=== PATIENT | male | born 1940 | race Asian ===

== ENCOUNTER → 2018-04-12 12:48 | Outpatient (CLI) | payer MEDICARE, SELFPAY ==
--- NOTE | 2018-04-12 | DI.ECHO.S_ITS ---
[facility] +---------+ : : [address] : : : : [id number] : : : : Phone: [phone]+ Echocardiogram Report + + :Name: ASNTIAGO GAMEZ V Study Date: 04/12/2018 Height: 65 in : :[facility] Exam Location: IS Weight: 210 lb : : Gender: Male BSA: 2.0 m2 : :: 1940 Age: 77 yrs BP: 140/90 mmHg: :Reason For Study: Aortic, Ascending Aneurysm : :Ordering Physician: Jamin : :Zurdo Performed By: Amanda Page : + + Interpretation Summary The left ventricle is normal in size. The ejection fraction is estimated to be 60-65%. There has been no significant change in LV EF since the previous study. The right ventricle is grossly normal size. The right ventricular systolic function is normal. There is mild to moderate mitral regurgitation. Compared to the prior echo study, there has been no change in the severity of mitral regurgitation. There is a bioprosthetic aortic valve. The prosthetic aortic valve is well-seated. The peak aortic velocity is 2.34 m/sec. The aortic valve mean gradient is 11.4 mmHg. The peak aortic velocity on the previous exam was 2.68 m/sec. 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 In 04/07/2016 and 11/2014 it was 5.1 cm in diameter. In 05/2011 it was 4.9 cm in diameter). On CT scan maximum diameter was 5.0 cm done in 08/2013. . Procedure: A two-dimensional transthoracic echocardiogram with color flow and Doppler was performed. The study quality was technically adequate. Comparison is made with the echocardiogram of 04/07/2016. The patient was in sinus bradycardia with heart rates between 56-61 bpm during the exam. The patient had a bundle branch block rhythm during the exam. Left Ventricle: The left ventricle is normal in size. Proximal septal thickening is noted. There is no echo evidence for significant left ventricular outflow tract obstruction. There is no thrombus. The ejection fraction is estimated to be 60-65%. There has been no significant change since the previous study. There are no focal wall motion abnormalities. MV E/A: 0.96 Med Peak E' [place]: 3.6 cm/sec E/E' med: 23.0. Right Ventricle: The right ventricle is not well visualized. The right ventricle is grossly normal size. The right ventricular systolic function is normal. Atria: The left atrium is mildly dilated. The left atrium has mildly decreased in size since the prior echo exam. Right atrial size is normal. There is no Doppler evidence for an interatrial shunt. Mitral Valve: The mitral valve leaflets are mildly calcified. There is mild mitral annular calcification. There is mild to moderate mitral regurgitation. Compared to the prior echo study, there has been no change in the severity of mitral regurgitation. Aortic Valve: There is a bioprosthetic aortic valve. The prosthetic aortic valve is well-seated. The peak aortic velocity is 2.34 m/sec. The aortic valve mean gradient is 11.4 mmHg. The peak aortic velocity on the previous exam was 2.68 m/sec. No aortic regurgitation is present. Tricuspid Valve: The tricuspid valve is normal. There is mild tricuspid regurgitation. The right ventricular systolic pressure is estimated at 26 mmHg assuming a right atrial pressure of 3 mm Hg. Pulmonic Valve: The pulmonic valve is not well visualized. There is mild to moderate pulmonic regurgitation. Great Vessels: The aortic root is normal size. 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 The aortic arch could not be visualized. The pulmonary artery is not well visualized, but is probably normal size. The IVC is of normal diameter and collapses greater than 50% with a sniff. This suggests a low right atrial pressure of 3 mm Hg. Pericardium/ Pleura There is no pericardial effusion. There is no pleural effusion. MMode/2D Measurements & Calculations LVIDd: 4.7 cm LVOT diam: 1.9 cm LVIDs: 3.2 cm Ao root diam: 3.6 cm FS: 31.9 % asc Aorta Diam: 5.1 cm EPSS: 1.0 cm IVSd: 1.0 cm LVPWd: 0.94 cm LV santillan. diameter/BSA (cm/m^2): 2.3 LV sys. diameter/BSA (cm/m^2): 1.6 LA A2 area: 25.0 cm2 RA long axis: 4.7 cm LA A4 area: 25.2 cm2 RA area: 16.2 cm2 LA length (vol): 6.7 cm RA vol: 47.4 ml LA vol: 79.8 ml RA : 23.4 ml/m2 LA vol index: 39.5 ml/m2 IVC diam: 1.2 cm RVD1 (basal): 3.9 cm Doppler Measurements & Calculations Ao V2 max: 234.0 cm/sec LVOT Max [place]: 69.2 cm/sec Ao V2 mean: 154.9 cm/sec LV V1 max P.9 mmHg Ao max P.9 mmHg LV V1 VTI: 15.7 cm Ao mean P.4 mmHg MELANIE(I,D): 0.88 cm2 Ao V2 VTI: 48.1 cm MELANIE(V,D): 0.80 cm2 sev ratio: 0.33 MELANIE indexed to BSA (cm^2/m^2): 0.44 MV E max dakota: 83.1 cm/sec TR max dakota: 241.2 cm/sec MV A max dak[place]: 86.8 cm/sec TR max P.3 mmHg MV E/A: 0.96 PA V2 max: 74.2 cm/sec Med Peak E' [place]: 3.6 cm/sec PA V2 mean: 44.0 cm/sec E/E' med: 23.0 PA mean P.94 mmHg Lat Peak E' [place]: 7.9 cm/sec PA Accel Time: 0.12 sec E/E' lat: 10.5 E/e' average: 16.7 MV dec time: 0.18 sec MV P1/2t: 51.5 msec MV P1/2t max dakota: 84.2 cm/sec MVA(P1/2t): 4.3 cm2 Reading Physician:PM
== END ==
PROVIDERS: Family Provider Family Medicine; PCP Family Medicine; Visit Provider Internal Medicine Cardiovascular Disease
DX: I08.1 Rheumatic disorders of both mitral and tricuspid valves (principal); I71.2 Thoracic aortic aneurysm, without rupture; Z95.2 Presence of prosthetic heart valve
CPT/HCPCS: 93306

== ENCOUNTER → 2018-04-26 07:14 | Outpatient (CLI) | payer MEDICARE, SELFPAY ==
[2018-04-26 07:58] LABS: Hematocrit 45.2 % (41-53); Hemoglobin 15.4 g/dL (13.5-17.5); Mean Corpuscular HGB Conc 34.1 % (30-36); Mean Corpuscular Volume 93.8 fL (80-100); Platelet Count 188 X10^3/uL (150-400); Red Blood Cell Count 4.81 X10^6/uL (4.5-5.9); Red Cell Distribution Width 13.3 % (11.6-14.8); White Blood Cell Count 5.1 X10^3/uL (4.5-11.0)
[2018-04-26 08:20] LABS: BUN Creatinine Ratio 17.8 (6-22); Blood Urea Nitrogen 16 mg/dL (9-20); Calcium 9.1 mg/dL (8.4-10.2); Carbon Dioxide 34 mmol/L (22-32); Chloride 99 mmol/L (98-107); Cholesterol 97 mg/dL (140-199); Estimated Glomerular Filt Rate > 60.0 mL/min (>60); Glucose 125 mg/dL (80-110); HDL Cholesterol 45 mg/dL (40-60); HEMOLYSIS < 15 (0-50); LDL Cholesterol Calculated 36 mg/dL (<100); Potassium 4.5 mmol/L (3.4-5.1); Sodium 141 mmol/L (137-145); Triglycerides 82 mg/dL (35-150)
[2018-04-26 09:03] LABS: Hemoglobin A1C% w Est Avg Glu 6.9 % (4.0-6.0)
[2018-04-26 10:26] LABS: Vitamin D 25 Hydroxy (D3) 59.5 ng/mL (30.0-100.0)
== END ==
PROVIDERS: PCP Student in an Organized Health Care Education/Training Program; Visit Provider Student in an Organized Health Care Education/Training Program
DX: E78.00 Pure hypercholesterolemia, unspecified (principal); I10 Essential (primary) hypertension; E55.9 Vitamin D deficiency, unspecified; R35.0 Frequency of micturition; E66.9 Obesity, unspecified; Z95.2 Presence of prosthetic heart valve
CPT/HCPCS: 36415; 80048; 80061; 82306; 83036; 84153; 85027

== ENCOUNTER → 2018-10-11 11:11 | Outpatient (CLI) | payer MEDICARE, SELFPAY ==
[2018-10-11 12:27] LABS: Hemoglobin A1C% w Est Avg Glu 5.7 % (4.0-6.0)
[2018-10-11 13:10] LABS: BUN Creatinine Ratio 17.5 (6-22); Blood Urea Nitrogen 14 mg/dL (9-20); Calcium 9.5 mg/dL (8.4-10.2); Carbon Dioxide 31 mmol/L (22-32); Chloride 94 mmol/L (98-107); Estimated Glomerular Filt Rate > 60.0 mL/min (>60); Glucose 82 mg/dL (80-110); HEMOLYSIS < 15 (0-50); Potassium 4.6 mmol/L (3.4-5.1); Sodium 134 mmol/L (137-145)
== END ==
PROVIDERS: PCP Student in an Organized Health Care Education/Training Program; Visit Provider Student in an Organized Health Care Education/Training Program
DX: E11.9 Type 2 diabetes mellitus without complications (principal)
CPT/HCPCS: 36415; 80048; 83036

== ENCOUNTER → 2018-11-30 16:39 | Outpatient (CLI) | payer MEDICARE, SELFPAY ==
[2018-11-30 18:54] LABS: BUN Creatinine Ratio 22.5 (6-22); Blood Urea Nitrogen 18 mg/dL (9-20); Calcium 9.3 mg/dL (8.4-10.2); Carbon Dioxide 28 mmol/L (22-32); Chloride 101 mmol/L (98-107); Estimated Glomerular Filt Rate > 60.0 mL/min (>60); Glucose 88 mg/dL (80-110); HEMOLYSIS 20 (0-50); Potassium 4.3 mmol/L (3.4-5.1); Sodium 138 mmol/L (137-145)
[2018-11-30 19:25] LABS: Thyroid Stimulating Hormone 1.71 uIU/mL (0.47-4.68)
== END ==
PROVIDERS: PCP Student in an Organized Health Care Education/Training Program; Visit Provider Internal Medicine Cardiovascular Disease
DX: I49.1 Atrial premature depolarization (principal); I10 Essential (primary) hypertension
CPT/HCPCS: 36415; 80048; 83735; 84443

== ENCOUNTER → 2019-05-01 15:43 | Outpatient (CLI) | payer MEDICARE, SELFPAY ==
--- NOTE | 2019-05-01 15:45 | DI.US.S_ITS ---
PROCEDURE: US PERIPH VENOUS LOW EXTREM RT INDICATIONS: RIGHT CALF PAIN, RULE OUT DEEP VEIN THROMBOSIS TECHNIQUE: Real-time imaging, as well as color and pulse Doppler interrogation, were performed of the lower extremity deep veins from the inguinal ligament to the popliteal fossa. COMPARISON: None. FINDINGS: The common femoral, femoral and popliteal veins are normally compressible, and free of intraluminal thrombus. Color and pulse Doppler demonstrate normal phasic intraluminal flow. There is normal augmentation response to distal compression maneuver. IMPRESSION: No visualized deep venous thrombosis. Dictated by: Zoe Candelaria M.D. on 05/01/2019 at 16:40 Approved by: Zoe Candelaria M.D. on 05/01/2019 at 16:40
== END ==
PROVIDERS: PCP Student in an Organized Health Care Education/Training Program; Visit Provider Nurse Practitioner
DX: M79.661 Pain in right lower leg (principal)
CPT/HCPCS: 93971

== ENCOUNTER → 2019-12-15 15:44 | Outpatient (CLI) | payer MEDICARE, SELFPAY ==
[2019-12-15 16:21] LABS: Hemoglobin A1C% w Est Avg Glu 6.4 % (4.0-6.0)
[2019-12-15 16:25] LABS: BUN Creatinine Ratio 18.3 (6-22); Blood Urea Nitrogen 17 mg/dL (9-20); Calcium 9.5 mg/dL (8.4-10.2); Carbon Dioxide 31 mmol/L (22-32); Chloride 98 mmol/L (98-107); Estimated Glomerular Filt Rate > 60.0 mL/min (>60); Glucose 90 mg/dL (80-110); HEMOLYSIS < 15 (0-50); Potassium 5.1 mmol/L (3.4-5.1); Sodium 136 mmol/L (137-145)
[2019-12-15 17:00] LABS: Creatinine Urine Random 88.3 mg/dL
[2019-12-15 17:42] LABS: Microalbumi Creatinin Ratio Ur 6.7 ug/mg CR (<30); Microalbumin Urine Random < 0.6 mg/dL (0-1.6)
== END ==
PROVIDERS: PCP Student in an Organized Health Care Education/Training Program; Referring Provider Student in an Organized Health Care Education/Training Program; Visit Provider Student in an Organized Health Care Education/Training Program
DX: E11.9 Type 2 diabetes mellitus without complications (principal); I10 Essential (primary) hypertension
CPT/HCPCS: 36415; 80048; 82043; 82570; 83036

== ENCOUNTER → 2020-01-03 07:02 | Outpatient (CLI) | payer MEDICARE, SELFPAY ==
[2020-01-03 08:28] LABS: Cholesterol 91 mg/dL (140-199); HDL Cholesterol 51 mg/dL (40-60); LDL Cholesterol Calculated 24 mg/dL (<100); Magnesium 1.9 mg/dL (1.6-2.3); Triglycerides 78 mg/dL (35-150)
[2020-01-03 09:00] LABS: Thyroid Stimulating Hormone 0.924 uIU/mL (0.47-4.68)
== END ==
PROVIDERS: PCP Student in an Organized Health Care Education/Training Program; Referring Provider Internal Medicine Cardiovascular Disease; Visit Provider Internal Medicine Cardiovascular Disease
DX: I10 Essential (primary) hypertension (principal); I48.91 Unspecified atrial fibrillation
CPT/HCPCS: 36415; 80061; 83735; 84443

== ENCOUNTER → 2020-01-16 06:47 | Outpatient (CLI) | payer MEDICARE, SELFPAY ==
--- NOTE | 2020-01-16 07:11 | DI.ECHO.S_ITS ---
Echocardiogram Report + + :Name: SANTIAGO GAMEZ V Study Date: 01/16/2020 Height: 65 in : :[facility] Weight: 202 lb : : Gender: Male BSA: 2.0 m2 : :: 1940 Age: 79 yrs BP: 152/70 mmHg: :Reason For Study: Atrial Fibrillation : :Ordering Physician: LEXIE, : :AYO Performed By: Ayde Davila : :Referring: AYO OWEN : + + Interpretation Summary The patient was in atrial fibrillation with heart rates between 44-60 bpm during the exam (new finding). The left ventricle is normal in size. The ejection fraction is estimated to be 60-65%. The right ventricle is mildly dilated. The right ventricular systolic function is normal. There is moderate to severe mitral regurgitation. Compared to the prior echo study, there has been an increase in the severity of mitral regurgitation. There is a bioprosthetic aortic valve. The prosthetic aortic valve is well-seated. The peak aortic velocity is 2.39 m/sec. The aortic valve mean gradient is 12.5 mmHg. The peak aortic velocity on the previous exam was 2.7 m/sec. There is no hemodynamically significant valvular aortic stenosis. There is mild to moderate tricuspid regurgitation. Compared to the prior echo exam, there has been an increase in TR severity. The right ventricular systolic pressure is estimated to be at least 53 mmHg based on an estimated right atrial pressure of 8 mm Hg. Compared to the prior echo exam, there has been an increase in the severity of pulmonary hypertension. 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 5.1 cm in diameter. In November 2014, March 2016, April 2018 and November 2018, it was 5.1 cm as well. Procedure: A two-dimensional transthoracic echocardiogram with color flow and Doppler was performed. The study quality was technically adequate. Comparison is made with the echocardiogram of 12/01/2018. The patient was in atrial fibrillation with heart rates between 44-60 bpm during the exam. Left Ventricle: The left ventricle is normal in size. Proximal septal thickening is noted. There is no echo evidence for significant left ventricular outflow tract obstruction. There is no thrombus. The ejection fraction is estimated to be 60-65%. There are no focal wall motion abnormalities. Diastolic function could not be accurately assessed due to atrial fibrillation. Right Ventricle: The right ventricle is mildly dilated. The right ventricular systolic function is normal. Atria: The left atrium is severely dilated. The left atrium has significantly increased in size since the prior echo exam. The right atrium is mildly dilated. There is no Doppler evidence for an interatrial shunt. Mitral Valve: The mitral valve leaflets appear mildly thickened, but open well. There is mild to moderate mitral annular calcification. There is moderate to severe mitral regurgitation. Compared to the prior echo study, there has been an increase in the severity of mitral regurgitation. Aortic Valve: There is a bioprosthetic aortic valve. The prosthetic aortic valve is well-seated. The peak aortic velocity is 2.39 m/sec. The aortic valve mean gradient is 12.5 mmHg. The peak aortic velocity on the previous exam was 2.7 m/sec. There is no hemodynamically significant valvular aortic stenosis. There is no aortic regurgitation. Tricuspid Valve: The tricuspid valve is normal. The right ventricular systolic pressure is estimated to be at least 53 mmHg based on an estimated right atrial pressure of 8 mm Hg. There is mild to moderate tricuspid regurgitation. Compared to the prior echo exam, there has been an increase in TR severity. Compared to the prior echo exam, there has been an increase in the severity of pulmonary hypertension. Pulmonic Valve: The pulmonic valve is not well seen, but is grossly normal. There is mild to moderate pulmonic regurgitation. Great Vessels: The aortic root is not well visualized. 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 The IVC is dilated (diameter is greater than 2.1 cm) yet it collapses greater than 50% with a sniff. This suggests a right atrial pressure of 8 mm Hg. Pericardium/ Pleura There is no pericardial effusion. There is no pleural effusion. MMode/2D Measurements & Calculations LVIDd: 5.1 cm LVOT diam: 2.0 cm LVIDs: 3.2 cm asc Aorta Diam: 5.1 cm FS: 37.4 % EPSS: 0.96 cm IVSd: 1.1 cm LVPWd: 0.95 cm LV santillan. diameter/BSA (cm/m^2): 2.5 LV sys. diameter/BSA (cm/m^2): 1.6 LA A2 area: 33.0 cm2 RA long axis: 5.7 cm LA A4 area: 26.9 cm2 RA area: 21.1 cm2 LA length (vol): 6.3 cm RA vol: 66.8 ml LA vol: 120.5 ml RA : 33.6 ml/m2 LA vol index: 60.6 ml/m2 IVC diam: 2.4 cm RVD1 (basal): 4.3 cm TAPSE: 2.4 cm Doppler Measurements & Calculations Ao V2 max: 239.9 cm/sec LVOT Max [place]: 68.8 cm/sec Ao V2 mean: 164.5 cm/sec LV V1 max P.9 mmHg Ao max P.1 mmHg LV V1 VTI: 17.7 cm Ao mean P.5 mmHg MELANIE(I,D): 0.91 cm2 Ao V2 VTI: 59.8 cm MELANIE(V,D): 0.88 cm2 sev ratio: 0.30 MELANIE indexed to BSA (cm^2/m^2): 0.46 MV E max dak[place]: 136.6 cm/sec TR max dakota: 336.4 cm/sec Med Peak E' [place]: 5.4 cm/sec TR max P.3 mmHg E/E' med: 25.1 PA V2 max: 88.9 cm/sec Lat Peak E' [place]: 8.6 cm/sec PA V2 mean: 50.4 cm/sec E/E' lat: 16.0 PA mean P.3 mmHg E/e' average: 20.5 PA pr(Accel): 44.7 mmHg MV dec time: 0.20 sec MR ERO: 0.22 cm2 MR PISA: 3.1 cm2 SV(LVOT): 54.2 ml MR flow rate: 124.9 cm3/sec MR PISA radius: 0.71 cm Reading Physician:04:52 PM
== END ==
PROVIDERS: PCP Student in an Organized Health Care Education/Training Program; Referring Provider Internal Medicine Cardiovascular Disease; Visit Provider Internal Medicine Cardiovascular Disease
DX: I08.1 Rheumatic disorders of both mitral and tricuspid valves (principal); I77.89 Other specified disorders of arteries and arterioles; I48.91 Unspecified atrial fibrillation; Z95.2 Presence of prosthetic heart valve
CPT/HCPCS: 93306

== ENCOUNTER → 2020-01-23 09:53 | Outpatient (CLI) | payer MEDICARE, SELFPAY ==
--- NOTE | 2020-01-23 11:24 | DIET.PN ---
DIABETES Nutrition Initial Assessment:? ASSESS:?? Mr. Lainez is an 79 yom seen for type 2 diabetes. He reports he was diagnosed in 2018, but has maintained good control through diet, exercise, and low dose metformin. He is primarily concerned with his inability to lose weight. His joins him today to provide food history. They follow a primarily healthy diet, but it is high in carbohydrates. She reports frequent snacking and overeating at parties. They both admit to weight gain during the pandemic, but are now back to their previous exercise routine and are working to lose weight. ?He does not currently monitor his BG, but agrees to purchase a glucometer to check a few times a week. LABS: Per pt report:? A1c: 6.4 ? MEDS:?? metformin 500mg BID ? DIET: Per 24-hour recall:? B: steal cut oats (1/2 cup), almond milk, nuts, blueberries, whole banana; whole avocado L: vegetable soup w/ ground turkey (homemade mixed vegetable); sandwich on multigrain D: cereal Sn: yogurt ? Weight: 201# Height: 66? BMI: 32.5 ? Exercise:? Fitness center- 1 hr, 3x/wk NUTRITION DX 1. Altered Nutrition related labs related to impaired glucose metabolism, lack of previous exposure to accurate nutrition information as evidenced by pt report, dx of diabetes, previous diet high in refined carbohydrates.? INTERVENTION(s): 1. Discussed pathophysiology of diabetes. Reviewed A1c and its correlation to blood glucose numbers. Discussed recommended BG ranges. 2. Discussed importance of self-monitoring, how often, and when to check. Provided demonstration on use of glucometer. 3. Reviewed hyper/hypoglycemia and treatment. 4. Reviewed safe disposal of equipment (strip/lancets/insulin needles). 5. Discussed impact of nutrition/diet on blood sugar control.? Discussed fed versus non-fed state.?? 6. Discussed the effect of carbohydrates/protein/fat on blood sugar control.? Stressed importance of consistent carbohydrate intake at each meal and provided instructions for recommended servings/portions of carbohydrates/protein per meal. Provided pt with educational material. 7. Reviewed carbohydrate counting and measuring carbohydrate content via serving sizes and reading nutrition labels.? Provided handouts.?? 8. Discussed the difference between simple versus complex carbohydrates and the effect of fiber on blood sugar control.? Discussed various methods to increase fiber content in diet. 9. Stressed importance of meal timing and not going >4-5 hours between meals. Encouraged adding protein to each meal to support glucose control. Provided list of protein foods. Discussed best protein options for heart health and to alleviate hunger. Patient agreeable. 10. Discussed healthy weight loss through diet and exercise to increase lean muscle mass.? Pt agreeable to increase exercise to daily. MONITOR/EVALUATE: Anticipate good compliance.?Pt will call for nutrition follow up to review BG, weight, food record and discuss protein/fat.
== END ==
PROVIDERS: PCP Student in an Organized Health Care Education/Training Program; Referring Provider Student in an Organized Health Care Education/Training Program; Visit Provider Student in an Organized Health Care Education/Training Program
DX: E11.9 Type 2 diabetes mellitus without complications (principal); E66.9 Obesity, unspecified; Z68.32 Body mass index [BMI] 32.0-32.9, adult; Z79.84 Long term (current) use of oral hypoglycemic drugs; Z71.3 Dietary counseling and surveillance
CPT/HCPCS: 97802

== ENCOUNTER 2020-06-08 11:48 | Emergency (ER) | payer MEDICARE, SELFPAY ==
[2020-06-08 11:50] VITALS: BP 169/74; PULSE 73; RESP 22; TEMP 36.6; O2SAT 99; BMI 32.5
--- NOTE | 2020-06-08 12:57 | DI.US.S_ITS ---
PROCEDURE: US ARTERIAL DUPLEX LE RT INDICATIONS: r/o pseudo aneurysm after procedure TECHNIQUE: Color and pulse Doppler interrogation was performed of the right groin arterial system, with image documentation. COMPARISON: None. FINDINGS: No pseudoaneurysm or AV fistula identified. Common femoral and profunda and proximal SFA are patent. Mildly prominent right inguinal lymph node with fatty hilum. IMPRESSION: No evidence of complication related to recent endovascular procedure. Comment: Preliminary findings were reported by the gallery or museum curator to the referring provider at the time of study completion. Dictated by: Alberto Sequeira M.D. on 06/08/2020 at 15:45 Approved by: Alberto Sequeira M.D. on 06/08/2020 at 15:47
--- NOTE | 2020-06-08 13:11 | ED_ITS ---
HPI - Wound/Laceration General Chief Complaint: Wound/Laceration Stated Complaint: Bleeding From Pace Maker Procedure Time Seen by Provider: 06/08/20 12:25 Source: patient and family Mode of arrival: Ambulatory Limitations: no limitations History of Present Illness HPI narrative: Patient is a 79-year-old male who had a pacemaker placed 4 days ago through the right groin. He is on Eliquis. and he states that he continues to bleed and ooze they are changing the dressing every hour or 2 and have been for the last 4 days. It does not seem to be slowing. Onset (ago): day(s) Related Data Home Medications Medication Instructions Recorded Confirmed DIPHENHYDRAMINE CITRATE/IBUP 200 mg PO PRN #0 07/29/12 02/16/20 (ADVIL PM) [MULTIVITAMIN] PO QDAY #0 07/29/12 02/16/20 [VITAMIN D-3] 2,000 unit PO QDAY #0 07/29/12 02/16/20 [GLUCOSAMINE/MSM] 3,000 mg PO QDAY #0 04/22/17 02/16/20 [ginkgo biloba] 1 tab PO QDAY #0 08/04/17 02/16/20 aspirin 81 mg tablet,delayed 81 mg PO DAILY 02/11/19 02/16/20 release Previous Rx's Medication Instructions Recorded allopurinol 100 mg tablet 100 mg PO QDAY #90 tab 05/24/19 losartan 25 mg tablet 25 mg PO QDAY #90 tab 12/15/19 metoprolol succinate 50 mg 25 mg PO DAILY #45 tab 12/15/19 tablet,extended release 24 hr apixaban 5 mg tablet 5 mg PO BID #30 tab 01/02/20 atorvastatin 40 mg tablet 40 mg PO DAILY #90 tab 04/30/20 metformin 500 mg tablet 1,000 mg PO BID #360 tab 05/07/20 Allergies Allergy/AdvReac Type Severity Reaction Status Date / Time latex Allergy Mild SWOLLEN Verified 06/08/20 11:57 FINGERS Sulfa (Sulfonamide Allergy Mild SWOLLEN Verified 06/08/20 11:57 Antibiotics) FINGERS lisinopril AdvReac Intermediate SWELLING Verified 06/08/20 11:57 hydrochlorothiazide AdvReac Mild SWELLING Verified 06/08/20 11:57 Review of Systems Review of Systems Narrative: GENERAL: Denies chills,fever HEENT: Denies throat pain RESPIRATORY: Denies dyspnea, cough, wheezing CARDIOVASCULAR: Denies chest pain, palpitations GASTROINTESTINAL: Denies nausea, vomiting MUSCULOSKELETAL: Denies extremity pain, injury SKIN: See HPI NEUROLOGIC: Denies weakness, dizziness, headache, numbness 8 point review of systems is negative except for those stated above and HPI Patient History Medical History (Updated 06/08/20 @ 14:19 by Martha Daily DO) Aortic stenosis Ascending aortic aneurysm Cataracts, bilateral (~2015) Chickenpox Colon polyps (01/2004) Coronary artery disease Gout Hx of varicose veins Hyperlipidemia Hypertension Measles Mumps Onychomycosis Osteoarthritis Sleep apnea Upper GI bleed Surgical History Hx of aortic valve replacement (12/2009) Hx of cataract surgery (09/2015) Hx of colonoscopy with polypectomy (01/2004) Hx of coronary artery bypass graft Hx of knee surgery (2003) Hx of total knee arthroplasty (01/2013) Hx of varicose vein stripping (1974) Family History Brother No problems noted. Father Diabetes mellitus Heart disease Mother No problems noted. Social History Smoking Status: Never smoker alcohol intake: never substance use type: does not use Smoking Status: Never smoker Substance Use Type: does not use Exam Initial Vital Signs Initial Vital Signs: Vital Signs Temperature 97.8 F 06/08/20 11:50 Pulse Rate 73 06/08/20 11:50 Respiratory Rate 22 06/08/20 11:50 Blood Pressure 169/74 H 06/08/20 11:50 Pulse Oximetry 99 06/08/20 11:50 GENERAL: Alert pleasant elderly male and in no acute distress. HEENT: Head atraumatic,EOMI, pupils reactive, face symmetric, moist mucous membranes CARDIOVASCULAR: Peripheral pulses intact RESPIRATORY: Speaks in full sentences no respiratory distress ABDOMEN: Soft, nontender. Normoactive bowel sounds all 4 quadrants. No guarding or rebound. EXTREMITIES: Normal range of motion, no clubbing or edema. Neurovascularly intact NEUROLOGICAL: Alert and oriented x4.Normal gait and speech. SKIN: Right groin contusion small incision site wheezing not pulsating strong femoral pulse intact Course Orders Ordered: ED Orders 06/08/20 12:57 US arterial duplex LE RT Stat Vital Signs Vital signs: Vital Signs - 8 hr 06/08/20 11:50 06/08/20 14:03 06/08/20 14:30 Temperature 97.8 F Pulse Rate 73 68 61 Respiratory Rate 22 20 18 Blood Pressure 169/74 H 149/71 H 147/67 H Pulse Oximetry 99 100 100 MDM - Wound/Laceration Imaging Data US - DVT: Radiologist's Impression: IMPRESSION: No evidence of complication related to recent endovascular procedure. Comment: Preliminary findings were reported by the movement assembler to the referring provider at the time of study completion. Dictated by: Alberto Sequeira M.D. on 06/08/2020 at 15:45 Approved by: Alberto Sequeira M.D. on 06/08/2020 at 15:47 [facility] Narrative Medical decision making narrative: Steri-Strips is placed. An actually after holding pressure there is no further using while laying down. No evidence of pseudoaneurysm on ultrasound. Discharge Plan Departure Patient Disposition: Home Clinical Impression: Skin wound from surgical incision Instructions: DI for Puncture Wound Activity Restrictions/Additional Instructions: *You have been diagnosed with incisional wound from procedure *What to do: At this time keep Steri-Strips until it falls off. If it falls off today or tomorrow reapply. Apply pressure for 30-45 minute. *Continue to take medications as directed *Follow up with your primary care provider in 2-3 days *Return to ER if you should have persistent bleeding despite pressure or any new, worsening or concerning symptoms Prescriptions: No Action DIPHENHYDRAMINE CITRATE/IBUP (ADVIL PM) 200 mg PO PRN Qty: 0 RF: 0 [MULTIVITAMIN] PO QDAY Qty: 0 RF: 0 [VITAMIN D-3] 2,000 unit PO QDAY Qty: 0 RF: 0 [GLUCOSAMINE/MSM] 3,000 mg PO QDAY Qty: 0 RF: 0 [ginkgo biloba] 1 tab PO QDAY Qty: 0 RF: 0 allopurinol 100 mg tablet 100 mg PO QDAY Qty: 90 RF: 3 apixaban 5 mg tablet 5 mg PO BID Qty: 30 RF: 0 atorvastatin 40 mg tablet 40 mg PO DAILY Qty: 90 RF: 2 metformin 500 mg tablet 1,000 mg PO BID Qty: 360 RF: 0 aspirin 81 mg tablet,delayed release (DR/EC) 81 mg PO DAILY RF: 0 losartan 25 mg tablet 25 mg PO QDAY Qty: 90 RF: 3 metoprolol succinate 50 mg tablet extended release 24 hr 25 mg PO DAILY Qty: 45 RF: 3 Referrals: Butch Enriquez MD [Primary Care Provider] - Rah Enciso MD [Physician] -
[2020-06-08 14:03] VITALS: BP 149/71; PULSE 68; RESP 20; O2SAT 100
[2020-06-08 14:30] VITALS: BP 147/67; PULSE 61; RESP 18; O2SAT 100
== END 2020-06-08 14:33 | disposition home or self-care (01) ==
PROVIDERS: Emergency Provider Emergency Medicine; PCP Student in an Organized Health Care Education/Training Program
DX: T81.89XA Other complications of procedures, not elsewhere classified, initial encounter (principal); Z95.0 Presence of cardiac pacemaker
CPT/HCPCS: 93926; 99281; 99283

== ENCOUNTER → 2020-06-27 14:49 | Outpatient (CLI) | payer MEDICARE, SELFPAY ==
[2020-06-27 15:54] LABS: Hemoglobin A1C% w Est Avg Glu 6.3 % (4.0-6.0)
== END ==
PROVIDERS: PCP Student in an Organized Health Care Education/Training Program; Referring Provider Student in an Organized Health Care Education/Training Program; Visit Provider Student in an Organized Health Care Education/Training Program
DX: E11.9 Type 2 diabetes mellitus without complications (principal); E66.9 Obesity, unspecified
CPT/HCPCS: 36415; 83036

== ENCOUNTER 2020-12-05 11:15 | Outpatient (RCR) | payer MEDICARE, SELFPAY ==
--- NOTE | 2020-11-20 12:30 | PT.OIE ---
Current Diagnoses Iliotibial band syndrome, left leg (11/20/20) Past Medical History (Last Reviewed 08/15/20 @ 10:03 by Julien Ulloa MD) Aortic stenosis Ascending aortic aneurysm Cataracts, bilateral (~2015) Chickenpox Colon polyps (01/2004) Coronary artery disease Gout Hx of varicose veins Hyperlipidemia Hypertension Measles Mumps Onychomycosis Osteoarthritis Sleep apnea Upper GI bleed Past Surgical History (Last Reviewed 08/15/20 @ 10:03 by Julien Ulloa MD) Hx of aortic valve replacement (12/2009) Hx of cataract surgery (09/2015) Hx of colonoscopy with polypectomy (01/2004) Hx of coronary artery bypass graft Hx of knee surgery (2003) Hx of total knee arthroplasty (01/2013) Hx of varicose vein stripping (1974) Visit Care Team Role Provider Type Butch Enriquez MD Attending Provider Physician Primary Care Provider Referring Provider Specialty: Internal Medicine Address: [address] [place] [address], [address], [facility] Email: [email or web address] Physical Therapy Initial Evaluation PT-OP-A Visit Information Start: 11/20/20 08:08 Freq: Status: Active Protocol: Document 11/20/20 12:02 (Rec: 11/20/20 12:30 [email or web address]) Out-Patient Physical Therapy Visit Information Visit Information Visit Type Initial Evaluation Visit Start Time 11:15 Visit Stop Time 12:00 Total Visit Minutes 45 Visit Number 1/99 Number of PAINTING SUPERVISOR Visits 0 Evaluation Information Evaluation Date 11/20/20 Precautions Precautions DM2 pacemaker HTN PT-OP-B Current Condition Start: 11/20/20 08:08 Freq: Status: Active Protocol: Document 11/20/20 12:02 (Rec: 11/20/20 12:30 [email or web address]) Current Condition History of Current Condition Onset Date 2.5 months ago Current Complaints lateral thigh pain, pain during standing History of Current Condition Joelle Leigh) is a 79yo male here with his for new onset of bilateral thigh pain since 2.5 months ago. No known injury noted. He stated he started having trouble sleeping on his side due pain at lateral knee and lateral thigh. Symptoms tend to get worse with prolonged standing and walking, especially extending his hip fully. It also gets worse towards the end of the day and better in the morning. Pt normally goes to the gym 3 times /week to have a 1hr workout with biking and some upper body strengthening exercises. His stated pt does like to sit a lot at home. Prior Treatments and Tests pt had bilaterak TKA Treatment Goals Patient/Caregiver Goals 1. To reduce his lateral thigh pain Personal Factors Other Personal Factors That May Effect DMII Therapy/Recovery PT-OP-C Subjective Start: 11/20/20 08:08 Freq: Status: Active Protocol: Document 11/20/20 12:02 (Rec: 11/20/20 12:30 [email or web address]) Patient Questionnaires Lower Extremity Functional Scale LEFS Score 51 LEFS Impairment 20 to 39% Impaired (Score 48- 62) OP-PT Pain Assessment Location Bilateral thighs Pain Location Details lateral knee and lateral thighs Scale Used 3-7 Description Aching,Pressure,With Movement Frequency Frequent Pain Aggravating Factors Position,ADL's,Activity, Exercise,Standing Pain Alleviating Factors Inactivity,Lying Supine, Sitting PT-OP-D Balance Start: 11/20/20 08:08 Freq: Status: Active Protocol: Document 11/20/20 12:02 (Rec: 11/20/20 12:30 [email or web address]) Balance Tests Single Limb Standing Single Limb- Right 5 Single Limb- Left 5 PT-OP-F Manual Assessment Start: 11/20/20 08:08 Freq: Status: Active Protocol: Document 11/20/20 12:02 (Rec: 11/20/20 12:30 [email or web address]) Manual Assessments Soft Tissue Assessment Soft Tissue Mobility Assessment significant hypertonicity at distal lateral thigh and lateral knee bilaterally significant hypertonicity at gluteal muscle group PT-OP-G Mobility & Gait Start: 11/20/20 08:08 Freq: Status: Active Protocol: Document 11/20/20 12:02 (Rec: 11/20/20 12:30 [email or web address]) OP Gait Assessment Gait Deviations General Gait Pattern Decreased Stride Length, Decreased Feet Clearance, Lateral Trunk Lean Factors Limiting Gait Function Factors Limiting Gait Function Decreased Activity Tolerance, Limited Range of Motion,Pain, Poor Balance Comments Gait Comments pt amb with increase lateral trunk lean bilaterally with mild knee varus pattern. pt hip extension at preswing only reaches neutral position. PT-OP-J Posture/Palpation/Skin Start: 11/20/20 08:08 Freq: Status: Active Protocol: Document 11/20/20 12:02 (Rec: 11/20/20 12:30 [email or web address]) Posture Evaluation Position Standing Knee Posture (L) Genu Varus,(R) Genu Varus PT-OP-K Range of Motion Start: 11/20/20 08:08 Freq: Status: Active Protocol: Document 11/20/20 12:02 (Rec: 11/20/20 12:30 [email or web address]) Lumbar Spine Range of Motion Lumbar Spine Active Degrees Comments toe touch test= 13 inches from floor, normal spinal curve but limited hip flexion lateral flexion to R= 19 inches from floor lateral flexion to L= 19 inches from floor Hip Goniometric Range of Motion Hip Right Active Hip ROM WFL No Testing Position Supine Straight Leg Raise 40 Extension 0 Left Active Hip ROM WFL No Testing Position Supine Straight Leg Raise 45 Extension 0 PT-OP-L Special Tests Start: 11/20/20 08:08 Freq: Status: Active Protocol: Document 11/20/20 12:02 (Rec: 11/20/20 12:30 [email or web address]) Special Tests Hip Special Tests Jesús Test Results +ve B Comments limited hip flexor flexibility and quad flexibility angelic test Test Results +ve B Comments tight TFL and IT band indicated bilaterally knee flexion rested at 30 degrees FADDIR Test Results +VE B Comments bilateral lateral thigh pain noted. PT-OP-M Strength Start: 11/20/20 08:08 Freq: Status: Active Protocol: Document 11/20/20 12:02 (Rec: 11/20/20 12:30 [email or web address]) Hip Strength Hip Manual Muscle Testing Right Flexion (L2) 4- Good- Extension (S1) 4- Good- Abduction 4- Good- Adduction 4- Good- Left Flexion (L2) 4- Good- Extension (S1) 4- Good- Abduction 4- Good- Adduction 4- Good- Knee Strength Knee Manual Muscle Testing Left Flexion (S2) 5 Normal Extension (L3) 5 Normal Right Flexion (S2) 5 Normal Extension (L3) 5 Normal PT-OP-Q Treatments Start: 11/20/20 08:08 Freq: Status: Active Protocol: Document 11/20/20 12:02 (Rec: 11/20/20 12:30 [email or web address]) Therapeutic Exercises Supine Exercises piriformis stretch Side bilateral Reps/Minutes 15sec x 5reps Comments for hEP PT-OP-T Assessment and Plan Start: 11/20/20 08:08 Freq: Status: Active Protocol: Document 11/20/20 12:02 (Rec: 11/20/20 12:30 [email or web address]) Physical Therapy Assessment Rehab Potential Rehabilitation Potential Excellent Evaluation Complexity Number of Personal Factors/Comorbidities 1-2 Number of Body Systems Impaired 1-2 Clinical Presentation at Evaluation Stable Impairments Impairments Activity Tolerance,Balance, Functional Activities, Functional Mobility,Gait,Pain, Posture,ROM,Soft Tissue Mobility,Strength,Transfers Goals hip mobility Impairment pt shows very limited hip mobility Short Term Goal (STG) pt will show improved hip mobility by increasing ROM on SLR and angelic test by 10 degrees which allows him to bend over for yard work easily STG Duration 4 weeks Real Estate Account Executive Goal (LTG) pt will show improved hip mobility by increasing ROM on SLR and angelic test by 15 degrees which improves his overall gait mechanics with longer stride. LTG Duration 8 weeks pain Impairment pt has pain with prolonged standing and walking Short Term Goal (STG) pt will have pain no more than 2/10 with standing so he can participate his yardwork daily . 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 LTG Duration 8 weeks LEFS Impairment pt scores 51 on LEFS Short Term Goal (STG) pt will score >60 on LEFS to show improved quality of life STG Duration 4 weeks Real Estate Account Executive Goal (LTG) pt will score >65 on LEFS to show improved quality of life LTG Duration 8 weeks Assessment Summary Assessment Joelle Leigh) is a 79 yo male here for his bilateral thigh and knee pain started 2. 5 months ago. Upon assessment, pt presents IT band syndrome who has very limited hip mobility grossly and positive for both Jesús and Angelic test. There's no signs of hip OA but poor flexibility in general which limits his ability to bend over, cross his legs and gait mechanics ( moderate lateral weight shift) Pt will benefit from skilled therapy to emphasize on improving his hip mobility to reduce mechanical stress on his IT pain. Physical Therapy Plan Frequency and Duration Frequency of Treatment 2x/Week Therapeutic Interventions Therapeutic Interventions Balance Training,Gait Training ,Home Exercise Program,Joint Mobilizations,Manual Therapy, Neuromuscular Re-education, Patient/Caregiver Education, Self-Care/Home Management,Soft Tissue Mobilization,Taping, Therapeutic Activities, Therapeutic Exercises Modalities Biofeedback,Cold Pack/Ice Massage,Electric Stimulation, Hot Packs,Infrared Therapy, Iontophoresis,Paraffin Bath, Traction- Mechanical Next Visit Focus/Plan Next Note Type Treatment Note Next Visit Plan pirifromis stretch figure 4 hamstring IT band stretc
--- NOTE | 2020-11-20 12:30 | PT.OPPOC ---
Physical, Occupational & Speech Therapy At [facility] Current Diagnoses Iliotibial band syndrome, left leg (11/20/20) Visit Care Team Role Provider Type Butch Enriquez MD Attending Provider Physician Primary Care Provider Referring Provider Specialty: Internal Medicine Address: [address] [place] [address], [address], [address] Email: [email or web address] Plan Of Care PT-OP-T Assessment and Plan Start: 11/20/20 08:08 Freq: Status: Active Protocol: Document 11/20/20 12:02 (Rec: 11/20/20 12:30 [email or web address]) Physical Therapy Assessment Rehab Potential Rehabilitation Potential Excellent Evaluation Complexity Number of Personal Factors/Comorbidities 1-2 Number of Body Systems Impaired 1-2 Clinical Presentation at Evaluation Stable Impairments Impairments Activity Tolerance,Balance, Functional Activities, Functional Mobility,Gait,Pain, Posture,ROM,Soft Tissue Mobility,Strength,Transfers Goals hip mobility Impairment pt shows very limited hip mobility Short Term Goal (STG) pt will show improved hip mobility by increasing ROM on SLR and angelic test by 10 degrees which allows him to bend over for yard work easily STG Duration 4 weeks Fpc Goal (LTG) pt will show improved hip mobility by increasing ROM on SLR and angelic test by 15 degrees which improves his overall gait mechanics with longer stride. LTG Duration 8 weeks pain Impairment pt has pain with prolonged standing and walking Short Term Goal (STG) pt will have pain no more than 2/10 with standing so he can participate his yardwork daily . 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 LTG Duration 8 weeks LEFS Impairment pt scores 51 on LEFS Short Term Goal (STG) pt will score >60 on LEFS to show improved quality of life STG Duration 4 weeks Fpc Goal (LTG) pt will score >65 on LEFS to show improved quality of life LTG Duration 8 weeks Assessment Summary Assessment Joelle Leigh) is a 79 yo male here for his bilateral thigh and knee pain started 2. 5 months ago. Upon assessment, pt presents IT band syndrome who has very limited hip mobility grossly and positive for both Jesús and Angelic test. There's no signs of hip OA but poor flexibility in general which limits his ability to bend over, cross his legs and gait mechanics ( moderate lateral weight shift) Pt will benefit from skilled therapy to emphasize on improving his hip mobility to reduce mechanical stress on his IT pain. Physical Therapy Plan Frequency and Duration Frequency of Treatment 2x/Week Therapeutic Interventions Therapeutic Interventions Balance Training,Gait Training ,Home Exercise Program,Joint Mobilizations,Manual Therapy, Neuromuscular Re-education, Patient/Caregiver Education, Self-Care/Home Management,Soft Tissue Mobilization,Taping, Therapeutic Activities, Therapeutic Exercises Modalities Biofeedback,Cold Pack/Ice Massage,Electric Stimulation, Hot Packs,Infrared Therapy, Iontophoresis,Paraffin Bath, Traction- Mechanical Next Visit Focus/Plan Next Note Type Treatment Note Next Visit Plan pirifromis stretch figure 4 hamstring IT band stretc Electronically Signed by: Sarmad Rios, PT 11/20/20 [id number] Please Sign and Return: I have reviewed this Plan of Care and certify that the skilled therapy services above are required to meet the patient?s needs. Physician Signature Date Printed Name and Credentials Clinical Instructor Signature Printed Name and Credentials
--- NOTE | 2020-11-22 11:58 | PT.OTN ---
Current Diagnoses Iliotibial band syndrome, left leg (11/22/20) Physical Therapy Treatment Note PT-OP-A Visit Information Start: 11/20/20 08:08 Freq: Status: Active Protocol: Document 11/22/20 11:18 HH (Rec: 11/22/20 11:58 [id number]) Out-Patient Physical Therapy Visit Information Visit Information Visit Type Treatment Note Visit Start Time 11:18 Visit Stop Time 12:00 Total Visit Minutes 42 Visit Number 2/ Number of ECONOMIC DEVELOPER Visits 0 PT-OP-B Current Condition Start: 11/20/20 08:08 Freq: Status: Active Protocol: Document 11/20/20 12:02 HH (Rec: 11/20/20 12:30 [email or web address]) Current Condition History of Current Condition Onset Date 2.5 months ago Current Complaints lateral thigh pain, pain during standing History of Current Condition Joelle Leigh) is a 79yo male here with his for new onset of bilateral thigh pain since 2.5 months ago. No known injury noted. He stated he started having trouble sleeping on his side due pain at lateral knee and lateral thigh. Symptoms tend to get worse with prolonged standing and walking, especially extending his hip fully. It also gets worse towards the end of the day and better in the morning. Pt normally goes to the gym 3 times /week to have a 1hr workout with biking and some upper body strengthening exercises. His stated pt does like to sit a lot at home. Prior Treatments and Tests pt had bilaterak TKA Treatment Goals Patient/Caregiver Goals 1. To reduce his lateral thigh pain Personal Factors Other Personal Factors That May Effect DMII Therapy/Recovery PT-OP-C Subjective Start: 11/20/20 08:08 Freq: Status: Active Protocol: Document 11/22/20 11:18 HH (Rec: 11/22/20 11:58 [id number]) OP-PT Subjective Patient Comments Patient Comments Im feeling pretty good today. Holly been doing my stretches. Patient Reported Progress Improving PT-OP-D Balance Start: 11/20/20 08:08 Freq: Status: Active Protocol: Document 11/20/20 12:02 HH (Rec: 11/20/20 12:30 [email or web address]) Balance Tests Single Limb Standing Single Limb- Right 5 Single Limb- Left 5 PT-OP-F Manual Assessment Start: 11/20/20 08:08 Freq: Status: Active Protocol: Document 11/20/20 12:02 (Rec: 11/20/20 12:30 [email or web address]) Manual Assessments Soft Tissue Assessment Soft Tissue Mobility Assessment significant hypertonicity at distal lateral thigh and lateral knee bilaterally significant hypertonicity at gluteal muscle group PT-OP-G Mobility & Gait Start: 11/20/20 08:08 Freq: Status: Active Protocol: Document 11/20/20 12:02 (Rec: 11/20/20 12:30 [email or web address]) OP Gait Assessment Gait Deviations General Gait Pattern Decreased Stride Length, Decreased Feet Clearance, Lateral Trunk Lean Factors Limiting Gait Function Factors Limiting Gait Function Decreased Activity Tolerance, Limited Range of Motion,Pain, Poor Balance Comments Gait Comments pt amb with increase lateral trunk lean bilaterally with mild knee varus pattern. pt hip extension at preswing only reaches neutral position. PT-OP-J Posture/Palpation/Skin Start: 11/20/20 08:08 Freq: Status: Active Protocol: Document 11/20/20 12:02 (Rec: 11/20/20 12:30 [email or web address]) Posture Evaluation Position Standing Knee Posture (L) Genu Varus,(R) Genu Varus PT-OP-K Range of Motion Start: 11/20/20 08:08 Freq: Status: Active Protocol: Document 11/20/20 12:02 (Rec: 11/20/20 12:30 [email or web address]) Lumbar Spine Range of Motion Lumbar Spine Active Degrees Comments toe touch test= 13 inches from floor, normal spinal curve but limited hip flexion lateral flexion to R= 19 inches from floor lateral flexion to L= 19 inches from floor Hip Goniometric Range of Motion Hip Right Active Hip ROM WFL No Testing Position Supine Straight Leg Raise 40 Extension 0 Left Active Hip ROM WFL No Testing Position Supine Straight Leg Raise 45 Extension 0 PT-OP-L Special Tests Start: 11/20/20 08:08 Freq: Status: Active Protocol: Document 11/20/20 12:02 (Rec: 11/20/20 12:30 [email or web address]) Special Tests Hip Special Tests Jesús Test Results +ve B Comments limited hip flexor flexibility and quad flexibility angelic test Test Results +ve B Comments tight TFL and IT band indicated bilaterally knee flexion rested at 30 degrees FADDIR Test Results +VE B Comments bilateral lateral thigh pain noted. PT-OP-M Strength Start: 11/20/20 08:08 Freq: Status: Active Protocol: Document 11/20/20 12:02 (Rec: 11/20/20 12:30 [email or web address]) Hip Strength Hip Manual Muscle Testing Right Flexion (L2) 4- Good- Extension (S1) 4- Good- Abduction 4- Good- Adduction 4- Good- Left Flexion (L2) 4- Good- Extension (S1) 4- Good- Abduction 4- Good- Adduction 4- Good- Knee Strength Knee Manual Muscle Testing Left Flexion (S2) 5 Normal Extension (L3) 5 Normal Right Flexion (S2) 5 Normal Extension (L3) 5 Normal PT-OP-Q Treatments Start: 11/20/20 08:08 Freq: Status: Active Protocol: Document 11/22/20 11:18 (Rec: 11/22/20 11:58 [id number]) Therapeutic Exercises Supine Exercises hamstrings Side bilateral Reps/Minutes 15 secs x 5reps figure 4 Side bilateral Reps/Minutes 15 sec x 5reps piriformis stretch Side bilateral Reps/Minutes 15sec x 5reps Standing Exercises TFL stretch Standing Exercise Name with lateral trunk flexion Side bilateral Reps/Minutes 10 sec x 5 Manual Therapy Treatment Soft Tissue Mobilization TFL Mobilization Type Myofascial Release,Sustained Pressure,Trigger Point Release Intensity/Depth Moderate Body Position Sidelying hip flexors Mobilization Type Myofascial Release,Sustained Pressure,Trigger Point Release Intensity/Depth Moderate Body Position Supine paraspinals Mobilization Type Myofascial Release,Sustained Pressure,Trigger Point Release Intensity/Depth Moderate Body Position Prone PT-OP-T Assessment and Plan Start: 11/20/20 08:08 Freq: Status: Active Protocol: Document 11/22/20 11:18 (Rec: 11/22/20 11:58 [id number]) Physical Therapy Assessment Goals hip mobility Impairment pt shows very limited hip mobility Short Term Goal (STG) pt will show improved hip mobility by increasing ROM on SLR and angelic test by 10 degrees which allows him to bend over for yard work easily STG Duration 4 weeks Jail Goal (LTG) pt will show improved hip mobility by increasing ROM on SLR and angelic test by 15 degrees which improves his overall gait mechanics with longer stride. LTG Duration 8 weeks pain Impairment pt has pain with prolonged standing and walking Short Term Goal (STG) pt will have pain no more than 2/10 with standing so he can participate his yardwork daily . STG Duration 4weeks Jail Goal (LTG) pt will not have pain with standing so he can participate his yardwork daily and complete riding double. LTG Duration 8 weeks LEFS Impairment pt scores 51 on LEFS Short Term Goal (STG) pt will score >60 on LEFS to show improved quality of life STG Duration 4 weeks System Operation Superintendent Goal (LTG) pt will score >65 on LEFS to show improved quality of life LTG Duration 8 weeks Assessment Summary Assessment Introduced hip stretches to pt and he paula very well. Educated pt to stretch when it has lateral thigh pain. Will review his HEP next visit. Physical Therapy Plan Frequency and Duration Frequency of Treatment 2x/Week Duration of Treatment 8 weeks Plan of Care Start Date 11/20/20 Plan of Care End Date 01/21/21 Therapeutic Interventions Therapeutic Interventions Balance Training,Gait Training ,Home Exercise Program,Joint Mobilizations,Manual Therapy, Neuromuscular Re-education, Patient/Caregiver Education, Self-Care/Home Management,Soft Tissue Mobilization,Taping, Therapeutic Activities, Therapeutic Exercises Modalities Biofeedback,Cold Pack/Ice Massage,Electric Stimulation, Hot Packs,Infrared Therapy, Iontophoresis,Paraffin Bath, Traction- Mechanical Next Visit Focus/Plan Next Note Type Treatment Note Next Visit Plan pirifromis stretch figure 4 hamstring IT band stretc
--- NOTE | 2020-11-25 14:34 | PT.OTN ---
Current Diagnoses Iliotibial band syndrome, left leg (11/25/20) Physical Therapy Treatment Note PT-OP-A Visit Information Start: 11/20/20 08:08 Freq: Status: Active Protocol: Document 11/25/20 13:47 SP (Rec: 11/25/20 14:42 SP [id number]) Out-Patient Physical Therapy Visit Information Visit Information Visit Type Treatment Note Visit Start Time 13:47 Visit Stop Time 14:34 Total Visit Minutes 47 Visit Number 3/99 Number of SALES REPRESENTATIVE HEALTH INSURANCE Visits 1 Evaluation Information Evaluation Date 11/20/20 Precautions Precautions DM2 pacemaker HTN PT-OP-B Current Condition Start: 11/20/20 08:08 Freq: Status: Active Protocol: Document 11/20/20 12:02 HH (Rec: 11/20/20 12:30 HH [email or web address]) Current Condition History of Current Condition Onset Date 2.5 months ago Current Complaints lateral thigh pain, pain during standing History of Current Condition Joelle Leigh) is a 79yo male here with his for new onset of bilateral thigh pain since 2.5 months ago. No known injury noted. He stated he started having trouble sleeping on his side due pain at lateral knee and lateral thigh. Symptoms tend to get worse with prolonged standing and walking, especially extending his hip fully. It also gets worse towards the end of the day and better in the morning. Pt normally goes to the gym 3 times /week to have a 1hr workout with biking and some upper body strengthening exercises. His stated pt does like to sit a lot at home. Prior Treatments and Tests pt had bilaterak TKA Treatment Goals Patient/Caregiver Goals 1. To reduce his lateral thigh pain Personal Factors Other Personal Factors That May Effect DMII Therapy/Recovery PT-OP-C Subjective Start: 11/20/20 08:08 Freq: Status: Active Protocol: Document 11/25/20 13:47 SP (Rec: 11/25/20 14:42 SP [id number]) OP-PT Subjective Patient Comments Patient Comments My neck is hurting due to sitting at wedding and having to turn head to side to much and not good ROM. PT-OP-D Balance Start: 11/20/20 08:08 Freq: Status: Active Protocol: Document 11/20/20 12:02 HH (Rec: 11/20/20 12:30 HH [email or web address]) Balance Tests Single Limb Standing Single Limb- Right 5 Single Limb- Left 5 PT-OP-F Manual Assessment Start: 11/20/20 08:08 Freq: Status: Active Protocol: Document 11/20/20 12:02 (Rec: 11/20/20 12:30 [email or web address]) Manual Assessments Soft Tissue Assessment Soft Tissue Mobility Assessment significant hypertonicity at distal lateral thigh and lateral knee bilaterally significant hypertonicity at gluteal muscle group PT-OP-G Mobility & Gait Start: 11/20/20 08:08 Freq: Status: Active Protocol: Document 11/20/20 12:02 (Rec: 11/20/20 12:30 [email or web address]) OP Gait Assessment Gait Deviations General Gait Pattern Decreased Stride Length, Decreased Feet Clearance, Lateral Trunk Lean Factors Limiting Gait Function Factors Limiting Gait Function Decreased Activity Tolerance, Limited Range of Motion,Pain, Poor Balance Comments Gait Comments pt amb with increase lateral trunk lean bilaterally with mild knee varus pattern. pt hip extension at preswing only reaches neutral position. PT-OP-J Posture/Palpation/Skin Start: 11/20/20 08:08 Freq: Status: Active Protocol: Document 11/20/20 12:02 (Rec: 11/20/20 12:30 [email or web address]) Posture Evaluation Position Standing Knee Posture (L) Genu Varus,(R) Genu Varus PT-OP-K Range of Motion Start: 11/20/20 08:08 Freq: Status: Active Protocol: Document 11/20/20 12:02 (Rec: 11/20/20 12:30 [email or web address]) Lumbar Spine Range of Motion Lumbar Spine Active Degrees Comments toe touch test= 13 inches from floor, normal spinal curve but limited hip flexion lateral flexion to R= 19 inches from floor lateral flexion to L= 19 inches from floor Hip Goniometric Range of Motion Hip Right Active Hip ROM WFL No Testing Position Supine Straight Leg Raise 40 Extension 0 Left Active Hip ROM WFL No Testing Position Supine Straight Leg Raise 45 Extension 0 PT-OP-L Special Tests Start: 11/20/20 08:08 Freq: Status: Active Protocol: Document 11/20/20 12:02 (Rec: 11/20/20 12:30 [email or web address]) Special Tests Hip Special Tests Jesús Test Results +ve B Comments limited hip flexor flexibility and quad flexibility angelic test Test Results +ve B Comments tight TFL and IT band indicated bilaterally knee flexion rested at 30 degrees FADDIR Test Results +VE B Comments bilateral lateral thigh pain noted. PT-OP-M Strength Start: 11/20/20 08:08 Freq: Status: Active Protocol: Document 11/20/20 12:02 HH (Rec: 11/20/20 12:30 HH [email or web address]) Hip Strength Hip Manual Muscle Testing Right Flexion (L2) 4- Good- Extension (S1) 4- Good- Abduction 4- Good- Adduction 4- Good- Left Flexion (L2) 4- Good- Extension (S1) 4- Good- Abduction 4- Good- Adduction 4- Good- Knee Strength Knee Manual Muscle Testing Left Flexion (S2) 5 Normal Extension (L3) 5 Normal Right Flexion (S2) 5 Normal Extension (L3) 5 Normal PT-OP-Q Treatments Start: 11/20/20 08:08 Freq: Status: Active Protocol: Document 11/25/20 13:47 SP (Rec: 11/25/20 14:42 SP [id number]) Therapeutic Exercises Supine Exercises hamstrings Supine Exercise Name opposite knee bent Side bilateral Equipment Used strap support Reps/Minutes 30 x3 Comments cued allow knee extend, relaxed shld good awareness figure 4 Supine Exercise Name Hip ER Side bilateral Reps/Minutes 30 x3 piriformis stretch Supine Exercise Name hip IR Side bilateral Reps/Minutes 30 x3 Sitting Exercises self STMs rolling pin Sitting Exercise Name quad, ITB, HS Side bilateral Reps/Minutes 2 min total Comments good tolerance Standing Exercises Self STMs Standing Exercise Name tennis ball roll glut, paraspinals at wall Side bilateral Reps/Minutes 2 min total Comments good tolerance Manual Therapy Treatment Soft Tissue Mobilization ITB Body Location B Mobilization Type Instrument Assisted,Rolling Intensity/Depth Moderate Body Position Sidelying Comments manual stick rolling, instructed seated. TFL Mobilization Type Myofascial Release,Sustained Pressure,Trigger Point Release Intensity/Depth Moderate Body Position Sidelying hip flexors Mobilization Type Myofascial Release,Sustained Pressure,Trigger Point Release Intensity/Depth Moderate Body Position Supine paraspinals Mobilization Type Myofascial Release,Sustained Pressure,Trigger Point Release Intensity/Depth Moderate Body Position Sidelying PT-OP-T Assessment and Plan Start: 11/20/20 08:08 Freq: Status: Active Protocol: Document 11/25/20 13:47 SP (Rec: 11/25/20 14:42 SP [id number]) Physical Therapy Assessment Goals hip mobility Impairment pt shows very limited hip mobility Short Term Goal (STG) pt will show improved hip mobility by increasing ROM on SLR and angelic test by 10 degrees which allows him to bend over for yard work easily STG Duration 4 weeks Usp Goal (LTG) pt will show improved hip mobility by increasing ROM on SLR and angelic test by 15 degrees which improves his overall gait mechanics with longer stride. LTG Duration 8 weeks pain Impairment pt has pain with prolonged standing and walking Short Term Goal (STG) pt will have pain no more than 2/10 with standing so he can participate his yardwork daily . STG Duration 4weeks Cte Teacher Goal (LTG) pt will not have pain with standing so he can participate his yardwork daily and complete magnetic resonance imaging director. LTG Duration 8 weeks LEFS Impairment pt scores 51 on LEFS Short Term Goal (STG) pt will score >60 on LEFS to show improved quality of life STG Duration 4 weeks Cte Teacher Goal (LTG) pt will score >65 on LEFS to show improved quality of life LTG Duration 8 weeks Assessment Summary Assessment Pt tolerated manual tx and initiated self STMs using rolling pin to quad, ITB, HS and tennis ball back to wall over gluts, paraspinals with good feedback results. Pt required cuing for set up and provided strap for HS stretch with pt stating is much easier to perform than reaching behind thighs. Provided hand outs to recall and view for self carryover. asked how can massage her husbands neck , discussed having him lay down on bed with head at side and her seated in chair to give gentle massge to neck mucles with good understanding to help stiffness from over worked turning at a wedding on Sat. Pt stated his legs felt more loose before left, very helpful today. Physical Therapy Plan Frequency and Duration Frequency of Treatment 2x/Week Duration of Treatment 8 weeks Plan of Care Start Date 11/20/20 Plan of Care End Date 01/21/21 Therapeutic Interventions Therapeutic Interventions Balance Training,Gait Training ,Home Exercise Program,Joint Mobilizations,Manual Therapy, Neuromuscular Re-education, Patient/Caregiver Education, Self-Care/Home Management,Soft Tissue Mobilization,Taping, Therapeutic Activities, Therapeutic Exercises Modalities Biofeedback,Cold Pack/Ice Massage,Electric Stimulation, Hot Packs,Infrared Therapy, Iontophoresis,Paraffin Bath, Traction- Mechanical Next Visit Focus/Plan Next Note Type Treatment Note Next Visit Plan Assess response to manual and instructions self STMs, Stretching HEP last tx. Continue POC: pirifromis stretch figure 4 hamstring Next tx: add IT band stretch
--- NOTE | 2020-11-27 12:01 | PT.OTN ---
Current Diagnoses Iliotibial band syndrome, left leg (11/27/20) Physical Therapy Treatment Note PT-OP-A Visit Information Start: 11/20/20 08:08 Freq: Status: Active Protocol: Document 11/27/20 11:10 HH (Rec: 11/27/20 12:01 [id number]) Out-Patient Physical Therapy Visit Information Visit Information Visit Type Treatment Note Visit Start Time 11:15 Visit Stop Time 11:59 Total Visit Minutes 44 Visit Number 4/ Number of MOTORBOAT OPERATOR Visits 0 PT-OP-B Current Condition Start: 11/20/20 08:08 Freq: Status: Active Protocol: Document 11/20/20 12:02 HH (Rec: 11/20/20 12:30 [email or web address]) Current Condition History of Current Condition Onset Date 2.5 months ago Current Complaints lateral thigh pain, pain during standing History of Current Condition Joelle Leigh) is a 79yo male here with his for new onset of bilateral thigh pain since 2.5 months ago. No known injury noted. He stated he started having trouble sleeping on his side due pain at lateral knee and lateral thigh. Symptoms tend to get worse with prolonged standing and walking, especially extending his hip fully. It also gets worse towards the end of the day and better in the morning. Pt normally goes to the gym 3 times /week to have a 1hr workout with biking and some upper body strengthening exercises. His stated pt does like to sit a lot at home. Prior Treatments and Tests pt had bilaterak TKA Treatment Goals Patient/Caregiver Goals 1. To reduce his lateral thigh pain Personal Factors Other Personal Factors That May Effect DMII Therapy/Recovery PT-OP-C Subjective Start: 11/20/20 08:08 Freq: Status: Active Protocol: Document 11/27/20 11:10 HH (Rec: 11/27/20 12:01 [id number]) OP-PT Subjective Patient Comments Patient Comments Holly been doing my stretch and my hips havent been hurting Patient Reported Progress Improving PT-OP-D Balance Start: 11/20/20 08:08 Freq: Status: Active Protocol: Document 11/20/20 12:02 HH (Rec: 11/20/20 12:30 [email or web address]) Balance Tests Single Limb Standing Single Limb- Right 5 Single Limb- Left 5 PT-OP-F Manual Assessment Start: 11/20/20 08:08 Freq: Status: Active Protocol: Document 11/20/20 12:02 (Rec: 11/20/20 12:30 [email or web address]) Manual Assessments Soft Tissue Assessment Soft Tissue Mobility Assessment significant hypertonicity at distal lateral thigh and lateral knee bilaterally significant hypertonicity at gluteal muscle group PT-OP-G Mobility & Gait Start: 11/20/20 08:08 Freq: Status: Active Protocol: Document 11/20/20 12:02 (Rec: 11/20/20 12:30 [email or web address]) OP Gait Assessment Gait Deviations General Gait Pattern Decreased Stride Length, Decreased Feet Clearance, Lateral Trunk Lean Factors Limiting Gait Function Factors Limiting Gait Function Decreased Activity Tolerance, Limited Range of Motion,Pain, Poor Balance Comments Gait Comments pt amb with increase lateral trunk lean bilaterally with mild knee varus pattern. pt hip extension at preswing only reaches neutral position. PT-OP-J Posture/Palpation/Skin Start: 11/20/20 08:08 Freq: Status: Active Protocol: Document 11/20/20 12:02 (Rec: 11/20/20 12:30 [email or web address]) Posture Evaluation Position Standing Knee Posture (L) Genu Varus,(R) Genu Varus PT-OP-K Range of Motion Start: 11/20/20 08:08 Freq: Status: Active Protocol: Document 11/20/20 12:02 (Rec: 11/20/20 12:30 [email or web address]) Lumbar Spine Range of Motion Lumbar Spine Active Degrees Comments toe touch test= 13 inches from floor, normal spinal curve but limited hip flexion lateral flexion to R= 19 inches from floor lateral flexion to L= 19 inches from floor Hip Goniometric Range of Motion Hip Right Active Hip ROM WFL No Testing Position Supine Straight Leg Raise 40 Extension 0 Left Active Hip ROM WFL No Testing Position Supine Straight Leg Raise 45 Extension 0 PT-OP-L Special Tests Start: 11/20/20 08:08 Freq: Status: Active Protocol: Document 11/20/20 12:02 (Rec: 11/20/20 12:30 [email or web address]) Special Tests Hip Special Tests Jesús Test Results +ve B Comments limited hip flexor flexibility and quad flexibility angelic test Test Results +ve B Comments tight TFL and IT band indicated bilaterally knee flexion rested at 30 degrees FADDIR Test Results +VE B Comments bilateral lateral thigh pain noted. PT-OP-M Strength Start: 11/20/20 08:08 Freq: Status: Active Protocol: Document 11/20/20 12:02 (Rec: 11/20/20 12:30 [email or web address]) Hip Strength Hip Manual Muscle Testing Right Flexion (L2) 4- Good- Extension (S1) 4- Good- Abduction 4- Good- Adduction 4- Good- Left Flexion (L2) 4- Good- Extension (S1) 4- Good- Abduction 4- Good- Adduction 4- Good- Knee Strength Knee Manual Muscle Testing Left Flexion (S2) 5 Normal Extension (L3) 5 Normal Right Flexion (S2) 5 Normal Extension (L3) 5 Normal PT-OP-Q Treatments Start: 11/20/20 08:08 Freq: Status: Active Protocol: Document 11/27/20 11:10 HH (Rec: 11/27/20 12:01 [id number]) Gym Equipment Shuttle Recovery SL squat Resistance #50 Shuttle Recovery Platform Stable Reps/Time 12x 2 Therapeutic Exercises Supine Exercises hamstrings Supine Exercise Name opposite knee bent Side bilateral Equipment Used strap support Reps/Minutes 30 x3 Comments cued allow knee extend, relaxed shld good awareness figure 4 Supine Exercise Name Hip ER Side bilateral Reps/Minutes 30 x3 piriformis stretch Supine Exercise Name hip IR Side bilateral Reps/Minutes 30 x3 Sidelying Exercises clamshell Side bilateral Reps/Minutes 8 x2 Standing Exercises step up Side bilateral Reps/Minutes 10 x2 Manual Therapy Treatment Soft Tissue Mobilization ITB Body Location B Mobilization Type Instrument Assisted,Rolling Intensity/Depth Moderate Body Position Sidelying Comments manual stick rolling, instructed seated. TFL Mobilization Type Myofascial Release,Sustained Pressure,Trigger Point Release Intensity/Depth Moderate Body Position Sidelying PT-OP-T Assessment and Plan Start: 11/20/20 08:08 Freq: Status: Active Protocol: Document 11/27/20 11:10 (Rec: 11/27/20 12:01 [id number]) Physical Therapy Assessment Goals hip mobility Impairment pt shows very limited hip mobility Short Term Goal (STG) pt will show improved hip mobility by increasing ROM on SLR and angelic test by 10 degrees which allows him to bend over for yard work easily STG Duration 4 weeks Space Controller Goal (LTG) pt will show improved hip mobility by increasing ROM on SLR and angelic test by 15 degrees which improves his overall gait mechanics with longer stride. LTG Duration 8 weeks pain Impairment pt has pain with prolonged standing and walking Short Term Goal (STG) pt will have pain no more than 2/10 with standing so he can participate his yardwork daily . STG Duration 4weeks Space Controller Goal (LTG) pt will not have pain with standing so he can participate his yardwork daily and complete screen tender helper. LTG Duration 8 weeks LEFS Impairment pt scores 51 on LEFS Short Term Goal (STG) pt will score >60 on LEFS to show improved quality of life STG Duration 4 weeks Fdc Goal (LTG) pt will score >65 on LEFS to show improved quality of life LTG Duration 8 weeks Assessment Summary Assessment Pt rpeorts he hasnt had any lateral thigh pain anymore and has been practicing stretching. Introduced single leg stability and strengthening ex today and will provide HEP at his last session (expect pt to be DC next week) Physical Therapy Plan Frequency and Duration Frequency of Treatment 2x/Week Duration of Treatment 8 weeks Plan of Care Start Date 11/20/20 Plan of Care End Date 01/21/21 Therapeutic Interventions Therapeutic Interventions Balance Training,Gait Training ,Home Exercise Program,Joint Mobilizations,Manual Therapy, Neuromuscular Re-education, Patient/Caregiver Education, Self-Care/Home Management,Soft Tissue Mobilization,Taping, Therapeutic Activities, Therapeutic Exercises Modalities Biofeedback,Cold Pack/Ice Massage,Electric Stimulation, Hot Packs,Infrared Therapy, Iontophoresis,Paraffin Bath, Traction- Mechanical Next Visit Focus/Plan Next Note Type Treatment Note Next Visit Plan Assess response to manual and instructions self STMs, Stretching HEP last tx. Continue POC: pirifromis stretch figure 4 hamstring Next tx: add IT band stretch
--- NOTE | 2020-12-02 13:01 | PT.OTN ---
Current Diagnoses Iliotibial band syndrome, left leg (12/02/20) Physical Therapy Treatment Note PT-OP-A Visit Information Start: 11/20/20 08:08 Freq: Status: Active Protocol: Document 12/02/20 12:14 SP (Rec: 12/02/20 14:10 SP [id number]) Out-Patient Physical Therapy Visit Information Visit Information Visit Type Treatment Note Visit Start Time 12:15 Visit Stop Time 13:01 Total Visit Minutes 46 Visit Number 5/ Number of GENERAL FARM HAND Visits 1 Evaluation Information Evaluation Date 11/20/20 Precautions Precautions DM2 pacemaker HTN PT-OP-B Current Condition Start: 11/20/20 08:08 Freq: Status: Active Protocol: Document 11/20/20 12:02 HH (Rec: 11/20/20 12:30 HH [email or web address]) Current Condition History of Current Condition Onset Date 2.5 months ago Current Complaints lateral thigh pain, pain during standing History of Current Condition Joelle Leigh) is a 79yo male here with his for new onset of bilateral thigh pain since 2.5 months ago. No known injury noted. He stated he started having trouble sleeping on his side due pain at lateral knee and lateral thigh. Symptoms tend to get worse with prolonged standing and walking, especially extending his hip fully. It also gets worse towards the end of the day and better in the morning. Pt normally goes to the gym 3 times /week to have a 1hr workout with biking and some upper body strengthening exercises. His stated pt does like to sit a lot at home. Prior Treatments and Tests pt had bilaterak TKA Treatment Goals Patient/Caregiver Goals 1. To reduce his lateral thigh pain Personal Factors Other Personal Factors That May Effect DMII Therapy/Recovery PT-OP-C Subjective Start: 11/20/20 08:08 Freq: Status: Active Protocol: Document 12/02/20 12:14 SP (Rec: 12/02/20 14:10 SP [id number]) OP-PT Subjective Patient Comments Patient Comments I went to gym today and did TM, bike and some UE DBs. I am doing my stretching and is helping. I was able do some mowing over the weekend and didn't have any pain, just tired and hungry. :) Patient Reported Progress Improving PT-OP-D Balance Start: 11/20/20 08:08 Freq: Status: Active Protocol: Document 11/20/20 12:02 (Rec: 11/20/20 12:30 [email or web address]) Balance Tests Single Limb Standing Single Limb- Right 5 Single Limb- Left 5 PT-OP-F Manual Assessment Start: 11/20/20 08:08 Freq: Status: Active Protocol: Document 11/20/20 12:02 (Rec: 11/20/20 12:30 [email or web address]) Manual Assessments Soft Tissue Assessment Soft Tissue Mobility Assessment significant hypertonicity at distal lateral thigh and lateral knee bilaterally significant hypertonicity at gluteal muscle group PT-OP-G Mobility & Gait Start: 11/20/20 08:08 Freq: Status: Active Protocol: Document 11/20/20 12:02 (Rec: 11/20/20 12:30 [email or web address]) OP Gait Assessment Gait Deviations General Gait Pattern Decreased Stride Length, Decreased Feet Clearance, Lateral Trunk Lean Factors Limiting Gait Function Factors Limiting Gait Function Decreased Activity Tolerance, Limited Range of Motion,Pain, Poor Balance Comments Gait Comments pt amb with increase lateral trunk lean bilaterally with mild knee varus pattern. pt hip extension at preswing only reaches neutral position. PT-OP-J Posture/Palpation/Skin Start: 11/20/20 08:08 Freq: Status: Active Protocol: Document 11/20/20 12:02 (Rec: 11/20/20 12:30 [email or web address]) Posture Evaluation Position Standing Knee Posture (L) Genu Varus,(R) Genu Varus PT-OP-K Range of Motion Start: 11/20/20 08:08 Freq: Status: Active Protocol: Document 11/20/20 12:02 (Rec: 11/20/20 12:30 [email or web address]) Lumbar Spine Range of Motion Lumbar Spine Active Degrees Comments toe touch test= 13 inches from floor, normal spinal curve but limited hip flexion lateral flexion to R= 19 inches from floor lateral flexion to L= 19 inches from floor Hip Goniometric Range of Motion Hip Right Active Hip ROM WFL No Testing Position Supine Straight Leg Raise 40 Extension 0 Left Active Hip ROM WFL No Testing Position Supine Straight Leg Raise 45 Extension 0 PT-OP-L Special Tests Start: 11/20/20 08:08 Freq: Status: Active Protocol: Document 11/20/20 12:02 HH (Rec: 11/20/20 12:30 HH [email or web address]) Special Tests Hip Special Tests Jesús Test Results +ve B Comments limited hip flexor flexibility and quad flexibility angelic test Test Results +ve B Comments tight TFL and IT band indicated bilaterally knee flexion rested at 30 degrees FADDIR Test Results +VE B Comments bilateral lateral thigh pain noted. PT-OP-M Strength Start: 11/20/20 08:08 Freq: Status: Active Protocol: Document 11/20/20 12:02 HH (Rec: 11/20/20 12:30 HH [email or web address]) Hip Strength Hip Manual Muscle Testing Right Flexion (L2) 4- Good- Extension (S1) 4- Good- Abduction 4- Good- Adduction 4- Good- Left Flexion (L2) 4- Good- Extension (S1) 4- Good- Abduction 4- Good- Adduction 4- Good- Knee Strength Knee Manual Muscle Testing Left Flexion (S2) 5 Normal Extension (L3) 5 Normal Right Flexion (S2) 5 Normal Extension (L3) 5 Normal PT-OP-Q Treatments Start: 11/20/20 08:08 Freq: Status: Active Protocol: Document 12/02/20 12:14 SP (Rec: 12/02/20 14:10 SP [id number]) Gym Equipment Shuttle Recovery SL squat Details cued >90 deg (added to HEP) membership at [employer] wants to use leg press Resistance #50 Shuttle Recovery Platform Stable Reps/Time 15x 2 Therapeutic Exercises Supine Exercises ITB stretch Supine Exercise Name added to HEP Side left Equipment Used strap Reps/Minutes 3x 30 hold hamstrings Supine Exercise Name opposite knee bent Side bilateral Equipment Used strap support Reps/Minutes 30 x3 Comments cued allow knee extend, relaxed shld good awareness figure 4 Supine Exercise Name Hip ER Side bilateral Reps/Minutes 30 x3 piriformis stretch Supine Exercise Name hip IR Side bilateral Reps/Minutes 30 x3 Sidelying Exercises clamshell Sidelying Exercise Name added to HEP Side bilateral Reps/Minutes 8 x2 Standing Exercises step up Standing Exercise Name added to HEP Side bilateral Resistance AROM Equipment Used 1 HR as needed Reps/Minutes 10 x2 Comments cued sequencing lead each LE x10 reps, Manual Therapy Treatment Soft Tissue Mobilization ITB Body Location B Mobilization Type Instrument Assisted,Rolling Intensity/Depth Moderate Body Position Sidelying Comments manual TFL Mobilization Type Myofascial Release,Sustained Pressure,Trigger Point Release Intensity/Depth Moderate Body Position Sidelying hip flexors Body Location TFL, vastus lateralis Mobilization Type Myofascial Release,Sustained Pressure,Trigger Point Release Intensity/Depth Moderate Body Position Sidelying paraspinals Mobilization Type Myofascial Release,Sustained Pressure,Trigger Point Release Intensity/Depth Moderate Body Position Sidelying PT-OP-T Assessment and Plan Start: 11/20/20 08:08 Freq: Status: Active Protocol: Document 12/02/20 12:14 SP (Rec: 12/02/20 14:10 SP [id number]) Physical Therapy Assessment Goals hip mobility Impairment pt shows very limited hip mobility Short Term Goal (STG) pt will show improved hip mobility by increasing ROM on SLR and angelic test by 10 degrees which allows him to bend over for yard work easily STG Duration 4 weeks Water Control Supervisor Goal (LTG) pt will show improved hip mobility by increasing ROM on SLR and angelic test by 15 degrees which improves his overall gait mechanics with longer stride. LTG Duration 8 weeks pain Impairment pt has pain with prolonged standing and walking Short Term Goal (STG) pt will have pain no more than 2/10 with standing so he can participate his yardwork daily . 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 LTG Duration 8 weeks LEFS Impairment pt scores 51 on LEFS Short Term Goal (STG) pt will score >60 on LEFS to show improved quality of life STG Duration 4 weeks Senior Care Goal (LTG) pt will score >65 on LEFS to show improved quality of life LTG Duration 8 weeks Assessment Summary Assessment Pt responded well to stretching review, and review of clamshell, step up and SL shuttle recovery wanting to do at gym, these were added to PT tx last tx with good form occasaion cuing with attended and provided cuing for proper form post [employer]AL F[employer] HAND provided. Pt respondeding well to PT, is able to mow his lawn with no pain. Will continue to assess progress. Physical Therapy Plan Frequency and Duration Frequency of Treatment 2x/Week Duration of Treatment 8 weeks Plan of Care Start Date 11/20/20 Plan of Care End Date 01/21/21 Therapeutic Interventions Therapeutic Interventions Balance Training,Gait Training ,Home Exercise Program,Joint Mobilizations,Manual Therapy, Neuromuscular Re-education, Patient/Caregiver Education, Self-Care/Home Management,Soft Tissue Mobilization,Taping, Therapeutic Activities, Therapeutic Exercises Modalities Biofeedback,Cold Pack/Ice Massage,Electric Stimulation, Hot Packs,Infrared Therapy, Iontophoresis,Paraffin Bath, Traction- Mechanical Next Visit Focus/Plan Next Note Type Treatment Note Next Visit Plan Assess response to stretching, clam shell, step ups, manual to L hip musculature. Continue POC: pirifromis stretch figure 4 hamstring Initiated IT band stretch last tx.
--- NOTE | 2020-12-02 13:01 | PT.OTN ---
Current Diagnoses Iliotibial band syndrome, left leg (12/02/20) Physical Therapy Treatment Note PT-OP-A Visit Information Start: 11/20/20 08:08 Freq: Status: Active Protocol: Document 12/02/20 12:14 SP (Rec: 12/02/20 14:10 SP [id number]) Out-Patient Physical Therapy Visit Information Visit Information Visit Type Treatment Note Visit Start Time 12:15 Visit Stop Time 13:01 Total Visit Minutes 46 Visit Number 5/ Number of DEPARTMENT STORE MANAGER Visits 1 Evaluation Information Evaluation Date 11/20/20 Precautions Precautions DM2 pacemaker HTN PT-OP-B Current Condition Start: 11/20/20 08:08 Freq: Status: Active Protocol: Document 11/20/20 12:02 HH (Rec: 11/20/20 12:30 HH [email or web address]) Current Condition History of Current Condition Onset Date 2.5 months ago Current Complaints lateral thigh pain, pain during standing History of Current Condition Joelle Leigh) is a 79yo male here with his for new onset of bilateral thigh pain since 2.5 months ago. No known injury noted. He stated he started having trouble sleeping on his side due pain at lateral knee and lateral thigh. Symptoms tend to get worse with prolonged standing and walking, especially extending his hip fully. It also gets worse towards the end of the day and better in the morning. Pt normally goes to the gym 3 times /week to have a 1hr workout with biking and some upper body strengthening exercises. His stated pt does like to sit a lot at home. Prior Treatments and Tests pt had bilaterak TKA Treatment Goals Patient/Caregiver Goals 1. To reduce his lateral thigh pain Personal Factors Other Personal Factors That May Effect DMII Therapy/Recovery PT-OP-C Subjective Start: 11/20/20 08:08 Freq: Status: Active Protocol: Document 12/02/20 12:14 SP (Rec: 12/02/20 14:10 SP [id number]) OP-PT Subjective Patient Comments Patient Comments I went to gym today and did TM 30 min 2.5 mph 0% incline first time in a while, bike 30 min and some UE DBs work. I am doing my stretching and is helping. I was able do some mowing over the weekend and didn't have any pain, just tired and hungry. :) Patient Reported Progress Improving PT-OP-D Balance Start: 11/20/20 08:08 Freq: Status: Active Protocol: Document 11/20/20 12:02 (Rec: 11/20/20 12:30 [email or web address]) Balance Tests Single Limb Standing Single Limb- Right 5 Single Limb- Left 5 PT-OP-F Manual Assessment Start: 11/20/20 08:08 Freq: Status: Active Protocol: Document 11/20/20 12:02 (Rec: 11/20/20 12:30 [email or web address]) Manual Assessments Soft Tissue Assessment Soft Tissue Mobility Assessment significant hypertonicity at distal lateral thigh and lateral knee bilaterally significant hypertonicity at gluteal muscle group PT-OP-G Mobility & Gait Start: 11/20/20 08:08 Freq: Status: Active Protocol: Document 11/20/20 12:02 (Rec: 11/20/20 12:30 [email or web address]) OP Gait Assessment Gait Deviations General Gait Pattern Decreased Stride Length, Decreased Feet Clearance, Lateral Trunk Lean Factors Limiting Gait Function Factors Limiting Gait Function Decreased Activity Tolerance, Limited Range of Motion,Pain, Poor Balance Comments Gait Comments pt amb with increase lateral trunk lean bilaterally with mild knee varus pattern. pt hip extension at preswing only reaches neutral position. PT-OP-J Posture/Palpation/Skin Start: 11/20/20 08:08 Freq: Status: Active Protocol: Document 11/20/20 12:02 (Rec: 11/20/20 12:30 [email or web address]) Posture Evaluation Position Standing Knee Posture (L) Genu Varus,(R) Genu Varus PT-OP-K Range of Motion Start: 11/20/20 08:08 Freq: Status: Active Protocol: Document 11/20/20 12:02 (Rec: 11/20/20 12:30 [email or web address]) Lumbar Spine Range of Motion Lumbar Spine Active Degrees Comments toe touch test= 13 inches from floor, normal spinal curve but limited hip flexion lateral flexion to R= 19 inches from floor lateral flexion to L= 19 inches from floor Hip Goniometric Range of Motion Hip Right Active Hip ROM WFL No Testing Position Supine Straight Leg Raise 40 Extension 0 Left Active Hip ROM WFL No Testing Position Supine Straight Leg Raise 45 Extension 0 PT-OP-L Special Tests Start: 11/20/20 08:08 Freq: Status: Active Protocol: Document 11/20/20 12:02 HH (Rec: 11/20/20 12:30 HH [email or web address]) Special Tests Hip Special Tests Jesús Test Results +ve B Comments limited hip flexor flexibility and quad flexibility angelic test Test Results +ve B Comments tight TFL and IT band indicated bilaterally knee flexion rested at 30 degrees FADDIR Test Results +VE B Comments bilateral lateral thigh pain noted. PT-OP-M Strength Start: 11/20/20 08:08 Freq: Status: Active Protocol: Document 11/20/20 12:02 HH (Rec: 11/20/20 12:30 HH [email or web address]) Hip Strength Hip Manual Muscle Testing Right Flexion (L2) 4- Good- Extension (S1) 4- Good- Abduction 4- Good- Adduction 4- Good- Left Flexion (L2) 4- Good- Extension (S1) 4- Good- Abduction 4- Good- Adduction 4- Good- Knee Strength Knee Manual Muscle Testing Left Flexion (S2) 5 Normal Extension (L3) 5 Normal Right Flexion (S2) 5 Normal Extension (L3) 5 Normal PT-OP-Q Treatments Start: 11/20/20 08:08 Freq: Status: Active Protocol: Document 12/02/20 12:14 SP (Rec: 12/02/20 14:10 SP [id number]) Gym Equipment Shuttle Recovery SL squat Details cued >90 deg (added to HEP) membership at [employer] wants to use leg press Resistance #50 Shuttle Recovery Platform Stable Reps/Time 15x 2 Therapeutic Exercises Supine Exercises ITB stretch Supine Exercise Name added to HEP Side left Equipment Used strap Reps/Minutes 3x 30 hold hamstrings Supine Exercise Name opposite knee bent Side bilateral Equipment Used strap support Reps/Minutes 30 x3 Comments cued allow knee extend, relaxed shld good awareness figure 4 Supine Exercise Name Hip ER Side bilateral Reps/Minutes 30 x3 piriformis stretch Supine Exercise Name hip IR Side bilateral Reps/Minutes 30 x3 Sidelying Exercises clamshell Sidelying Exercise Name added to HEP Side bilateral Reps/Minutes 8 x2 Standing Exercises SLS Side bilateral Equipment Used near rail Comments RLE 6, 30 , LLE 19, 17 step up Standing Exercise Name added to HEP Side bilateral Resistance AROM Equipment Used 1 HR as needed Reps/Minutes 10 x2 Comments cued sequencing lead each LE x10 reps, Manual Therapy Treatment Soft Tissue Mobilization ITB Body Location B Mobilization Type Instrument Assisted,Rolling Intensity/Depth Moderate Body Position Sidelying Comments manual TFL Mobilization Type Myofascial Release,Sustained Pressure,Trigger Point Release Intensity/Depth Moderate Body Position Sidelying hip flexors Body Location TFL, vastus lateralis Mobilization Type Myofascial Release,Sustained Pressure,Trigger Point Release Intensity/Depth Moderate Body Position Sidelying paraspinals Mobilization Type Myofascial Release,Sustained Pressure,Trigger Point Release Intensity/Depth Moderate Body Position Sidelying PT-OP-T Assessment and Plan Start: 11/20/20 08:08 Freq: Status: Active Protocol: Document 12/02/20 12:14 SP (Rec: 12/02/20 14:10 SP [id number]) Physical Therapy Assessment Goals hip mobility Impairment pt shows very limited hip mobility Short Term Goal (STG) pt will show improved hip mobility by increasing ROM on SLR and angelic test by 10 degrees which allows him to bend over for yard work easily STG Duration 4 weeks Senior Care Goal (LTG) pt will show improved hip mobility by increasing ROM on SLR and angelic test by 15 degrees which improves his overall gait mechanics with longer stride. LTG Duration 8 weeks pain Impairment pt has pain with prolonged standing and walking Short Term Goal (STG) pt will have pain no more than 2/10 with standing so he can participate his yardwork daily . STG Duration 4weeks Cable Ferry Operator Goal (LTG) pt will not have pain with standing so he can participate his yardwork daily and complete thermal cutter hand. LTG Duration 8 weeks LEFS Impairment pt scores 51 on LEFS Short Term Goal (STG) pt will score >60 on LEFS to show improved quality of life STG Duration 4 weeks Senior Care Goal (LTG) pt will score >65 on LEFS to show improved quality of life LTG Duration 8 weeks Assessment Summary Assessment Pt responded well to stretching review, and review of clamshell, step up and SL shuttle recovery wanting to do at gym, these were added to PT tx last tx with good form occasaion cuing with attended and provided cuing for proper form post DEPARTMENT STORE MANAGER provided. Pt respondeding well to PT, is able to mow his lawn with no pain. Will continue to assess progress. Physical Therapy Plan Frequency and Duration Frequency of Treatment 2x/Week Duration of Treatment 8 weeks Plan of Care Start Date 11/20/20 Plan of Care End Date 01/21/21 Therapeutic Interventions Therapeutic Interventions Balance Training,Gait Training ,Home Exercise Program,Joint Mobilizations,Manual Therapy, Neuromuscular Re-education, Patient/Caregiver Education, Self-Care/Home Management,Soft Tissue Mobilization,Taping, Therapeutic Activities, Therapeutic Exercises Modalities Biofeedback,Cold Pack/Ice Massage,Electric Stimulation, Hot Packs,Infrared Therapy, Iontophoresis,Paraffin Bath, Traction- Mechanical Next Visit Focus/Plan Next Note Type Treatment Note Next Visit Plan Assess response to stretching, clam shell, step ups, manual to L hip musculature. Continue POC: pirifromis stretch figure 4 hamstring Initiated IT band stretch last tx.
--- NOTE | 2020-12-05 11:45 | PT.OTN ---
Current Diagnoses Iliotibial band syndrome, left leg (12/05/20) Physical Therapy Treatment Note PT-OP-A Visit Information Start: 11/20/20 08:08 Freq: Status: Active Protocol: Document 12/05/20 11:20 HH (Rec: 12/05/20 11:45 [id number]) Out-Patient Physical Therapy Visit Information Visit Information Visit Type Discharge Summary Visit Start Time 11:22 Visit Stop Time 12:00 Total Visit Minutes 38 Visit Number 6 Number of ERP ANALYST Visits 0 PT-OP-B Current Condition Start: 11/20/20 08:08 Freq: Status: Active Protocol: Document 11/20/20 12:02 HH (Rec: 11/20/20 12:30 HH [email or web address]) Current Condition History of Current Condition Onset Date 2.5 months ago Current Complaints lateral thigh pain, pain during standing History of Current Condition Joelle Leigh) is a 79yo male here with his for new onset of bilateral thigh pain since 2.5 months ago. No known injury noted. He stated he started having trouble sleeping on his side due pain at lateral knee and lateral thigh. Symptoms tend to get worse with prolonged standing and walking, especially extending his hip fully. It also gets worse towards the end of the day and better in the morning. Pt normally goes to the gym 3 times /week to have a 1hr workout with biking and some upper body strengthening exercises. His stated pt does like to sit a lot at home. Prior Treatments and Tests pt had bilaterak TKA Treatment Goals Patient/Caregiver Goals 1. To reduce his lateral thigh pain Personal Factors Other Personal Factors That May Effect DMII Therapy/Recovery PT-OP-C Subjective Start: 11/20/20 08:08 Freq: Status: Active Protocol: Document 12/05/20 11:20 HH (Rec: 12/05/20 11:45 [id number]) OP-PT Subjective Patient Comments Patient Comments i had some lateral thigh discomfort once or twice during the past two weeks but doing the stretches. I think im ready to be discharged. Patient Reported Progress Improving PT-OP-D Balance Start: 11/20/20 08:08 Freq: Status: Active Protocol: Document 11/20/20 12:02 HH (Rec: 11/20/20 12:30 [email or web address]) Balance Tests Single Limb Standing Single Limb- Right 5 Single Limb- Left 5 PT-OP-F Manual Assessment Start: 11/20/20 08:08 Freq: Status: Active Protocol: Document 11/20/20 12:02 (Rec: 11/20/20 12:30 [email or web address]) Manual Assessments Soft Tissue Assessment Soft Tissue Mobility Assessment significant hypertonicity at distal lateral thigh and lateral knee bilaterally significant hypertonicity at gluteal muscle group PT-OP-G Mobility & Gait Start: 11/20/20 08:08 Freq: Status: Active Protocol: Document 11/20/20 12:02 (Rec: 11/20/20 12:30 [email or web address]) OP Gait Assessment Gait Deviations General Gait Pattern Decreased Stride Length, Decreased Feet Clearance, Lateral Trunk Lean Factors Limiting Gait Function Factors Limiting Gait Function Decreased Activity Tolerance, Limited Range of Motion,Pain, Poor Balance Comments Gait Comments pt amb with increase lateral trunk lean bilaterally with mild knee varus pattern. pt hip extension at preswing only reaches neutral position. PT-OP-J Posture/Palpation/Skin Start: 11/20/20 08:08 Freq: Status: Active Protocol: Document 11/20/20 12:02 (Rec: 11/20/20 12:30 [email or web address]) Posture Evaluation Position Standing Knee Posture (L) Genu Varus,(R) Genu Varus PT-OP-K Range of Motion Start: 11/20/20 08:08 Freq: Status: Active Protocol: Document 11/20/20 12:02 (Rec: 11/20/20 12:30 [email or web address]) Lumbar Spine Range of Motion Lumbar Spine Active Degrees Comments toe touch test= 13 inches from floor, normal spinal curve but limited hip flexion lateral flexion to R= 19 inches from floor lateral flexion to L= 19 inches from floor Hip Goniometric Range of Motion Hip Right Active Hip ROM WFL No Testing Position Supine Straight Leg Raise 40 Extension 0 Left Active Hip ROM WFL No Testing Position Supine Straight Leg Raise 45 Extension 0 PT-OP-L Special Tests Start: 11/20/20 08:08 Freq: Status: Active Protocol: Document 11/20/20 12:02 (Rec: 11/20/20 12:30 [email or web address]) Special Tests Hip Special Tests Jesús Test Results +ve B Comments limited hip flexor flexibility and quad flexibility angelic test Test Results +ve B Comments tight TFL and IT band indicated bilaterally knee flexion rested at 30 degrees FADDIR Test Results +VE B Comments bilateral lateral thigh pain noted. PT-OP-M Strength Start: 11/20/20 08:08 Freq: Status: Active Protocol: Document 11/20/20 12:02 HH (Rec: 11/20/20 12:30 [email or web address]) Hip Strength Hip Manual Muscle Testing Right Flexion (L2) 4- Good- Extension (S1) 4- Good- Abduction 4- Good- Adduction 4- Good- Left Flexion (L2) 4- Good- Extension (S1) 4- Good- Abduction 4- Good- Adduction 4- Good- Knee Strength Knee Manual Muscle Testing Left Flexion (S2) 5 Normal Extension (L3) 5 Normal Right Flexion (S2) 5 Normal Extension (L3) 5 Normal PT-OP-Q Treatments Start: 11/20/20 08:08 Freq: Status: Active Protocol: Document 12/05/20 11:20 HH (Rec: 12/05/20 11:45 [id number]) Therapeutic Exercises Supine Exercises bridging Side bilateral Reps/Minutes 10 x2 hamstrings Supine Exercise Name opposite knee bent Side bilateral Equipment Used strap support Reps/Minutes 30 x3 Comments cued allow knee extend, relaxed shld good awareness figure 4 Supine Exercise Name Hip ER Side bilateral Reps/Minutes 30 x3 piriformis stretch Supine Exercise Name hip IR Side bilateral Reps/Minutes 30 x3 Standing Exercises squat Side bilateral Reps/Minutes 10 x2 Comments for HEP step up Standing Exercise Name added to HEP Side bilateral Resistance AROM Equipment Used no HR needed, 6 inch step Reps/Minutes 10 x2 Comments cued sequencing lead each LE x10 reps, PT-OP-T Assessment and Plan Start: 11/20/20 08:08 Freq: Status: Active Protocol: Document 12/05/20 11:20 (Rec: 12/05/20 11:45 [id number]) Physical Therapy Assessment Goals hip mobility Impairment pt shows very limited hip mobility Short Term Goal (STG) pt will show improved hip mobility by increasing ROM on SLR and angelic test by 10 degrees which allows him to bend over for yard work easily STG Duration 4 weeks General Neurologist Goal (LTG) pt will show improved hip mobility by increasing ROM on SLR and angelic test by 15 degrees which improves his overall gait mechanics with longer stride. LTG Duration 8 weeks pain Impairment pt has pain with prolonged standing and walking Short Term Goal (STG) pt will have pain no more than 2/10 with standing so he can participate his yardwork daily . 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 LTG Duration 8 weeks LEFS Impairment pt scores 51 on LEFS Short Term Goal (STG) pt will score >60 on LEFS to show improved quality of life STG Duration 4 weeks Skilled Nursing Goal (LTG) pt will score >65 on LEFS to show improved quality of life LTG Duration 8 weeks Progress Towards Goals Progress Towards Goals Progressing Toward Goals Assessment Summary Assessment pt progress well since IE. He has been compliant to HEP. Added hip stregnthening and LE strengthening ex to his HEP. Pt is pleased with his progress and agreed to be DC today. Physical Therapy Plan Frequency and Duration Frequency of Treatment 2x/Week Duration of Treatment 8 weeks Plan of Care Start Date 11/20/20 Plan of Care End Date 01/21/21 Therapeutic Interventions Therapeutic Interventions Balance Training,Gait Training ,Home Exercise Program,Joint Mobilizations,Manual Therapy, Neuromuscular Re-education, Patient/Caregiver Education, Self-Care/Home Management,Soft Tissue Mobilization,Taping, Therapeutic Activities, Therapeutic Exercises Modalities Biofeedback,Cold Pack/Ice Massage,Electric Stimulation, Hot Packs,Infrared Therapy, Iontophoresis,Paraffin Bath, Traction- Mechanical Next Visit Focus/Plan Next Note Type Treatment Note Next Visit Plan Assess response to stretching, clam shell, step ups, manual to L hip musculature. Continue POC: pirifromis stretch figure 4 hamstring Initiated IT band stretch last tx.
== END 2020-12-17 14:43 | disposition home or self-care (01) ==
LOC: PHYS 11:15
PROVIDERS: PCP Student in an Organized Health Care Education/Training Program; Referring Provider Student in an Organized Health Care Education/Training Program; Visit Provider Student in an Organized Health Care Education/Training Program
DX: M76.32 Iliotibial band syndrome, left leg (principal)
CPT/HCPCS: 97110; 97140; 97161

== ENCOUNTER → 2020-12-13 13:17 | Outpatient (CLI) | payer MEDICARE, SELFPAY ==
[2020-12-13 14:54] LABS: Hemoglobin A1C% w Est Avg Glu 6.3 % (4.0-6.0)
[2020-12-13 16:01] LABS: Creatinine Urine Random 60.5 mg/dL
[2020-12-13 16:05] LABS: Microalbumi Creatinin Ratio Ur 11.5 ug/mg CR (<30); Microalbumin Urine Random 0.7 mg/dL (0-1.6)
== END ==
PROVIDERS: PCP Student in an Organized Health Care Education/Training Program; Referring Provider Student in an Organized Health Care Education/Training Program; Visit Provider Student in an Organized Health Care Education/Training Program
DX: E11.9 Type 2 diabetes mellitus without complications (principal)
CPT/HCPCS: 36415; 82043; 82570; 83036

== ENCOUNTER 2021-02-06 10:30 | Outpatient (RCR) | payer MEDICARE, SELFPAY ==
--- NOTE | 2021-02-04 16:13 | PT.OIE ---
Current Diagnoses Iliotibial band syndrome, left leg (02/04/21) Past Medical History (Last Updated 12/22/20 @ 10:59 by Butch Enriquez MD) Aortic stenosis Ascending aortic aneurysm Cataracts, bilateral (~2015) Chickenpox Colon polyps (01/2004) Coronary artery disease Gout Hx of aortic valve replacement (12/2009) Hx of cataract surgery (09/2015) Hx of colonoscopy with polypectomy (01/2004) Hx of coronary artery bypass graft Hx of knee surgery (2003) Hx of total knee arthroplasty (01/2013) Hx of varicose vein stripping (1974) Hx of varicose veins Hyperlipidemia Hypertension Measles Mumps Onychomycosis Osteoarthritis Sleep apnea Upper GI bleed Past Surgical History (Last Updated 12/22/20 @ 10:59 by Butch Enriquez MD) History of aortic valve replacement (07/19/15) Hx of aortic valve replacement (12/2009) Hx of cataract surgery (09/2015) Hx of colonoscopy with polypectomy (01/2004) Hx of coronary artery bypass graft Hx of knee surgery (2003) Hx of total knee arthroplasty (01/2013) Hx of varicose vein stripping (1974) Visit Care Team Role Provider Type Butch Enriquez MD Attending Provider Physician Primary Care Provider Referring Provider Specialty: Internal Medicine Address: [address] [place] [address], [address], [facility] Email: [email or web address] Physical Therapy Initial Evaluation PT-OP-A Visit Information Start: 02/04/21 15:30 Freq: Status: Active Protocol: Document 02/04/21 15:31 (Rec: 02/04/21 16:13 [email or web address]) Out-Patient Physical Therapy Visit Information Visit Information Visit Type Initial Evaluation Visit Note co-pay $40 Visit Start Time 09:00 Visit Stop Time 09:45 Total Visit Minutes 45 Visit Number Number of FAST FOOD SUPERVISOR Visits 0 Evaluation Information Evaluation Date 02/04/21 Precautions Precautions DM II pacemaker PT-OP-B Current Condition Start: 02/04/21 15:30 Freq: Status: Active Protocol: Document 02/04/21 15:31 HH (Rec: 02/04/21 16:13 [email or web address]) Current Condition History of Current Condition Onset Date September, Current Complaints bilateral lateral hip pain and knee pain, IT band syndrome History of Current Condition Joelle Leigh) is a 80yo Tagalog speaking male (able to carry simple conversation) here for his recurrent lateral hip and knee pain since September . Pt was here for therapy in November for this IT band syndrome and his symptoms got better. However, he returned today for the same complaint with pain during getting up from a prolonged sitting position and getting OOB in the morning. He states walking and standing seem to be fine at this point . He said HEP given from previous PT was helpful but he usually only does it in the afternoon. He is still going to the gym 3 times/ week for some biking and upper body strengthening exercises. Prior Treatments and Tests Bilateral TKA Treatment Goals Patient/Caregiver Goals 1. to reduce his lateral thigh pain. Personal Factors Other Personal Factors That May Effect DM II Therapy/Recovery pacemaker CAD aortic stenosis ascending aortic aneurysm ( aortic valve replacement) CABG PT-OP-C Subjective Start: 02/04/21 15:30 Freq: Status: Active Protocol: Document 02/04/21 15:31 HH (Rec: 02/04/21 16:13 [email or web address]) Patient Questionnaires Lower Extremity Functional Scale LEFS Score 0 LEFS Impairment 100% Impaired (Score 0) OP-PT Pain Assessment Location lateral thighs Pain Location Details bilateral thighs and knees Scale Used 3-7 Description Aching,Pressure,With Movement Frequency Frequent Pain Aggravating Factors Position,Changing Position Pain Alleviating Factors Exercise PT-OP-D Balance Start: 02/04/21 15:30 Freq: Status: Active Protocol: Document 02/04/21 15:31 HH (Rec: 02/04/21 16:13 [email or web address]) Balance Tests Single Limb Standing Single Limb- Right 3-5, trendelenburg sign noted. Single Limb- Left 3-5, trendelenburg sign noted . PT-OP-G Mobility & Gait Start: 02/04/21 15:30 Freq: Status: Active Protocol: Document 02/04/21 15:31 HH (Rec: 02/04/21 16:13 [email or web address]) OP Gait Assessment Comments Gait Comments excessive lateral weight shift during gait. moderate knee varus noted on RLE Decreased strides noted. PT-OP-J Posture/Palpation/Skin Start: 02/04/21 15:30 Freq: Status: Active Protocol: Document 02/04/21 15:31 HH (Rec: 02/04/21 16:13 [email or web address]) Posture Evaluation Position Standing Knee Posture (R) Genu Varus PT-OP-K Range of Motion Start: 02/04/21 15:30 Freq: Status: Active Protocol: Document 02/04/21 15:31 HH (Rec: 02/04/21 16:13 [email or web address]) Hip Goniometric Range of Motion Hip Right Passive Hip ROM WFL No Testing Position Supine Straight Leg Raise 53 Extension 0 Internal Rotation 22 External Rotation 40 Left Passive Hip ROM WFL No Testing Position Supine Straight Leg Raise 55 Extension 3 Internal Rotation 25 External Rotation 32 PT-OP-L Special Tests Start: 02/04/21 15:30 Freq: Status: Active Protocol: Document 02/04/21 15:31 HH (Rec: 02/04/21 16:13 [email or web address]) Special Tests Hip Special Tests Straight Leg Raise Comments active SLR =50-55 degrees bilaterally SONAL Test Results +VE B Comments pain at R posterior hip Jesús Test Results +ve B Comments limited hip flexor flexibility and quad flexibility angelic test Test Results +ve B Comments tight TFL and IT band indicated bilaterally knee flexion rested at 30 degrees FADDIR Test Results -ve B Comments posterior hip capsule stretching sensation noted. PT-OP-M Strength Start: 02/04/21 15:30 Freq: Status: Active Protocol: Document 02/04/21 15:31 HH (Rec: 02/04/21 16:13 [email or web address]) Hip Strength Hip Manual Muscle Testing Right Flexion (L2) 4 Good Extension (S1) 4 Good Abduction 4- Good- Adduction 4+ Good+ Comments hip abduction compensated by using hip ER Left Flexion (L2) 4 Good Extension (S1) 4 Good Abduction 4+ Good+ Comments hip abduction compensated by using hip ER PT-OP-Q Treatments Start: 02/04/21 15:30 Freq: Status: Active Protocol: Document 02/04/21 15:31 HH (Rec: 02/04/21 16:13 [email or web address]) Therapeutic Exercises Supine Exercises piriformis stretch Supine Exercise Name HEP review Comments recommended pt to complete them in the AM figure 4 Supine Exercise Name HEP review Comments recommended pt to complete them in the AM PT-OP-T Assessment and Plan Start: 02/04/21 15:30 Freq: Status: Active Protocol: Document 02/04/21 15:31 (Rec: 02/04/21 16:13 [email or web address]) Physical Therapy Assessment Rehab Potential Rehabilitation Potential Excellent Evaluation Complexity Number of Personal Factors/Comorbidities 3 or More Number of Body Systems Impaired 3 Clinical Presentation at Evaluation Stable Impairments Impairments Activity Tolerance,Balance, Functional Activities, Functional Mobility,Gait,Pain, Posture,ROM,Soft Tissue Mobility,Strength,Transfers Goals gait mechanics Impairment pt has excessive lateral weight shift during gait Short Term Goal (STG) pt will show improved hip stabilizers and extension strength to decrease lateral weight shift while walking to reduce mechanical stress at lateral chain. STG Duration 8 weeks LEFS Impairment pt shows very limited hip mobility Short Term Goal (STG) pt will show improved hip mobility by increasing ROM on SLR and angelic test by 10 degrees which allows him to bend over for yard work easily STG Duration 4 weeks Fpc Goal (LTG) pt will show improved hip mobility by increasing ROM on SLR and ANGELIC test by 15 degrees which improves his overall gait mechanics with longer stride. LTG Duration 8 weeks pain Impairment pain up to 7/10 getting OOB in the am Short Term Goal (STG) pt will have no more than 5/10 pain in the AM while getting OOB STG Duration 4 weeks Window Draper Goal (LTG) pt will complete his morning stretching routine so he will not have more than 2/10 hip pain while getting OOB LTG Duration 8 weeks Assessment Summary Assessment Joelle Leigh) is a 80 yo male here for his recurrent bilateral thigh and knee pain. Pt was here for therapy for few times and he stated it was helpful. However, Cece is back here again today and his major c/o is difficulty getting OOB in the AM and getting up from prolonged sitting because of the pain. Pain subsides with movements. Upon assessment, pt continues to show IT band syndrome. He has significant tightness at IT band with very limited hip mobility, especially extension . His gait shows excessive lateral weight shift during gait which mechanically stresses lateral chain. Pt will benefit from another course of skilled therapy to improve his hip mobility and gait mechanics. Physical Therapy Plan Frequency and Duration Frequency of Treatment 1x/Week Duration of Treatment 8 weeks Plan of Care Start Date 02/04/21 Plan of Care End Date 04/05/21 Therapeutic Interventions Therapeutic Interventions Balance Training,Gait Training ,Home Exercise Program,Manual Therapy,Neuromuscular Re- education,Patient/Caregiver Education,Self-Care/Home Management,Soft Tissue Mobilization,Taping, Therapeutic Activities, Therapeutic Exercises Modalities Cold Pack/Ice Massage,Electric Stimulation,Hot Packs, Infrared Therapy,Paraffin Bath ,Ultrasound Next Visit Focus/Plan Next Note Type Treatment Note Next Visit Plan jesús larson figure 4 piriformis stretch recommend pt to do it in the am before OOB gait training to reduce lateral weight shift
--- NOTE | 2021-02-04 16:14 | PT.OPPOC ---
Physical, Occupational & Speech Therapy At [facility] Current Diagnoses Iliotibial band syndrome, left leg (02/04/21) Visit Care Team Role Provider Type Butch Enriquez MD Attending Provider Physician Primary Care Provider Referring Provider Specialty: Internal Medicine Address: [address] [place] [address], [address], [address] Email: [email or web address] Plan Of Care PT-OP-T Assessment and Plan Start: 02/04/21 15:30 Freq: Status: Active Protocol: Document 02/04/21 15:31 HH (Rec: 02/04/21 16:13 [email or web address]) Physical Therapy Assessment Rehab Potential Rehabilitation Potential Excellent Evaluation Complexity Number of Personal Factors/Comorbidities 3 or More Number of Body Systems Impaired 3 Clinical Presentation at Evaluation Stable Impairments Impairments Activity Tolerance,Balance, Functional Activities, Functional Mobility,Gait,Pain, Posture,ROM,Soft Tissue Mobility,Strength,Transfers Goals gait mechanics Impairment pt has excessive lateral weight shift during gait Short Term Goal (STG) pt will show improved hip stabilizers and extension strength to decrease lateral weight shift while walking to reduce mechanical stress at lateral chain. STG Duration 8 weeks LEFS Impairment pt shows very limited hip mobility Short Term Goal (STG) pt will show improved hip mobility by increasing ROM on SLR and angelic test by 10 degrees which allows him to bend over for yard work easily STG Duration 4 weeks Halfway Goal (LTG) pt will show improved hip mobility by increasing ROM on SLR and ANGELIC test by 15 degrees which improves his overall gait mechanics with longer stride. LTG Duration 8 weeks pain Impairment pain up to 7/10 getting OOB in the am Short Term Goal (STG) pt will have no more than 5/10 pain in the AM while getting OOB STG Duration 4 weeks Halfway Goal (LTG) pt will complete his morning stretching routine so he will not have more than 2/10 hip pain while getting OOB LTG Duration 8 weeks Assessment Summary Assessment Joelle Leigh) is a 80 yo male here for his recurrent bilateral thigh and knee pain. Pt was here for therapy for few times and he stated it was helpful. However, Cece is back here again today and his major c/o is difficulty getting OOB in the AM and getting up from prolonged sitting because of the pain. Pain subsides with movements. Upon assessment, pt continues to show IT band syndrome. He has significant tightness at IT band with very limited hip mobility, especially extension . His gait shows excessive lateral weight shift during gait which mechanically stresses lateral chain. Pt will benefit from another course of skilled therapy to improve his hip mobility and gait mechanics. Physical Therapy Plan Frequency and Duration Frequency of Treatment 1x/Week Duration of Treatment 8 weeks Plan of Care Start Date 02/04/21 Plan of Care End Date 04/05/21 Therapeutic Interventions Therapeutic Interventions Balance Training,Gait Training ,Home Exercise Program,Manual Therapy,Neuromuscular Re- education,Patient/Caregiver Education,Self-Care/Home Management,Soft Tissue Mobilization,Taping, Therapeutic Activities, Therapeutic Exercises Modalities Cold Pack/Ice Massage,Electric Stimulation,Hot Packs, Infrared Therapy,Paraffin Bath ,Ultrasound Next Visit Focus/Plan Next Note Type Treatment Note Next Visit Plan jamshid stretch figure 4 piriformis stretch recommend pt to do it in the am before OOB gait training to reduce lateral weight shift Plan of Care Dates Plan of Care Start Date 02/04/21 Plan of Care End Date 04/05/21 Electronically Signed by: Sarmad Rios PT 02/04/21 [id number] Please Sign and Return: I have reviewed this Plan of Care and certify that the skilled therapy services above are required to meet the patient?s needs. Physician Signature Date Printed Name and Credentials Clinical Instructor Signature Printed Name and Credentials
--- NOTE | 2021-02-06 11:18 | PT.OTN ---
Current Diagnoses Iliotibial band syndrome, left leg (02/06/21) Physical Therapy Treatment Note PT-OP-A Visit Information Start: 02/04/21 15:30 Freq: Status: Active Protocol: Document 02/06/21 10:35 SP (Rec: 02/06/21 11:29 SP [id number]) Out-Patient Physical Therapy Visit Information Visit Information Visit Type Treatment Note Visit Note co-pay $40 Visit Start Time 10:35 Visit Stop Time 11:18 Total Visit Minutes 43 Visit Number 2/ Number of HEALTHCARE INTERPRETER Visits 1 Evaluation Information Evaluation Date 02/04/21 Precautions Precautions DM II pacemaker PT-OP-B Current Condition Start: 02/04/21 15:30 Freq: Status: Active Protocol: Document 02/04/21 15:31 HH (Rec: 02/04/21 16:13 HH [email or web address]) Current Condition History of Current Condition Onset Date September, Current Complaints bilateral lateral hip pain and knee pain, IT band syndrome History of Current Condition Joelle Leigh) is a 80yo Tagalog speaking male (able to carry simple conversation) here for his recurrent lateral hip and knee pain since September . Pt was here for therapy in November for this IT band syndrome and his symptoms got better. However, he returned today for the same complaint with pain during getting up from a prolonged sitting position and getting OOB in the morning. He states walking and standing seem to be fine at this point . He said HEP given from previous PT was helpful but he usually only does it in the afternoon. He is still going to the gym 3 times/ week for some biking and upper body strengthening exercises. Prior Treatments and Tests Bilateral TKA Treatment Goals Patient/Caregiver Goals 1. to reduce his lateral thigh pain. Personal Factors Other Personal Factors That May Effect DM II Therapy/Recovery pacemaker CAD aortic stenosis ascending aortic aneurysm ( aortic valve replacement) CABG PT-OP-C Subjective Start: 02/04/21 15:30 Freq: Status: Active Protocol: Document 02/06/21 10:35 SP (Rec: 02/06/21 11:29 SP [id number]) OP-PT Subjective Patient Comments Patient Comments Pt states compliant with hip stretching before get out of bed in am. He stated didn't have any pain this am. PT-OP-D Balance Start: 02/04/21 15:30 Freq: Status: Active Protocol: Document 02/04/21 15:31 HH (Rec: 02/04/21 16:13 [email or web address]) Balance Tests Single Limb Standing Single Limb- Right 3-5, trendelenburg sign noted. Single Limb- Left 3-5, trendelenburg sign noted . PT-OP-G Mobility & Gait Start: 02/04/21 15:30 Freq: Status: Active Protocol: Document 02/04/21 15:31 HH (Rec: 02/04/21 16:13 [email or web address]) OP Gait Assessment Comments Gait Comments excessive lateral weight shift during gait. moderate knee varus noted on RLE Decreased strides noted. PT-OP-J Posture/Palpation/Skin Start: 02/04/21 15:30 Freq: Status: Active Protocol: Document 02/04/21 15:31 HH (Rec: 02/04/21 16:13 [email or web address]) Posture Evaluation Position Standing Knee Posture (R) Genu Varus PT-OP-K Range of Motion Start: 02/04/21 15:30 Freq: Status: Active Protocol: Document 02/04/21 15:31 HH (Rec: 02/04/21 16:13 [email or web address]) Hip Goniometric Range of Motion Hip Right Passive Hip ROM WFL No Testing Position Supine Straight Leg Raise 53 Extension 0 Internal Rotation 22 External Rotation 40 Left Passive Hip ROM WFL No Testing Position Supine Straight Leg Raise 55 Extension 3 Internal Rotation 25 External Rotation 32 PT-OP-L Special Tests Start: 02/04/21 15:30 Freq: Status: Active Protocol: Document 02/04/21 15:31 HH (Rec: 02/04/21 16:13 [email or web address]) Special Tests Hip Special Tests Straight Leg Raise Comments active SLR =50-55 degrees bilaterally SONAL Test Results +VE B Comments pain at R posterior hip Jesús Test Results +ve B Comments limited hip flexor flexibility and quad flexibility angelic test Test Results +ve B Comments tight TFL and IT band indicated bilaterally knee flexion rested at 30 degrees FADDIR Test Results -ve B Comments posterior hip capsule stretching sensation noted. PT-OP-M Strength Start: 02/04/21 15:30 Freq: Status: Active Protocol: Document 02/04/21 15:31 HH (Rec: 02/04/21 16:13 [email or web address]) Hip Strength Hip Manual Muscle Testing Right Flexion (L2) 4 Good Extension (S1) 4 Good Abduction 4- Good- Adduction 4+ Good+ Comments hip abduction compensated by using hip ER Left Flexion (L2) 4 Good Extension (S1) 4 Good Abduction 4+ Good+ Comments hip abduction compensated by using hip ER PT-OP-Q Treatments Start: 02/04/21 15:30 Freq: Status: Active Protocol: Document 02/06/21 10:35 SP (Rec: 02/06/21 11:29 SP [id number]) Therapeutic Exercises Supine Exercises Jesús stretch Supine Exercise Name 0pposite Le bent (trunk diagonal so supported away from EOB) Side bilateral Equipment Used added to HEP Reps/Minutes 30 x2 Comments good feedback stretch response , no LB recruitment ITB stretch Supine Exercise Name opp leg bent or straight ok- no LB recruitment Side bilateral Resistance added to HEP Equipment Used w/strap Reps/Minutes 30 x2 Comments good feedback stretch HS stretch Supine Exercise Name added to HEP Side bilateral Equipment Used w/strap Reps/Minutes 30 x2 Comments good feedback response piriformis stretch Supine Exercise Name HEP reviewed Reps/Minutes 30 x2 Comments perfroms in the AM figure 4 Supine Exercise Name HEP reviewed Side bilateral Reps/Minutes 30 x2 Comments perfroms in the AM Gait Training Gait Activity gait quality Device Used 0 Level of Assistance S Surface firm outside sidewalk Distance/Duration 1052 ft in 6 min then walking in front mirror for self feedback Treatment Focus plum posture, core/ hip abd/ scap stabilzation Comments cued for core/rhomboid engagement/ tall still trunk for decrease lateral lean during gait- improved with cues. Improved plum posture gait when in front mirror forward/ backward. PT-OP-T Assessment and Plan Start: 02/04/21 15:30 Freq: Status: Active Protocol: Document 02/06/21 10:35 SP (Rec: 02/06/21 11:29 SP [id number]) Physical Therapy Assessment Goals gait mechanics Impairment pt has excessive lateral weight shift during gait Short Term Goal (STG) pt will show improved hip stabilizers and extension strength to decrease lateral weight shift while walking to reduce mechanical stress at lateral chain. STG Duration 8 weeks LEFS Impairment pt shows very limited hip mobility Short Term Goal (STG) pt will show improved hip mobility by increasing ROM on SLR and angelic test by 10 degrees which allows him to bend over for yard work easily STG Duration 4 weeks Fur Cutting Machine Operator Goal (LTG) pt will show improved hip mobility by increasing ROM on SLR and ANGELIC test by 15 degrees which improves his overall gait mechanics with longer stride. LTG Duration 8 weeks pain Impairment pain up to 7/10 getting OOB in the am Short Term Goal (STG) pt will have no more than 5/10 pain in the AM while getting OOB STG Duration 4 weeks Fur Cutting Machine Operator Goal (LTG) pt will complete his morning stretching routine so he will not have more than 2/10 hip pain while getting OOB LTG Duration 8 weeks Assessment Summary Assessment Pt responded well to HEP stretching review, added HS/ ITB and Jesús stretch this tx with cues for set up and provided handouts with good understanding and feedback response of good stretching. Pt improved in plum posture decrease lateral lean with cued focus and use of mirror. Was able to complete 6MWT 1052 ft but required intermittent cues for postural focus. Physical Therapy Plan Frequency and Duration Frequency of Treatment 1x/Week Duration of Treatment 8 weeks Plan of Care Start Date 02/04/21 Plan of Care End Date 04/05/21 Therapeutic Interventions Therapeutic Interventions Balance Training,Gait Training ,Home Exercise Program,Manual Therapy,Neuromuscular Re- education,Patient/Caregiver Education,Self-Care/Home Management,Soft Tissue Mobilization,Taping, Therapeutic Activities, Therapeutic Exercises Modalities Cold Pack/Ice Massage,Electric Stimulation,Hot Packs, Infrared Therapy,Paraffin Bath ,Ultrasound Next Visit Focus/Plan Next Note Type Treatment Note Next Visit Plan Review HEP: initiated ROBIN breen ITB stretching last tx. POC: figure 4 piriformis stretch recommend pt to do it in the am before OOB gait training to reduce lateral weight shift
--- NOTE | 2021-02-24 08:52 | PT.OPDS ---
Current Diagnoses Iliotibial band syndrome, left leg (02/06/21) Visit Care Team Role Provider Type Butch Enriquez MD Attending Provider Physician Primary Care Provider Referring Provider Specialty: Internal Medicine Address: [address] [place] [address], [address], [address] Email: [email or web address] Visit Number Visit Number Discharge Summary PT-OP-T Assessment and Plan Start: 02/04/21 15:30 Freq: Status: Active Protocol: Document 02/24/21 08:51 (Rec: 02/24/21 08:52 [email or web address]) Physical Therapy Plan Discharge Physical Therapy Discharge Reasons No Longer Attending PT Discharge Comments Patient called to cancel remaining appts as he will be out of town for an extended time. DC pt from PT
== END 2021-02-24 10:45 | disposition home or self-care (01) ==
LOC: PHYS 10:30
PROVIDERS: PCP Student in an Organized Health Care Education/Training Program; Referring Provider Student in an Organized Health Care Education/Training Program; Visit Provider Student in an Organized Health Care Education/Training Program
DX: M76.32 Iliotibial band syndrome, left leg (principal)
CPT/HCPCS: 97110; 97116; 97161

== ENCOUNTER 2021-05-07 17:35 | Emergency (ER) | payer MEDICARE, SELFPAY ==
[2021-05-07 17:44] VITALS: BP 147/75; PULSE 86; RESP 18; TEMP 37.5; O2SAT 98
--- NOTE | 2021-05-07 17:46 | DI.RAD.S_ITS ---
PROCEDURE: XR CHEST 1V INDICATIONS: chest pain TECHNIQUE: One view of the chest was acquired. COMPARISON: [facility], CR, XR CHEST 2 VIEWS, 06/05/2020, 7:22. [facility], CR, XR CHEST 1 VIEW, 06/04/2020, 19:53. [facility], CR, CHEST 2 VIEW, 12/10/2015, 16:05. FINDINGS: Surgical changes and devices: Post CABG changes are seen. An electronic device can be seen on the left. Lungs and pleura: An incomplete inspiratory result is noted, causing a crowded appearance to the lung markings. No focal infiltrates are seen. No pneumothorax or significant pleural effusions are seen. There is persistent elevation of the right hemidiaphragm. Mediastinum: The cardiac contours are mildly enlarged. The aorta demonstrates calcification and tortuosity. Bones and chest wall: No suspicious bony lesions. Age-appropriate bony degenerative changes are seen. Overlying soft tissues appear unremarkable. IMPRESSION: Portable chest demonstrating low lung volumes. Mild cardiomegaly. There is persistent elevation of the right hemidiaphragm. Postoperative and degenerative changes are seen. Dictated by: Rocky Hinson M.D. on 05/07/2021 at 17:13 Approved by: Rocky Hinson M.D. on 05/07/2021 at 17:14
[2021-05-07 18:02] LABS: Add Manual Diff / Slide Review NO; Basophils Absolute Auto 0 /uL (0-100); Basophils Percent Auto 0.4 % (0-2); Eosinophils Absolute Auto 0 /uL (0-450); Eosinophils Percent Auto 0.3 % (2-4); Hemoglobin 14.9 g/dL (13.5-17.5); Lymphocytes Absolute Auto 900 /uL (1100-4500); Mean Corpuscular HGB Conc 33.9 % (30-36); Mean Corpuscular Hemoglobin 31.2 PG (26-34); Mean Corpuscular Volume 91.8 fL (80-100); Monocytes Absolute Auto 1400 /uL (0-900); Monocytes Percent Auto 16.3 % (3-14); Neutrophils Absolute Auto 6500 /uL (1500-7000); Platelet Count 262 X10^3/uL (150-400); White Blood Cell Count 8.8 X10^3/uL (4.5-11.0)
--- NOTE | 2021-05-07 18:23 | DI.CT.S_ITS ---
PROCEDURE: CT HEAD/BRAIN WO CON INDICATIONS: headache on anticoagulation TECHNIQUE: Noncontrast 4.5 mm thick angled axial sections acquired from the foramen magnum to the vertex, with coronal and sagittal reformats. For radiation dose reduction, the following was used: automated exposure control, adjustment of mA and/or kV according to patient size. COMPARISON: None. FINDINGS: Image quality: Excellent. CSF spaces: Basal cisterns are patent. No extra-axial fluid collections. Ventricles are normal in size and shape. Brain: No midline shift. No intracranial masses or hemorrhage. Kesslre-white matter interface is normal. Moderate atrophy and multifocal white matter chronic ischemic change present. Skull and face: Calvarium and visualized facial bones are intact, without suspicious lesions. Bilateral intraocular lens replacements noted. Moderate calcified atherosclerotic plaque noted involving the cavernous portions of both internal carotid arteries. Bilateral intraocular lens replacements noted. Sinuses: Visualized sinuses and mastoids are clear. IMPRESSION: Moderate atrophy and multifocal white matter chronic ischemic change without acute intracranial hemorrhage or mass effect. Approved by: Edi Dwyer M.D. on 05/07/2021 at 18:13
--- NOTE | 2021-05-07 18:23 | ED_ITS ---
HPI - General Adult General Chief complaint: Weakness Stated complaint: HEADACHES, UNSTEADY Time Seen by Provider: 05/07/21 17:55 Source: patient and family Mode of arrival: Wheelchair History of Present Illness HPI narrative: 80-year-old male who is here with his for evaluation of headache for the past couple days. Was having some lightheadedness this morning. He is also complaining of some left hip pain but this is not new. Pat charisse states that the headache is in the back of his head. It is bilateral but is more so on the right than the left. Does hurt to touch the area. Also hurts to extend his neck. There has been no trauma. The unsteadiness this morning is not a vertigo sensation. Is more of a lightheadedness. There has been no falls. He is on anticoagulation. No vision changes. No chest pain. No shortness of breath. No abdominal pain. No nausea vomiting. No urinary symptoms. No change in bowel habits. No upper lower extremity weakness. No tingling in his upper lower extremities Related Data Home Medications Medication Instructions Recorded Confirmed DIPHENHYDRAMINE CITRATE/IBUP 200 mg PO PRN #0 07/29/12 12/17/20 (ADVIL PM) [MULTIVITAMIN] PO QDAY #0 07/29/12 12/17/20 [VITAMIN D-3] 2,000 unit PO QDAY #0 07/29/12 12/17/20 [GLUCOSAMINE/MSM] 3,000 mg PO QDAY #0 04/22/17 12/17/20 [ginkgo biloba] 1 tab PO QDAY #0 08/04/17 12/17/20 aspirin 81 mg tablet,delayed 81 mg PO DAILY 02/11/19 12/17/20 release Previous Rx's Medication Instructions Recorded losartan 25 mg tablet 25 mg PO QDAY #90 tab 12/15/19 metoprolol succinate 50 mg 25 mg PO DAILY #45 tab 12/15/19 tablet,extended release 24 hr apixaban 5 mg tablet 5 mg PO BID #30 tab 01/02/20 allopurinol 100 mg tablet See Rx Instructions .ROUTE 07/10/20 .COMPLEX #90 tab DISABLED PARKING PERMIT #1 ea 12/18/20 atorvastatin 40 mg tablet 40 mg PO DAILY #90 tab 01/21/21 metformin 500 mg tablet See Rx Instructions .ROUTE 01/21/21 .COMPLEX #360 tab Allergies Allergy/AdvReac Type Severity Reaction Status Date / Time latex Allergy Mild SWOLLEN Verified 12/17/20 14:54 FINGERS Sulfa (Sulfonamide Allergy Mild SWOLLEN Verified 12/17/20 14:54 Antibiotics) FINGERS lisinopril AdvReac Intermediate SWELLING Verified 12/17/20 14:54 hydrochlorothiazide AdvReac Mild SWELLING Verified 12/17/20 14:54 Review of Systems Constitutional Constitutional: Denies fatigue, Denies fever(s) and Reports headache(s) Eyes Eyes: Denies blurry vision and Denies change in vision ENT Ears, Nose, Mouth, and Throat: Denies vertigo, Reports dizziness, Reports headache(s), Reports disequilibrium and Denies sore throat Cardiovascular Cardiovascular: Denies chest pain, Denies rapid heart rate and Denies dyspnea Respiratory Respiratory: Denies cough and Denies dyspnea Gastrointestinal Gastrointestinal: Denies abdominal pain, Denies nausea and Denies vomiting Genitourinary Genitourinary: Reports system reviewed and no additional complaints, except as documented Musculoskeletal Musculoskeletal: Reports system reviewed and no additional complaints, except as documented and Reports as per HPI Integumentary/Breasts Skin/Breast: Reports system reviewed and no additional complaints, except as documented Neurologic Neurologic: Denies behavioral changes, Denies vertigo, Reports dizziness, Reports headache(s) and Reports disequilibrium Psychiatric Psychiatric: Denies behavioral changes Endocrine Endocrine: Denies fatigue Hematologic/Lymphatic On Anticoagulants: Yes Allergic/Immunologic Allergic/Immunologic: Reports system reviewed and no additional complaints, except as documented Patient History Medical History Aortic stenosis Ascending aortic aneurysm Cataracts, bilateral (~2015) Chickenpox Colon polyps (01/2004) Coronary artery disease Gout Hx of varicose veins Hyperlipidemia Hypertension Measles Mumps Onychomycosis Osteoarthritis Sleep apnea Upper GI bleed Surgical History History of aortic valve replacement (07/19/15) Hx of aortic valve replacement (12/2009) Hx of cataract surgery (09/2015) Hx of colonoscopy with polypectomy (01/2004) Hx of coronary artery bypass graft Hx of knee surgery (2003) Hx of total knee arthroplasty (01/2013) Hx of varicose vein stripping (1974) Family History Brother No problems noted. Father Diabetes mellitus Heart disease Mother No problems noted. Social History Smoking Status: Never smoker alcohol intake: never substance use type: does not use Smoking Status: Never smoker Substance Use Type: does not use Exam Initial Vital Signs Initial Vital Signs: Vital Signs Temperature 99.5 F 05/07/21 17:44 Pulse Rate 86 05/07/21 17:44 Respiratory Rate 18 05/07/21 17:44 Blood Pressure 147/75 H 05/07/21 17:44 Pulse Oximetry 98 05/07/21 17:44 Const General: cooperative, comfortable, well developed and well groomed HENMT Head: normal to inspection and normocephalic Face and sinus: normal facial exam Mouth: oral mucosae normal Eyes Pupils: PERRL EOM: EOM intact bilaterally Resp Effort & Inspection: normal respiratory effort Auscultation: clear to auscultation bilaterally Cardio Rate: regular rate Rhythm: regular rhythm GI Inspection: normal to inspection Palpation: soft, No firm and No tender Back/Spine/Pelvis Cervical Spine: cervical muscular tenderness and No cervical spinal tenderness Thoracic/Lumbar Spine: No paraspinal tenderness and No thoracic spinal tenderness Skin General: no rashes or lesions noted Neuro General: patient alert, patient awake, patient oriented x3 and moves all extremities Cranial Nerves: CN's II-XI intact bilaterally Cognition: normal cognition Motor: muscle tone normal throughout Sensory Exam: no sensory deficits noted Extrem General: normal to inspection and capillary refill normal Psych Appearance: grossly normal and well kempt Course Orders Ordered: Discontinued Medications Hydrocodone Bitart/Acetaminophen (Hydrocodone/Acet 5/325 Tablet) 1 tab PO NOW ONE Stop: 05/07/21 18:25 Last Admin: 05/07/21 19:21 Dose: 1 tab Documented by: JOHN Vital Signs Vital signs: Vital Signs - 8 hr 05/07/21 17:44 Temperature 99.5 F Pulse Rate 86 Respiratory Rate 18 Blood Pressure 147/75 H Pulse Oximetry 98 Medical Decision Making Lab Data Lab results reviewed: Yes I reviewed the patient's lab results. Result diagrams: 05/07/21 17:50 05/07/21 18:25 Labs: Lab Results 05/07/21 05/07/21 Range/Units 17:50 18:25 WBC 8.8 (4.5-11.0) X10^3/uL RBC 4.80 (4.5-5.9) X10^6/uL Hgb 14.9 (13.5-17.5) g/dL Hct 44.0 (41-53) % MCV 91.8 (80-100) fL MCH 31.2 (26-34) PG MCHC 33.9 (30-36) % RDW 14.0 (11.6-14.8) % Plt Count 262 (150-400) X10^3/uL Neut % (Auto) 73.0 (50-75) % Lymph % (Auto) 10.0 L (25-40) % [place] % (Auto) 16.3 H (3-14) % Eos % (Auto) 0.3 L (2-4) % Baso % (Auto) 0.4 (0-2) % Neut # (Auto) 6500 (2997-9563) /uL Lymph # (Auto) 900 L (3364-4330) /uL [place] # (Auto) 1400 H (0-900) /uL Eos # (Auto) 0 (0-450) /uL Baso # (Auto) 0 (0-100) /uL Sodium 134 L (137-145) mmol/L Potassium 4.2 (3.4-5.1) mmol/L Chloride 96 L (98-107) mmol/L Carbon Dioxide 27 (22-32) mmol/L BUN 15 (9-20) mg/dL Creatinine 0.99 (0.66-1.25) mg/dL Estimated GFR > 60.0 (>60) mL/min BUN/Creatinine Ratio 15.2 (6-22) Glucose 161 H (80-110) mg/dL Calcium 9.1 (8.4-10.2) mg/dL Total Bilirubin 1.0 (0.2-1.3) mg/dL AST 30 (17-59) IU/L ALT 21 (<50) IU/L Alkaline Phosphatase 104 (38-126) U/L Total Creatine Kinase 39 L (55-170) U/L CK-MB (CK-2) TNP CK-MB (CK-2) Rel Index TNP Troponin I < 0.012 (0.01-0.034) ng/mL Total Protein 7.2 (6.3-8.2) g/dL Albumin 4.1 (3.5-5.0) g/dL Globulin 3.1 (1.7-4.1) g/dL Albumin/Globulin Ratio 1.3 (1.0-2.8) Lipase 204 (23-300) U/L Imaging Data Chest x-ray: Radiologist's Impression: [address] [address] XRay Report Signed Patient: Joelle Lainez V MR#: [id number] : 1940 Acct:[id number] Age/Sex: 80 / M Date of Service: 05/07/21 Loc: ED Accession Number: [id number] ?? Procedure: XR chest 1V Ordering Provider: Jenny Vance D.O. PROCEDURE:? XR CHEST 1V ? INDICATIONS:? chest pain ? TECHNIQUE:? One view of the chest was acquired.? ? COMPARISON:? [facility], CR, XR CHEST 2 VIEWS, 06/05/2020, 7:22.? [facility], CR, XR CHEST 1 VIEW, 06/04/2020, 19:53.? [facility], CR, CHEST 2 VIEW, 12/10/2015, 16:05. ? FINDINGS:? ? Surgical changes and devices:? Post CABG changes are seen.? An electronic device can be seen on the left. ? Lungs and pleura:? An incomplete inspiratory result is noted, causing a crowded appearance to the lung markings.? No focal infiltrates are seen.? No pneumothorax or significant pleural effusions are seen. ? There is persistent elevation of the right hemidiaphragm. ? Mediastinum:? The cardiac contours are mildly enlarged. The aorta demonstrates calcification and tortuosity. ? Bones and chest wall:? No suspicious bony lesions.? Age-appropriate bony degenerative changes are seen. ? Overlying soft tissues appear unremarkable.? ? ? IMPRESSION:? Portable chest demonstrating low lung volumes.? ? Mild cardiomegaly. ? There is persistent elevation of the right hemidiaphragm.? ? Postoperative and degenerative changes are seen.? ? ? Dictated by: Rocky Hinson M.D. on 05/07/2021 at 17:13 ? ? Approved by: Rocky Hinson M.D. on 05/07/2021 at 17:14?? CT scan - head: Radiologist's Impression: [address] [address] [address] Scan Report Signed Patient: Joelle Lainez V MR#: [id number] : 1940 Acct:[id number] Age/Sex: 80 / M Date of Service: 05/07/21 Loc: ED Accession Number: [id number] ?? Procedure: CT head/brain wo con Ordering Provider: Mike Giles D.O. PROCEDURE:? CT HEAD/BRAIN WO CON ? INDICATIONS:? headache on anticoagulation ? TECHNIQUE:? Noncontrast 4.5 mm thick angled axial sections acquired from the foramen magnum to the vertex, with coronal and sagittal reformats.? For radiation dose reduction, the following was used:? automated exposure control, adjustment of mA and/or kV according to patient size.? ? COMPARISON:? None. ? FINDINGS:? Image quality:? Excellent.? ? CSF spaces:? Basal cisterns are patent.? No extra-axial fluid collections.? Ventricles are normal in size and shape.? ? Brain:? No midline shift.? No intracranial masses or hemorrhage.? Kessler-white matter interface is normal.? Moderate atrophy and multifocal white matter chronic ischemic change present. ? Skull and face:? Calvarium and visualized facial bones are intact, without suspi cious lesions.? Bilateral intraocular lens replacements noted.? Moderate calcified atherosclerotic plaque noted involving the cavernous portions of both internal carotid arteries.? Bilateral intraocular lens replacements noted. ? Sinuses:? Visualized sinuses and mastoids are clear.? ? IMPRESSION:? ? Moderate atrophy and multifocal white matter chronic ischemic change without acute intracranial hemorrhage or mass effect. ? ? ? Approved by: Edi Dwyer M.D. on 05/07/2021 at 18:13? ECG Data Attestation: I personally reviewed and interpreted this ECG as follows: Interpretation: Ventricular paced Rate of 85 MDM Narrative Medical decision making narrative: Patient reports a complete resolution of his headache after medication here in the ER. His head CT is unremarkable. His neck pain is clearly reproducible with palpation. It is paraspinal muscle tenderness. This improved with his headache as well. Low suspicion for meningitis. Patient is also complaining of left hip pain but this is not new for him. He does have iliotibial band issues on the left. Patient was able to walk around the emergency department without much difficulty. Low suspicion for CVA. Low suspicion for meningitis. Low suspicion for TIA. Will hold on further workup for now. Patient was given return precautions and follow-up instructions. Both he and his who is at bedside expressed understanding agreement. Discharge Plan Departure Patient Disposition: Home Clinical Impression: Acute hip pain, Headache Instructions: DI for Headache Activity Restrictions/Additional Instructions: Continue to take all of your medications as directed. It is important that you continue to do the stretches for your left hip/leg discomfort. Contact your primary doctor for a follow-up. Return to the emergency department for any new or worsening symptoms Prescriptions: No Action DIPHENHYDRAMINE CITRATE/IBUP (ADVIL PM) 200 mg PO PRN Qty: 0 RF: 0 [MULTIVITAMIN] PO QDAY Qty: 0 RF: 0 [VITAMIN D-3] 2,000 unit PO QDAY Qty: 0 RF: 0 [GLUCOSAMINE/MSM] 3,000 mg PO QDAY Qty: 0 RF: 0 [ginkgo biloba] 1 tab PO QDAY Qty: 0 RF: 0 apixaban 5 mg tablet 5 mg PO BID Qty: 30 RF: 0 allopurinol 100 mg tablet See Rx Instructions .ROUTE .COMPLEX Qty: 90 RF: 3 (DME) DISABLED PARKING PERMIT See Rx Instructions .ROUTE .MEDSUPPLY Qty: 1 RF: 0 atorvastatin 40 mg tablet 40 mg PO DAILY Qty: 90 RF: 3 metformin 500 mg tablet See Rx Instructions .ROUTE .COMPLEX Qty: 360 RF: 1 aspirin 81 mg tablet,delayed release (DR/EC) 81 mg PO DAILY RF: 0 losartan 25 mg tablet 25 mg PO QDAY Qty: 90 RF: 3 metoprolol succinate 50 mg tablet extended release 24 hr 25 mg PO DAILY Qty: 45 RF: 3 Referrals: Butch Enriquez MD [Primary Care Provider] -
[2021-05-07 18:52] LABS: Alanine Aminotransferase 21 IU/L (<50); Albumin 4.1 g/dL (3.5-5.0); Albumin Globulin Ratio 1.3 (1.0-2.8); Alkaline Phosphatase 104 U/L (38-126); Aspartate Aminotransferase 30 IU/L (17-59); BUN Creatinine Ratio 15.2 (6-22); Blood Urea Nitrogen 15 mg/dL (9-20); Calcium 9.1 mg/dL (8.4-10.2); Carbon Dioxide 27 mmol/L (22-32); Chloride 96 mmol/L (98-107); Creatine Kinase 39 U/L (55-170); Estimated Glomerular Filt Rate > 60.0 mL/min (>60); Globulin 3.1 g/dL (1.7-4.1); Glucose 161 mg/dL (80-110); HEMOLYSIS < 15 (0-50); Lipase 204 U/L (23-300); Potassium 4.2 mmol/L (3.4-5.1); Sodium 134 mmol/L (137-145); Total Protein 7.2 g/dL (6.3-8.2)
[2021-05-07 19:03] LABS: Troponin I < 0.012 ng/mL (0.01-0.034)
[2021-05-07] MEDS: HYDROCODONE/ACET 5/325 TABLET 1 TAB PO (19:21)
[2021-05-07 20:33] VITALS: BP 140/70; PULSE 80; RESP 18; O2SAT 98
== END 2021-05-07 20:34 | disposition home or self-care (01) ==
PROVIDERS: Emergency Medicine; Emergency Provider Emergency Medicine; PCP Student in an Organized Health Care Education/Training Program
DX: M25.552 Pain in left hip (principal); R51.9 Headache, unspecified; R42 Dizziness and giddiness; R07.9 Chest pain, unspecified; Z79.01 Long term (current) use of anticoagulants; M54.2 Cervicalgia
CPT/HCPCS: 36415; 70450; 71045; 80053; 82550; 83690; 84484; 85025; 93005; 99284

== ENCOUNTER → 2021-06-03 15:47 | Outpatient (CLI) | payer MEDICARE, SELFPAY ==
--- NOTE | 2021-06-03 | DI.ECHO.S_ITS ---
[facility] +---------+ : : [address] : : : : [id number] : : : : Phone: [phone]+ Echocardiogram Report + + :Name: SANTIAGO GAMEZ V Study Date: 06/03/2021 Height: 65 in : [facility] ReadingLocation: Weight: 190 lb : : Gender: Male BSA: 1.9 m2 : :: 1940 Age: 80 yrs BP: 134/80 mmHg: :Reason For Study: MITRAL INSUFFICIENCY : :Ordering Physician: LEXIE, : :AYO Performed By: Ayde Davila : :Referring: AYO OWEN : + + Interpretation Summary The left ventricle is normal in size and wall thickness. Left ventricular ejection fraction is estimated to be 50 +/- 5%. Septal hypokinesis with septal wall motion abnormalities likely due to pacing. Patient received leadless pacemaker in June 04, 2020. January 16, 2020 LVEF was 60 to 65%. MV E/A: 72.6 The right ventricle is mildly dilated. The right ventricular systolic function is normal. There is moderate mitral regurgitation. Compared to the prior echo study, there has been a decrease in the severity of mitral regurgitation. There is a bioprosthetic aortic valve. The prosthetic aortic valve is well-seated. The peak aortic velocity is 2.69 m/sec. The aortic valve mean gradient is 17 mmHg. The peak aortic velocity on the previous exam was 2.39 m/sec. There is no hemodynamically significant valvular aortic stenosis. There is mild to moderate tricuspid regurgitation. Compared to the prior echo exam, there has been no change in TR severity. The right ventricular systolic pressure is estimated to be at least 37 mmHg based on an estimated right atrial pressure of 3 mm Hg. Compared to the prior echo exam, there has been a decrease in the severity of pulmonary hypertension. 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 5.1 cm in diameter. In November 2014, March 2016, April 2018, November 2018 and in January 2020, it was 5.1 cm as well. Procedure: A two-dimensional transthoracic echocardiogram with color flow and Doppler was performed. The study quality was technically adequate. Comparison is made with the echocardiogram of 01/16/2020. The patient was in atrial fibrillation with heart rates between 55-80 bpm during the exam. Predominant ventricular pacing. Left Ventricle: The left ventricle is normal in size and wall thickness. There is no thrombus. Left ventricular ejection fraction is estimated to be 50 +/- 5%. Septal hypokinesis with septal wall motion abnormalities likely due to pacing. Patient received leadless pacemaker in June 04, 2020. January 16, 2020 LVEF was 60 to 65%. Diastolic function could not be accurately assessed due to atrial fibrillation. MV E/A: 72.6. Right Ventricle: The right ventricle is mildly dilated. The right ventricular systolic function is normal. Atria: The left atrium is severely dilated. The left atrium has remained unchanged in size since the prior echo exam. The right atrium is mildly dilated. There is no Doppler evidence for an interatrial shunt. Mitral Valve: The mitral valve leaflets appear mildly thickened, but open well. There is mild to moderate mitral annular calcification. There is moderate mitral regurgitation. Compared to the prior echo study, there has been a decrease in the severity of mitral regurgitation. Aortic Valve: There is a bioprosthetic aortic valve. The prosthetic aortic valve is well-seated. The peak aortic velocity is 2.69 m/sec. The aortic valve mean gradient is 17 mmHg. The peak aortic velocity on the previous exam was 2.39 m/sec. There is no hemodynamically significant valvular aortic stenosis. No aortic regurgitation is present. Tricuspid Valve: The tricuspid valve is normal. There is mild to moderate tricuspid regurgitation. The right ventricular systolic pressure is estimated to be at least 37 mmHg based on an estimated right atrial pressure of 3 mm Hg. Compared to the prior echo exam, there has been no change in TR severity. Compared to the prior echo exam, there has been a decrease in the severity of pulmonary hypertension. Pulmonic Valve: The pulmonic valve is not well visualized. Great Vessels: The aortic root is normal size. 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 The IVC is of normal diameter and collapses greater than 50% with a sniff. This suggests a low right atrial pressure of 3 mm Hg. Pericardium/ Pleura There is no pericardial effusion. There is no pleural effusion. MMode/2D Measurements & Calculations LVIDd: 5.3 cm LVOT diam: 1.9 cm LVIDs: 3.9 cm Ao root diam: 3.3 cm FS: 25.7 % asc Aorta Diam: 5.1 cm IVSd: 0.94 cm LVPWd: 0.99 cm LV santillan. diameter/BSA (cm/m^2): 2.7 LV sys. diameter/BSA (cm/m^2): 2.0 LA A2 area: 28.8 cm2 RA long axis: 6.0 cm LA A4 area: 21.6 cm2 RA area: 21.1 cm2 LA length (vol): 5.8 cm RA vol: 63.1 ml LA vol: 90.7 ml RA : 32.6 ml/m2 LA vol index: 46.9 ml/m2 IVC diam: 1.7 cm RVD1 (basal): 3.9 cm TAPSE: 1.8 cm Doppler Measurements & Calculations Ao V2 max: 269.5 cm/sec LVOT Max [place]: 62.4 cm/sec Ao V2 mean: 183.3 cm/sec LV V1 max P.6 mmHg Ao max P.0 mmHg LV V1 VTI: 13.5 cm Ao mean P.3 mmHg MELANIE(I,D): 0.76 cm2 Ao V2 VTI: 52.2 cm MELANIE(V,D): 0.68 cm2 sev ratio: 0.26 MELANIE indexed to BSA (cm^2/m^2): 0.39 MV E max [place]: 130.8 cm/sec TR max [place]: 292.1 cm/sec MV A max [place]: 1.8 cm/sec TR max P.1 mmHg MV E/A: 72.6 PA V2 max: 84.0 cm/sec Med Peak E' [place]: 4.3 cm/sec PA V2 mean: 58.7 cm/sec E/E' med: 30.3 PA mean P.5 mmHg Lat Peak E' [place]: 10.5 cm/sec PA pr(Accel): 34.5 mmHg E/E' lat: 12.5 E/e' average: 21.4 MV dec time: 0.21 sec MR ERO: 0.19 cm2 MR PISA: 3.4 cm2 SV(LVOT): 39.8 ml MR flow rate: 106.7 cm3/sec MR PISA radius: 0.73 cm Reading Physician:11:29 AM
== END ==
PROVIDERS: PCP Student in an Organized Health Care Education/Training Program; Referring Provider Internal Medicine Cardiovascular Disease; Visit Provider Internal Medicine Cardiovascular Disease
DX: I08.1 Rheumatic disorders of both mitral and tricuspid valves (principal); I77.89 Other specified disorders of arteries and arterioles; Z95.2 Presence of prosthetic heart valve; Z95.0 Presence of cardiac pacemaker
CPT/HCPCS: 93306

== ENCOUNTER → 2021-06-10 16:03 | Outpatient (CLI) | payer MEDICARE, SELFPAY ==
[2021-06-10 17:05] LABS: Hemoglobin A1C% w Est Avg Glu 6.1 % (4.0-6.0)
[2021-06-10 17:30] LABS: BUN Creatinine Ratio 12.8 (6-22); Blood Urea Nitrogen 14 mg/dL (9-20); Estimated Glomerular Filt Rate > 60.0 mL/min (>60)
== END ==
PROVIDERS: PCP Student in an Organized Health Care Education/Training Program; Referring Provider Student in an Organized Health Care Education/Training Program; Visit Provider Student in an Organized Health Care Education/Training Program
DX: E11.9 Type 2 diabetes mellitus without complications (principal); I10 Essential (primary) hypertension
CPT/HCPCS: 36415; 82565; 83036; 84520

== ENCOUNTER 2021-06-21 11:41 | Emergency (ER) | payer MEDICARE, SELFPAY ==
[2021-06-21 12:02] VITALS: BP 148/70; PULSE 77; TEMP 36.6; O2SAT 100; BMI 32.3
--- NOTE | 2021-06-21 12:23 | DI.RAD.S_ITS ---
PROCEDURE: XR HIP W PEL IF DONE LT 2V INDICATIONS: chronic IT band pain TECHNIQUE: AP pelvis with lateral view(s) of the left hip(s). COMPARISON: None. FINDINGS: Bones: No fractures or dislocations. Pelvic ring appears intact. No suspicious bony lesions. Mild joint space narrowing and periarticular osteophyte formation at the bilateral hip joints. Soft tissues: The visualized bowel gas pattern is normal. No suspicious soft tissue calcifications. IMPRESSION: Bilateral hip osteoarthritis. No acute fracture. No osseous lesion. If symptoms and/or clinical suspicion for pathology persist, further assessment with repeat, or advanced imaging (e.g., CT, MRI, or bone scan) may be helpful for further assessment. Dictated by: Nava Bryant M.D. on 06/21/2021 at 11:48 Approved by: Nava Bryant M.D. on 06/21/2021 at 11:48
--- NOTE | 2021-06-21 12:24 | DI.RAD.S_ITS ---
PROCEDURE: XR KNEE LT 3V INDICATIONS: IT band pain, s/p knee replacement years ago TECHNIQUE: 3 views of the knee were acquired. COMPARISON: [facility], , KNEE 1-2 VIEWS LEFT, 01/30/2013, 12:45. FINDINGS: Bones: No fractures or dislocations. No suspicious bony lesions. Left knee arthroplasty. Soft tissues: No joint effusion. No suspicious soft tissue calcifications. IMPRESSION: No acute fracture. No osseous lesion. If symptoms and/or clinical suspicion for pathology persist, further assessment with repeat, or advanced imaging (e.g., CT or bone scan) may be helpful for further assessment. Dictated by: Nava Bryant M.D. on 06/21/2021 at 11:48 Approved by: Nava Bryant M.D. on 06/21/2021 at 11:49
--- NOTE | 2021-06-21 12:48 | ED_ITS ---
HPI - Extremity Injury (Lower) <Suzan Mcclellan, [facility] - Last Filed: 06/21/21 13:21> General Chief Complaint: Extremity Injury, Lower Stated Complaint: Severe pain lt side back to knee Time Seen by Provider: 06/21/21 12:07 Source: patient and family Mode of arrival: Ambulatory History of Present Illness HPI Narrative: 80-year-old male who is here with his for evaluation of his low left upper leg pain which is not new and has been ongoing and worsening for months. Patient has not had any trauma, he complains of pain that extends from his left buttock to his left knee, he has a history of a total knee replacement on the left denies any trauma to this, he has a history of ITP and tightness and used to be in physical therapy for this but was out of town for an extended period time. Patient is a patient of Dr. Enriquez, and they have a pending appointment on however patient complains of waking up with pain too significant to tolerate at home despite his methods of massage and Thera-Band exercises that he is doing at home. Patient reports that at night his pain is not as bad as it is enumerated awake the. He reports that massage does help, he reports that his pain is sharp in his buttock, and it is tight into his knee. He denies any swelling, tenderness to palpation, skin changes, difficulty moving his knee or difficulty moving his hip, he does not have any range of motion limitations, complains that it is tight and sharp in nature, mostly in the morning. Patient denies any pain at this time. Related Data Home Medications Medication Instructions Recorded Confirmed DIPHENHYDRAMINE CITRATE/IBUP 200 mg PO PRN #0 07/29/12 06/10/21 (ADVIL PM) [MULTIVITAMIN] PO QDAY #0 07/29/12 06/10/21 [VITAMIN D-3] 2,000 unit PO QDAY #0 07/29/12 06/10/21 [GLUCOSAMINE/MSM] 3,000 mg PO QDAY #0 04/22/17 06/10/21 [ginkgo biloba] 1 tab PO QDAY #0 08/04/17 06/10/21 aspirin 81 mg tablet,delayed 81 mg PO DAILY 02/11/19 06/10/21 release Previous Rx's Medication Instructions Recorded losartan 25 mg tablet 25 mg PO QDAY #90 tab 12/15/19 metoprolol succinate 50 mg 25 mg PO DAILY #45 tab 12/15/19 tablet,extended release 24 hr apixaban 5 mg tablet 5 mg PO BID #30 tab 01/02/20 DISABLED PARKING PERMIT #1 ea 12/18/20 atorvastatin 40 mg tablet 40 mg PO DAILY #90 tab 01/21/21 metformin 500 mg tablet See Rx Instructions .ROUTE 01/21/21 .COMPLEX #360 tab allopurinol 100 mg tablet See Rx Instructions .ROUTE 06/02/21 .COMPLEX #90 tab hydrocodone 5 mg-acetaminophen 325 1 tab PO Q6H PRN #10 tab 06/21/21 mg tablet Allergies Allergy/AdvReac Type Severity Reaction Status Date / Time latex Allergy Mild SWOLLEN Verified 06/10/21 15:08 FINGERS Sulfa (Sulfonamide Allergy Mild SWOLLEN Verified 06/10/21 15:08 Antibiotics) FINGERS lisinopril AdvReac Intermediate SWELLING Verified 06/10/21 15:08 hydrochlorothiazide AdvReac Mild SWELLING Verified 06/10/21 15:08 Review of Systems <HEENA Lopez - Last Filed: 06/21/21 13:21> Review of Systems Narrative: General: denies fever, chills Head/Neck: denies headache, neck pain Eyes: denies visual changes, eye pain Cardio: denies chest pain, palpitations Respiratory: denies shortness of breath, cough GI: denies abdominal pain, nausea, vomiting, or diarrhea : denies dysuria, hematuria MSK: Denies hip joint or knee joint pain, endorses right left buttock into left upper leg pain, muscle weakness Skin: denies rash, itching Neuro: denies numbness, tingling Patient History <HEENA Lopez - Last Filed: 06/21/21 13:21> Medical History Aortic stenosis Ascending aortic aneurysm Cataracts, bilateral (~2015) Chickenpox Colon polyps (01/2004) Coronary artery disease Gout Hx of varicose veins Hyperlipidemia Hypertension Measles Mumps Onychomycosis Osteoarthritis Sleep apnea Upper GI bleed Surgical History History of aortic valve replacement (07/19/15) Hx of aortic valve replacement (12/2009) Hx of cataract surgery (09/2015) Hx of colonoscopy with polypectomy (01/2004) Hx of coronary artery bypass graft Hx of knee surgery (2003) Hx of total knee arthroplasty (01/2013) Hx of varicose vein stripping (1974) Family History Brother No problems noted. Father Diabetes mellitus Heart disease Mother No problems noted. Social History Smoking Status: Former smoker alcohol intake: never substance use type: does not use Smoking Status: Former smoker alcohol intake frequency: holidays/special occasions only Substance Use Type: does not use Exam <HEENA Lopez - Last Filed: 06/21/21 13:21> Narrative Exam Narrative: Independently reviewed vitals signs and nursing notes. General: Awake, alert, nontoxic, no cardiorespiratory distress Head/Neck: Atraumatic, neck full range of motion Eyes: EOMI, conjunctiva normal Nose: nares patent, no rhinorrhea Mouth/Throat: moist mucus membranes, posterior pharynx normal, no oral lesions Cardio: Regular rate and rhythm, no peripheral edema Respiratory: respirations unlabored without wheezing, stridor, or rales. No retractions. GI: Abdomen soft, nontender MSK: Moves all extremities, neurovascularly intact, no peripheral edema, bilater al lower extremities nontender to palpation, no edema surrounding the knee, no skin changes, pulses are palpable 2+, no pain over LCL or MCL Skin: Normal capillary refill, no rash Neuro: Normal speech and cognition, normal gait Initial Vital Signs Initial Vital Signs: Vital Signs Temperature 97.8 F 06/21/21 12:02 Pulse Rate 77 06/21/21 12:02 Blood Pressure 148/70 H 06/21/21 12:02 Pulse Oximetry 100 06/21/21 12:02 <Julien Fay MD - Last Filed: 06/21/21 18:54> Initial Vital Signs Initial Vital Signs: Vital Signs Temperature 97.8 F 06/21/21 12:02 Pulse Rate 77 06/21/21 12:02 Blood Pressure 148/70 H 06/21/21 12:02 Pulse Oximetry 100 06/21/21 12:02 Scores <HEENA Lopez - Last Filed: 06/21/21 13:21> Gabriel Criteria for DVT Active Cancer (Treatment within 6 months): No Bedridden recently >3 days or major surgery within 4 weeks: No Calf Swelling >3cm compared to other leg: No Collateral (nonvericose) superficial veins present: No Entire leg swollen: No Localized tenderness along the deep vein system: No Pitting edema, confined to symtomatic leg: No Paralysis, paresis, or recent plaster immobilization of ext: No Previously documented DVT: No Alternative dx to DVT as likely or more likely: No Gabriel criteria for DVT: 0 <Julien Fay MD - Last Filed: 06/21/21 18:54> Gabriel Criteria for DVT Gabriel criteria for DVT: 0 Course <HEENA Lopez - Last Filed: 06/21/21 13:21> Orders Ordered: ED Orders 06/21/21 12:23 XR hip w pel if done LT 2V Stat 06/21/21 12:24 XR knee LT 3V Stat Vital Signs Vital signs: Vital Signs - 8 hr 06/21/21 12:02 Temperature 97.8 F Pulse Rate 77 Blood Pressure 148/70 H Pulse Oximetry 100 <Julien Fay MD - Last Filed: 06/21/21 18:54> Orders Ordered: ED Orders 06/21/21 12:23 XR hip w pel if done LT 2V Stat 06/21/21 12:24 XR knee LT 3V Stat Vital Signs Vital signs: Vital Signs - 8 hr 06/21/21 12:02 Temperature 97.8 F Pulse Rate 77 Blood Pressure 148/70 H Pulse Oximetry 100 MDM - Extremity Injury (Lower) <HEENA Lopez - Last Filed: 06/21/21 13:21> Imaging Data Extremity x-ray #1: Radiologist's Impression: PROCEDURE:? XR KNEE LT 3V ? INDICATIONS:? IT band pain, s/p knee replacement years ago ? TECHNIQUE:? 3 views of the knee were acquired.? ? COMPARISON:? [facility], , KNEE 1-2 VIEWS LEFT, 01/30/2013, 12:45. ? FINDINGS:? ? Bones:? No fractures or dislocations.? No suspicious bony lesions.? Left knee arthroplasty. ? Soft tissues:? No joint effusion.? No suspicious soft tissue calcifications.? ? ? IMPRESSION:? No acute fracture. No osseous lesion. If symptoms and/or clinical suspicion for pathology persist, further assessment with repeat, or advanced imaging (e.g., CT or bone scan) may be helpful for further assessment. ? ? Dictated by: Nava Bryant M.D. on 06/21/2021 at 11:48 ? ? Approved by: Nava Bryant M.D. on 06/21/2021 at 11:49 ? Extremity x-ray #2: Radiologist's Impression: PROCEDURE:? XR HIP W PEL IF DONE LT 2V ? INDICATIONS:? chronic IT band pain ? TECHNIQUE:? AP pelvis with lateral view(s) of the left hip(s).? ? COMPARISON:? None. ? FINDINGS:? ? Bones:? No fractures or dislocations.? Pelvic ring appears intact.? No suspicious bony lesions.? Mild joint space narrowing and periarticular osteophyte formation at the bilateral hip joints. ? Soft tissues:? The visualized bowel gas pattern is normal.? No suspicious soft tissue calcifications.? ? ? IMPRESSION:? Bilateral hip osteoarthritis. No acute fracture. No osseous lesion. If symptoms and/or clinical suspicion for pathology persist, further assessment with repeat, or advanced imaging (e.g., CT, MRI, or bone scan) may be helpful for further assessment. ? Dictated by: Nava Bryant M.D. on 06/21/2021 at 11:48 ? ? Approved by: Nava Bryant M.D. on 06/21/2021 at 11:48 ? [facility] Narrative Medical decision making narrative: 80-year-old male presents to the emergency department for chronic left upper leg pain which is similar to his prior diagnosis of iliotibial band syndrome. X- rays were obtained of his left knee hip which do not show any fractures or dislocations, hip x-ray was pertinent for bilateral hip osteoarthritis without osseous lesion, no abnormalities were found on his previous left total knee replacement. Patient's IT band was palpated and is tight and firm in nature, I suspect this is the cause for his pain. Patient does not have any radiculopathy or sciatica symptoms. Patient denies any need for pain medication at this time, he endorses that it is worse in the mornings when he wakes up. I discussed gentle range of motion, light stretching and following up with Dr. Enriquez to return to physical therapy. I gave him a short course of hydrocodone as he reports this has helped him before for this in the past. Differential includes osteomyelitis, patellofemoral pain, osteoarthritis of his distal tibia, popliteus tendinopathy, lateral meniscal injury, sensory nerve entrapment. Patient is appropriate and amenable to discharge home. Vital signs are stable on repeat examination is unremarkable. Patient has been informed of results. Patient has been given strict return to ER precautions for any new or worsening symptoms. Patient understands to follow up closely with outpatient providers as instructed. Patient understands plan and agrees to discharge home. All questions and concerns answered at this time. Discharge Plan Departure Patient Disposition: Home Clinical Impression: Iliotibial band syndrome of left side, Osteoarthritis, hip, bilateral Instructions: DI for Osteoarthritis Activity Restrictions/Additional Instructions: *You have been diagnosed with [iliotibial band syndrome on the left, osteoarthritis in both of your hips] Please follow-up with Dr. Enriquez Wednesday morning and see if you can get a sooner appointment otherwise will also work. I recommend starting PT and seen if Dr. Enriquez has any other good ideas. Taking breakthrough medication like hydrocodone is okay for short period of time, but I am concerned that this is a longer term problem that you have and it may take active therapy every day to help it improve. You are doing many things right, continue that and see what Dr. Enriquez has to say. I have sent your chart over so he can see it. *What to do: *Please continue to take your regular medications as directed. [x ] New medication prescriptions sent to your pharmacy: [[facility] ] [ ] New medication written as a paper prescription [ ] No new medications given *Please follow up with your primary care provider in 2-3 days, call for an appointment. Let them know you were seen in the Emergency Department and that we ask that you be seen in follow up. We will electronically transmit a record of today's note if your PCP is in our system *If you do not have a primary care provider please contact the [facility] Resource line at [phone]. They will ask some questions about your medical history and help get you set up with a doctor in the community. *Return to Emergency Department if you should have any new, worsening or concerning symptoms, such as [fever greater than 101F, chills, worsening pain, persistent vomiting or other bothersome symptoms] What is iliotibial band syndrome?Iliotibial band syndrome is a condition that ca uses pain on the outside of the knee. This condition involves a strong band of tissue called the iliotibial band ( figure 1 https://www.Ansira/contents/image?imageKey=PI%4G41004&top icKey=PI%3D01808&search=iliotibial+band+syndrome+patient+info&rank=1%7E74&source =see_link ). The iliotibial band runs down the outside of the thigh, from the hip bone to the top of the shinbone. It is sometimes called the IT band. Iliotibial band syndrome commonly happens in runners, especially after they increase their workouts. What are the symptoms of iliotibial band syndrome?Iliotibial band syndrome causes an aching, burning pain on the outside of the knee. The pain sometimes spreads up the thigh to the hip. The pain happens when people run (or do other p hysical activity). For some people, the pain lasts even after they finish their workout. Movements that make the pain worse include going up and down stairs, and standing up from a seated position. Will I need tests? Probably not. Your doctor or nurse should be able to tell if you have this condition by learning about your symptoms and doing an exam. How is iliotibial band syndrome treated? Treatment usually involves a few parts. The first part of treatment involves things you can do on your own to reduce your pain. To ease your symptoms, you can: ?Rest your knee and avoid activities or movements that make the pain worse. ?Put ice on the outside of your knee when it hurts or after activities that cause pain. You can put a cold gel pack, bag of ice, or bag of frozen vegetables on the painful area every 1 to 2 hours, for 15 minutes each time. Put a thin towel between the ice (or other cold object) and your skin. ?Take a pain-relieving medicine. Hqaf-rii-ehgxtwd medicines include? acetaminophen https://www.Ansira/contents/tohhgixqcmfdw-bxmkfwhpida-uiwc vuc-fmyz-fnucahplkph?search=iliotibial+band+syndrome+patient+info&pzpecGyi=26018 &source=see_link ?(sample brand name: Tylenol) or?ibuprofen https://www.Ansira/contents/ibupr ewcy-ieuuubg-jede-information?search=iliotibial+band+syndrome+patient+info&topic Fcn=27309&source=see_link ?(sample brand names: Advil, Motrin). Another part of treatment involves exercises to stretch and strengthen the muscles around your hip and knee. You can start these when your pain improves. Your doctor or nurse will show you which exercises and stretches to do. Or they will have you work with a physical therapist (exercise expert). Can iliotibial band syndrome be prevented? Yes. To help prevent getting iliotibial band syndrome again, you can: ?Replace your sneakers when they wear out. ?Run on even surfaces (and not on uneven surfaces). ?Run around a track in both directions (and not only in 1 direction). ?Ease up on your training and not run as far or as hard. ?Have an expert check how you run to make sure you run the correct way. Prescriptions: New hydrocodone-acetaminophen 5-325 mg tablet 1 tab PO Q6H PRN (Reason: pain) Qty: 10 0RF No Action DIPHENHYDRAMINE CITRATE/IBUP (ADVIL PM) 200 mg PO PRN Qty: 0 0RF [MULTIVITAMIN] PO QDAY Qty: 0 0RF [VITAMIN D-3] 2,000 unit PO QDAY Qty: 0 0RF [GLUCOSAMINE/MSM] 3,000 mg PO QDAY Qty: 0 0RF [ginkgo biloba] 1 tab PO QDAY Qty: 0 0RF apixaban 5 mg tablet 5 mg PO BID Qty: 30 0RF (DME) DISABLED PARKING PERMIT See Rx Instructions .ROUTE .MEDSUPPLY Qty: 1 0RF Rx Instructions: I FIND THIS PATIENT TO BE MEDICALLY DISABLED AND QUALIFIED FOR DISABLE PARKING INDICATED, AND SIGNED ON THE ACCOMPANYING Site Organic APPLICATION FOR INDIVIDUALS atorvastatin 40 mg tablet 40 mg PO DAILY Qty: 90 3RF metformin 500 mg tablet See Rx Instructions .ROUTE .COMPLEX Qty: 360 1RF Dose Instruction: TAKE 2 TABLETS BY MOUTH TWICE DAILY Rx Instructions: TAKE 2 TABLETS BY MOUTH TWICE DAILY allopurinol 100 mg tablet See Rx Instructions .ROUTE .COMPLEX Qty: 90 3RF Dose Instruction: TAKE 1 TABLET BY MOUTH ONCE A DAY Rx Instructions: TAKE 1 TABLET BY MOUTH ONCE A DAY aspirin 81 mg tablet,delayed release (DR/EC) 81 mg PO DAILY 0RF losartan 25 mg tablet 25 mg PO QDAY Qty: 90 3RF Rx Instructions: Take one tablet by mouth once a day. metoprolol succinate 50 mg tablet extended release 24 hr 25 mg PO DAILY Qty: 45 3RF Rx Instructions: Take one half tablet by mouth once a day. Referrals: Butch Enriquez MD [Primary Care Provider] -
== END 2021-06-21 13:18 | disposition home or self-care (01) ==
PROVIDERS: Emergency Provider Nurse Practitioner Critical Care Medicine; PCP Student in an Organized Health Care Education/Training Program
DX: M76.32 Iliotibial band syndrome, left leg (principal); M16.0 Bilateral primary osteoarthritis of hip; Z87.891 Personal history of nicotine dependence
CPT/HCPCS: 73502; 73562; 99281; 99283

== ENCOUNTER → 2021-09-08 11:16 | Outpatient (CLI) | payer MEDICARE, SELFPAY ==
[2021-09-08 12:15] LABS: Appearance Urine UA SL CLOUDY; Bilirubin Urine UA NEGATIVE (NEGATIVE); Glucose Urine UA NEGATIVE (Negative); Ketones Urine UA NEGATIVE (NEGATIVE); Leukocyte Esterase Urine UA TRACE (NEGATIVE); Nitrite Urine UA NEGATIVE (Negative); Occult Blood Urine UA 3+ (Negative); Protein Urine UA 2+ (Negative); Urobilinogen Urine UA 0.2 E.U./dL (0.2)
[2021-09-08 12:28] LABS: Color Urine UA PINK
[2021-09-08 12:42] LABS: Amorphous Sediment Urine 1+; Bacteria Urine Few (2-10); Culture Indicated Urine Specimen Cultured; RBC Urine 10-30/HPF (0-5/HPF); WBC Urine 5-10/HPF (0-5/HPF)
== END ==
PROVIDERS: PCP Student in an Organized Health Care Education/Training Program; Referring Provider Student in an Organized Health Care Education/Training Program; Visit Provider Student in an Organized Health Care Education/Training Program
DX: R31.9 Hematuria, unspecified (principal)
CPT/HCPCS: 81001; 87077; 87086; 87147

== ENCOUNTER → 2021-09-16 12:43 | Outpatient (CLI) | payer MEDICARE, SELFPAY ==
[2021-09-16 13:28] LABS: Appearance Urine UA CLOUDY
[2021-09-16 13:29] LABS: Bacteria Urine None Seen; Color Urine UA RED; Culture Indicated Urine Cult Not Indicated; RBC Urine >100/HPF (0-5/HPF); Squamous Epithelial Cell Urine 0-1 /HPF (0-5/HPF); WBC Urine 1-5/HPF (0-5/HPF)
== END ==
PROVIDERS: PCP Student in an Organized Health Care Education/Training Program; Referring Provider Student in an Organized Health Care Education/Training Program; Visit Provider Student in an Organized Health Care Education/Training Program
DX: R31.9 Hematuria, unspecified (principal)
CPT/HCPCS: 81001

== ENCOUNTER → 2021-09-30 09:04 | Outpatient (CLI) | payer MEDICARE, SELFPAY ==
[2021-09-30 09:49] LABS: Add Manual Diff / Slide Review NO; Basophils Absolute Auto 100 /uL (0-100); Basophils Percent Auto 1.4 % (0-2); Eosinophils Absolute Auto 100 /uL (0-450); Eosinophils Percent Auto 2.7 % (2-4); Hematocrit 37.6 % (41-53); Hemoglobin 12.8 g/dL (13.5-17.5); Lymphocytes Absolute Auto 1100 /uL (1100-4500); Lymphocytes Percent Auto 29.6 % (25-40); Mean Corpuscular HGB Conc 33.9 % (30-36); Mean Corpuscular Hemoglobin 30.9 PG (26-34); Mean Corpuscular Volume 91.2 fL (80-100); Monocytes Absolute Auto 400 /uL (0-900); Monocytes Percent Auto 10.6 % (3-14); Neutrophils Absolute Auto 2100 /uL (1500-7000); Neutrophils Percent Auto 55.7 % (50-75); Platelet Count 204 X10^3/uL (150-400); Red Blood Cell Count 4.13 X10^6/uL (4.5-5.9); Red Cell Distribution Width 14.2 % (11.6-14.8); White Blood Cell Count 3.7 X10^3/uL (4.5-11.0)
[2021-09-30 10:36] LABS: Alanine Aminotransferase 18 IU/L (<50); Albumin 3.9 g/dL (3.5-5.0); Albumin Globulin Ratio 1.6 (1.0-2.8); Alkaline Phosphatase 73 U/L (38-126); Aspartate Aminotransferase 32 IU/L (17-59); BUN Creatinine Ratio 18.5 (6-22); Bilirubin Total 0.8 mg/dL (0.2-1.3); Blood Urea Nitrogen 17 mg/dL (9-20); Calcium 9.1 mg/dL (8.4-10.2); Carbon Dioxide 31 mmol/L (22-32); Chloride 102 mmol/L (98-107); Cholesterol 95 mg/dL (140-199); Estimated Glomerular Filt Rate > 60.0 mL/min (>60); Globulin 2.5 g/dL (1.7-4.1); Glucose 105 mg/dL (80-110); HDL Cholesterol 53 mg/dL (40-60); HEMOLYSIS < 15 (0-50); LDL Cholesterol Calculated 28 mg/dL (<100); Potassium 4.3 mmol/L (3.4-5.1); Sodium 137 mmol/L (137-145); Total Protein 6.4 g/dL (6.3-8.2); Triglycerides 69 mg/dL (35-150)
== END ==
PROVIDERS: PCP Student in an Organized Health Care Education/Training Program; Referring Provider Internal Medicine Cardiovascular Disease; Visit Provider Internal Medicine Cardiovascular Disease
DX: E78.5 Hyperlipidemia, unspecified (principal); I10 Essential (primary) hypertension
CPT/HCPCS: 36415; 80053; 80061; 85025

== ENCOUNTER → 2021-10-01 10:04 | Outpatient (CLI) | payer MEDICARE, SELFPAY ==
--- NOTE | 2021-10-01 10:19 | DI.CT.S_ITS ---
PROCEDURE: CT ABDOMEN PELVIS WO/W CON INDICATIONS: Gross hematuria TECHNIQUE: Optional 5 mm thick noncontrast images acquired from the diaphragm to the symphysis pubis. After the administration of intravenous contrast, 5 mm thick images acquired from the diaphragm to the symphysis pubis after a 10-minute delay. 2 mm thick coronal and sagittal reformats were then performed of the kidneys and ureters. For radiation dose reduction, the following was used: automated exposure control, adjustment of mA and/or kV according to patient size. COMPARISON: [facility], CT, ANGIOGRAPHY CHEST AND ABDOMEN, 04/15/2017, 9:06. FINDINGS: Image quality: Excellent. Lung bases: Lung bases are clear. Heart size is mildly increased. Severe coronary artery calcification. CABG. Tiny hiatal hernia. Urinary system: Both kidneys are normal in size, without hydronephrosis or nephrolithiasis on pre-contrast images. No perinephric fat stranding. There is normal bilateral renal enhancement. Renal calyces appear normal in morphology when filled with contrast. Opacified portions of both ureters demonstrate normal caliber. Bladder wall is mildly thickened. No calcified bladder stones. Enlarged prostate. Other solid organs: Liver is normal in size and enhancement. Mild hepatic steatosis. Gallbladder contains gallstones. Biliary system is non-dilated. Pancreas enhances normally. Spleen is normal in size and enhancement. No adrenal nodules. Peritoneum and bowel: Bowel loops demonstrate normal wall thickness and caliber. Diverticulosis without diverticulitis. Normal appendix. No free fluid or air. Nodes and vessels: No retroperitoneal or mesenteric adenopathy by size criteria. Aorta and inferior vena cava are normal in size. Abdominal wall: No ventral hernias. Pelvis: No pathologic free pelvic fluid. No inguinal hernias or adenopathy. Bones: No suspicious bony lesions. No vertebral body compression fractures. Severe degenerative changes in lumbar spine. IMPRESSION: 1. No renal stones or hydronephrosis. 2. Mild bladder wall thickening. This finding may be secondary to cystitis or chronic bladder outlet obstruction. 3. Enlarged prostate. 4. Cholelithiasis. 5. Diverticulosis without diverticulitis. Dictated by: Shyla Blandon M.D. on 10/01/2021 at 12:56 Approved by: Shyla Blandon M.D. on 10/01/2021 at 13:03
== END ==
PROVIDERS: PCP Student in an Organized Health Care Education/Training Program; Referring Provider Physician Assistant Medical; Visit Provider Physician Assistant Medical
DX: R31.0 Gross hematuria (principal); N40.0 Benign prostatic hyperplasia without lower urinary tract symptoms; K57.90 Diverticulosis of intestine, part unspecified, without perforation or abscess without bleeding; K80.20 Calculus of gallbladder without cholecystitis without obstruction
CPT/HCPCS: 74178; Q9967

== ENCOUNTER 2021-11-24 06:27 | Emergency (ER) | payer MEDICARE, SELFPAY ==
[2021-11-24 06:37] VITALS: BP 156/87; PULSE 73; RESP 18; TEMP 36.3; O2SAT 99; BMI 33.3
[2021-11-24 06:39] VITALS: PULSE 66; O2SAT 100
--- NOTE | 2021-11-24 06:42 | ED_ITS ---
HPI - General Adult General Chief complaint: Back Pain/Injury Stated complaint: Back pain Time Seen by Provider: 11/24/21 06:29 History of Present Illness HPI narrative: 80-year-old gentleman history of diabetes, hypertension, hyperlipidemia, coronary artery disease post CABG, bilateral knee replacements states that he is very healthy in goes the gym 3 times a week. On Wednesday he noticed that his low back was hurting seem to be worse on Wednesday and when he woke this morning he was complaining of 10/10 back pain and called 911 to assist. He states he took 2 Tylenol yesterday for the pain. He currently has a [id number] pain patch in place. The pain is described as over the lumbar back bilaterally not radiating. He describes no abdominal pain, no radicular findings, no numbness or tingling in the lower extremities. Had no constipation, urinary retention dysuria or diarrhea. He complains of no chest pain shortness of breath or cough. No recent fevers no recent spinal manipulation or injection procedures. Describes his pain as 10/10, quite commonly with no pain behaviors. Related Data Home Medications Medication Instructions Recorded Confirmed DIPHENHYDRAMINE CITRATE/IBUP 200 mg PO PRN #0 07/29/12 06/26/21 (ADVIL PM) [MULTIVITAMIN] PO QDAY #0 07/29/12 06/26/21 [VITAMIN D-3] 2,000 unit PO QDAY #0 07/29/12 06/26/21 [GLUCOSAMINE/MSM] 3,000 mg PO QDAY #0 04/22/17 06/26/21 [ginkgo biloba] 1 tab PO QDAY #0 08/04/17 06/26/21 aspirin 81 mg tablet,delayed 81 mg PO DAILY 02/11/19 06/26/21 release Previous Rx's Medication Instructions Recorded losartan 25 mg tablet 25 mg PO QDAY #90 tab 12/15/19 metoprolol succinate 50 mg 25 mg PO DAILY #45 tab 12/15/19 tablet,extended release 24 hr apixaban 5 mg tablet 5 mg PO BID #30 tab 01/02/20 DISABLED PARKING PERMIT #1 ea 12/18/20 metformin 500 mg tablet See Rx Instructions .ROUTE 01/21/21 .COMPLEX #360 tab allopurinol 100 mg tablet See Rx Instructions .ROUTE 06/02/21 .COMPLEX #90 tab hydrocodone 5 mg-acetaminophen 325 1 tab PO Q6H PRN #10 tab 06/21/21 mg tablet atorvastatin 40 mg tablet 40 mg PO DAILY #90 tab 10/15/21 Allergies Allergy/AdvReac Type Severity Reaction Status Date / Time latex Allergy Mild SWOLLEN Verified 06/26/21 14:44 FINGERS Sulfa (Sulfonamide Allergy Mild SWOLLEN Verified 06/26/21 14:44 Antibiotics) FINGERS lisinopril AdvReac Intermediate SWELLING Verified 06/26/21 14:44 hydrochlorothiazide AdvReac Mild SWELLING Verified 06/26/21 14:44 Review of Systems Review of Systems Narrative: Remainder of complete review of systems is otherwise unremarkable except for that included in the HPI. Patient History Medical History Aortic stenosis Ascending aortic aneurysm Cataracts, bilateral (~2015) Chickenpox Colon polyps (01/2004) Coronary artery disease Gout Hx of varicose veins Hyperlipidemia Hypertension Measles Mumps Onychomycosis Osteoarthritis Sleep apnea Upper GI bleed Surgical History History of aortic valve replacement (07/19/15) Hx of aortic valve replacement (12/2009) Hx of cataract surgery (09/2015) Hx of colonoscopy with polypectomy (01/2004) Hx of coronary artery bypass graft Hx of knee surgery (2003) Hx of total knee arthroplasty (01/2013) Hx of varicose vein stripping (1974) Family History Brother No problems noted. Father Diabetes mellitus Heart disease Mother No problems noted. Social History Smoking Status: Former smoker alcohol intake: never substance use type: does not use Smoking Status: Former smoker alcohol intake frequency: holidays/special occasions only Substance Use Type: does not use Exam Initial Vital Signs Initial Vital Signs: Vital Signs Temperature 97.3 F L 11/24/21 06:37 Pulse Rate 73 11/24/21 06:37 Respiratory Rate 18 11/24/21 06:37 Blood Pressure 156/87 H 11/24/21 06:37 Pulse Oximetry 99 11/24/21 06:37 General: Healthy appearing, in no acute distress. Well-nourished well-developed HEENT: Moist mucous membranes, normal sclera with reactive pupils, Respiratory: Lungs are clear to auscultation, no wheezing no rales no rhonchi. Full and symmetrical air movement Cardiac: Regular rate and rhythm no murmurs no bruits Abdomen: Soft, nontender, good bowel tones, no flank pain Spine: Some mild paraspinous muscle spasm bilaterally along lumbar spine. There is no midline point tenderness. Skin: Warm and dry, chronic venous stasis changes Neurologic: Grossly neurologically intact with no obvious asymmetries or abnormalities, no paresthesias to the lower extremities Extremities: No trauma, he is able to internally and externally rotate both hips without pain related behavior. When bending his knees up and lying in bed he has no pain and no pain behaviors but continues to report 10/10 pain Psych: Cooperative, fluent speech Course Orders Ordered: Discontinued Medications Ketorolac Tromethamine (Ketorolac 30 Mg/Ml Vial) 30 mg IM NOW ONE Stop: 11/24/21 06:41 Last Admin: 11/24/21 06:46 Dose: 30 mg Documented by: RARYAY Vital Signs Vital signs: Vital Signs - 8 hr 11/24/21 06:37 11/24/21 06:39 11/24/21 07:00 Temperature 97.3 F L Pulse Rate 73 66 62 Respiratory Rate 18 Blood Pressure 156/87 H 147/70 H Pulse Oximetry 99 100 98 11/24/21 07:30 11/24/21 07:51 Temperature Pulse Rate 61 61 Respiratory Rate 18 Blood Pressure 144/69 H 144/69 H Pulse Oximetry 98 98 Medical Decision Making [facility] Narrative Medical decision making narrative: 80-year-old woman with multiple medical issues presents with low back pain. States it started 36 hours ago and was unable to get out of bed this morning. In the emergency department he is able to roll from side to side with minimal pain behavior. He is able to internally and externally rotate his hips bend his knees with no pain behavior. There is no rashes or point tenderness. He has no red flags for back pain including no prior cancer history, no recent trauma and no recent spinal instrumentation. His abdominal exam is entirely benign and back pain is not exacerbated with abdominal exam. Because he is exhibiting no red flags for low back pain and able to move and turn with out significant pain will give him a shot of Toradol and reassess. At this point I do not think there is any indication for additional imaging studies or lab work. 740am re-evaluated after Toradol. Pain is improved. When trying to sit up he reports that he still feels some pain into his back I explained that were able to help with the pain but likely not completely able to alleviate all of it. His seems to understand and is asking appropriate questions. At this point he is safe for home discharge Discharge Plan Departure Patient Disposition: Home Clinical Impression: Low back pain Qualifiers: Chronicity: acute Back pain laterality: bilateral Sciatica presence: without sciatica Qualified Code(s): M54.50 - Low back pain, unspecified Instructions: DI for Low Back Pain Activity Restrictions/Additional Instructions: Thank you for coming in today I am sorry that your low back is bothering you. Your given shot of Toradol in the emergency department with some relief. Your exam was quite reassuring with no concern for fractures, infection, acute disc or nerve injury. I suspect you strained her back with your recent exercises. I would encourage you to continue to be up and moving on a regular basis. Ice and heat can be helpful with low back pain such as this. You can use 2 Tylenol up to every 6 hours to help with the pain. Typically symptoms are worse in the 1st 48 hours after you have strained her back in 10 to improve over the next week. May benefit from physical therapy. If your back is not improving by mid week, please follow-up with your primary care provider. If you developed significantly worsening pain, fevers or are unable to move your legs because of weakness or numbness, feel free to return to the emergency department Prescriptions: No Action DIPHENHYDRAMINE CITRATE/IBUP (ADVIL PM) 200 mg PO PRN Qty: 0 0RF [MULTIVITAMIN] PO QDAY Qty: 0 0RF [VITAMIN D-3] 2,000 unit PO QDAY Qty: 0 0RF [GLUCOSAMINE/MSM] 3,000 mg PO QDAY Qty: 0 0RF [ginkgo biloba] 1 tab PO QDAY Qty: 0 0RF apixaban 5 mg tablet 5 mg PO BID Qty: 30 0RF (DME) DISABLED PARKING PERMIT See Rx Instructions .ROUTE .MEDSUPPLY Qty: 1 0RF Rx Instructions: I FIND THIS PATIENT TO BE MEDICALLY DISABLED AND QUALIFIED FOR DISABLE PARKING INDICATED, AND SIGNED ON THE ACCOMPANYING Rapid [employer] APPLICATION FOR INDIVIDUALS metformin 500 mg tablet See Rx Instructions .ROUTE .COMPLEX Qty: 360 1RF Dose Instruction: TAKE 2 TABLETS BY MOUTH TWICE DAILY Rx Instructions: TAKE 2 TABLETS BY MOUTH TWICE DAILY allopurinol 100 mg tablet See Rx Instructions .ROUTE .COMPLEX Qty: 90 3RF Dose Instruction: TAKE 1 TABLET BY MOUTH ONCE A DAY Rx Instructions: TAKE 1 TABLET BY MOUTH ONCE A DAY atorvastatin 40 mg tablet 40 mg PO DAILY Qty: 90 3RF aspirin 81 mg tablet,delayed release (DR/EC) 81 mg PO DAILY 0RF losartan 25 mg tablet 25 mg PO QDAY Qty: 90 3RF Rx Instructions: Take one tablet by mouth once a day. metoprolol succinate 50 mg tablet extended release 24 hr 25 mg PO DAILY Qty: 45 3RF Rx Instructions: Take one half tablet by mouth once a day. hydrocodone-acetaminophen 5-325 mg tablet 1 tab PO Q6H PRN (Reason: pain) Qty: 10 0RF Hold Instructions: Change to #14 0RF with next fill Referrals: Butch Enriquez MD [Primary Care Provider] -
[2021-11-24] MEDS: KETOROLAC 30 MG/ML VIAL IM (06:46)
[2021-11-24 07:00] VITALS: BP 147/70; PULSE 62; O2SAT 98
[2021-11-24 07:30] VITALS: BP 144/69; PULSE 61; O2SAT 98
[2021-11-24 07:51] VITALS: BP 144/69; PULSE 61; RESP 18; O2SAT 98
== END 2021-11-24 07:51 | disposition home or self-care (01) ==
PROVIDERS: Emergency Provider Emergency Medicine; PCP Student in an Organized Health Care Education/Training Program
DX: M54.50 Low back pain, unspecified (principal)
CPT/HCPCS: 96372; 99283; J1885

== ENCOUNTER → 2021-12-20 07:25 | Outpatient (CLI) | payer MEDICARE, SELFPAY ==
[2021-12-20 09:11] LABS: Hemoglobin A1C% w Est Avg Glu 6.2 % (4.0-6.0)
[2021-12-20 09:13] LABS: BUN Creatinine Ratio 16.7 (6-22); Blood Urea Nitrogen 17 mg/dL (9-20); Calcium 8.9 mg/dL (8.4-10.2); Carbon Dioxide 32 mmol/L (22-32); Chloride 103 mmol/L (98-107); Cholesterol 109 mg/dL (140-199); Estimated Glomerular Filt Rate > 60 mL/min (>60); Glucose 107 mg/dL (80-110); HDL Cholesterol 56 mg/dL (40-60); HEMOLYSIS < 15 (0-50); LDL Cholesterol Calculated 36 mg/dL (<100); Potassium 4.3 mmol/L (3.4-5.1); Sodium 137 mmol/L (137-145); Triglycerides 84 mg/dL (35-150)
== END ==
PROVIDERS: PCP Student in an Organized Health Care Education/Training Program; Referring Provider Student in an Organized Health Care Education/Training Program; Visit Provider Student in an Organized Health Care Education/Training Program
DX: E11.9 Type 2 diabetes mellitus without complications (principal); E78.00 Pure hypercholesterolemia, unspecified; E66.9 Obesity, unspecified; I10 Essential (primary) hypertension
CPT/HCPCS: 36415; 80048; 80061; 83036

== ENCOUNTER → 2021-12-23 14:36 | Outpatient (CLI) | payer MEDICARE, SELFPAY ==
[2021-12-23 18:22] LABS: Creatinine Urine Random 66.3 mg/dL; Microalbumi Creatinin Ratio Ur 10.5 ug/mg CR (<30); Microalbumin Urine Random 0.7 mg/dL (0-1.6)
== END ==
PROVIDERS: PCP Student in an Organized Health Care Education/Training Program; Referring Provider Student in an Organized Health Care Education/Training Program; Visit Provider Student in an Organized Health Care Education/Training Program
DX: E11.9 Type 2 diabetes mellitus without complications (principal); E66.9 Obesity, unspecified; E78.00 Pure hypercholesterolemia, unspecified; I10 Essential (primary) hypertension
CPT/HCPCS: 82043; 82570

== ENCOUNTER → 2022-05-28 09:16 | Outpatient (CLI) | payer MEDICARE, SELFPAY ==
--- NOTE | 2022-05-28 | DI.ECHO.S_ITS ---
[place] [facility] +---------+ : : [address] : : : : [phone] : : : : Phone: [phone]+ Echocardiogram Report + + :Name: SANTIAGO GAMEZ V Study Date: 05/28/2022 Height: 66 in : :[facility] ReadingLocation: Weight: 200 lb : : Gender: Male BSA: 2.0 m2 : :: 1940 Age: 81 yrs BP: 153/84 mmHg: :Reason For Study: Aortic valve replacement - bioprosthetic : :Ordering Physician: LEXIE, : :AYO Performed By: Karlo Cardona : :Referring: AYO OWEN : + + Interpretation Summary This is a somewhat technically difficult study enhanced with DefinSomeecards echocontrast. 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 The left ventricle is normal in size and wall thickness. Left ventricular ejection fraction is estimated to be 50-55%. There is septal dyssynchrony consistent with RV pacing; otherwise normal wall motion. The right ventricle is mildly dilated with mildly reduced RV function; moderate LA enlargement and mild RA enlargement. Aortic valve is replaced by history with a stented bioprosthesis. It is functioning normally. There is mild tricuspid regurgitation with estimated PA systolic pressure of 47mm Hg assuming RA pressure of 3 mm Hg. The ascending aorta is moderately enlarged with ascending aortic diameter of 4.9 cm. Compared to prior study 06/03/2021 ascending aorta diameter is down from 5.1 cm to 4.9 cm. Compared to prior study PA systolic pressure is up from 37 mm Hg to 47 mm Hg. Procedure: A two-dimensional transthoracic echocardiogram with color flow and Doppler was performed. The study quality was technically adequate. Comparison is made with the echocardiogram of 06/03/2021. A contrast injection of Definity was performed to improve assessment of LV function. Left Ventricle: The left ventricle is normal in size and wall thickness. Left ventricular systolic function is normal. The ejection fraction is estimated to be 55-60%. There are no focal wall motion abnormalities. Diastolic function could not be accurately assessed due to unobtainable data. Right Ventricle: The right ventricle is mildly dilated. Right ventricular systolic function is mildly reduced. Atria: The left atrium is moderately dilated. The right atrium is mildly dilated. The interatrial septum grossly appears intact with no obvious evidence for an atrial septal defect. Mitral Valve: The mitral valve leaflets appear mildly thickened, but open well. There is mild mitral regurgitation. Aortic Valve: There is a bioprosthetic aortic valve. There is probable normal prosthetic aortic valve function. The prosthetic aortic valve is well- seated. The aortic valve mean gradient is 10 mmHg. No aortic regurgitation is present. Tricuspid Valve: The tricuspid valve is normal in structure and function. There is mild tricuspid regurgitation. The right ventricular systolic pressure is estimated to be at least 47 mmHg based on an estimated right atrial pressure of 3 mm Hg. Pulmonic Valve: The pulmonic valve is not well seen, but is grossly normal. There is mild pulmonic regurgitation. Great Vessels: The aortic root is not well visualized. 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 The IVC is dilated (diameter is greater than 2.1 cm) yet it collapses greater than 50% with a sniff. This suggests a right atrial pressure of 8 mm Hg. Pericardium/ Pleura There is no pericardial effusion. There is no pleural effusion. MMode/2D Measurements & Calculations LVIDd: 5.5 cm asc Aorta Diam: 4.9 cm LVIDs: 4.2 cm FS: 23.7 % IVSd: 1.2 cm LVPWd: 1.1 cm LV santillan. diameter/BSA (cm/m^2): 2.7 LV sys. diameter/BSA (cm/m^2): 2.1 LA dimension: 4.7 cm RA long axis: 5.7 cm LA A2 area: 28.7 cm2 RA area: 22.2 cm2 LA A4 area: 24.4 cm2 RA vol: 74.2 ml LA length (vol): 6.4 cm RA : 37.1 ml/m2 LA vol: 93.3 ml IVC diam: 2.3 cm LA vol index: 46.7 ml/m2 TAPSE: 1.3 cm LVLs ap4: 7.0 cm LVLd ap2: 8.2 cm LVLs ap2: 7.3 cm Doppler Measurements & Calculations Ao V2 max: 214.0 cm/sec LVOT Max [place]: 80.9 cm/sec Ao V2 mean: 152.0 cm/sec LV V1 max P.6 mmHg Ao max P.0 mmHg LV V1 VTI: 17.4 cm Ao mean P.0 mmHg sev ratio: 0.40 Ao V2 VTI: 43.6 cm TR max [place]: 330.0 cm/sec AV VR_phl: 0.38 TR max P.6 mmHg Electronically signed by: Alexandra Rivas M.D. on Reading Physician:05/30/2022 06:33 AM
== END ==
PROVIDERS: PCP Student in an Organized Health Care Education/Training Program; Referring Provider Internal Medicine Cardiovascular Disease; Visit Provider Internal Medicine Cardiovascular Disease
DX: I08.1 Rheumatic disorders of both mitral and tricuspid valves (principal); I77.89 Other specified disorders of arteries and arterioles; Z95.2 Presence of prosthetic heart valve
CPT/HCPCS: C8929; Q9957

== ENCOUNTER → 2022-06-12 12:36 | Outpatient (CLI) | payer MEDICARE, SELFPAY ==
[2022-06-12 14:19] LABS: Hemoglobin A1C% w Est Avg Glu 6.4 % (4.0-6.0)
== END ==
PROVIDERS: PCP Student in an Organized Health Care Education/Training Program; Referring Provider Student in an Organized Health Care Education/Training Program; Visit Provider Student in an Organized Health Care Education/Training Program
DX: E11.9 Type 2 diabetes mellitus without complications (principal)
CPT/HCPCS: 36415; 83036

== ENCOUNTER → 2022-06-20 15:07 | Outpatient (CLI) | payer MEDICARE, SELFPAY ==
[2022-06-20 16:33] LABS: COVID-19 CEPHEID 4-PLEX PCR Negative (Negative); Influenza A - CEPHEID Flu A NEGATIVE (NEGATIVE); Influenza B - CEPHEID Flu B NEGATIVE (NEGATIVE); Respiratory Syncytial Virus Negative (Negative)
== END ==
PROVIDERS: PCP Student in an Organized Health Care Education/Training Program; Visit Provider Nurse Practitioner Family
DX: J06.9 Acute upper respiratory infection, unspecified (principal); Z20.822 Contact with and (suspected) exposure to COVID-19
CPT/HCPCS: 0241U

== ENCOUNTER 2022-07-13 12:21 | Emergency (ER) | payer MEDICARE, SELFPAY ==
[2022-07-13 12:39] VITALS: BP 152/72; PULSE 63; RESP 20; TEMP 37.1; O2SAT 98
--- NOTE | 2022-07-13 12:46 | DI.RAD.S_ITS ---
PROCEDURE: XR CHEST 2V INDICATIONS: productive cough x 4 weeks TECHNIQUE: 2 views of the chest were acquired. COMPARISON: [facility], CR, XR CHEST 2 VIEWS, 06/05/2020, 7:22. [facility], CR, XR CHEST 1V, 05/07/2021, 18:00. FINDINGS: Surgical changes and devices: Sternotomy wires are seen. An aortic valve prosthesis can be seen. A leadless pacer can be seen. Lungs and pleura: An incomplete inspiratory result is noted, causing a crowded appearance to the lung markings. Mild generalized interstitial prominence can be seen. No focal infiltrates are seen. No pneumothorax or significant pleural effusions are seen. Persistent elevation of the right hemidiaphragm can be seen. Mediastinum: The cardiac contours are mildly enlarged. The aorta demonstrates calcification and tortuosity. Bones and chest wall: No suspicious bony abnormalities. Age-appropriate bony degenerative changes are seen. Soft tissues appear unremarkable. IMPRESSION: Low lung volumes with mild generalized interstitial prominence. Please consider atypical infection versus mild infiltrate. There is mild cardiomegaly. Postoperative and degenerative changes are seen. Persistent elevation the right hemidiaphragm noted. Dictated by: Rocky Hinson M.D. on 07/13/2022 at 12:25 Approved by: Rocky Hinson M.D. on 07/13/2022 at 12:27
[2022-07-13 14:00] LABS: Influenza A - CEPHEID Flu A NEGATIVE (NEGATIVE); Influenza B - CEPHEID Flu B NEGATIVE (NEGATIVE); Respiratory Syncytial Virus Negative (Negative)
[2022-07-13 14:09] LABS: COVID-19 CEPHEID 4-PLEX PCR POSITIVE (Negative)
[2022-07-13 15:52] VITALS: PULSE 75; O2SAT 93
[2022-07-13 15:53] VITALS: BP 124/66; PULSE 76; O2SAT 97
[2022-07-13 16:07] VITALS: O2SAT 99
--- NOTE | 2022-07-13 16:26 | ED.URI ---
HPI - URI/Sore Throat <Suzan Mcclellan, [employer] - Last Filed: 07/13/22 16:31> General Chief Complaint: Upper Respiratory Symptoms Stated Complaint: cough x4 weeks Time Seen by Provider: 07/13/22 15:46 Source: patient Mode of arrival: Family Vehicle Related Data Home Medications Medication Instructions Recorded Confirmed DIPHENHYDRAMINE CITRATE/IBUP 200 mg PO PRN ##0 07/29/12 06/23/22 (ADVIL PM) [MULTIVITAMIN] PO QDAY ##0 07/29/12 06/23/22 [VITAMIN D-3] 2,000 unit PO QDAY ##0 07/29/12 06/23/22 [GLUCOSAMINE/MSM] 3,000 mg PO QDAY ##0 04/22/17 06/23/22 [ginkgo biloba] 1 tab PO QDAY ##0 08/04/17 06/23/22 aspirin 81 mg tablet,delayed 81 mg PO DAILY 02/11/19 06/23/22 release alfuzosin 10 mg tablet,extended 10 mg PO DAILY 06/23/22 06/23/22 release 24 hr finasteride 5 mg tablet 5 mg PO DAILY 06/23/22 06/23/22 Previous Rx's Medication Instructions Recorded losartan 25 mg tablet 25 mg PO QDAY #90 tabs 12/15/19 metoprolol succinate 50 mg 25 mg PO DAILY #45 tabs 12/15/19 tablet,extended release 24 hr apixaban 5 mg tablet 5 mg PO BID #30 tabs 01/02/20 atorvastatin 40 mg tablet 40 mg PO DAILY #90 tabs 10/15/21 metformin 500 mg tablet See Rx Instructions .Route 01/09/22 .COMPLEX #360 tabs allopurinol 100 mg tablet See Rx Instructions .Route 05/01/22 .COMPLEX #90 tabs benzonatate 100 mg capsule 100 mg PO BID PRN cough #14 caps 07/13/22 Allergies Allergy/AdvReac Type Severity Reaction Status Date / Time latex Allergy Mild SWOLLEN Verified 07/13/22 12:45 FINGERS Sulfa (Sulfonamide Allergy Mild SWOLLEN Verified 07/13/22 12:45 Antibiotics) FINGERS lisinopril AdvReac Intermediate SWELLING Verified 07/13/22 12:45 hydrochlorothiazide AdvReac Mild SWELLING Verified 07/13/22 12:45 Patient History <HEENA Lopez - Last Filed: 07/13/22 16:31> Medical History Aortic stenosis Ascending aortic aneurysm Cataracts, bilateral (~2015) Chickenpox Colon polyps (01/2004) Coronary artery disease Gout Hx of varicose veins Hyperlipidemia Hypertension Measles Mumps Onychomycosis Osteoarthritis Sleep apnea Upper GI bleed Surgical History History of aortic valve replacement (07/19/15) Hx of aortic valve replacement (12/2009) Hx of cataract surgery (09/2015) Hx of colonoscopy with polypectomy (01/2004) Hx of coronary artery bypass graft Hx of knee surgery (2003) Hx of total knee arthroplasty (01/2013) Hx of varicose vein stripping (1974) Family History Brother No problems noted. Father Diabetes mellitus Heart disease Mother No problems noted. Social History Smoking Status: Former smoker alcohol intake: never substance use type: does not use Smoking Status: Former smoker tobacco type: cigarettes alcohol intake frequency: holidays/special occasions only Substance Use Type: does not use Exam <HEENA Lopez - Last Filed: 07/13/22 16:31> Initial Vital Signs Initial Vital Signs: Vital Signs Temperature 98.7 F 07/13/22 12:39 Pulse Rate 63 07/13/22 12:39 Respiratory Rate 20 07/13/22 12:39 Blood Pressure 152/72 H 07/13/22 12:39 Pulse Oximetry 98 07/13/22 12:39 Oxygen Delivery Method 07/13/22 12:39 <Ashok Isaacs MD - Last Filed: 07/22/22 21:42> Initial Vital Signs Initial Vital Signs: Vital Signs Temperature 98.7 F 07/13/22 12:39 Pulse Rate 63 07/13/22 12:39 Respiratory Rate 20 07/13/22 12:39 Blood Pressure 152/72 H 07/13/22 12:39 Pulse Oximetry 98 07/13/22 12:39 Oxygen Delivery Method 07/13/22 12:39 Course <HEENA Lopez - Last Filed: 07/13/22 16:31> Orders Ordered: Discontinued Medications Amoxicillin/Clavulanate Potassium (Amoxicillin/Clav 875/125 Mg) 1 tab PO NOW ONE Stop: 07/13/22 15:53 Last Admin: 07/13/22 16:28 Dose: 1 tab Documented By: NARENDRA Azithromycin (Azithromycin 250 Mg Tablet) 500 mg PO NOW ONE Stop: 07/13/22 15:53 Last Admin: 07/13/22 16:28 Dose: 500 mg Documented By: NARENDRA Vital Signs Vital signs: Vital Signs - 8 hr 07/13/22 12:39 Temperature 98.7 F Pulse Rate 63 Respiratory Rate 20 Blood Pressure 152/72 H Pulse Oximetry 98 Oxygen Delivery Method Room Air <Ashok Isaacs MD - Last Filed: 07/22/22 21:42> Orders Ordered: Discontinued Medications Amoxicillin/Clavulanate Potassium (Amoxicillin/Clav 875/125 Mg) 1 tab PO NOW ONE Stop: 07/13/22 15:53 Last Admin: 07/13/22 16:28 Dose: 1 tab Documented By: NARENDRA Azithromycin (Azithromycin 250 Mg Tablet) 500 mg PO NOW ONE Stop: 07/13/22 15:53 Last Admin: 07/13/22 16:28 Dose: 500 mg Documented By: NARENDRA Vital Signs Vital signs: Vital Signs - 8 hr 07/13/22 12:39 Temperature 98.7 F Pulse Rate 63 Respiratory Rate 20 Blood Pressure 152/72 H Pulse Oximetry 98 Oxygen Delivery Method Room Air MDM - URI/Sore Throat <HEENA Lopez - Last Filed: 07/13/22 16:31> Lab Data Labs: Lab Results 07/13/22 Range/Units 12:47 SARS-CoV-2 (PCR) Positive H (Negative) Influenza A (RT-PCR) Flu a negative (NEGATIVE) Influenza B (RT-PCR) Flu b negative (NEGATIVE) RSV (PCR) Negative (Negative) Imaging Data Chest x-ray: Radiologist's Impression: PROCEDURE:? XR CHEST 2V ? INDICATIONS:? productive cough x 4 weeks ? TECHNIQUE:? 2 views of the chest were acquired.? ? COMPARISON:? [facility], CR, XR CHEST 2 VIEWS, 06/05/2020, 7:22.? [facility], CR, XR CHEST 1V, 05/07/2021, 18:00. ? FINDINGS:? ? Surgical changes and devices:? Sternotomy wires are seen.? An aortic valve prosthesis can be seen.? A leadless pacer can be seen. ? Lungs and pleura:? An incomplete inspiratory result is noted, causing a crowded appearance to the lung markings.? Mild generalized interstitial prominence can be seen.? No focal infiltrates are seen.? No pneumothorax or significant pleural effusions are seen. ? Persistent elevation of the right hemidiaphragm can be seen. ? Mediastinum:? The cardiac contours are mildly enlarged. The aorta demonstrates calcification and tortuosity. ? Bones and chest wall:? No suspicious bony abnormalities.? Age-appropriate bony degenerative changes are seen. ? Soft tissues appear unremarkable.? ? ? IMPRESSION:? Low lung volumes with mild generalized interstitial prominence.? Please consider atypical infection versus mild infiltrate. ? There is mild cardiomegaly. ? Postoperative and degenerative changes are seen.? ? Persistent elevation the right hemidiaphragm noted. ? ? Dictated by: Rocky Hinson M.D. on 07/13/2022 at 12:25 ? ? Approved by: Rocky Hinson M.D. on 07/13/2022 at 12:27 ? [facility] Narrative Medical decision making narrative: This is an 81-year-old gentleman presents to the emergency department with 4 weeks of cough and denies any recent changes in his illness. Patient has history of diabetes type 2, CAD with bypass, hypertension, gout, HUMBERTO and hypercholesterolemia who was found to have crackles bilateral bases on exam, chest x-ray shows low lung volumes with mild generalized interstitial prominence, atypical infection versus mild infiltrate. Mild cardiomegaly, without pneumothorax, pleural effusion, fracture, or other significant abnormality. On exam, patient has an occasional cough, without tachypnea, fever, tachycardia, tachypnea hypoxia or other severe symptoms. His respiratory panel is positive for COVID-19. Will treat with azithromycin and Augmentin due to comorbidities and current recommendations. Will not treat with paxlovid as patient's symptoms started over 5 days ago and patient is on multiple medications of interaction. Differential diagnoses include pulmonary embolism, bacterial pneumonia, viral pneumonia, patient is not immunosuppressed, he is anticoagulated, has not had hemoptysis. Patient is appropriate and amenable to discharge home. Vital signs are stable on repeat examination is unremarkable. Patient has been informed of results. Patient has been given strict return to ER precautions for any new or worsening symptoms. Patient understands to follow up closely with outpatient providers as instructed. Patient understands plan and agrees to discharge home. All questions and concerns answered at this time. <Ashok Isaacs MD - Last Filed: 07/22/22 21:42> Lab Data Labs: Lab Results 07/13/22 Range/Units 12:47 SARS-CoV-2 (PCR) Positive H (Negative) Influenza A (RT-PCR) Flu a negative (NEGATIVE) Influenza B (RT-PCR) Flu b negative (NEGATIVE) RSV (PCR) Negative (Negative) Discharge Plan Departure Patient Disposition: Home Clinical Impression: COVID-19, Atypical pneumonia Instructions: Atypical Pneumonia, COVID-19 Activity Restrictions/Additional Instructions: *You have been diagnosed with pneumonia and COVID-19. I do not know which one came first however please continue to support your symptoms with Tylenol, you can take Tessalon Perles for cough, stay hydrated, take these 2 antibiotics as prescribed and follow-up with your primary care provider as needed. If you have any worsening, please come back to the emergency department, thank you for your patients today, I hope you feel better soon. *What to do: *Please continue to take your regular medications as directed. [x ] New medication prescriptions sent to your pharmacy: [ [facility]] [ ] New medication written as a paper prescription [ ] No new medications given *Please follow up with your primary care provider in 2-3 days, call for an appointment. Let them know you were seen in the Emergency Department and that we asked that you be seen for follow-up. We will electronically transmit a record of today's note if your PCP is in our system *If you do not have a primary care provider please contact [phone] to establish care with one of the [facility] primary care providers. *Return to Emergency Department if you should have any new, worsening, or concerning symptoms, such as [fever greater than 101F, chills, worsening pain, persistent vomiting or other bothersome symptoms]. Prescriptions: New benzonatate 100 mg capsule 100 mg PO BID PRN (Reason: cough) Qty: 14 0RF No Action DIPHENHYDRAMINE CITRATE/IBUP (ADVIL PM) 200 mg PO PRN Qty: 0 [MULTIVITAMIN] PO QDAY Qty: 0 [VITAMIN D-3] 2,000 unit PO QDAY Qty: 0 [GLUCOSAMINE/MSM] 3,000 mg PO QDAY Qty: 0 [ginkgo biloba] 1 tab PO QDAY Qty: 0 apixaban 5 mg tablet 5 mg PO BID Qty: 30 0RF atorvastatin 40 mg tablet 40 mg PO DAILY Qty: 90 3RF metformin 500 mg tablet See Rx Instructions .ROUTE .COMPLEX Qty: 360 1RF Dose Instruction: TAKE 2 TABLETS BY MOUTH TWICE DAILY Rx Instructions: TAKE 2 TABLETS BY MOUTH TWICE DAILY allopurinol 100 mg tablet See Rx Instructions .ROUTE .COMPLEX Qty: 90 2RF Dose Instruction: TAKE 1 TABLET BY MOUTH ONCE A DAY Rx Instructions: TAKE 1 TABLET BY MOUTH ONCE A DAY alfuzosin 10 mg tablet extended release 24 hr 10 mg PO DAILY Rx Instructions: administer after the same meal each day finasteride 5 mg tablet 5 mg PO DAILY aspirin 81 mg tablet,delayed release (DR/EC) 81 mg PO DAILY losartan 25 mg tablet 25 mg PO QDAY Qty: 90 3RF Rx Instructions: Take one tablet by mouth once a day. metoprolol succinate 50 mg tablet extended release 24 hr 25 mg PO DAILY Qty: 45 3RF Rx Instructions: Take one half tablet by mouth once a day. Referrals: Butch Enriquez MD [Primary Care Provider] - <Ashok Isaacs MD - Last Filed: 07/22/22 21:42> [facility]: I was immediately available in the department for consultation. ?This documentation has been reviewed and I agree with assessment and plan. Supervised by Ashok Isaacs MD
[2022-07-13] MEDS: AZITHROMYCIN 250 MG TABLET 500 MG PO (16:28)
[2022-07-13] MEDS: AMOXICILLIN/CLAV 875/125 MG 1 TAB PO (16:28)
== END 2022-07-13 16:34 | disposition home or self-care (01) ==
PROVIDERS: Emergency Medicine; Emergency Provider Nurse Practitioner Critical Care Medicine; PCP Student in an Organized Health Care Education/Training Program
DX: U07.1 COVID-19 (principal); J18.9 Pneumonia, unspecified organism; Z79.899 Other long term (current) drug therapy
CPT/HCPCS: 0241U; 71046; 99283

== ENCOUNTER → 2022-11-12 16:50 | Outpatient (CLI) | payer MEDICARE, SELFPAY ==
--- NOTE | 2022-11-12 16:54 | DI.RAD.S_ITS ---
PROCEDURE: XR CHEST 2V INDICATIONS: SOB. Compare with July XR chest during COVID pna. TECHNIQUE: 2 views of the chest were acquired. COMPARISON: [facility], DIANNA, XR CHEST 2V, 07/13/2022, 13:05. [facility], CR, XR CHEST 1V, 05/07/2021, 18:00. FINDINGS: Surgical changes and devices: Interventricular pacemaker. Lungs and pleura: Lungs are clear. No pleural effusions or pneumothorax. Mediastinum: Mediastinal contours are normal. Heart size is enlarged. Bones and chest wall: No suspicious bony abnormalities. Soft tissues appear unremarkable. IMPRESSION: No acute cardiopulmonary process. Resolved interstitial prominence. Dictated by: Donnie Biswas M.D. on 11/13/2022 at 9:08 Approved by: Donnie Biswas M.D. on 11/13/2022 at 9:09
== END ==
PROVIDERS: PCP Student in an Organized Health Care Education/Training Program; Referring Provider Student in an Organized Health Care Education/Training Program; Visit Provider Student in an Organized Health Care Education/Training Program
DX: U07.1 COVID-19 (principal); R06.09 Other forms of dyspnea
CPT/HCPCS: 71046

== ENCOUNTER → 2022-11-30 07:01 | Outpatient (CLI) | payer MEDICARE, SELFPAY ==
--- NOTE | 2022-11-30 | DI.NM.S_ITS ---
PROCEDURE: NM DULCE PERF SPECT R&S PHARM Rest and pharmacological stress myocardial perfusion SPECT with gated imaging and ejection fraction RADIOPHARMACEUTICAL: 26.1 mCi Tc-99m tetrafosmin IV at rest and 24.2 mCi Tc-99m tetrafosmin IV at peak effect of pharmacological stress. [id number] was performed. INDICATIONS: Presence of aortocoronary bypass graft TECHNIQUE: Radiopharmaceutical was injected at peak stress test, and also at rest. SPECT images were obtained. SPECT myocardial perfusion images were displayed in short axis, horizontal long axis, and vertical long axis views. Gated images were reviewed using [email or web address] software. COMPARISON: None. CARDIAC STRESS: A pharmacologic stress test was performed under the supervision of an attending staff, using an infusion of regadenoson 0.4 mg IV. Hemodynamic data: There is normal blood pressure and heart rate response to pharmacologic stress. Symptoms: The patient denied anginal chest pain. EKG: Ventricular-paced. FINDINGS: Raw data: There is good myocardial uptake of radiotracer. No significant motion artifacts. Oknt-fs-bruna ratio is 0.58 (normal is less than 0.38 for tetrafosmin tracer). Left ventricle function: Gated images demonstrate apical septal hypokinesis. No transient ischemic dilation; TID is 1.26 (normal less than 1.3). Left ventricle resting end diastolic volume is 143 mL. Left ventricle stress ejection fraction is 58%; normal range is above 45%. Myocardial perfusion: There is small size, moderate intensity fixed apical septal defect. There is evidence of extension with reversibility to the apical cap and apical inferolateral tolbert. IMPRESSION: Abnormal study. 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 Dilated left ventricle, LVEDV 143 mL. Calculated ejection fraction is normal at 58% however visually appears lower at 45 to 50%. Dictated by: Ankita Lemon D.O. on 12/01/2022 at 16:31 Approved by: Ankita Lemon D.O. on 12/01/2022 at 16:38
== END ==
PROVIDERS: PCP Student in an Organized Health Care Education/Training Program; Referring Provider Internal Medicine Cardiovascular Disease; Visit Provider Internal Medicine Cardiovascular Disease
DX: Z95.1 Presence of aortocoronary bypass graft (principal); I51.7 Cardiomegaly
CPT/HCPCS: 78452; 93017; A9502; J2785

== ENCOUNTER → 2022-12-05 07:57 | Outpatient (CLI) | payer MEDICARE, SELFPAY ==
[2022-12-05 09:12] LABS: BUN Creatinine Ratio 13.3 (6-22); Blood Urea Nitrogen 14 mg/dL (9-20); Calcium 9.1 mg/dL (8.4-10.2); Carbon Dioxide 30 mmol/L (22-32); Chloride 99 mmol/L (98-107); Estimated Glomerular Filt Rate > 60 mL/min (>60); Glucose 103 mg/dL (80-110); HEMOLYSIS < 15 (0-50); Potassium 4.2 mmol/L (3.4-5.1); Sodium 136 mmol/L (137-145)
[2022-12-05 09:14] LABS: Creatinine Urine Random 49.1 mg/dL
[2022-12-05 09:16] LABS: Microalbumi Creatinin Ratio Ur 36.6 ug/mg CR (<30); Microalbumin Urine Random 1.8 mg/dL (0-1.6)
[2022-12-06 05:36] LABS: Labcorp Hemoglobin (Hb) A1c 6.5 % (4.8-5.6)
== END ==
PROVIDERS: PCP Student in an Organized Health Care Education/Training Program; Referring Provider Student in an Organized Health Care Education/Training Program; Visit Provider Student in an Organized Health Care Education/Training Program
DX: I10 Essential (primary) hypertension (principal); E11.9 Type 2 diabetes mellitus without complications
CPT/HCPCS: 36415; 80048; 82043; 82570; 83036

== ENCOUNTER 2023-02-04 12:42 | Emergency (ER) | payer MEDICARE, SELFPAY ==
[2023-02-04 12:44] VITALS: BP 146/81; PULSE 85; RESP 16; TEMP 36.4; O2SAT 99; BMI 33.3
[2023-02-04 14:05] LABS: Bacteria Urine None Seen; Culture Indicated Urine Cult Not Indicated; RBC Urine 5-10/HPF (0-5/HPF); Squamous Epithelial Cell Urine 0-1 /HPF (0-5/HPF); WBC Urine 0-1/HPF (0-5/HPF)
--- NOTE | 2023-02-04 14:36 | DI.CT.S_ITS ---
PROCEDURE: CT ABDOMEN PELVIS W CON INDICATIONS: hematuria, proctitis vs UTI vs nephrolithiasis TECHNIQUE: After the administration of intravenous contrast, axial sections acquired from the lung bases to the pubic symphysis. Coronal and sagittal reformats were performed. For radiation dose reduction, the following was used: automated exposure control, adjustment of mA and/or kV according to patient size. COMPARISON: [facility], CR, XR CHEST 2V, 11/12/2022, 16:50. [facility], CT, CT ABDOMEN PELVIS WO/W CON, 10/01/2021, 10:09. FINDINGS: Image quality: Excellent. Lung bases: Unremarkable. Heart: Remote CABG and valve. Pacer. Mild cardiomegaly. ABDOMEN: Liver: Mild diffuse hepatic steatosis. No focal liver mass. Gallbladder: Again noted are multiple gallstones. No gallbladder wall thickening. Biliary ducts: Unremarkable. Pancreas: Unremarkable. Spleen: Unremarkable. Adrenal Glands: Unremarkable. Kidneys and Ureters: Unremarkable. Stomach and Bowel: Mild diverticulosis without evidence of diverticulitis. No dilated loops. Peritoneum: No abnormal intraperitoneal fluid. No free air. Ventral Wall: No hernias. Abdominal Nodes: No retroperitoneal or mesenteric adenopathy by size criteria. Vessels: Aorta and inferior vena cava are normal in size. PELVIS: Pelvic Organs: Enlarged prostate. Bladder: Mild diffuse wall thickening of the bladder. Pelvic Nodes: No enlarged lymph nodes. Miscellaneous: No hernias are seen. Bones: Lumbar degenerative change. No lytic or blastic bony lesions. No compression fractures. IMPRESSION: 1. No renal stones, ureteral stones, hydronephrosis. 2. Enlarged prostate. 3. Mild diffuse bladder wall thickening. 4. Mild diverticulosis without evidence of diverticulitis. 5. No acute abdominal process identified. 6. Diffuse hepatic steatosis. 7. Cardiomegaly. Dictated by: Alberto Sequeira M.D. on 02/04/2023 at 15:45 Approved by: Alberto Sequeira M.D. on 02/04/2023 at 15:54
--- NOTE | 2023-02-04 15:14 | ED_ITS ---
HPI - Male Genitourinary <Suzan Mcclellan, [facility] - Last Filed: 02/04/23 16:25> General Chief complaint: Urogenital-Male Stated complaint: blood in urine Time Seen by Provider: 02/04/23 14:36 Source: patient Mode of arrival: Ambulatory History of Present Illness HPI Narrative: This is a 82-year-old gentleman with history of coronary artery disease, hypertension, gout, HUMBERTO, type 2 diabetes, and hematuria who presents to the emergency department with hematuria today. He states that he is had history of proctitis in the past and isn't sure if it is that or a urinary tract infection because he is had history of that before as well. He is anticoagulated on Eliquis and takes a baby aspirin daily, he denies any pain, states that he has had bleeding before due to his blood thinner. He takes alfuzosin and finast eride for his prostate. He sees Dr. Rios and Nabila Dalton PA-C from [facility] urology and has a follow-up appointment scheduled 30 days away. They came here for evaluation of blood in urine with no pain, no flank pain, has had history of this in the past, has also had history of prostatitis and urinary tract infection. He denies difficulty urinating or painful urination. He denies any stool changes or painful bowel movements. On chart review patient had a urine culture with less than 10,000 CFUs of Staphylococcus capitis on 09/08/2021 Related Data Home Medications Medication Instructions Recorded Confirmed DIPHENHYDRAMINE CITRATE/IBUP 200 mg PO PRN ##0 07/29/12 01/19/23 (ADVIL PM) [MULTIVITAMIN] PO QDAY ##0 07/29/12 01/19/23 [VITAMIN D-3] 2,000 unit PO QDAY ##0 07/29/12 01/19/23 [GLUCOSAMINE/MSM] 3,000 mg PO QDAY ##0 04/22/17 01/19/23 [ginkgo biloba] 1 tab PO QDAY ##0 08/04/17 01/19/23 aspirin 81 mg tablet,delayed 81 mg PO DAILY 02/11/19 01/19/23 release finasteride 5 mg tablet 5 mg PO DAILY 06/23/22 01/19/23 alfuzosin 10 mg tablet,extended 10 mg PO DAILY 01/19/23 01/19/23 release 24 hr metformin 500 mg tablet See Rx Instructions .Route .COMPLEX 01/19/23 01/19/23 Previous Rx's Medication Instructions Recorded losartan 25 mg tablet 25 mg PO QDAY #90 tabs 12/15/19 metoprolol succinate 50 mg 25 mg PO DAILY #45 tabs 12/15/19 tablet,extended release 24 hr apixaban 5 mg tablet 5 mg PO BID #30 tabs 01/02/20 atorvastatin 40 mg tablet 40 mg PO DAILY #90 tabs 10/15/21 allopurinol 100 mg tablet See Rx Instructions .Route 02/04/23 .COMPLEX #90 tabs cefuroxime axetil 500 mg tablet 500 mg PO BID 8 days #16 tabs 02/04/23 Allergies Allergy/AdvReac Type Severity Reaction Status Date / Time latex Allergy Mild SWOLLEN Verified 01/19/23 15:58 FINGERS Sulfa (Sulfonamide Allergy Mild SWOLLEN Verified 01/19/23 15:58 Antibiotics) FINGERS lisinopril AdvReac Intermediate SWELLING Verified 01/19/23 15:58 hydrochlorothiazide AdvReac Mild SWELLING Verified 01/19/23 15:58 Review of Systems <HEENA Lopez - Last Filed: 02/04/23 16:25> Review of Systems ROS Unobtainable: All systems reviewed & are unremarkable except as noted in HPI and below Patient History <HEENA Lopez - Last Filed: 02/04/23 16:25> Medical History Aortic stenosis Ascending aortic aneurysm Cataracts, bilateral (~2015) Chickenpox Colon polyps (01/2004) Coronary artery disease COVID-19 Gout Hx of varicose veins Hyperlipidemia Hypertension Measles Mumps Onychomycosis Osteoarthritis Sleep apnea Upper GI bleed Surgical History History of aortic valve replacement (07/19/15) Hx of aortic valve replacement (12/2009) Hx of cataract surgery (09/2015) Hx of colonoscopy with polypectomy (01/2004) Hx of coronary artery bypass graft Hx of knee surgery (2003) Hx of total knee arthroplasty (01/2013) Hx of varicose vein stripping (1974) Family History Brother No problems noted. Father Diabetes mellitus Heart disease Mother No problems noted. Social History Smoking Status: Former smoker alcohol intake: never substance use type: does not use Smoking Status: Former smoker tobacco type: cigarettes alcohol intake frequency: holidays/special occasions only Substance Use Type: does not use Exam <HEENA Lopez - Last Filed: 02/04/23 16:25> Narrative Exam Narrative: Reviewed vitals signs and nursing notes. General: Pleasant, sitting upright, in no acute distress, well groomed, afebrile HEENT: symmetrical facial expressions, moist mucous membranes, neck is supple CV: regular rate and rhythm, warm extremities Respiratory: normal work of breathing, without tachypnea or hypoxia. GI: abdomen soft, nondistended, without CVA tenderness bilaterally. MSK: moves all extremities, no weakness, normal tone, ambulatory without deficit Skin: brisk capillary refill, without rash or wound Neuro: clear speech and normal cognition, A&O x3, GCS 15, no focal motor or sensation deficits Initial Vital Signs Initial Vital Signs: Vital Signs Temperature 97.5 F L 02/04/23 12:44 Pulse Rate 85 02/04/23 12:44 Respiratory Rate 16 02/04/23 12:44 Blood Pressure 146/81 H 02/04/23 12:44 Pulse Oximetry 99 02/04/23 12:44 Oxygen Delivery Method Room Air 02/04/23 12:44 <Ashok Isaacs MD - Last Filed: 02/09/23 12:13> Initial Vital Signs Initial Vital Signs: Vital Signs Temperature 97.5 F L 02/04/23 12:44 Pulse Rate 85 02/04/23 12:44 Respiratory Rate 16 02/04/23 12:44 Blood Pressure 146/81 H 02/04/23 12:44 Pulse Oximetry 99 02/04/23 12:44 Oxygen Delivery Method Room Air 02/04/23 12:44 Course <HEENA Lopez - Last Filed: 02/04/23 16:25> Orders Ordered: Discontinued Medications Cefuroxime Axetil (Cefuroxime 250 Mg Tablet) 500 mg PO NOW ONE Stop: 02/04/23 16:18 Last Admin: 02/04/23 16:27 Dose: 500 mg Documented By: DUARTE Vital Signs Vital signs: Vital Signs - 8 hr 02/04/23 12:44 02/04/23 15:15 Temperature 97.5 F L 97.7 F Pulse Rate 85 61 Respiratory Rate 16 16 Blood Pressure 146/81 H 147/67 H Pulse Oximetry 99 98 Oxygen Delivery Method Room Air Room Air <Ashok Isaacs MD - Last Filed: 02/09/23 12:13> Orders Ordered: Discontinued Medications Cefuroxime Axetil (Cefuroxime 250 Mg Tablet) 500 mg PO NOW ONE Stop: 02/04/23 16:18 Last Admin: 02/04/23 16:27 Dose: 500 mg Documented By: DUARTE Vital Signs Vital signs: Vital Signs - 8 hr 02/04/23 12:44 02/04/23 15:15 Temperature 97.5 F L 97.7 F Pulse Rate 85 61 Respiratory Rate 16 16 Blood Pressure 146/81 H 147/67 H Pulse Oximetry 99 98 Oxygen Delivery Method Room Air Room Air MDM - Male Genitourinary <HEENA Lopez - Last Filed: 02/04/23 16:25> Lab Data 02/04/23 15:05 02/04/23 15:05 Labs: Lab Results 02/04/23 02/04/23 02/04/23 Range/Units 12:45 15:05 15:05 WBC 4.5 (4.5-11.0) X10^3/uL RBC 4.41 L (4.5-5.9) X10^6/uL Hgb 12.2 L (13.5-17.5) g/dL Hct 37.4 L (41-53) % MCV 84.9 (80-100) fL MCH 27.7 (26-34) PG MCHC 32.7 (30-36) % RDW 17.7 H (11.6-14.8) % Plt Count 191 (150-400) X10^3/uL Neut % (Auto) 58.0 (50-75) % Lymph % (Auto) 25.5 (25-40) % [place] % (Auto) 11.0 (3-14) % Eos % (Auto) 4.1 H (2-4) % Baso % (Auto) 1.4 (0-2) % Neut # (Auto) 2600 (9153-7278) /uL Lymph # (Auto) 1200 (2423-9667) /uL [place] # (Auto) 500 (0-900) /uL Eos # (Auto) 200 (0-450) /uL Baso # (Auto) 100 (0-100) /uL Sodium 135 L (137-145) mmol/L Potassium 4.0 (3.4-5.1) mmol/L Chloride 97 L (98-107) mmol/L Carbon Dioxide 30 (22-32) mmol/L BUN 20 (9-20) mg/dL Creatinine 0.87 (0.66-1.25) mg/dL Estimated GFR > 60 (>60) mL/min BUN/Creatinine Ratio 23.0 H (6-22) Glucose 89 (80-110) mg/dL Calcium 9.0 (8.4-10.2) mg/dL Total Bilirubin 1.2 (0.2-1.3) mg/dL AST 36 (17-59) IU/L ALT 24 (<50) IU/L Alkaline Phosphatase 119 (38-126) U/L Total Protein 7.3 (6.3-8.2) g/dL Albumin 4.1 (3.5-5.0) g/dL Globulin 3.2 (1.7-4.1) g/dL Albumin/Globulin Ratio 1.3 (1.0-2.8) Lipase 256 (23-300) U/L Urine RBC 5-10/hpf H (0-5/HPF) Urine WBC 0-1/hpf (0-5/HPF) Ur Squamous Epith Cells 0-1 /hpf (0-5/HPF) Urine Bacteria None seen (None) Ur Culture Indicated? Cult not indicated Urine Dip Bedside Urine Glucose Negative Bedside Urine Bilirubin - Negative Bedside Urine Ketone - Negative Urine Specific [place] 1.010 Bedside Urine Occult Blood +++ Bedside Urine pH 6.0 Bedside Urine Protein - Negative Bedside Urine Urobilinogen - Negative Bedside Urine Nitrite - Negative Bedside Urine Leukocytes - Negative Esterase Imaging Data CT scan - abdomen/pelvis: Radiologist's Impression: CT Scan Report Signed Patient: Joelle Lainez V MR#: [id number] : 1940 Acct:[id number] Age/Sex: 82 / M Date of Service: 02/04/23 Loc: ED Accession Number: [id number] ?? Procedure: CT abdomen pelvis w con Ordering Provider: Suzan Mcclellan PROCEDURE:? CT ABDOMEN PELVIS W CON ? INDICATIONS:? hematuria, proctitis vs UTI vs nephrolithiasis ? TECHNIQUE:? After the administration of intravenous contrast, axial sections acquired from the lung bases to the pubic symphysis.? Coronal and sagittal reformats were performed.? For radiation dose reduction, the following was used:? automated exposure control, adjustment of mA and/or kV according to patient size.? ? COMPARISON:? [facility], CR, XR CHEST 2V, 11/12/2022, 16:50.? [facility], CT, CT ABDOMEN PELVIS WO/W CON, 10/01/2021, 10:09. ? FINDINGS:? Image quality:? Excellent.? ? Lung bases:? Unremarkable. Heart:? Remote CABG and valve.? Pacer.? Mild cardiomegaly. ? ABDOMEN: Liver:? Mild diffuse hepatic steatosis.? No focal liver mass. Gallbladder:? Again noted are multiple gallstones.? No gallbladder wall thickening.? ? Biliary ducts:? Unremarkable.? ? Pancreas:? Unremarkable.? ? Spleen:? Unremarkable.? ? Adrenal Glands:? Unremarkable.? ? Kidneys and Ureters:? Unremarkable.? ? ? Stomach and Bowel:? Mild diverticulosis without evidence of diverticulitis.? No dilated loops.? Peritoneum:? No abnormal intraperitoneal fluid.? No free air.? ? Ventral Wall: ? No hernias.? Abdominal Nodes:? No retroperitoneal or mesenteric adenopathy by size criteria.? Vessels:? Aorta and inferior vena cava are normal in size.? ? PELVIS: Pelvic Organs:? Enlarged prostate.? ? Bladder:? Mild diffuse wall thickening of the bladder. Pelvic Nodes: No enlarged lymph nodes.? Miscellaneous: No hernias are seen. ? ? ? Bones:? Lumbar degenerative change.? No lytic or blastic bony lesions.? No compression fractures. ? ? ? IMPRESSION:? ? 1. No renal stones, ureteral stones, hydronephrosis. ? 2. Enlarged prostate. ? 3. Mild diffuse bladder wall thickening. ? 4. Mild diverticulosis without evidence of diverticulitis. ? 5. No acute abdominal process identified. ? 6. Diffuse hepatic steatosis. ? 7. Cardiomegaly.? ? ? Dictated by: Alberto Sequeira M.D. on 02/04/2023 at 15:45 ? ? Approved by: Alberto Sequeira M.D. on 02/04/2023 at 15:54 ? MDM Narrative Medical decision making narrative: Chief Complaint: hematuria Multiple etiologies for patient's complaint considered including, but not limited to: bladder malignancy, UTI, nephrolithiasis, acute cystitis, prostatitis, anemia I have independently reviewed the patient's vital signs and nursing notes as well as prior records if available. Course of Care: Obtained abdomen pelvis CT for concern about prostatitis versus nephrolithiasis versus urinary changes. CBC without leukocytosis, mild anemia with a hemoglobin of 12.2 and hematocrit 37.4 CMP shows normal renal function without other abnormality. UA positive for blood without WBCs, bacteria or nitrites. Urine culture ordered. Abdominal CT without obstructive uropathy, shows an enlarged prostate, diffuse bladder wall thickening, no evidence of diverticulitis or other acute abdominal process. Social considerations that may affect disposition: none Questions are addressed and there is agreement with the plan and for follow-up. I consulted with the ED attending physician Dr. Isaacs as needed for higher level of care considerations and they were available for discussion and recommendations regarding plan of care and diagnostic testing. Patient is appropriate for outpatient management. <Ashok Isaacs MD - Last Filed: 02/09/23 12:13> Lab Data Labs: Lab Results 02/04/23 02/04/23 02/04/23 Range/Units 12:45 15:05 15:05 WBC 4.5 (4.5-11.0) X10^3/uL RBC 4.41 L (4.5-5.9) X10^6/uL Hgb 12.2 L (13.5-17.5) g/dL Hct 37.4 L (41-53) % MCV 84.9 (80-100) fL MCH 27.7 (26-34) PG MCHC 32.7 (30-36) % RDW 17.7 H (11.6-14.8) % Plt Count 191 (150-400) X10^3/uL Neut % (Auto) 58.0 (50-75) % Lymph % (Auto) 25.5 (25-40) % [place] % (Auto) 11.0 (3-14) % Eos % (Auto) 4.1 H (2-4) % Baso % (Auto) 1.4 (0-2) % Neut # (Auto) 2600 (1994-1723) /uL Lymph # (Auto) 1200 (7886-8980) /uL [place] # (Auto) 500 (0-900) /uL Eos # (Auto) 200 (0-450) /uL Baso # (Auto) 100 (0-100) /uL Sodium 135 L (137-145) mmol/L Potassium 4.0 (3.4-5.1) mmol/L Chloride 97 L (98-107) mmol/L Carbon Dioxide 30 (22-32) mmol/L BUN 20 (9-20) mg/dL Creatinine 0.87 (0.66-1.25) mg/dL Estimated GFR > 60 (>60) mL/min BUN/Creatinine Ratio 23.0 H (6-22) Glucose 89 (80-110) mg/dL Calcium 9.0 (8.4-10.2) mg/dL Total Bilirubin 1.2 (0.2-1.3) mg/dL AST 36 (17-59) IU/L ALT 24 (<50) IU/L Alkaline Phosphatase 119 (38-126) U/L Total Protein 7.3 (6.3-8.2) g/dL Albumin 4.1 (3.5-5.0) g/dL Globulin 3.2 (1.7-4.1) g/dL Albumin/Globulin Ratio 1.3 (1.0-2.8) Lipase 256 (23-300) U/L Urine RBC 5-10/hpf H (0-5/HPF) Urine WBC 0-1/hpf (0-5/HPF) Ur Squamous Epith Cells 0-1 /hpf (0-5/HPF) Urine Bacteria None seen (None) Ur Culture Indicated? Cult not indicated Urine Dip Bedside Urine Glucose Negative Bedside Urine Bilirubin - Negative Bedside Urine Ketone - Negative Urine Specific [place] 1.010 Bedside Urine Occult Blood +++ Bedside Urine pH 6.0 Bedside Urine Protein - Negative Bedside Urine Urobilinogen - Negative Bedside Urine Nitrite - Negative Bedside Urine Leukocytes - Negative Esterase Discharge Plan Departure Patient Disposition: Home Clinical Impression: Hematuria Qualifiers: Hematuria type: gross Qualified Code(s): R31.0 - Gross hematuria Bladder infection, acute Qualifiers: Hematuria presence: with hematuria Qualified Code(s): N30.01 - Acute cystitis with hematuria Instructions: Acute Cystitis, Blood in Urine Activity Restrictions/Additional Instructions: *You have been diagnosed with a bladder infection. No evidence of infection of the prostate on your scan or other abdominal abnormality. Please finish these antibiotics, drink plenty of water to continue flushing this out so that you do not get a blood clot in your bladder. I hope you feel better soon, thank you for waiting, I am sorry it was a long time. *What to do: *Please continue to take your regular medications as directed. [x ] New medication prescriptions sent to your pharmacy: [ [facility]] [ ] New medication written as a paper prescription [ ] No new medications given *Please call and schedule follow up with your primary care provider in 2-3 days, at least for an update. Let them know you were seen in the Emergency Department for the above problem. We will electronically transmit a record of today's note if your PCP or specialist is in our system. *If you do not have a primary care provider please contact [phone] to establish care with one of the [facility] primary care providers. *Return to the Emergency Department for worsening symptoms, inability to keep liquids down, fever greater than 101F, chills, or other concerning symptom. Prescriptions: New cefuroxime axetil 500 mg tablet 500 mg PO BID 8 Days Qty: 16 0RF No Action DIPHENHYDRAMINE CITRATE/IBUP (ADVIL PM) 200 mg PO PRN Qty: 0 [MULTIVITAMIN] PO QDAY Qty: 0 [VITAMIN D-3] 2,000 unit PO QDAY Qty: 0 [GLUCOSAMINE/MSM] 3,000 mg PO QDAY Qty: 0 [ginkgo biloba] 1 tab PO QDAY Qty: 0 apixaban 5 mg tablet 5 mg PO BID Qty: 30 0RF atorvastatin 40 mg tablet 40 mg PO DAILY Qty: 90 3RF allopurinol 100 mg tablet See Rx Instructions .ROUTE .COMPLEX Qty: 90 2RF Dose Instruction: TAKE 1 TABLET BY MOUTH ONCE A DAY Rx Instructions: TAKE 1 TABLET BY MOUTH ONCE A DAY finasteride 5 mg tablet 5 mg PO DAILY aspirin 81 mg tablet,delayed release (DR/EC) 81 mg PO DAILY losartan 25 mg tablet 25 mg PO QDAY Qty: 90 3RF Rx Instructions: Take one tablet by mouth once a day. metoprolol succinate 50 mg tablet extended release 24 hr 25 mg PO DAILY Qty: 45 3RF Rx Instructions: Take one half tablet by mouth once a day. metformin 500 mg tablet See Rx Instructions .ROUTE .COMPLEX Dose Instruction: TAKE 2 TABLETS BY MOUTH TWICE DAILY Rx Instructions: TAKE 1 TABLETS BY MOUTH TWICE DAILY alfuzosin 10 mg tablet extended release 24 hr 10 mg PO DAILY Rx Instructions: administer after the same meal each day Referrals: Nabila Darnell PA-C [Non-Staff] - Troy Joseph MD [Primary Care Provider] - Stand Alone Forms: Patient Portal/API <Ashok Isaacs MD - Last Filed: 02/09/23 12:13> [facility] I was immediately available in the department for consultation. ?This documentation has been reviewed and I agree with assessment and plan. Supervised by Ashok Isaacs MD
[2023-02-04 15:15] VITALS: BP 147/67; PULSE 61; RESP 16; TEMP 36.5; O2SAT 98
[2023-02-04 15:21] LABS: Add Manual Diff / Slide Review NO; Basophils Absolute Auto 100 /uL (0-100); Basophils Percent Auto 1.4 % (0-2); Eosinophils Absolute Auto 200 /uL (0-450); Eosinophils Percent Auto 4.1 % (2-4); Hematocrit 37.4 % (41-53); Hemoglobin 12.2 g/dL (13.5-17.5); Lymphocytes Absolute Auto 1200 /uL (1100-4500); Lymphocytes Percent Auto 25.5 % (25-40); Mean Corpuscular HGB Conc 32.7 % (30-36); Mean Corpuscular Hemoglobin 27.7 PG (26-34); Mean Corpuscular Volume 84.9 fL (80-100); Monocytes Absolute Auto 500 /uL (0-900); Neutrophils Absolute Auto 2600 /uL (1500-7000); Platelet Count 191 X10^3/uL (150-400); Red Blood Cell Count 4.41 X10^6/uL (4.5-5.9); Red Cell Distribution Width 17.7 % (11.6-14.8); White Blood Cell Count 4.5 X10^3/uL (4.5-11.0)
[2023-02-04 15:44] LABS: Alanine Aminotransferase 24 IU/L (<50); Albumin 4.1 g/dL (3.5-5.0); Albumin Globulin Ratio 1.3 (1.0-2.8); Alkaline Phosphatase 119 U/L (38-126); Aspartate Aminotransferase 36 IU/L (17-59); Bilirubin Total 1.2 mg/dL (0.2-1.3); Blood Urea Nitrogen 20 mg/dL (9-20); Carbon Dioxide 30 mmol/L (22-32); Chloride 97 mmol/L (98-107); Estimated Glomerular Filt Rate > 60 mL/min (>60); Globulin 3.2 g/dL (1.7-4.1); Glucose 89 mg/dL (80-110); HEMOLYSIS < 15 (0-50); Lipase 256 U/L (23-300); Sodium 135 mmol/L (137-145); Total Protein 7.3 g/dL (6.3-8.2)
[2023-02-04] MEDS: cefUROXime 250 MG TABLET 500 MG PO (16:27)
== END 2023-02-04 16:30 | disposition home or self-care (01) ==
PROVIDERS: Emergency Medicine; Emergency Provider Nurse Practitioner Critical Care Medicine; PCP Pediatrics
DX: N30.01 Acute cystitis with hematuria (principal)
CPT/HCPCS: 74177; 80053; 81003; 81015; 83690; 85025; 87086; 99284; Q9967

== ENCOUNTER → 2023-06-17 11:48 | Outpatient (CLI) | payer MEDICARE, SELFPAY ==
[2023-06-17 12:39] LABS: Estimated Glomerular Filt Rate > 60 mL/min (>60)
== END ==
PROVIDERS: PCP Family Medicine; Referring Provider Radiology Diagnostic Radiology; Visit Provider Radiology Diagnostic Radiology
DX: I71.20 Thoracic aortic aneurysm, without rupture, unspecified (principal)
CPT/HCPCS: 36415; 82565

== ENCOUNTER → 2023-06-22 14:09 | Outpatient (CLI) | payer MEDICARE, SELFPAY ==
--- NOTE | 2023-06-22 | DI.CT.S_ITS ---
PROCEDURE: CT IVP A/P W/WO INDICATIONS: Gross hematuria TECHNIQUE: Optional 5 mm thick noncontrast images acquired from the diaphragm to the symphysis pubis. After the administration of intravenous contrast, 5 mm thick images acquired from the diaphragm to the symphysis pubis after a 10-minute delay. 2 mm thick coronal and sagittal reformats were then performed of the kidneys and ureters. For radiation dose reduction, the following was used: automated exposure control, adjustment of mA and/or kV according to patient size. COMPARISON: [facility], CR, XR CHEST 2V, 11/12/2022, 16:50. [facility], CT, CT ABDOMEN PELVIS W CON, 02/04/2023, 14:50. FINDINGS: Image quality: Excellent. Lung bases: Lung bases are clear. Cardiomegaly, aortic valve replacement. Lead less pacemaker. Aneurysmal dilatation of the ascending aorta, seen on the most superior slice, measuring 5.2 cm in diameter. Urinary system: Both kidneys are normal in size, without hydronephrosis or nephrolithiasis on pre-contrast images. No perinephric fat stranding. There is normal bilateral renal enhancement. Renal calyces appear normal in morphology when filled with contrast. Opacified portions of both ureters demonstrate normal caliber. The prostate is moderately enlarged with extrinsic compression on the base of the bladder. Diffuse bladder wall thickening. No suspicious luminal masses. No calcified bladder stones. Other solid organs: Liver is normal in size and enhancement. Gallbladder contains gravel or numerous tiny stones. No gallbladder wall thickening. . Biliary system is non dilated. Pancreas enhances normally. Spleen is normal in size and enhancement. No adrenal nodules. Peritoneum and bowel: Bowel loops demonstrate normal wall thickness and caliber. No free fluid or air. Diverticulosis without evidence of diverticulitis. Nodes and vessels: No retroperitoneal or mesenteric adenopathy by size criteria. Aorta and inferior vena cava are normal in size. Abdominal wall: No ventral hernias. Pelvis: No pathologic free pelvic fluid. No inguinal hernias or adenopathy. Bones: No suspicious bony lesions. No vertebral body compression fractures. Lumbar degenerative change. IMPRESSION: 1. No renal stones, ureteral stones, hydronephrosis, or findings suspicious for malignancy. 2. Prostate enlargement with extrinsic compression on the base of the bladder. Bladder wall thickening suggests a degree of bladder outlet obstruction. 3. Aneurysmal dilatation of the ascending aorta, incompletely evaluated, measuring 5.2 cm in diameter. 4. Cardiomegaly. 5. Numerous tiny gallstones versus gallbladder gravel. 6. Diverticulosis. Comment: Recommend chest CT with contrast versus CTA chest to fully evaluate the thoracic aortic aneurysm. Dictated by: Alberto Sequeira M.D. on 06/22/2023 at 17:47 Approved by: Alberto Sequeira M.D. on 06/22/2023 at 17:55
== END ==
PROVIDERS: PCP Family Medicine; Referring Provider Physician Assistant Medical; Visit Provider Physician Assistant Medical
DX: I71.21 Aneurysm of the ascending aorta, without rupture (principal); R31.0 Gross hematuria; N40.0 Benign prostatic hyperplasia without lower urinary tract symptoms; K57.90 Diverticulosis of intestine, part unspecified, without perforation or abscess without bleeding
CPT/HCPCS: 74178; Q9967

== ENCOUNTER → 2023-06-30 10:26 | Outpatient (CLI) | payer MEDICARE, SELFPAY ==
[2023-06-30 13:49] LABS: Influenza A - CEPHEID Flu A NEGATIVE (NEGATIVE); Influenza B - CEPHEID Flu B NEGATIVE (NEGATIVE); Respiratory Syncytial Virus Negative (Negative)
[2023-06-30 14:19] LABS: COVID-19 CEPHEID 4-PLEX PCR POSITIVE (Negative)
== END ==
PROVIDERS: PCP Family Medicine; Visit Provider Family Medicine
DX: R05.9 Cough, unspecified (principal); Z20.822 Contact with and (suspected) exposure to COVID-19
CPT/HCPCS: 0241U

== ENCOUNTER → 2023-09-09 12:52 | Outpatient (CLI) | payer MEDICARE, SELFPAY ==
--- NOTE | 2023-09-09 12:53 | DI.RAD.S_ITS ---
PROCEDURE: XR CHEST 2V INDICATIONS: ongoing cough/dyspnea TECHNIQUE: 2 views of the chest were acquired. COMPARISON: [facility], CR, XR CHEST 2V, 11/12/2022, 16:50. FINDINGS: Surgical changes and devices: Intact sternotomy wires. Leadless pacer. Valve replacement. Lungs and pleura: Lungs are clear. No pleural effusions or pneumothorax. Mediastinum: Mediastinal contours are normal. Marked cardiomegaly, increased compared to prior. Bones and chest wall: No suspicious bony abnormalities. Soft tissues appear unremarkable. Degenerative changes of the spine. Eventration of the right hemidiaphragm. IMPRESSION: 1. No acute cardiopulmonary process. 2. Marked cardiomegaly, increased compared to prior. Consider an ECHO for further evaluation, at clinical discretion. Dictated by: Jacob Lopez M.D. on 09/09/2023 at 17:13 Approved by: Jacob Lopez M.D. on 09/09/2023 at 17:14
== END ==
PROVIDERS: PCP Family Medicine; Referring Provider Family Medicine; Visit Provider Family Medicine
DX: J06.9 Acute upper respiratory infection, unspecified (principal); I51.7 Cardiomegaly; R05.9 Cough, unspecified; R06.09 Other forms of dyspnea
CPT/HCPCS: 71046

== ENCOUNTER 2023-09-13 11:28 | Emergency (ER) | payer MEDICARE, SELFPAY ==
[2023-09-13] VITALS (16 sets, daily range): BP systolic 107–156; BP diastolic 58–81; PULSE 59–91; RESP 15–28; TEMP 36; O2SAT 92–100; BMI 35.6
--- NOTE | 2023-09-13 11:43 | DI.RAD.S_ITS ---
PROCEDURE: XR CHEST 1V INDICATIONS: Shortness of breath TECHNIQUE: One view of the chest was acquired. COMPARISON: [facility], CR, XR CHEST 2V, 09/09/2023, 12:54. FINDINGS: Surgical changes and devices: Sternal wires. Lungs and pleura: Lungs are clear. No pleural effusions or pneumothorax. Mediastinum: Mediastinal contours appear normal. Heart size is enlarged. Bones and chest wall: No suspicious bony lesions. Overlying soft tissues appear unremarkable. IMPRESSION: No acute pulmonary process. Dictated by: Zoe Candelaria M.D. on 09/13/2023 at 14:18 Approved by: Zoe Candelaria M.D. on 09/13/2023 at 14:18
--- NOTE | 2023-09-13 11:58 | ED_ITS ---
HPI - General Adult General Chief complaint: Shortness of Breath/Dyspnea Stated complaint: chest tightness, coughing Time Seen by Provider: 09/13/23 11:48 Source: patient Mode of arrival: Family Vehicle History of Present Illness HPI narrative: 82-year-old male with history of diabetes, CAD, hypertension, gout, HUMBERTO, hypercholesterolemia, ascending aortic aneurysm presents with shortness of breath, chest tightness, coughing. Family at bedside and patient provide history. Patient has had several days of gradually worsening orthopnea with cough with clear sputum, associated with mild shortness of breath. He sometimes has chest pain specifically when he coughs, though no other clear chest pain. No head or neck or back or flank or abdominal pain, clear fevers or chills, nausea or vomiting or diarrhea, asymmetric leg swelling, though both his legs are swollen. They state his outpatient physician started him a few days ago on 20 mg p.o. Lasix daily and scheduled him for cardiology follow up. In 2 days, he has cardiology follow up planned with echo. No other new concerns. Patient states he currently feels well, resting in bed. Per chart review, he has seen [facility] and has history of aortic valve replacement as well, with permanent AFib, pacemaker. He had pharmacologic perfusion study in November 2022 with evidence of apical septal infarct with lalo-infarct ischemia to apical inferior lateral wall, with LVEF 58%. He is history of CABG. He takes Eliquis and aspirin. He saw Dr. Renner June 2023. Related Data Home Medications Medication Instructions Recorded Confirmed DIPHENHYDRAMINE CITRATE/IBUP 200 mg PO PRN ##0 07/29/12 05/20/23 (ADVIL PM) [MULTIVITAMIN] PO QDAY ##0 07/29/12 05/20/23 [VITAMIN D-3] 2,000 unit PO QDAY ##0 07/29/12 05/20/23 [GLUCOSAMINE/MSM] 3,000 mg PO QDAY ##0 04/22/17 05/20/23 [ginkgo biloba] 1 tab PO QDAY ##0 08/04/17 05/20/23 aspirin 81 mg tablet,delayed 81 mg PO DAILY 02/11/19 05/20/23 release alfuzosin 10 mg tablet,extended 10 mg PO DAILY 01/19/23 05/20/23 release 24 hr Previous Rx's Medication Instructions Recorded apixaban 5 mg tablet 5 mg PO BID #30 tabs 01/02/20 allopurinol 100 mg tablet 100 mg PO DAILY #20 tabs 05/11/23 atorvastatin 40 mg tablet 40 mg PO DAILY #20 tabs 05/11/23 losartan 25 mg tablet 25 mg PO QDAY #20 tabs 05/11/23 metoprolol succinate 50 mg 25 mg (1/2 x 50 mg) PO DAILY #20 05/11/23 tablet,extended release 24 hr tabs finasteride 5 mg tablet 5 mg PO DAILY #90 tabs 07/19/23 metformin 500 mg tablet 500 mg PO BIDWMEAL #180 tabs 07/19/23 albuterol sulfate 90 mcg/actuation 2 puff inhalation Q6H PRN 08/11/23 aerosol inhaler shortness of breath or wheezing #6.7 grams furosemide 20 mg tablet (Lasix) 20 mg PO DAILY #3 tabs 09/10/23 doxycycline hyclate 100 mg capsule 100 mg PO BID 5 days #10 caps 09/13/23 doxycycline hyclate 100 mg capsule 100 mg PO BID 5 days #10 caps 09/13/23 furosemide 40 mg tablet (Lasix) 40 mg PO DAILY #7 tabs 09/13/23 furosemide 40 mg tablet (Lasix) 40 mg PO DAILY #7 tabs 09/13/23 Allergies Allergy/AdvReac Type Severity Reaction Status Date / Time latex Allergy Mild SWOLLEN Verified 09/13/23 11:38 FINGERS Sulfa (Sulfonamide Allergy Mild SWOLLEN Verified 09/13/23 11:38 Antibiotics) FINGERS lisinopril AdvReac Intermediate SWELLING Verified 09/13/23 11:38 hydrochlorothiazide AdvReac Mild SWELLING Verified 09/13/23 11:38 Review of Systems Review of Systems Narrative: Constitutional: no fever, no chills Eyes: no visual disturbance, no discharge Ears, Nose, Mouth, Throat: no rhinorrhea, no sore throat Cardiovascular: +chest pain specifically when coughing as above, no palpitations Respiratory: + cough, shortness of breath Gastrointestinal: no abdominal pain, no vomiting, no diarrhea Genitourinary: no dysuria, no hematuria Musculoskeletal: no back pain, no neck stiffness Skin: no rash, no wound Neurological: no focal weakness, no focal numbness Patient History Medical History Aortic stenosis Ascending aortic aneurysm Cataracts, bilateral (~2015) Chickenpox Colon polyps (01/2004) Coronary artery disease COVID-19 Gout Hx of varicose veins Hyperlipidemia Hypertension Measles Mumps Onychomycosis Osteoarthritis Sleep apnea Upper GI bleed Surgical History History of aortic valve replacement (07/19/15) Hx of aortic valve replacement (12/2009) Hx of cataract surgery (09/2015) Hx of colonoscopy with polypectomy (01/2004) Hx of coronary artery bypass graft Hx of knee surgery (2003) Hx of total knee arthroplasty (01/2013) Hx of varicose vein stripping (1974) Family History Brother No problems noted. Father Diabetes mellitus Heart disease Mother No problems noted. Social History Smoking Status: Former smoker alcohol intake: never substance use type: does not use Smoking Status: Former smoker tobacco type: cigarettes alcohol intake frequency: holidays/special occasions only Substance Use Type: does not use Exam Narrative Exam Narrative: Const: no acute distress, non toxic appearing; calm, conversant, pleasant; occasional cough Eyes: PERRLA, EOMI ENT: mucous membranes moist Neck: supple, non-tender Resp: no respiratory distress, crackles bilateral bases Card: regular rate and rhythm, no murmurs; chest wall nontender to palpation Abd: non tender diffusely, no rigidity or rebound or guarding Back: no T or L spine tenderness, no CVA tenderness bilaterally Extrem: no deformities, 2+ pitting edema bilateral lower extremities, 2+ distal pulses all extremities Neuro: ANOx4, sharepoint solutions developer grossly intact, grossly intact sensation and strength all extremities Skin: no rash, warm and dry Initial Vital Signs Initial Vital Signs: Vital Signs Temperature 96.8 F L 09/13/23 11:33 Pulse Rate 89 09/13/23 11:33 Respiratory Rate 20 09/13/23 11:33 Blood Pressure 138/78 09/13/23 11:33 Pulse Oximetry 92 09/13/23 11:33 Oxygen Delivery Method Room Air 09/13/23 11:33 Course Course Course Narrative: This presentation is most suggestive of volume overload in the setting of probable heart failure exacerbation, though I have considered broad differential including but not limited to viral syndrome, pneumonia, ACS, pulmonary embolism, pneumothorax, obstructive lung pathology such as COPD, symptomatic anemia, among others. Patient is currently stable, well-perfused, comfortable on room air, in no respiratory distress. I am obtaining EKG, CBC, CMP, BNP, troponin, D-dimer, chest x-ray, viral swab and will closely reassess. He is on low-dose Lasix at home. He has excellent cardiology follow up planned within 2 days. EKG shows paced rhythm with rate within normal limits, no acute ischemia or immediately concerning interval prolongation in the setting of paced rhythm. CBC with mild leukocytosis, anemia relatively consistent to prior, no thrombocytopenia. Lactate reassuring. INR elevated to 1.9. Troponin reassuring, below detectable limits here. CMP grossly reassuring. Bilirubin elevation with no other LFT elevation or abdominal pain or tenderness. BNP elevated, consistent with suspected volume overload. Urinalysis with blood suitable for follow up, no clear infection currently. D-dimer is elevated. I am pursuing CTA PE study. I am giving 40 mg IV Lasix. Viral swab negative. Radiology review of CTA below, which I agree with on my independent review: FINDINGS: Image quality: Diagnostic. Pulmonary arteries: Pulmonary arteries are prominent measuring 3.7 cm of the main artery, and demonstrate no intraluminal filling defects to suggest central pulmonary embolism. Lower Neck: No enlarged lymph nodes. Thyroid: No thyroid nodules which require sonographic follow up, per consensus guidelines. Axillae: No enlarged lymph nodes. Chest Wall: Unremarkable. Bones: Unremarkable. Lungs and Pleura: Minimal to mild right effusion. Streaky bibasilar opacities are present. Heart: Heart size is enlarged. No pericardial effusion. Thoracic Vessels: Aorta is enlarged measuring 5.5 x 5.4 cm, compared to 5.2 x 5.0 in the ascending portion. Mediastinum and Alexandra: 2.1 cm anterior mediastinal mass is present, new compared to prior exam in 2013. Hounsfield units measure 9. . Additional borderline enlarged mediastinal lymph nodes are present. Esophagus: No wall thickening. Mild hiatal hernia. Upper Abdomen: Visualized upper abdomen demonstrates minimal perihepatic and perisplenic fluid. Multiple gallstones are present. IMPRESSION: No pulmonary embolus. Enlarged pulmonary arteries suggestive of pulmonary artery hypertension. Mild right effusion streaky bibasilar opacities. The latter could represent areas of developing pneumonia/atelectasis. Markedly prominent ascending thoracic aneurysm, mildly increased in size compared to 2014 as above. Anterior mediastinal mass new since 2014. Hounsfield units are suggestive of cystic etiology. However, given interval presence as well as borderline enlarged other mediastinal lymph nodes, malignancy cannot be definitively excluded. Cholelithiasis. Dictated by: Zoe Candelaria M.D. on 09/13/2023 at 15:05 Repeat EKG with morphologic changes due to lead placement; this was repeated and was stable, without any other changes. Overall reassuring. Rate within normal limits. No acute ischemia. Interval prolongation in setting of paced rhythm. At this juncture, I suspect volume overload is driving symptoms and I am recommending increasing Lasix to 40 mg p.o. twice daily. Patient is not in respiratory distress, satting well on room air, and appears stable for discharge. I think pneumonia is less likely clinically, however I am adding doxycycline 100 mg p.o. b.i.d. for 5 days, with 1st dose given here, with blood cultures being sent and recommendation for outpatient follow up on this. In addition, we discussed the very important incidental findings on CT, including strict importance of follow up on all findings with primary care within a few days to discuss further testing and assessment, with malignancy on differential. Repeat exam and vital signs reassuring. Questions answered. Plan reviewed. Patient discharged in stable condition, appearing well. Orders Ordered: ED Orders 09/13/23 11:42 Covid-19 + FLU A/B + RSV - PCR Stat 09/13/23 11:43 XR chest 1V Stat EKG-12 Lead Stat Measure peak expiratory flow ONCE RT Consult Eval and Treat NOW 09/13/23 11:58 Complete Blood Count AUTO DIFF Stat Comprehensive Metabolic Panel Stat D Dimer Stat Lactate (Lactic Acid) Stat NT-proBNP (BNP-Adult 18+) Stat Prothrombin Time INR Stat Troponin I Stat 09/13/23 12:02 Urinalysis and Microscopic Stat 09/13/23 12:39 CT angio chest PE protocol Stat 09/13/23 12:49 EKG-12 Lead Stat 09/13/23 15:23 EKG-12 Lead Stat Discontinued Medications Doxycycline Hyclate (Doxycycline Hyclate 100 Mg Tablet) 100 mg PO NOW ONE Stop: 09/13/23 15:29 Last Admin: 09/13/23 16:18 Dose: Not Given Documented By: ES Doxycycline Hyclate (Doxycycline Hyclate 100 Mg Tablet) 100 mg PO NOW ONE Stop: 09/13/23 16:16 Last Admin: 09/13/23 16:17 Dose: 100 mg Documented By: JOSE Furosemide (Furosemide 40 Mg/4 Ml Vial) 40 mg IV NOW ONE Stop: 09/13/23 12:39 Last Admin: 09/13/23 12:55 Dose: 40 mg Documented By: VANESSA Vital Signs Vital signs: Vital Signs - 8 hr 09/13/23 11:33 09/13/23 11:47 09/13/23 11:52 Temperature 96.8 F L Pulse Rate 89 91 H Respiratory Rate 20 Blood Pressure 138/78 130/72 Pulse Oximetry 92 100 Oxygen Delivery Method Room Air 09/13/23 11:52 09/13/23 12:00 09/13/23 12:00 Temperature Pulse Rate 70 73 Respiratory Rate 18 Blood Pressure 138/81 Pulse Oximetry 98 100 Oxygen Delivery Method Room Air Room Air 09/13/23 12:30 09/13/23 12:31 09/13/23 12:31 Temperature Pulse Rate 65 73 Respiratory Rate 21 24 Blood Pressure 121/68 Pulse Oximetry 100 100 Oxygen Delivery Method Room Air Room Air 09/13/23 13:00 09/13/23 13:01 09/13/23 13:01 Temperature Pulse Rate 62 62 Respiratory Rate 16 19 Blood Pressure 107/63 Pulse Oximetry 100 100 Oxygen Delivery Method Room Air 09/13/23 13:12 09/13/23 13:13 09/13/23 13:13 Temperature Pulse Rate 70 67 Respiratory Rate 17 18 Blood Pressure 126/69 Pulse Oximetry 100 100 Oxygen Delivery Method Room Air 09/13/23 13:30 09/13/23 13:30 09/13/23 13:42 Temperature Pulse Rate 67 Respiratory Rate 28 H Blood Pressure 118/70 138/71 Pulse Oximetry 99 Oxygen Delivery Method Room Air 09/13/23 13:42 09/13/23 14:00 09/13/23 14:00 Temperature Pulse Rate 81 69 Respiratory Rate 23 16 Blood Pressure 156/65 H Pulse Oximetry 100 99 Oxygen Delivery Method 09/13/23 14:30 09/13/23 14:31 09/13/23 14:31 Temperature Pulse Rate 61 62 Respiratory Rate 24 20 Blood Pressure 125/58 L Pulse Oximetry 100 100 Oxygen Delivery Method 09/13/23 15:00 09/13/23 15:00 Temperature Pulse Rate 59 L Respiratory Rate 15 Blood Pressure 126/69 Pulse Oximetry 100 Oxygen Delivery Method Room Air Medical Decision Making Lab Data 09/13/23 11:58 09/13/23 11:58 Labs: Lab Results 09/13/23 09/13/23 09/13/23 Range/Units 11:42 11:58 12:02 WBC 4.3 L (4.5-11.0) X10^3/uL RBC 4.28 L (4.5-5.9) X10^6/uL Hgb 11.9 L (13.5-17.5) g/dL Hct 37.0 L (41-53) % MCV 86.5 (80-100) fL MCH 27.8 (26-34) PG MCHC 32.2 (30-36) % RDW 17.0 H (11.6-14.8) % Plt Count 173 (150-400) X10^3/uL Neut % (Auto) 60.7 (50-75) % Lymph % (Auto) 20.0 L (25-40) % [place] % (Auto) 15.2 H (3-14) % Eos % (Auto) 2.7 (2-4) % Baso % (Auto) 1.4 (0-2) % Neut # (Auto) 2600 (5019-7949) /uL Lymph # (Auto) 900 L (4013-2887) /uL [place] # (Auto) 700 (0-900) /uL Eos # (Auto) 100 (0-450) /uL Baso # (Auto) 100 (0-100) /uL PT 22.5 H (9.4-12.5) SECONDS INR 1.9 H (0.9-1.3) D-Dimer 1149 H (<500) ng/ml Sodium 139 (137-145) mmol/L Potassium 4.1 (3.4-5.1) mmol/L Chloride 102 (98-107) mmol/L Carbon Dioxide 29 (22-32) mmol/L BUN 16 (9-20) mg/dL Creatinine 0.95 (0.66-1.25) mg/dL Estimated GFR > 60 (>60) mL/min BUN/Creatinine Ratio 16.8 (6-22) Glucose 129 H (80-110) mg/dL Lactate 1.8 (0.7-2.1) mmol/L Calcium 9.0 (8.4-10.2) mg/dL Total Bilirubin 1.9 H (0.2-1.3) mg/dL AST 36 (17-59) IU/L ALT 23 (<50) IU/L Alkaline Phosphatase 107 (38-126) U/L Troponin I < 0.012 (0.01-0.034) ng/mL NT-Pro-B Natriuret Pep 918 H (<450) pg/mL Total Protein 7.7 (6.3-8.2) g/dL Albumin 4.4 (3.5-5.0) g/dL Globulin 3.3 (1.7-4.1) g/dL Albumin/Globulin Ratio 1.3 (1.0-2.8) Urine Color Yellow Urine Appearance Clear Urine pH 5.5 (4.5-8.0) Ur Specific Coleman <=1.005 (1.000-1.035) Urine Protein Negative (Negative) Urine Glucose (UA) Negative (Negative) g/dL Urine Ketones Negative (NEGATIVE) Urine Occult Blood 2+ H (Negative) Urine Nitrate Negative (Negative) Urine Bilirubin Negative (NEGATIVE) Urine Urobilinogen 0.2 (0.2) E.U./dL Ur Leukocyte Esterase Negative (NEGATIVE) Urine RBC 1-5/hpf (0-5/HPF) Urine WBC None seen (0-5/HPF) Ur Squamous Epith Cells 0-1 /hpf (0-5/HPF) Urine Bacteria None seen (None) Ur Culture Indicated? Cult not indicated Vol Urine Centrifuged 10ml (spun) SARS-CoV-2 (PCR) Negative (Negative) Influenza A (RT-PCR) Flu a negative (NEGATIVE) Influenza B (RT-PCR) Flu b negative (NEGATIVE) RSV (PCR) Negative (Negative) Urine Dip Bedside Urine Glucose Negative Bedside Urine Bilirubin - Negative Bedside Urine Ketone - Negative Urine Specific Coleman 1.005 Bedside Urine Occult Blood ++ Bedside Urine pH 6.5 Bedside Urine Protein - Negative Bedside Urine Urobilinogen - Negative Bedside Urine Nitrite - Negative Bedside Urine Leukocytes - Negative Esterase Point of care testing: Urine Dip Bedside Urine Glucose Negative Bedside Urine Bilirubin - Negative Bedside Urine Ketone - Negative Urine Specific [place] 1.005 Bedside Urine Occult Blood ++ Bedside Urine pH 6.5 Bedside Urine Protein - Negative Bedside Urine Urobilinogen - Negative Bedside Urine Nitrite - Negative Bedside Urine Leukocytes - Negative Esterase Discharge Plan Departure Patient Disposition: Home Clinical Impression: Congestive heart failure, Shortness of Breath Instructions: DI for Shortness of Breath Activity Restrictions/Additional Instructions: It was a pleasure taking care of you today. It is important to fully read and understand the below. Please ask us if you have any questions. PLEASE SEE YOUR RACE BOARD ATTENDANT IN 2 DAYS PLANNED. We think the most likely cause of your symptoms is fluid in your lungs. I recommend increasing your Lasix to 40 mg once daily. Please see your registered nurse midwife in 2 days as planned. In addition, while I think pneumonia is less likely, I can not rule this out and then giving you 5 days of antibiotics to take. Please discuss the blood cultures I am sending with your primary doctor or registered nurse midwife within 2 or 3 days. In addition, there are EXTREMELY IMPORTANT INCIDENTAL FINDINGS ON YOUR CT. You need to discuss this with your primary doctor this week to discuss further testing, as cancer is a possibility. You have blood in your urine for follow up. Your INR is elevated. Your white blood cell count is mildly elevated. Bring this sheet to your doctors. No tests or assessments are perfect, and your condition could jacquard loom card changer time. If your symptoms change or worsen, it is very important you immediately seek medical care. If you have any new or worsening pain, lightheadedness or passing out, shortness of breath, fever, vomiting, confusion, numbness, weakness, or anything else that concerns you, please immediately seek medical care. If you have been prescribed any medications: please read the drug package inserts on how to properly use the medication and any potential side effects. If you had labs (blood tests) or imaging (CT scan or x-rays) done during your visit: please follow up on the results of these with your primary care doctor, as discussed. In addition, please know the results we received today may be preliminary. Our usual practice is to follow up on tests within a few days of a patient's discharge from the Emergency Department and notify you of any changes. These may lead to changes to your treatment plan. However, the best way to obtain and interpret these test results is through your Primary Care Provider. If you need to update your contact information, please stop by the administrative assistant front desk and alert the Registration personnel before you leave the Emergency Department. Thank you for the opportunity to participate in your healthcare. We are always here and happy to see you in the future. --- PLEASE TAKE THE ATTACHED IMAGING TO YOUR DOCTORS: FINDINGS: Image quality: Diagnostic. Pulmonary arteries: Pulmonary arteries are prominent measuring 3.7 cm of the main artery, and demonstrate no intraluminal filling defects to suggest central pulmonary embolism. Lower Neck: No enlarged lymph nodes. Thyroid: No thyroid nodules which require sonographic follow up, per consensus guidelines. Axillae: No enlarged lymph nodes. Chest Wall: Unremarkable. Bones: Unremarkable. Lungs and Pleura: Minimal to mild right effusion. Streaky bibasilar opacities are present. Heart: Heart size is enlarged. No pericardial effusion. Thoracic Vessels: Aorta is enlarged measuring 5.5 x 5.4 cm, compared to 5.2 x 5.0 in the ascending portion. Mediastinum and Alexandra: 2.1 cm anterior mediastinal mass is present, new compared to prior exam in 2014. Hounsfield units measure 9. . Additional borderline enlarged mediastinal lymph nodes are present. Esophagus: No wall thickening. Mild hiatal hernia. Upper Abdomen: Visualized upper abdomen demonstrates minimal perihepatic and perisplenic fluid. Multiple gallstones are present. IMPRESSION: No pulmonary embolus. Enlarged pulmonary arteries suggestive of pulmonary artery hypertension. Mild right effusion streaky bibasilar opacities. The latter could represent areas of developing pneumonia/atelectasis. Markedly prominent ascending thoracic aneurysm, mildly increased in size compared to 2014 as above. Anterior mediastinal mass new since 2014. Hounsfield units are suggestive of cystic etiology. However, given interval presence as well as borderline enlarged other mediastinal lymph nodes, malignancy cannot be definitively excluded. Cholelithiasis. Dictated by: Zoe Candelaria M.D. on 09/13/2023 at 15:05 Prescriptions: New doxycycline hyclate 100 mg capsule 100 mg PO BID 5 Days Qty: 10 0RF furosemide [Lasix] 40 mg tablet 40 mg PO DAILY Qty: 7 0RF Rx Instructions: Do NOT combine with other Lasix. Take total 40mg lasix daily for next 5-7 days and be reassessed by your Appeals Court Associate Justice within 2 days as planned. doxycycline hyclate 100 mg capsule 100 mg PO BID 5 Days Qty: 10 0RF furosemide [Lasix] 40 mg tablet 40 mg PO DAILY Qty: 7 0RF Rx Instructions: Do not combine with other Lasix. Take total 40 mg Lasix daily for the next 5-7 days and be reassessed by your registered nurse midwife within 2 days as planned. No Action DIPHENHYDRAMINE CITRATE/IBUP (ADVIL PM) 200 mg PO PRN Qty: 0 [MULTIVITAMIN] PO QDAY Qty: 0 [VITAMIN D-3] 2,000 unit PO QDAY Qty: 0 [GLUCOSAMINE/MSM] 3,000 mg PO QDAY Qty: 0 [ginkgo biloba] 1 tab PO QDAY Qty: 0 apixaban 5 mg tablet 5 mg PO BID Qty: 30 0RF allopurinol 100 mg tablet 100 mg PO DAILY Qty: 20 0RF atorvastatin 40 mg tablet 40 mg PO DAILY Qty: 20 0RF losartan 25 mg tablet 25 mg PO QDAY Qty: 20 0RF metoprolol succinate 50 mg tablet extended release 24 hr 25 mg PO DAILY Qty: 20 0RF finasteride 5 mg tablet 5 mg PO DAILY Qty: 90 1RF metformin 500 mg tablet 500 mg PO BIDWMEAL Qty: 180 1RF furosemide [Lasix] 20 mg tablet 20 mg PO DAILY Qty: 3 0RF aspirin 81 mg tablet,delayed release (DR/EC) 81 mg PO DAILY alfuzosin 10 mg tablet extended release 24 hr 10 mg PO DAILY Rx Instructions: administer after the same meal each day albuterol sulfate 90 mcg/actuation HFA aerosol inhaler 2 puff inhalation Q6H PRN (Reason: shortness of breath or wheezing) Qty: 6.7 0RF Referrals: Miya Hernandez DO [Primary Care Provider] - Stand Alone Forms: Patient Portal/API
[2023-09-13 12:06] LABS: Add Manual Diff / Slide Review NO; Basophils Absolute Auto 100 /uL (0-100); Basophils Percent Auto 1.4 % (0-2); Eosinophils Absolute Auto 100 /uL (0-450); Eosinophils Percent Auto 2.7 % (2-4); Hemoglobin 11.9 g/dL (13.5-17.5); Lymphocytes Absolute Auto 900 /uL (1100-4500); Mean Corpuscular HGB Conc 32.2 % (30-36); Mean Corpuscular Hemoglobin 27.8 PG (26-34); Mean Corpuscular Volume 86.5 fL (80-100); Monocytes Absolute Auto 700 /uL (0-900); Monocytes Percent Auto 15.2 % (3-14); Neutrophils Absolute Auto 2600 /uL (1500-7000); Neutrophils Percent Auto 60.7 % (50-75); Platelet Count 173 X10^3/uL (150-400); Red Blood Cell Count 4.28 X10^6/uL (4.5-5.9); White Blood Cell Count 4.3 X10^3/uL (4.5-11.0)
[2023-09-13 12:12] LABS: INR 1.9 (0.9-1.3); Prothrombin Time 22.5 SECONDS (9.4-12.5)
[2023-09-13 12:16] LABS: Lactate (Lactic Acid) 1.8 mmol/L (0.7-2.1)
[2023-09-13 12:17] LABS: Alanine Aminotransferase 23 IU/L (<50); Albumin 4.4 g/dL (3.5-5.0); Albumin Globulin Ratio 1.3 (1.0-2.8); Alkaline Phosphatase 107 U/L (38-126); Aspartate Aminotransferase 36 IU/L (17-59); BUN Creatinine Ratio 16.8 (6-22); Bilirubin Total 1.9 mg/dL (0.2-1.3); Blood Urea Nitrogen 16 mg/dL (9-20); Carbon Dioxide 29 mmol/L (22-32); Chloride 102 mmol/L (98-107); Estimated Glomerular Filt Rate > 60 mL/min (>60); Globulin 3.3 g/dL (1.7-4.1); Glucose 129 mg/dL (80-110); HEMOLYSIS < 15 (0-50); Potassium 4.1 mmol/L (3.4-5.1); Sodium 139 mmol/L (137-145); Total Protein 7.7 g/dL (6.3-8.2)
[2023-09-13 12:18] LABS: Appearance Urine UA CLEAR; Bilirubin Urine UA NEGATIVE (NEGATIVE); Color Urine UA YELLOW; Glucose Urine UA NEGATIVE (Negative); Ketones Urine UA NEGATIVE (NEGATIVE); Leukocyte Esterase Urine UA NEGATIVE (NEGATIVE); Nitrite Urine UA NEGATIVE (Negative); Occult Blood Urine UA 2+ (Negative); Protein Urine UA NEGATIVE (Negative); Specific Gravity Urine UA <=1.005 (1.000-1.035); Urobilinogen Urine UA 0.2 E.U./dL (0.2); pH Urine UA 5.5 (4.5-8.0)
[2023-09-13 12:20] LABS: Urine Volume 10mL (spun)
[2023-09-13 12:21] LABS: D Dimer 1149 ng/ml (<500)
[2023-09-13 12:21] LABS: Bacteria Urine None Seen; Culture Indicated Urine Cult Not Indicated; RBC Urine 1-5/HPF (0-5/HPF); Squamous Epithelial Cell Urine 0-1 /HPF (0-5/HPF); WBC Urine None Seen (0-5/HPF)
[2023-09-13 12:29] LABS: NT-proBNP (BNP-Adult 18+) 918 pg/mL (<450); Troponin I < 0.012 ng/mL (0.01-0.034)
--- NOTE | 2023-09-13 12:39 | DI.CT.S_ITS ---
PROCEDURE: CT ANGIO CHEST PE PROTOCOL INDICATIONS: SOB; probable volume overload; d-dimer elevated, rule out PE TECHNIQUE: After the administration of intravenous contrast, 2 mm thick sections acquired from the pulmonary apices to the posterior costophrenic angles. 3-dimensional maximum intensity projection (MIP) coronal and sagittal reformats were then acquired through the thorax. For radiation dose reduction, the following was used: automated exposure control, adjustment of mA and/or kV according to patient size. COMPARISON: [facility], CT, ANGIOGRAPHY CHEST, 09/05/2013, 10:10. FINDINGS: Image quality: Diagnostic. Pulmonary arteries: Pulmonary arteries are prominent measuring 3.7 cm of the main artery, and demonstrate no intraluminal filling defects to suggest central pulmonary embolism. Lower Neck: No enlarged lymph nodes. Thyroid: No thyroid nodules which require sonographic follow up, per consensus guidelines. Axillae: No enlarged lymph nodes. Chest Wall: Unremarkable. Bones: Unremarkable. Lungs and Pleura: Minimal to mild right effusion. Streaky bibasilar opacities are present. Heart: Heart size is enlarged. No pericardial effusion. Thoracic Vessels: Aorta is enlarged measuring 5.5 x 5.4 cm, compared to 5.2 x 5.0 in the ascending portion. Mediastinum and Alexandra: 2.1 cm anterior mediastinal mass is present, new compared to prior exam in 2014. Hounsfield units measure 9. . Additional borderline enlarged mediastinal lymph nodes are present. Esophagus: No wall thickening. Mild hiatal hernia. Upper Abdomen: Visualized upper abdomen demonstrates minimal perihepatic and perisplenic fluid. Multiple gallstones are present. IMPRESSION: No pulmonary embolus. Enlarged pulmonary arteries suggestive of pulmonary artery hypertension. Mild right effusion streaky bibasilar opacities. The latter could represent areas of developing pneumonia/atelectasis. Markedly prominent ascending thoracic aneurysm, mildly increased in size compared to 2014 as above. Anterior mediastinal mass new since 2014. Hounsfield units are suggestive of cystic etiology. However, given interval presence as well as borderline enlarged other mediastinal lymph nodes, malignancy cannot be definitively excluded. Cholelithiasis. Dictated by: Zoe Candelaria M.D. on 09/13/2023 at 15:05 Approved by: Zoe Candelaria M.D. on 09/13/2023 at 15:12
[2023-09-13 12:44] LABS: Influenza A - CEPHEID Flu A NEGATIVE (NEGATIVE); Influenza B - CEPHEID Flu B NEGATIVE (NEGATIVE); Respiratory Syncytial Virus Negative (Negative)
--- NOTE | 2023-09-13 12:47 | PC.NURSE ---
Pt reports traveling to [place] last week and having increased SOB t-7days. He denies CP, reports having SOB that worsens with exhertion, dizziness with movement. History of CAD and aortic valve replacement. Pt denies N/V and reports feeling better since resting in the ER gurney. Spouse at bedside.
[2023-09-13] MEDS: FUROSEMIDE 40 MG/4 ML VIAL IV (12:55)
[2023-09-13 12:58] LABS: COVID-19 CEPHEID 4-PLEX PCR Negative (Negative)
--- NOTE | 2023-09-13 15:13 | PC.NURSE ---
PT has been getting up to urinate multiple times, total output since IV medications (see MAR) is 1,300cc clear yellow urine. Pt reports feeling better with decreased work of breathing.
[2023-09-13] MEDS: DOXYCYCLINE HYCLATE 100 MG TABLET PO (16:17)
== END 2023-09-13 16:35 | disposition home or self-care (01) ==
PROVIDERS: Emergency Provider Emergency Medicine; PCP Family Medicine
DX: R06.02 Shortness of breath (principal); I50.9 Heart failure, unspecified
CPT/HCPCS: 0241U; 36415; 71045; 71275; 80053; 81001; 81003; 83605; 83880; 84484; 85025; 85379; 85610; 93005; 93010; 96374; 99284; 99285; J1940; Q9967

== ENCOUNTER → 2023-09-17 16:09 | Outpatient (CLI) | payer MEDICARE, SELFPAY ==
[2023-09-17 17:56] LABS: BUN Creatinine Ratio 16.7 (6-22); Blood Urea Nitrogen 20 mg/dL (9-20); Calcium 9.4 mg/dL (8.4-10.2); Carbon Dioxide 28 mmol/L (22-32); Chloride 101 mmol/L (98-107); Estimated Glomerular Filt Rate 60 mL/min (>60); Glucose 107 mg/dL (80-110); HEMOLYSIS < 15 (0-50); Sodium 136 mmol/L (137-145)
[2023-09-17 18:02] LABS: NT-proBNP (BNP-Adult 18+) 830 pg/mL (<450)
== END ==
PROVIDERS: PCP Family Medicine; Referring Provider Internal Medicine Critical Care Medicine; Visit Provider Internal Medicine Critical Care Medicine
DX: I50.813 Acute on chronic right heart failure (principal); J98.59 Other diseases of mediastinum, not elsewhere classified; I27.20 Pulmonary hypertension, unspecified; G47.33 Obstructive sleep apnea (adult) (pediatric); J45.909 Unspecified asthma, uncomplicated
CPT/HCPCS: 36415; 80048; 83880; 99215

== ENCOUNTER → 2023-10-14 07:51 | Outpatient (CLI) | payer MEDICARE, SELFPAY ==
--- NOTE | 2023-10-14 07:52 | DI.ECHO.S_ITS ---
[facility]+ [facility] +---------+ : : [address] : : : : [id number] : : : : Phone: [phone]---------+ Echocardiogram Report + + :Name: SANTIAGO GAMEZ V Study Date: 10/14/2023 Height: 65 in : :[facility] ReadingLocation: Weight: 192 lb : : Gender: Male BSA: 1.9 m2 : :: 1940 Age: 82 yrs BP: 136/79 mmHg: :Reason For Study: HEART FAILURE : :Ordering Physician: JF, : :DEYSI Davis Performed By: Prasanna Eller : :Referring: DEYSI RHOADES : + + Interpretation Summary The left ventricle is normal in size. Left ventricular wall thickness is mildly increased. Left ventricular ejection fraction is estimated to be 50 +/- 5%. There has been no significant change in LVEF since the previous exam. Septal wall motion abnormalities due to ventricular pacing. The interventricular septum is flattened, consistent with a right ventricular pressure/volume condition. E/E' med: 34.2. Previously 30.3. Underlying diastolic dysfunction almost close to restrictive physiology. However in view of paced rhythm, cannot accurately determine. The right ventricle is mildly dilated. Right ventricular systolic function is mild to moderately reduced. Previously mildly reduced. There is moderate mitral regurgitation. Compared to the prior echo study, there has been no change in the severity of mitral regurgitation. There is a bioprosthetic aortic valve. The prosthetic aortic valve is well-seated. The peak aortic velocity is 2.32 m/sec. The aortic valve mean gradient is 12.0 mmHg. The peak aortic velocity on the previous exam was 2.14 m/sec. There is no hemodynamically significant valvular aortic stenosis. There is moderate tricuspid regurgitation. Previously mild to moderate. The right ventricular systolic pressure is estimated to be at least 77 mmHg based on an estimated right atrial pressure of 15 mm Hg. Previously 47 mmHg. Compared to the prior echo exam, there has been an increase in the severity of pulmonary hypertension. 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 4.9 cm in diameter. In May 2022, 4.9 cm as well. June 03, 2021 it was 5.1 cm in diameter. In November 2014, March 2016, April 2018, November 2018 and in January 2020, it was 5.1 cm as well. Procedure: A two-dimensional transthoracic echocardiogram with color flow and Doppler was performed. The study quality was technically adequate. Comparison is made with the echocardiogram of 05/28/2022. The heart rate ranged between 64-81 bpm during the study. The patient has a paced rhythm. Left Ventricle: The left ventricle is normal in size. Left ventricular wall thickness is mildly increased. There is no thrombus. Left ventricular ejection fraction is estimated to be 50 +/- 5%. There has been no significant change since the previous exam. Septal wall motion abnormalities due to ventricular pacing. The interventricular septum is flattened, consistent with a right ventricular pressure/volume condition. E/E' med: 34.2. Right Ventricle: The right ventricle is mildly dilated. Right ventricular systolic function is mild to moderately reduced. Atria: The left atrium is severely dilated. There has been no significant change since the previous study. The right atrium is mild to moderately dilated. The interatrial septum grossly appears intact with no obvious evidence for an atrial septal defect. Mitral Valve: There is mild to moderate mitral annular calcification. No significant mitral valve stenosis. There is moderate mitral regurgitation. Compared to the prior echo study, there has been no change in the severity of mitral regurgitation. Aortic Valve: There is a bioprosthetic aortic valve. The prosthetic aortic valve is well-seated. The peak aortic velocity is 2.32 m/sec. The aortic valve mean gradient is 12.0 mmHg. The peak aortic velocity on the previous exam was 2.14 m/sec. There is no hemodynamically significant valvular aortic stenosis. No aortic regurgitation is present. Tricuspid Valve: The tricuspid valve is not well visualized, but is grossly normal. There is no tricuspid stenosis. There is moderate tricuspid regurgitation. The right ventricular systolic pressure is estimated to be at least 77 mmHg based on an estimated right atrial pressure of 15 mm Hg. Compared to the prior echo exam, there has been an increase in the severity of pulmonary hypertension. Pulmonic Valve: The pulmonic valve is not well seen, but is grossly normal. There is no pulmonic valvular stenosis. There is moderate pulmonic regurgitation. Great Vessels: The aortic root is normal size. 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 The IVC is dilated (diameter is greater than 2.1 cm) and it collapses less than 50% with a sniff. This suggests a high right atrial pressure of 15 mm Hg. Pericardium/ Pleura There is no pericardial effusion. There is no pleural effusion. MMode/2D Measurements & Calculations LVIDd: 5.5 cm LVOT diam: 1.8 cm LVIDs: 4.3 cm Ao root diam: 3.2 cm FS: 22.6 % asc Aorta Diam: 4.9 cm IVSd: 1.2 cm LVPWd: 1.2 cm LV santillan. diameter/BSA (cm/m^2): 2.8 LV sys. diameter/BSA (cm/m^2): 2.2 LA A2 area: 24.3 cm2 RA long axis: 5.9 cm LA A4 area: 24.1 cm2 RA area: 19.8 cm2 LA length (vol): 5.7 cm RA vol: 55.8 ml LA vol: 87.3 ml RA : 28.7 ml/m2 LA vol index: 44.9 ml/m2 IVC diam: 2.4 cm RVD1 (basal): 4.4 cm RVD2 (mid): 3.4 cm TAPSE: 0.89 cm Doppler Measurements & Calculations Ao V2 max: 232.3 cm/sec LVOT Max [place]: 114.3 cm/sec Ao V2 mean: 164.0 cm/sec LV V1 max P.2 mmHg Ao max P.6 mmHg LV V1 VTI: 23.1 cm Ao mean P.0 mmHg MELANIE(I,D): 1.3 cm2 Ao V2 VTI: 48.2 cm MELANIE(V,D): 1.3 cm2 sev ratio: 0.48 MELANIE indexed to BSA (cm^2/m^2): 0.66 MV E max [place]: 120.7 cm/sec TR max [place]: 396.2 cm/sec MV A max [place]: 32.2 cm/sec TR max P.8 mmHg MV E/A: 3.8 PA V2 max: 93.1 cm/sec Med Peak E' [place]: 3.5 cm/sec PA V2 mean: 59.0 cm/sec E/E' med: 34.2 PA mean P.7 mmHg Lat Peak E' [place]: 6.8 cm/sec PA pr(Accel): 43.0 mmHg E/E' lat: 17.6 E/e' average: 25.9 MV dec time: 0.18 sec SV(LVOT): 61.7 ml Reading Physician:02:15 PM
== END ==
LOC: ECHO 07:51
PROVIDERS: PCP Family Medicine; Referring Provider Physician Assistant; Visit Provider Physician Assistant
DX: I08.1 Rheumatic disorders of both mitral and tricuspid valves (principal); I50.9 Heart failure, unspecified; I27.20 Pulmonary hypertension, unspecified; I71.20 Thoracic aortic aneurysm, without rupture, unspecified; R06.09 Other forms of dyspnea; Z95.2 Presence of prosthetic heart valve; I77.89 Other specified disorders of arteries and arterioles
CPT/HCPCS: 93306

== ENCOUNTER → 2023-10-19 16:34 | Outpatient (CLI) | payer MEDICARE, SELFPAY ==
[2023-10-19 18:05] LABS: BUN Creatinine Ratio 22.4 (6-22); Blood Urea Nitrogen 22 mg/dL (9-20); Calcium 9.4 mg/dL (8.4-10.2); Carbon Dioxide 33 mmol/L (22-32); Chloride 103 mmol/L (98-107); Estimated Glomerular Filt Rate > 60 mL/min (>60); Glucose 105 mg/dL (80-110); HEMOLYSIS < 15 (0-50); Potassium 4.4 mmol/L (3.4-5.1); Sodium 140 mmol/L (137-145)
[2023-10-19 18:13] LABS: NT-proBNP (BNP-Adult 18+) 416 pg/mL (<450)
[2023-10-19 18:41] LABS: Magnesium 2.3 mg/dL (1.6-2.3); Uric Acid 6.3 mg/dL (3.5-8.5)
[2023-10-21 15:01] LABS: Vitamin B12 > 1000 pg/mL (239-931)
== END ==
PROVIDERS: PCP Family Medicine; Referring Provider Internal Medicine Critical Care Medicine; Visit Provider Internal Medicine Critical Care Medicine
DX: I27.20 Pulmonary hypertension, unspecified (principal); J98.59 Other diseases of mediastinum, not elsewhere classified; M10.9 Gout, unspecified; G47.33 Obstructive sleep apnea (adult) (pediatric); I10 Essential (primary) hypertension; Z13.21 Encounter for screening for nutritional disorder
CPT/HCPCS: 80048; 82607; 83735; 83880; 84550; 99214

== ENCOUNTER → 2023-10-20 13:29 | Outpatient (CLI) | payer MEDICARE, SELFPAY ==
--- NOTE | 2023-10-20 13:33 | DI.NM.S_ITS ---
PROCEDURE: NM DULCE PERF SPECT R&S PHARM Rest and pharmacological stress myocardial perfusion SPECT with gated imaging and ejection fraction RADIOPHARMACEUTICAL: 26.5 mCi Tc-99m tetrafosmin IV at rest and 26.1 mCi Tc-99m tetrafosmin IV at peak effect of pharmacological stress. [id number] was performed. INDICATIONS: Heart failure, unspecified TECHNIQUE: Radiopharmaceutical was injected at peak stress test, and also at rest. SPECT images were obtained. SPECT myocardial perfusion images were displayed in short axis, horizontal long axis, and vertical long axis views. Gated images were reviewed using PalindromX software. COMPARISON: None. CARDIAC STRESS: A pharmacologic stress test was performed under the supervision of an attending staff, using an infusion of lexiscan 0.4mg IV X1. Hemodynamic data: There is normal blood pressure and heart rate response to pharmacologic stress. Symptoms: The patient denied anginal chest pain. Aminophylline: none EKG: Resting ECG showed LBBB that converted with RBBB with lexiscan. No diagnostic ST changes with lexiscan. Occasional PVCs present. FINDINGS: Raw data: There is good myocardial uptake of radiotracer. No significant motion artifacts. Left ventricle function: Gated images demonstrate normal left ventricular wall thickening. No segmental wall motion abnormalities. No transient ischemic dilation; TID is 1.03 (normal less than 1.3). Left ventricle resting end diastolic volume is 160 mL. Left ventricle stress ejection fraction is 64%; normal range is above 45%. 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 SSS 7, SRS 8. IMPRESSION: Abnormal pharm nuclear stress test. 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 SSS 7, SRS 8. 2) Dilated left ventricle (resting EDV 160cc) with normal systolic function (EF 64%). 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 3) No angina during the study. 4) No diagnostic ST changes with lexiscan. 5) Compared to the nuc stress done 12/01/2022, no significant change. Dictated by: Kieran Finley MD on 10/21/2023 at 13:34 Approved by: Kieran Finley MD on 10/21/2023 at 13:39
== END ==
PROVIDERS: PCP Family Medicine; Referring Provider Nurse Practitioner; Visit Provider Nurse Practitioner
DX: I50.9 Heart failure, unspecified (principal); R94.39 Abnormal result of other cardiovascular function study
CPT/HCPCS: 78452; 93017; A9502; J2785

== ENCOUNTER → 2023-11-04 07:48 | Outpatient (CLI) | payer MEDICARE, SELFPAY ==
[2023-11-04 08:42] LABS: Alanine Aminotransferase 29 IU/L (<50); Albumin 4.4 g/dL (3.5-5.0); Albumin Globulin Ratio 1.4 (1.0-2.8); Alkaline Phosphatase 150 U/L (38-126); Aspartate Aminotransferase 44 IU/L (17-59); BUN Creatinine Ratio 20.9 (6-22); Bilirubin Total 1.2 mg/dL (0.2-1.3); Blood Urea Nitrogen 19 mg/dL (9-20); Calcium 9.8 mg/dL (8.4-10.2); Carbon Dioxide 33 mmol/L (22-32); Chloride 101 mmol/L (98-107); Cholesterol 120 mg/dL (140-199); Estimated Glomerular Filt Rate > 60 mL/min (>60); Globulin 3.1 g/dL (1.7-4.1); Glucose 113 mg/dL (80-110); HDL Cholesterol 83 mg/dL (40-60); HEMOLYSIS < 15 (0-50); LDL Cholesterol Calculated 22 mg/dL (<100); Potassium 4.3 mmol/L (3.4-5.1); Sodium 139 mmol/L (137-145); Total Protein 7.5 g/dL (6.3-8.2); Triglycerides 76 mg/dL (35-150)
[2023-11-04 08:48] LABS: Appearance Urine UA CLEAR; Bilirubin Urine UA NEGATIVE (NEGATIVE); Color Urine UA YELLOW; Glucose Urine UA NEGATIVE (Negative); Ketones Urine UA NEGATIVE (NEGATIVE); Leukocyte Esterase Urine UA 1+ (NEGATIVE); Nitrite Urine UA NEGATIVE (Negative); Occult Blood Urine UA 2+ (Negative); Protein Urine UA NEGATIVE (Negative)
[2023-11-04 08:50] LABS: NT-proBNP (BNP-Adult 18+) 486 pg/mL (<450)
[2023-11-04 09:09] LABS: Bacteria Urine Few (2-10); Culture Indicated Urine Specimen Cultured; RBC Urine 10-30/HPF (0-5/HPF); Squamous Epithelial Cell Urine 0-1 /HPF (0-5/HPF); Urine Volume 10mL (spun); WBC Urine 0-1/HPF (0-5/HPF)
[2023-11-04 09:13] LABS: Thyroid Stimulating Hormone 1.85 uIU/mL (0.47-4.68)
== END ==
LOC: LAB 07:49
PROVIDERS: PCP Family Medicine; Referring Provider Internal Medicine Cardiovascular Disease; Visit Provider Internal Medicine Cardiovascular Disease
DX: I11.0 Hypertensive heart disease with heart failure (principal); I50.30 Unspecified diastolic (congestive) heart failure; E78.5 Hyperlipidemia, unspecified; R39.89 Other symptoms and signs involving the genitourinary system
CPT/HCPCS: 36415; 80053; 80061; 81001; 83735; 83880; 84443; 87086

== ENCOUNTER → 2023-11-08 15:44 | Outpatient (CLI) | payer MEDICARE, SELFPAY | PROVIDERS: PCP Family Medicine; Visit Provider Family Medicine | DX: R30.0 Dysuria (principal) | CPT/HCPCS: 87086 ==

== ENCOUNTER → 2023-11-29 08:05 | Outpatient (CLI) | payer MEDICARE, SELFPAY | LOC: LAB 08:07 | PROVIDERS: PCP Family Medicine; Referring Provider Internal Medicine Cardiovascular Disease; Visit Provider Internal Medicine Cardiovascular Disease | DX: E85.4 Organ-limited amyloidosis (principal); I43 Cardiomyopathy in diseases classified elsewhere | CPT/HCPCS: 36415; 82784; 84155; 84156; 84165; 84166; 86334; 86335 ==

== ENCOUNTER → 2024-01-20 16:44 | Outpatient (CLI) | payer MEDICARE, SELFPAY ==
--- NOTE | 2024-01-20 | DI.RAD.S_ITS ---
PROCEDURE: XR CHEST 2V INDICATIONS: chronic heart disease TECHNIQUE: 2 views of the chest were acquired. COMPARISON: [facility], CT, CT ANGIO CHEST PE PROTOCOL, 09/13/2023, 13:40. [facility], CR, XR CHEST 1V, 09/13/2023, 12:12. [facility], CR, XR CHEST 2V, 09/09/2023, 12:54. FINDINGS: Surgical changes and devices: Cardiac monitoring device. Post median sternotomy and CABG. Aortic valve replacement. Lungs and pleura: Lungs are clear. No pleural effusions or pneumothorax. Mediastinum: Mediastinal contours are normal. Heart size is enlarged. Bones and chest wall: No suspicious bony abnormalities. Bridging vertebral body osteophytes. Soft tissues appear unremarkable. IMPRESSION: No acute cardiopulmonary abnormality is seen. Dictated by: Brady Goins M.D. on 01/20/2024 at 17:31 Approved by: Brady Goins M.D. on 01/20/2024 at 17:34
== END ==
LOC: RAD 16:45
PROVIDERS: PCP Family Medicine; Referring Provider Internal Medicine Cardiovascular Disease; Visit Provider Internal Medicine Cardiovascular Disease
DX: I50.32 Chronic diastolic (congestive) heart failure (principal); I51.7 Cardiomegaly; Z95.1 Presence of aortocoronary bypass graft; Z95.2 Presence of prosthetic heart valve
CPT/HCPCS: 71046

== ENCOUNTER 2024-02-20 03:58 | Emergency (ER) | payer MEDICARE, SELFPAY ==
[2024-02-20] VITALS (12 sets, daily range): BP systolic 103–134; BP diastolic 53–61; PULSE 60–90; RESP 18–32; TEMP 36.2–36.5; O2SAT 94–99; BMI 34.9
--- NOTE | 2024-02-20 03:58 | ED.GENADULT ---
HPI - General Adult <Ulysses Hernandez MD - Last Filed: 02/20/24 16:35> General Chief complaint: Weakness Stated complaint: weakness Time Seen by Provider: 02/20/24 03:58 History of Present Illness HPI narrative: 83-year-old male with history of congestive heart failure, prior bovine tissue valve surgery, found on the ground by daughter in his home, apparently after trying to go to the bathroom, fell, was too weak to get himself up. He denies chest pain. Denies fevers or chills. Denies recent nausea or vomiting. Denies recent diarrhea, black or red stools. It does not hurt when he urinates. He has not had any change in medications. He has not missed any medications. He has a frequent cough, that seems unchanged. He is followed by a architect intern who had requested CT scanning of his chest as an outpatient that is not yet scheduled. Related Data Home Medications Medication Instructions Recorded Confirmed aspirin 81 mg tablet,delayed 81 mg PO DAILY 02/11/19 02/10/24 release alfuzosin 10 mg tablet,extended 10 mg PO DAILY 01/19/23 02/10/24 release 24 hr metoprolol succinate 25 mg 25 mg PO DAILY 09/16/23 02/10/24 tablet,extended release 24 hr ascorbic acid (vitamin C) 1,000 mg 1 g PO DAILY 10/07/23 02/10/24 tablet calcium carb-vit D3-minerals 600 1 tab PO DAILY 10/07/23 02/10/24 mg calcium-400 unit tablet cholecalciferol (vitamin D3) 125 125 mcg PO DAILY 10/07/23 02/10/24 mcg (5,000 unit) capsule goaqsbbeilr-K-Wdppzsszesjjwngqyu tab PO 10/07/23 02/10/24 500 mg-200 mg tablet magnesium oxide 400 mg PO DAILY 10/07/23 02/10/24 yzhvikzk-zu-zfutr 300 mcg-K 60 1 tab PO DAILY 10/07/23 02/10/24 mcg-lycop 600 mcg-lutein 300 mcg tablet (Centrum Silver Men) multivitamin with minerals 1 tab PO DAILY 10/07/23 02/10/24 (Hair,Skin and Nails tablet) turmeric root extract 500 mg 500 mg PO DAILY 10/07/23 02/10/24 capsule Previous Rx's Medication Instructions Recorded apixaban 5 mg tablet 5 mg PO BID #30 tabs 01/02/20 allopurinol 100 mg tablet 100 mg PO DAILY #20 tabs 05/11/23 atorvastatin 40 mg tablet 40 mg PO DAILY #20 tabs 05/11/23 losartan 25 mg tablet 25 mg PO QDAY #20 tabs 05/11/23 metformin 500 mg tablet 500 mg PO BIDWMEAL #180 tabs 07/19/23 albuterol sulfate 90 mcg/actuation 2 puff inhalation Q6H PRN 08/11/23 aerosol inhaler shortness of breath or wheezing #6.7 grams furosemide 40 mg tablet (Lasix) 40 mg PO DAILY #90 tabs 10/19/23 finasteride 5 mg tablet 5 mg PO DAILY #90 tabs 11/29/23 cephalexin 500 mg capsule 500 mg PO BID 7 days #14 caps 02/20/24 Allergies Allergy/AdvReac Type Severity Reaction Status Date / Time latex Allergy Mild SWOLLEN Verified 02/10/24 13:56 FINGERS Sulfa (Sulfonamide Allergy Mild SWOLLEN Verified 02/10/24 13:56 Antibiotics) FINGERS lisinopril AdvReac Intermediate SWELLING Verified 02/10/24 13:56 hydrochlorothiazide AdvReac Mild SWELLING Verified 02/10/24 13:56 Review of Systems <Ulysses Hernandez MD - Last Filed: 02/20/24 16:35> Review of Systems Narrative: see HPI Patient History <Ulysses Hernandez MD - Last Filed: 02/20/24 16:35> Medical History COVID-19 Onychomycosis Osteoarthritis Cataracts, bilateral (~2016) Colon polyps (01/2004) Chickenpox Mumps Measles Upper GI bleed Ascending aortic aneurysm Aortic stenosis Hx of varicose veins Sleep apnea Gout Coronary artery disease Hyperlipidemia Hypertension Surgical History Hx of knee surgery (2003) Hx of colonoscopy with polypectomy (01/2004) Hx of cataract surgery (09/2015) Hx of total knee arthroplasty (01/2013) Hx of aortic valve replacement (12/2009) Hx of varicose vein stripping (1974) Hx of coronary artery bypass graft History of aortic valve replacement (07/19/15) Family History Brother No problems noted. Father Diabetes mellitus Heart disease Mother No problems noted. Social History Smoking Status: Former smoker alcohol intake: never substance use type: does not use Smoking Status: Former smoker tobacco type: cigarettes alcohol intake frequency: holidays/special occasions only Substance Use Type: does not use Exam <Ulysses Hernandez MD - Last Filed: 02/20/24 16:35> Narrative Exam Narrative: GENERAL: Well-developed patient, in mild distress. HEAD: Atraumatic. Normocephalic. EYES: Pupils equal round and reactive. Extraocular motions intact. No scleral icterus. No injection or drainage. ENT: Nose without bleeding, purulent drainage. Throat without erythema, tonsillar hypertrophy or exudate. Airway patent. NECK: Trachea midline. Non tender CARDIOVASCULAR: Regular rate and rhythm. Well-healed sternal scar with keloid changes, no redness or erythema. No chest wall discomfort. 3/6 systolic murmur, history of bovine valve replacement per family RESPIRATORY: Clear to auscultation. Breath sounds equal bilaterally. No wheezes, rales, or rhonchi. GASTROINTESTINAL: Abdomen soft, non-tender, nondistended. EXTREMITIES: No edema or joint tenderness. BACK: Nontender without deformity or crepitance. No flank tenderness. NEURO: AOx3. Nonfocal neuro exam SKIN: No rash or erythema of visible areas Initial Vital Signs Initial Vital Signs: Vital Signs Temperature 97.2 F L 02/20/24 04:03 Pulse Rate 83 02/20/24 04:03 Respiratory Rate 02/20/24 04:03 Blood Pressure 103/56 L 02/20/24 04:03 Pulse Oximetry 97 02/20/24 04:03 Oxygen Delivery Method Room Air 02/20/24 04:03 <Martha Daily DO - Last Filed: 02/20/24 09:50> Initial Vital Signs Initial Vital Signs: Vital Signs Temperature 97.2 F L 02/20/24 04:03 Pulse Rate 83 02/20/24 04:03 Respiratory Rate 02/20/24 04:03 Blood Pressure 103/56 L 02/20/24 04:03 Pulse Oximetry 97 02/20/24 04:03 Oxygen Delivery Method Room Air 02/20/24 04:03 Course <Ulysses Hernandez MD - Last Filed: 02/20/24 16:35> Orders Ordered: Discontinued Medications Sodium Chloride (Normal Saline 0.9%) 1,000 mls @ 500 mls/hr IV BOLUS ONE Stop: 02/20/24 06:02 Last Infusion: 02/20/24 07:00 Dose: Infused Documented By: Admin: 02/20/24 05:57 Dose: 500 mls/hr Documented By: Vital Signs Vital signs: Vital Signs - 8 hr 02/20/24 04:03 02/20/24 04:22 02/20/24 04:24 Temperature 97.2 F L Pulse Rate 83 90 Respiratory Rate 24 32 H Blood Pressure 103/56 L 109/53 L Pulse Oximetry 97 96 Oxygen Delivery Method Room Air 02/20/24 04:24 02/20/24 04:30 02/20/24 04:30 Temperature Pulse Rate 87 84 Respiratory Rate 23 22 Blood Pressure 120/54 L Pulse Oximetry 96 96 Oxygen Delivery Method 02/20/24 05:00 02/20/24 05:00 02/20/24 05:30 Temperature Pulse Rate 81 77 Respiratory Rate 21 19 Blood Pressure 126/58 L Pulse Oximetry 97 95 Oxygen Delivery Method 02/20/24 06:00 02/20/24 06:30 02/20/24 07:00 Temperature Pulse Rate 77 73 68 Respiratory Rate 21 23 19 Blood Pressure Pulse Oximetry 94 96 96 Oxygen Delivery Method 02/20/24 07:22 02/20/24 07:22 02/20/24 07:30 Temperature Pulse Rate 68 60 Respiratory Rate 18 18 Blood Pressure 134/61 Pulse Oximetry 98 99 Oxygen Delivery Method 02/20/24 07:30 02/20/24 08:00 02/20/24 08:00 Temperature 97.7 F Pulse Rate 66 Respiratory Rate 18 Blood Pressure 126/61 127/60 Pulse Oximetry 98 Oxygen Delivery Method <Martha Daily DO - Last Filed: 02/20/24 09:50> Orders Ordered: Discontinued Medications Sodium Chloride (Normal Saline 0.9%) 1,000 mls @ 500 mls/hr IV BOLUS ONE Stop: 02/20/24 06:02 Last Infusion: 02/20/24 07:00 Dose: Infused Documented By: Admin: 02/20/24 05:57 Dose: 500 mls/hr Documented By: Vital Signs Vital signs: Vital Signs - 8 hr 02/20/24 04:03 02/20/24 04:22 02/20/24 04:24 Temperature 97.2 F L Pulse Rate 83 90 Respiratory Rate 24 32 H Blood Pressure 103/56 L 109/53 L Pulse Oximetry 97 96 Oxygen Delivery Method Room Air 02/20/24 04:24 02/20/24 04:30 02/20/24 04:30 Temperature Pulse Rate 87 84 Respiratory Rate 23 22 Blood Pressure 120/54 L Pulse Oximetry 96 96 Oxygen Delivery Method 02/20/24 05:00 02/20/24 05:00 02/20/24 05:30 Temperature Pulse Rate 81 77 Respiratory Rate 21 19 Blood Pressure 126/58 L Pulse Oximetry 97 95 Oxygen Delivery Method 02/20/24 06:00 02/20/24 06:30 02/20/24 07:00 Temperature Pulse Rate 77 73 68 Respiratory Rate 21 23 19 Blood Pressure Pulse Oximetry 94 96 96 Oxygen Delivery Method 02/20/24 07:22 02/20/24 07:22 02/20/24 07:30 Temperature Pulse Rate 68 60 Respiratory Rate 18 18 Blood Pressure 134/61 Pulse Oximetry 98 99 Oxygen Delivery Method 02/20/24 07:30 02/20/24 08:00 02/20/24 08:00 Temperature 97.7 F Pulse Rate 66 Respiratory Rate 18 Blood Pressure 126/61 127/60 Pulse Oximetry 98 Oxygen Delivery Method Medical Decision Making <Ulysses Hernandez MD - Last Filed: 02/20/24 16:35> Lab Data Lab results reviewed: Yes I reviewed the patient's lab results. 02/20/24 04:05 02/20/24 04:05 Labs: Lab Results 02/20/24 02/20/24 02/20/24 Range/Units 04:05 04:20 06:15 WBC 12.0 H (4.5-11.0) X10^3/uL RBC 3.84 L (4.5-5.9) X10^6/uL Hgb 12.0 L (13.5-17.5) g/dL Hct 35.3 L (41-53) % MCV 91.9 (80-100) fL MCH 31.1 (26-34) PG MCHC 33.9 (30-36) % RDW 15.0 H (11.6-14.8) % Plt Count 174 (150-400) X10^3/uL Neut % (Auto) 86.8 H (50-75) % Lymph % (Auto) 2.8 L (25-40) % Isabel[place] % (Auto) 9.5 (3-14) % Eos % (Auto) 0.6 L (2-4) % Baso % (Auto) 0.3 (0-2) % Neut # (Auto) 76149 H (5109-1960) /uL Lymph # (Auto) 300 L (0808-0691) /uL Isabela # (Auto) 1100 H (0-900) /uL Eos # (Auto) 100 (0-450) /uL Baso # (Auto) 0 (0-100) /uL Sodium 129 L (137-145) mmol/L Potassium 4.3 (3.4-5.1) mmol/L Chloride 99 (98-107) mmol/L Carbon Dioxide 23 (22-32) mmol/L BUN 18 (9-20) mg/dL Creatinine 0.84 (0.66-1.25) mg/dL Estimated GFR > 60 (>60) mL/min BUN/Creatinine Ratio 21.4 (6-22) Glucose 137 H (80-110) mg/dL Lactate 2.3 H 1.5 (0.7-2.1) mmol/L Calcium 8.8 (8.4-10.2) mg/dL Total Bilirubin 1.4 H (0.2-1.3) mg/dL AST 57 (17-59) IU/L ALT 47 (<50) IU/L Alkaline Phosphatase 222 H (38-126) U/L Troponin I 0.048 H 0.047 H (0.01-0.034) ng/mL NT-Pro-B Natriuret Pep 2260 H (<450) pg/mL Total Protein 6.5 (6.3-8.2) g/dL Albumin 3.5 (3.5-5.0) g/dL Globulin 3.0 (1.7-4.1) g/dL Albumin/Globulin Ratio 1.2 (1.0-2.8) Lipase 719 H (23-300) U/L Urine Color Urine Appearance Urine pH (4.5-8.0) Ur Specific [place] (1.000-1.035) Urine Protein (Negative) Urine Glucose (UA) (Negative) g/dL Urine Ketones (NEGATIVE) Urine Occult Blood (Negative) Urine Nitrate (Negative) Urine Bilirubin (NEGATIVE) Urine Urobilinogen (0.2) E.U./dL Ur Leukocyte Esterase (NEGATIVE) Urine RBC (0-5/HPF) Urine WBC (0-5/HPF) Ur Squamous Epith Cells (0-5/HPF) Urine Bacteria (None) Urine Yeast (None) Ur Culture Indicated? Vol Urine Centrifuged SARS-CoV-2 (PCR) Negative (Negative) Influenza A (RT-PCR) Flu a negative (NEGATIVE) Influenza B (RT-PCR) Flu b negative (NEGATIVE) RSV (PCR) Negative (Negative) 02/20/24 Range/Units 07:26 WBC (4.5-11.0) X10^3/uL RBC (4.5-5.9) X10^6/uL Hgb (13.5-17.5) g/dL Hct (41-53) % MCV (80-100) fL MCH (26-34) PG MCHC (30-36) % RDW (11.6-14.8) % Plt Count (150-400) X10^3/uL Neut % (Auto) (50-75) % Lymph % (Auto) (25-40) % Isabel[place] % (Auto) (3-14) % Eos % (Auto) (2-4) % Baso % (Auto) (0-2) % Neut # (Auto) (1243-8038) /uL Lymph # (Auto) (9095-2189) /uL Isabela # (Auto) (0-900) /uL Eos # (Auto) (0-450) /uL Baso # (Auto) (0-100) /uL Sodium (137-145) mmol/L Potassium (3.4-5.1) mmol/L Chloride (98-107) mmol/L Carbon Dioxide (22-32) mmol/L BUN (9-20) mg/dL Creatinine (0.66-1.25) mg/dL Estimated GFR (>60) mL/min BUN/Creatinine Ratio (6-22) Glucose (80-110) mg/dL Lactate (0.7-2.1) mmol/L Calcium (8.4-10.2) mg/dL Total Bilirubin (0.2-1.3) mg/dL AST (17-59) IU/L ALT (<50) IU/L Alkaline Phosphatase (38-126) U/L Troponin I (0.01-0.034) ng/mL NT-Pro-B Natriuret Pep (<450) pg/mL Total Protein (6.3-8.2) g/dL Albumin (3.5-5.0) g/dL Globulin (1.7-4.1) g/dL Albumin/Globulin Ratio (1.0-2.8) Lipase (23-300) U/L Urine Color Yellow Urine Appearance Clear Urine pH 6.5 (4.5-8.0) Ur Specific [place] <=1.005 (1.000-1.035) Urine Protein Negative (Negative) Urine Glucose (UA) Negative (Negative) g/dL Urine Ketones Negative (NEGATIVE) Urine Occult Blood Negative (Negative) Urine Nitrate Negative (Negative) Urine Bilirubin Negative (NEGATIVE) Urine Urobilinogen 1.0 (0.2) E.U./dL Ur Leukocyte Esterase Trace H (NEGATIVE) Urine RBC None seen (0-5/HPF) Urine WBC 0-1/hpf (0-5/HPF) Ur Squamous Epith Cells None seen (0-5/HPF) Urine Bacteria Few (2-10) H (None) Urine Yeast 0-1/hpf (None) Ur Culture Indicated? Specimen cultured Vol Urine Centrifuged 10ml (spun) SARS-CoV-2 (PCR) (Negative) Influenza A (RT-PCR) (NEGATIVE) Influenza B (RT-PCR) (NEGATIVE) RSV (PCR) (Negative) Urine Dip Bedside Urine Glucose Negative Bedside Urine Bilirubin - Negative Bedside Urine Ketone - Negative Urine Specific [place] 1.005 Bedside Urine Occult Blood - Negative Bedside Urine pH 6.0 Bedside Urine Protein - Negative Bedside Urine Urobilinogen - Negative Bedside Urine Nitrite - Negative Bedside Urine Leukocytes + 70 Esterase Point of care testing: Urine Dip Bedside Urine Glucose Negative Bedside Urine Bilirubin - Negative Bedside Urine Ketone - Negative Urine Specific [place] 1.005 Bedside Urine Occult Blood - Negative Bedside Urine pH 6.0 Bedside Urine Protein - Negative Bedside Urine Urobilinogen - Negative Bedside Urine Nitrite - Negative Bedside Urine Leukocytes + 70 Esterase ECG Data Attestation: I personally reviewed and interpreted this ECG as follows: Interpretation: Atrial fibrillation with rapid ventricular response rate 102, right bundle branch block pattern. Morphology of the right bundle branch block looks similar to study 09/2023. QRS 140, QTC 516. MDM Narrative Medical decision making narrative: 83-year-old male with history of CHF, bovine heart valve replacement, chronic cough, presents with generalized weakness, apparently fell from ground level after going to the bathroom, unwitnessed, found by daughter unable to lift himself up in the floor. Possible syncopal episode, does not believe he tripped on anything or slipped on anything. Does not recall any preceding chest pain or trouble breathing, no dizziness, no focal weakness, no recent black or red stools, no adbominal pain. He has persisting generalized weakness. CT head requested. EKG, labs pending. CT head noncontrast study. Impressions: ?No acute intracranial abnormality. See teleradiology report EKG shows likely atrial fibrillation, right bundle branch block morphology, appears similar to 09/2023 study. Troponin 0.048. Will repeat interval troponin. Daughter states patient is awaiting CT chest study ordered by pulmonology, not yet performed. Lipase elevation noted, no tenderness on abdominal exam, no recent vomiting, unclear significance. Creatinine/GFR favorable. We will obtain CT angiogram of the chest, add abdomen/pelvis imaging. CT angiogram chest abdomen and pelvis. Impression: ?Aneurysmal dilatation of the ascending thoracic aorta which measures 4.9 cm in maximum anterior posterior dimension. No evidence of aortic dissection or abdominal aortic aneurysm. Right upper lobe pulmonary nodule measuring 5 mm. If patient high-risk consider [address] Bladder wall thickening which can be seen in setting of cystitis or infection. Incidental findings.. See teleradiology report. Records review: Comparison CT report noted 09/13/2023, at which time thoracic aorta was enlarged with dimensions 5.5 x 5.4 cm, and 5.2 x 5 point 0 cm in the ascending portion, which seem larger than reported on CTA study today. 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 Await interval troponin and disposition plan, could consider syncope and admission for further monitoring and workup if patient willing. Signed out to Dr Killian Daily: Patient has had out to me by Dr. Hernandez of seizure evaluated patient myself. He has a stable ascending thoracic aneurysm he has a stable mediastinal this low pulmonary embolism and resolution of pleural effusion. Troponin is repeated and unchanged repeat is 0.047. There is questionable cystitis have done CT. He does have trace leukocytes with few bacteria and mild leukocytosis of 12. Similar back in October but it that time your did not grow any bacteria. Patient has no neurologic deficits do not having any pain does not have painful frequent urination but with CT findings bacteria in urine and mild leukocytosis I think reasonable to start antibiotics no evidence of sepsis he also had mild elevation of lactate which could be due to syncope versus infectious Patient ambulated the ED without any sort of difficulty. and daughter at bedside updated on CT results possible UTI. With return precautions <Martha Daily, DO - Last Filed: 02/20/24 09:50> Lab Data Labs: Lab Results 02/20/24 02/20/24 02/20/24 Range/Units 04:05 04:20 06:15 WBC 12.0 H (4.5-11.0) X10^3/uL RBC 3.84 L (4.5-5.9) X10^6/uL Hgb 12.0 L (13.5-17.5) g/dL Hct 35.3 L (41-53) % MCV 91.9 (80-100) fL MCH 31.1 (26-34) PG MCHC 33.9 (30-36) % RDW 15.0 H (11.6-14.8) % Plt Count 174 (150-400) X10^3/uL Neut % (Auto) 86.8 H (50-75) % Lymph % (Auto) 2.8 L (25-40) % Isabela % (Auto) 9.5 (3-14) % Eos % (Auto) 0.6 L (2-4) % Baso % (Auto) 0.3 (0-2) % Neut # (Auto) 08343 H (4218-7604) /uL Lymph # (Auto) 300 L (0596-8313) /uL Isabela # (Auto) 1100 H (0-900) /uL Eos # (Auto) 100 (0-450) /uL Baso # (Auto) 0 (0-100) /uL Sodium 129 L (137-145) mmol/L Potassium 4.3 (3.4-5.1) mmol/L Chloride 99 (98-107) mmol/L Carbon Dioxide 23 (22-32) mmol/L BUN 18 (9-20) mg/dL Creatinine 0.84 (0.66-1.25) mg/dL Estimated GFR > 60 (>60) mL/min BUN/Creatinine Ratio 21.4 (6-22) Glucose 137 H (80-110) mg/dL Lactate 2.3 H 1.5 (0.7-2.1) mmol/L Calcium 8.8 (8.4-10.2) mg/dL Total Bilirubin 1.4 H (0.2-1.3) mg/dL AST 57 (17-59) IU/L ALT 47 (<50) IU/L Alkaline Phosphatase 222 H (38-126) U/L Troponin I 0.048 H 0.047 H (0.01-0.034) ng/mL NT-Pro-B Natriuret Pep 2260 H (<450) pg/mL Total Protein 6.5 (6.3-8.2) g/dL Albumin 3.5 (3.5-5.0) g/dL Globulin 3.0 (1.7-4.1) g/dL Albumin/Globulin Ratio 1.2 (1.0-2.8) Lipase 719 H (23-300) U/L Urine Color Urine Appearance Urine pH (4.5-8.0) Ur Specific [place] (1.000-1.035) Urine Protein (Negative) Urine Glucose (UA) (Negative) g/dL Urine Ketones (NEGATIVE) Urine Occult Blood (Negative) Urine Nitrate (Negative) Urine Bilirubin (NEGATIVE) Urine Urobilinogen (0.2) E.U./dL Ur Leukocyte Esterase (NEGATIVE) Urine RBC (0-5/HPF) Urine WBC (0-5/HPF) Ur Squamous Epith Cells (0-5/HPF) Urine Bacteria (None) Urine Yeast (None) Ur Culture Indicated? Vol Urine Centrifuged SARS-CoV-2 (PCR) Negative (Negative) Influenza A (RT-PCR) Flu a negative (NEGATIVE) Influenza B (RT-PCR) Flu b negative (NEGATIVE) RSV (PCR) Negative (Negative) 02/20/24 Range/Units 07:26 WBC (4.5-11.0) X10^3/uL RBC (4.5-5.9) X10^6/uL Hgb (13.5-17.5) g/dL Hct (41-53) % MCV (80-100) fL MCH (26-34) PG MCHC (30-36) % RDW (11.6-14.8) % Plt Count (150-400) X10^3/uL Neut % (Auto) (50-75) % Lymph % (Auto) (25-40) % Isabel[place] % (Auto) (3-14) % Eos % (Auto) (2-4) % Baso % (Auto) (0-2) % Neut # (Auto) (8915-9677) /uL Lymph # (Auto) (6628-9524) /uL Isabela # (Auto) (0-900) /uL Eos # (Auto) (0-450) /uL Baso # (Auto) (0-100) /uL Sodium (137-145) mmol/L Potassium (3.4-5.1) mmol/L Chloride (98-107) mmol/L Carbon Dioxide (22-32) mmol/L BUN (9-20) mg/dL Creatinine (0.66-1.25) mg/dL Estimated GFR (>60) mL/min BUN/Creatinine Ratio (6-22) Glucose (80-110) mg/dL Lactate (0.7-2.1) mmol/L Calcium (8.4-10.2) mg/dL Total Bilirubin (0.2-1.3) mg/dL AST (17-59) IU/L ALT (<50) IU/L Alkaline Phosphatase (38-126) U/L Troponin I (0.01-0.034) ng/mL NT-Pro-B Natriuret Pep (<450) pg/mL Total Protein (6.3-8.2) g/dL Albumin (3.5-5.0) g/dL Globulin (1.7-4.1) g/dL Albumin/Globulin Ratio (1.0-2.8) Lipase (23-300) U/L Urine Color Yellow Urine Appearance Clear Urine pH 6.5 (4.5-8.0) Ur Specific [place] <=1.005 (1.000-1.035) Urine Protein Negative (Negative) Urine Glucose (UA) Negative (Negative) g/dL Urine Ketones Negative (NEGATIVE) Urine Occult Blood Negative (Negative) Urine Nitrate Negative (Negative) Urine Bilirubin Negative (NEGATIVE) Urine Urobilinogen 1.0 (0.2) E.U./dL Ur Leukocyte Esterase Trace H (NEGATIVE) Urine RBC None seen (0-5/HPF) Urine WBC 0-1/hpf (0-5/HPF) Ur Squamous Epith Cells None seen (0-5/HPF) Urine Bacteria Few (2-10) H (None) Urine Yeast 0-1/hpf (None) Ur Culture Indicated? Specimen cultured Vol Urine Centrifuged 10ml (spun) SARS-CoV-2 (PCR) (Negative) Influenza A (RT-PCR) (NEGATIVE) Influenza B (RT-PCR) (NEGATIVE) RSV (PCR) (Negative) Urine Dip Bedside Urine Glucose Negative Bedside Urine Bilirubin - Negative Bedside Urine Ketone - Negative Urine Specific [place] 1.005 Bedside Urine Occult Blood - Negative Bedside Urine pH 6.0 Bedside Urine Protein - Negative Bedside Urine Urobilinogen - Negative Bedside Urine Nitrite - Negative Bedside Urine Leukocytes + 70 Esterase Point of care testing: Urine Dip Bedside Urine Glucose Negative Bedside Urine Bilirubin - Negative Bedside Urine Ketone - Negative Urine Specific [place] 1.005 Bedside Urine Occult Blood - Negative Bedside Urine pH 6.0 Bedside Urine Protein - Negative Bedside Urine Urobilinogen - Negative Bedside Urine Nitrite - Negative Bedside Urine Leukocytes + [address] scan - chest: Radiologist's Impression: CT angio chest abdomen pelvis does show a stable ascending thoracic aneurysm that is unchanged. Interval resolution of right pleural effusion stable anterior mediastinal mass measuring 1 point I would cm bladder wall thickening which he would be seated the setting of cystitis or infection MDM Narrative Medical decision making narrative: 83-year-old male with history of CHF, bovine heart valve replacement, chronic cough, presents with generalized weakness, apparently fell from ground level after going to the bathroom, unwitnessed, found by daughter unable to lift himself up in the floor. Possible syncopal episode, not known to be mechanical fall, does not believe he tripped on anything or slipped on anything. He has persisting generalized weakness. CT head requested. EKG, labs pending. CT head noncontrast study. Impressions: ?No acute intracranial abnormality. See teleradiology report EKG shows likely atrial fibrillation, right bundle branch block morphology, appears similar to 09/2023 study. Troponin 0.048. We will repeat interval troponin. Daughter states patient is awaiting CT chest study ordered by pulmonology, not yet performed. Lipase elevation noted, no tenderness on exam, no recent vomiting, unclear significance. Creatinine/GFR favorable. We will obtain CT angiogram of the chest, add abdomen and pelvis imaging. CT angiogram chest abdomen and pelvis. Impression: ?Aneurysmal dilatation of the ascending thoracic aorta which measures 4.9 cm in maximum anterior posterior dimension. No evidence of aortic dissection or abdominal aortic aneurysm. Right upper lobe pulmonary nodule measuring 5 mm. If patient high-risk consider [address] Bladder wall thickening which can be seen in setting of cystitis or infection. Incidental findings.. See teleradiology report. Records review: Comparison CT report noted 09/13/2023, at which time thoracic aorta was enlarged with dimensions 5.5 x 5.4 cm, and 5.2 x 5 point 0 cm in the ascending portion, which seem larger than reported on CTA study today. 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 Await interval troponin and disposition plan, could consider syncope and admission for further monitoring and workup if patient willing. Signed out to Dr Killian Daily: Patient has had out to me by Dr. Hernandez of seizure evaluated patient myself. He has a stable ascending thoracic aneurysm he has a stable mediastinal this low pulmonary embolism and resolution of pleural effusion. Troponin is repeated and unchanged repeat is 0.047. There is questionable cystitis have done CT. He does have trace leukocytes with few bacteria and mild leukocytosis of 12. Similar back in October but it that time your did not grow any bacteria. Patient has no neurologic deficits do not having any pain does not have painful frequent urination but with CT findings bacteria in urine and mild leukocytosis I think reasonable to start antibiotics no evidence of sepsis he also had mild elevation of lactate which could be due to syncope versus infectious Patient ambulated the ED without any sort of difficulty. and daughter at bedside updated on CT results possible UTI. With return precautions Discharge Plan Departure Patient Disposition: Home Clinical Impression: Syncope, Fall from ground level, History of heart valve replacement, History of heart failure, Acute UTI Instructions: DI for Urinary Tract Infection (UTI) Activity Restrictions/Additional Instructions: *You have been diagnosed with UTI, syncope *What to do: At this time it is unclear exactly what caused her syncopal episode today. Your scans show a stable mass and stable aneurysm. You might have a major bladder infection *Continue to take medications as directed Keflex 500 mg twice a day for 7 days *Follow up with your primary care provider in 2-3 days or call [phone] *Return to ER if you should have recurrent episode of syncope increased confusion chest pain or any new, worsening or concerning symptoms Prescriptions: New cephalexin 500 mg capsule 500 mg PO BID 7 Days Qty: 14 0RF No Action apixaban 5 mg tablet 5 mg PO BID Qty: 30 0RF allopurinol 100 mg tablet 100 mg PO DAILY Qty: 20 0RF atorvastatin 40 mg tablet 40 mg PO DAILY Qty: 20 0RF losartan 25 mg tablet 25 mg PO QDAY Qty: 20 0RF metformin 500 mg tablet 500 mg PO BIDWMEAL Qty: 180 1RF finasteride 5 mg tablet 5 mg PO DAILY Qty: 90 1RF Centrum Silver Men [phone] mcg tablet 1 tab PO DAILY ascorbic acid (vitamin C) 1,000 mg tablet 1 g PO DAILY calcium carbonate-vit D3-min 600 mg calcium- 400 unit tablet 1 tab PO DAILY cholecalciferol (vitamin D3) 125 mcg (5,000 unit) capsule 125 mcg PO DAILY zpiisbubhkg-O-Gvalxblzbzkphcb 500-200 mg tablet PO Hair,Skin and Nails Tablet 1 tab PO DAILY turmeric root extract 500 mg capsule 500 mg PO DAILY magnesium oxide 400 mg magnesium tablet 400 mg PO DAILY aspirin 81 mg tablet,delayed release (DR/EC) 81 mg PO DAILY alfuzosin 10 mg tablet extended release 24 hr 10 mg PO DAILY Rx Instructions: administer after the same meal each day albuterol sulfate 90 mcg/actuation HFA aerosol inhaler 2 puff inhalation Q6H PRN (Reason: shortness of breath or wheezing) Qty: 6.7 0RF metoprolol succinate 25 mg tablet extended release 24 hr 25 mg PO DAILY furosemide [Lasix] 40 mg tablet 40 mg PO DAILY Qty: 90 3RF Referrals: Miya Hernandez DO [Primary Care Provider] - Stand Alone Forms: Patient Portal/API
--- NOTE | 2024-02-20 04:01 | DI.CT.S_ITS ---
PROCEDURE: CT HEAD/BRAIN WO CON INDICATIONS: fall, weakness TECHNIQUE: Noncontrast 4.5 mm thick angled axial sections acquired from the foramen magnum to the vertex, with coronal and sagittal reformats. For radiation dose reduction, the following was used: automated exposure control, adjustment of mA and/or kV according to patient size. COMPARISON: [facility], CT, CT HEAD/BRAIN WO CON, 05/07/2021, 18:39. FINDINGS: Image quality: Diagnostic. CSF spaces: Basal cisterns are patent. No extra-axial fluid collections. Ventricles are normal in size and shape. Brain: No midline shift. No intracranial masses or hemorrhage. Kessler-white matter interface is normal. There is diffuse global atrophy with compensatory enlargement of the CSF spaces. Subcortical and periventricular white matter hypoattenuation is consistent with the sequela of microangiopathy. Skull and face: Calvarium and visualized facial bones are intact, without suspicious lesions. Sinuses: Visualized sinuses and mastoids are clear. IMPRESSION: No acute intracranial pathology. Dictated by: Yamini Garcia M.D. on 02/20/2024 at 8:43 Approved by: Yamini Garcia M.D. on 02/20/2024 at 8:46
--- NOTE | 2024-02-20 04:07 | EKG_ITS ---
[address] [address] Test Date: 2024-02-20 Pat Name: Joelle Lainez Department: Room: Gender: Male Practice Representative: MATT : 1940 Requested By: Order Number: [id number] Reading MD: Fadi Patterson MD Measurements Intervals [place] Rate: 105 P: NM: QRS: 1 QRSD: 160 T: 61 QT: 380 QTc: 502 Interpretive Statements Atrial fibrillation with rapid ventricular response with occasional ventricular-paced complexes Right bundle branch block (old) Inferior infarct , age undetermined Electronically Signed On 02-21-2024 16:43:38 PDT by Fadi Patterson MD
[2024-02-20 04:19] LABS: Add Manual Diff / Slide Review NO; Basophils Absolute Auto 0 /uL (0-100); Basophils Percent Auto 0.3 % (0-2); Eosinophils Absolute Auto 100 /uL (0-450); Eosinophils Percent Auto 0.6 % (2-4); Hematocrit 35.3 % (41-53); Lymphocytes Absolute Auto 300 /uL (1100-4500); Lymphocytes Percent Auto 2.8 % (25-40); Mean Corpuscular HGB Conc 33.9 % (30-36); Mean Corpuscular Hemoglobin 31.1 PG (26-34); Mean Corpuscular Volume 91.9 fL (80-100); Monocytes Absolute Auto 1100 /uL (0-900); Monocytes Percent Auto 9.5 % (3-14); Neutrophils Absolute Auto 10400 /uL (1500-7000); Neutrophils Percent Auto 86.8 % (50-75); Platelet Count 174 X10^3/uL (150-400); Red Blood Cell Count 3.84 X10^6/uL (4.5-5.9)
[2024-02-20 04:28] LABS: Alanine Aminotransferase 47 IU/L (<50); Albumin 3.5 g/dL (3.5-5.0); Albumin Globulin Ratio 1.2 (1.0-2.8); Alkaline Phosphatase 222 U/L (38-126); Aspartate Aminotransferase 57 IU/L (17-59); BUN Creatinine Ratio 21.4 (6-22); Bilirubin Total 1.4 mg/dL (0.2-1.3); Blood Urea Nitrogen 18 mg/dL (9-20); Calcium 8.8 mg/dL (8.4-10.2); Carbon Dioxide 23 mmol/L (22-32); Chloride 99 mmol/L (98-107); Estimated Glomerular Filt Rate > 60 mL/min (>60); Glucose 137 mg/dL (80-110); HEMOLYSIS < 15 (0-50); Lactate (Lactic Acid) 2.3 mmol/L (0.7-2.1); Lipase 719 U/L (23-300); Potassium 4.3 mmol/L (3.4-5.1); Sodium 129 mmol/L (137-145); Total Protein 6.5 g/dL (6.3-8.2)
[2024-02-20 04:40] LABS: Troponin I 0.048 ng/mL (0.01-0.034)
--- NOTE | 2024-02-20 04:55 | DI.CT.S_ITS ---
PROCEDURE: CT ANGIO CHEST ABDOMEN PELVIS INDICATIONS: syncope, fall, inc lipase TECHNIQUE: Precontrast 5 mm thick sections acquired from the lung apices to the iliac crests. After the administration of intravenous contrast, 2.5 mm thick sections again acquired from the lung apices to the iliac crests. Maximum intensity projection (MIP) oblique sagittal and coronal reformats were then acquired. For radiation dose reduction, the following was used: automated exposure control. COMPARISON: None. FINDINGS: Image quality: Diagnostic. AORTA: No aortic aneurysm. No acute aortic syndrome. CHEST: Lower Neck: No enlarged lymph nodes. Thyroid: No thyroid nodules which require sonographic evaluation. Axillae: No enlarged lymph nodes. Chest Wall: Unremarkable. Lungs and Pleura: No pneumothorax or pleural effusions. A 5 x 6 mm pulmonary nodule seen within the right upper lobe on axial image 34. Heart: Heart size is normal. No pericardial effusion. Thoracic Vessels: Pulmonary arteries demonstrate normal size. Unchanged ascending aorta dilation to 4.9 cm. No pulmonary arterial filling defect. Mediastinum and Alexandra: No enlarged lymph nodes. Unchanged circumscribed and homogeneous anterior mediastinal mass. Esophagus: No wall thickening. No hiatal hernia. ABDOMEN: Liver: No solid mass. Gallbladder: No radiopaque gallstones or wall thickening. Biliary ducts: No biliary dilation. Pancreas: No ductal dilation. Spleen: Size is within normal limits. Adrenal Glands: No adrenal nodules. Kidneys and Ureters: No hydronephrosis. No solid mass. No complex renal cystic lesion which requires follow up. Stomach and Bowel: Bowel is of normal caliber without focal wall thickening. Peritoneum: No abnormal intraperitoneal fluid. No free air. Ventral Wall: No hernia. Abdominal Nodes: No retroperitoneal or mesenteric adenopathy by size criteria. Vessels: Inferior vena cava is normal in size. PELVIS: Pelvic Organs: Prostatic calcification is present. The prostate measures 4.8 cm in transverse dimension. Bladder: Suboptimally distended with mild wall thickening anteriorly. Pelvic Nodes: No enlarged lymph nodes. Miscellaneous: No inguinal hernias are seen. Bones: Unremarkable. IMPRESSION: 1. No acute cardiopulmonary or abdominal process. 2. Bladder wall thickening which can be seen in the setting of cystitis. 3. Right upper lobe nodule which is new. Recommend follow-up chest CT in 6 months. This is congruent with the preliminary report. Dictated by: Yamini Garcia M.D. on 02/20/2024 at 8:53 Approved by: Yamini Garcia M.D. on 02/20/2024 at 9:04
[2024-02-20 05:18] LABS: Influenza A - CEPHEID Flu A NEGATIVE (NEGATIVE); Influenza B - CEPHEID Flu B NEGATIVE (NEGATIVE); Respiratory Syncytial Virus Negative (Negative)
[2024-02-20 05:18] LABS: NT-proBNP (BNP-Adult 18+) 2260 pg/mL (<450)
[2024-02-20 05:19] LABS: COVID-19 CEPHEID 4-PLEX PCR Negative (Negative)
[2024-02-20 05:48] LABS: Reflexed Lactate in 2 Hours Y
[2024-02-20] MEDS: SODIUM CHLORIDE 0.9% 1,000 ML 500 ML IV (05:57)
[2024-02-20 06:41] LABS: Lactate 2HR (Lactic Acid Rflx) 1.5 mmol/L (0.7-2.1)
[2024-02-20 06:53] LABS: Troponin I 0.047 ng/mL (0.01-0.034)
[2024-02-20 07:33] LABS: Appearance Urine UA CLEAR; Bilirubin Urine UA NEGATIVE (NEGATIVE); Color Urine UA YELLOW; Glucose Urine UA NEGATIVE (Negative); Ketones Urine UA NEGATIVE (NEGATIVE); Leukocyte Esterase Urine UA TRACE (NEGATIVE); Nitrite Urine UA NEGATIVE (Negative); Occult Blood Urine UA NEGATIVE (Negative); Protein Urine UA NEGATIVE (Negative); Specific Gravity Urine UA <=1.005 (1.000-1.035); pH Urine UA 6.5 (4.5-8.0)
[2024-02-20 07:42] LABS: Bacteria Urine Few (2-10); Culture Indicated Urine Specimen Cultured; RBC Urine None Seen (0-5/HPF); Squamous Epithelial Cell Urine None Seen (0-5/HPF); Urine Volume 10mL (spun); WBC Urine 0-1/HPF (0-5/HPF)
--- NOTE | 2024-02-20 20:10 | PC.NURSE ---
Received results for lab for Gram + cocci in 2 anaerobic bottles. Reviewed results with Dr. Hernandez. Dr Hernandez stated to call pt and see how is he doing. If he has improved to call PCP in the morning for close follow. If he isn't improving or feeling worse to come back in. Called pt and talked to , Marsha, she states he is doing better and informed her what dr. Hernandez said. Informed her to call pcp in the morning or if he does get worse to bring him back in. Ensured pt had started taking keflex. stated understanding.
[2024-02-20 21:07] LABS: Acinetobacter calcoa-baumannii Not Detected (Not Detect); Bacteroides fragilis Not Detected (Not Detect); Candida albicans Not Detected (Not Detect); Candida auris Not Detected (Not Detect); Candida glabrata Not Detected (Not Detect); Candida krusei Not Detected (Not Detect); Candida parapsilosis Not Detected (Not Detect); Candida tropicalis Not Detected (Not Detect); Cryptococcus neoformans/gatti Not Detected (Not Detect); Enterobacter cloacae complex Not Detected (Not Detect); Enterobacterales Not Detected (Not Detect); Enterococcus faecalis Not Detected (Not Detect); Enterococcus faecium Not Detected (Not Detect); Haemophilus influenzae Not Detected (Not Detect); Klebsiella aerogenes Not Detected (Not Detect); Listeria monocytogenes Not Detected (Not Detect); Neisseria meningitidis Not Detected (Not Detect); Proteus species Not Detected (Not Detect); Pseudomonas aeruginosa Not Detected (Not Detect); Salmonella species Not Detected (Not Detect); Serratia marcescens Not Detected (Not Detect); Staphylococcus epidermidis Not Detected (Not Detect); Staphylococcus lugdunensis Not Detected (Not Detect); Staphylococcus species Not Detected (Not Detect); Stenotrophomonas maltophilia Not Detected (Not Detect); Streptococcus agalactiae (Gr B Not Detected (Not Detect); Streptococcus pneumonia Not Detected (Not Detect); Streptococcus pyogenes (Gr A) Not Detected (Not Detect); Streptococcus species Detected (Not Detect)
== END 2024-02-20 08:51 | disposition home or self-care (01) ==
PROVIDERS: Emergency Medicine; Emergency Provider Emergency Medicine; PCP Family Medicine
DX: R55 Syncope and collapse (principal); I50.9 Heart failure, unspecified; N39.0 Urinary tract infection, site not specified; Z79.899 Other long term (current) drug therapy; I45.10 Unspecified right bundle-branch block; Z11.52 Encounter for screening for COVID-19; W18.30XA Fall on same level, unspecified, initial encounter; Z95.2 Presence of prosthetic heart valve
CPT/HCPCS: 0241U; 36415; 70450; 71275; 74174; 80053; 81001; 81003; 83605; 83690; 83880; 84484; 85025; 87040; 87077; 87086; 87154; 87186; 93005; 96360; 99284; Q9967

== ENCOUNTER 2024-02-22 16:16 | Emergency (ER) | payer MEDICARE, SELFPAY ==
[2024-02-22 16:32] VITALS: BP 122/74; PULSE 72; RESP 18; TEMP 36.3; O2SAT 98; BMI 32.3
[2024-02-22 16:55] LABS: Add Manual Diff / Slide Review NO; Basophils Absolute Auto 100 /uL (0-100); Basophils Percent Auto 0.7 % (0-2); Eosinophils Absolute Auto 100 /uL (0-450); Hematocrit 38.2 % (41-53); Hemoglobin 12.8 g/dL (13.5-17.5); Lymphocytes Absolute Auto 900 /uL (1100-4500); Lymphocytes Percent Auto 12.9 % (25-40); Mean Corpuscular HGB Conc 33.5 % (30-36); Mean Corpuscular Hemoglobin 31.2 PG (26-34); Mean Corpuscular Volume 93.2 fL (80-100); Monocytes Absolute Auto 1000 /uL (0-900); Neutrophils Absolute Auto 5200 /uL (1500-7000); Neutrophils Percent Auto 71.4 % (50-75); Platelet Count 232 X10^3/uL (150-400); Red Cell Distribution Width 15.1 % (11.6-14.8); White Blood Cell Count 7.4 X10^3/uL (4.5-11.0)
[2024-02-22 16:59] LABS: Lactate (Lactic Acid) 2.1 mmol/L (0.7-2.1)
[2024-02-22 17:17] LABS: Procalcitonin 0.149 ng/mL (<0.5)
--- NOTE | 2024-02-22 17:26 | ED.RECABL ---
HPI - Recheck/Abnormal Lab/Rx General Chief Complaint: Recheck/Abnormal Lab/Rx Stated Complaint: return per Dr Daily Time Seen by Provider: 02/22/24 16:48 History of Present Illness HPI narrative: Patient is a 83-year-old male history of congestive heart failure bovine tissue valve surgery presents today with positive blood cultures. I actually called patient myself he has 2 Gram-positive cocci blood cultures Streptococcus salivarius, resistant to erythromycin. Patient says that he has been doing well there is no further confusion he has had no further syncopal episodes. They thought maybe his right leg was erythematous and warm however at this time I do not appreciate any erythema. reports that he has felt warm to touch uneven feels warm to touch no however a repeat temperature confirms no fever. Patient really has no symptoms and they have an appointment with primary care provider tomorrow Related Data Home Medications Medication Instructions Recorded Confirmed aspirin 81 mg tablet,delayed 81 mg PO DAILY 02/11/19 02/10/24 release alfuzosin 10 mg tablet,extended 10 mg PO DAILY 01/19/23 02/10/24 release 24 hr metoprolol succinate 25 mg 25 mg PO DAILY 09/16/23 02/10/24 tablet,extended release 24 hr ascorbic acid (vitamin C) 1,000 mg 1 g PO DAILY 10/07/23 02/10/24 tablet calcium carb-vit D3-minerals 600 1 tab PO DAILY 10/07/23 02/10/24 mg calcium-400 unit tablet cholecalciferol (vitamin D3) 125 125 mcg PO DAILY 10/07/23 02/10/24 mcg (5,000 unit) capsule rkpngnmsioe-X-Lldmercpsewqhucqso tab PO 10/07/23 02/10/24 500 mg-200 mg tablet magnesium oxide 400 mg PO DAILY 10/07/23 02/10/24 qskoygzl-dy-vjwzl 300 mcg-K 60 1 tab PO DAILY 10/07/23 02/10/24 mcg-lycop 600 mcg-lutein 300 mcg tablet (Centrum Silver Men) multivitamin with minerals 1 tab PO DAILY 10/07/23 02/10/24 (Hair,Skin and Nails tablet) turmeric root extract 500 mg 500 mg PO DAILY 10/07/23 02/10/24 capsule Previous Rx's Medication Instructions Recorded apixaban 5 mg tablet 5 mg PO BID #30 tabs 01/02/20 allopurinol 100 mg tablet 100 mg PO DAILY #20 tabs 05/11/23 atorvastatin 40 mg tablet 40 mg PO DAILY #20 tabs 05/11/23 losartan 25 mg tablet 25 mg PO QDAY #20 tabs 05/11/23 metformin 500 mg tablet 500 mg PO BIDWMEAL #180 tabs 07/19/23 furosemide 40 mg tablet (Lasix) 40 mg PO DAILY #90 tabs 10/19/23 finasteride 5 mg tablet 5 mg PO DAILY #90 tabs 11/29/23 cephalexin 500 mg capsule 500 mg PO BID 7 days #14 caps 02/20/24 albuterol sulfate 90 mcg/actuation 2 puff inhalation Q6H PRN 02/21/24 aerosol inhaler shortness of breath or wheezing #6.7 grams cefdinir 300 mg capsule 300 mg PO Q12H #20 caps 02/22/24 Allergies Allergy/AdvReac Type Severity Reaction Status Date / Time latex Allergy Mild SWOLLEN Verified 02/10/24 13:56 FINGERS Sulfa (Sulfonamide Allergy Mild SWOLLEN Verified 02/10/24 13:56 Antibiotics) FINGERS lisinopril AdvReac Intermediate SWELLING Verified 02/10/24 13:56 hydrochlorothiazide AdvReac Mild SWELLING Verified 02/10/24 13:56 Patient History Medical History COVID-19 Onychomycosis Osteoarthritis Cataracts, bilateral (~2015) Colon polyps (01/2004) Chickenpox Mumps Measles Upper GI bleed Ascending aortic aneurysm Aortic stenosis Hx of varicose veins Sleep apnea Gout Coronary artery disease Hyperlipidemia Hypertension Surgical History Hx of knee surgery (2003) Hx of colonoscopy with polypectomy (01/2004) Hx of cataract surgery (09/2015) Hx of total knee arthroplasty (01/2013) Hx of aortic valve replacement (12/2009) Hx of varicose vein stripping (1974) Hx of coronary artery bypass graft History of aortic valve replacement (07/19/15) Family History Brother No problems noted. Father Diabetes mellitus Heart disease Mother No problems noted. Social History Smoking Status: Former smoker alcohol intake: never substance use type: does not use Smoking Status: Former smoker tobacco type: cigarettes alcohol intake frequency: holidays/special occasions only Substance Use Type: does not use Exam Initial Vital Signs Initial Vital Signs: Vital Signs Temperature 97.3 F L 02/22/24 16:32 Pulse Rate 72 02/22/24 16:32 Respiratory Rate 18 02/22/24 16:32 Blood Pressure 122/74 02/22/24 16:32 Pulse Oximetry 98 02/22/24 16:32 Oxygen Delivery Method Room Air 02/22/24 16:32 GENERAL: Alert pleasant 83-year-old male HEENT: Head atraumatic,EOMI, pupils reactive, face symmetric, moist mucous membranes CARDIOVASCULAR: Regular rate and rhythm without murmurs, rubs or gallops. RESPIRATORY: Breath sounds equal bilaterally, no wheezes rales or rhonchi. ABDOMEN: Soft, nontender. Normoactive bowel sounds all 4 quadrants. No guarding or rebound. EXTREMITIES: Normal range of motion, no clubbing or edema. Neurovascularly intact NEUROLOGICAL: Alert and oriented x4. SKIN: Warm, dry, no laceration, no petechiae, no rashes or lesions. Course Orders Ordered: ED Orders 02/22/24 16:36 CBC Auto Diff [Complete Blood Count AUTO DIFF] Stat CMP [Comprehensive Metabolic Panel] Stat Lactate (Lactic Acid) Stat Procalcitonin Stat 02/22/24 16:55 Blood Culture Stat Vital Signs Vital signs: Vital Signs - 8 hr 02/22/24 16:32 Temperature 97.3 F L Pulse Rate 72 Respiratory Rate 18 Blood Pressure 122/74 Pulse Oximetry 98 Oxygen Delivery Method Room Air MDM - Recheck/Abnormal Lab/Rx Lab Data 02/22/24 16:36 02/22/24 16:36 Labs: Lab Results 02/22/24 Range/Units 16:36 WBC 7.4 (4.5-11.0) X10^3/uL RBC 4.10 L (4.5-5.9) X10^6/uL Hgb 12.8 L (13.5-17.5) g/dL Hct 38.2 L (41-53) % MCV 93.2 (80-100) fL MCH 31.2 (26-34) PG MCHC 33.5 (30-36) % RDW 15.1 H (11.6-14.8) % Plt Count 232 (150-400) X10^3/uL Neut % (Auto) 71.4 (50-75) % Lymph % (Auto) 12.9 L (25-40) % [place] % (Auto) 13.0 (3-14) % Eos % (Auto) 2.0 (2-4) % Baso % (Auto) 0.7 (0-2) % Neut # (Auto) 5200 (3349-9370) /uL Lymph # (Auto) 900 L (2849-2511) /uL [place] # (Auto) 1000 H (0-900) /uL Eos # (Auto) 100 (0-450) /uL Baso # (Auto) 100 (0-100) /uL Sodium 136 L (137-145) mmol/L Potassium 4.6 (3.4-5.1) mmol/L Chloride 102 (98-107) mmol/L Carbon Dioxide 25 (22-32) mmol/L BUN 11 (9-20) mg/dL Creatinine 0.85 (0.66-1.25) mg/dL Estimated GFR > 60 (>60) mL/min BUN/Creatinine Ratio 12.9 (6-22) Glucose 167 H (80-110) mg/dL Lactate 2.1 (0.7-2.1) mmol/L Calcium 9.0 (8.4-10.2) mg/dL Total Bilirubin 1.3 (0.2-1.3) mg/dL AST 58 (17-59) IU/L ALT 44 (<50) IU/L Alkaline Phosphatase 150 H (38-126) U/L Total Protein 7.4 (6.3-8.2) g/dL Albumin 4.2 (3.5-5.0) g/dL Globulin 3.2 (1.7-4.1) g/dL Albumin/Globulin Ratio 1.3 (1.0-2.8) Procalcitonin 0.149 (<0.5) ng/mL [facility] Narrative Medical decision making narrative: Patient 83-year-old male presenting today by request with positive blood cultures. He is currently on Keflex. He does not have any further documented fever he has no further symptoms. Blood work has been reviewed leukocytosis was previously 12. Lactic acid is 2.1 procalcitonin 0.149. No clear obvious source. I did call in a prescription of cefdinir for him which he can start tomorrow. He is afebrile here appears well nontoxic. Repeat blood cultures are pending. He has an appointment with his primary care provider tomorrow. At this time I see no real need for admission. He initially was thought to have possible UTI however urine culture from February 19 does not show any definitive growth Discharge Plan Departure Patient Disposition: Home Clinical Impression: Bacteremia Activity Restrictions/Additional Instructions: *You have been diagnosed with you had positive but blood cultures on February 19 *What to do: Repeat blood cultures are drawn on February 21. These blood cultures will take about 2-3 days to grow. If they are positive we will call you *Continue to take medications as directed Start taking cefdinir as set to pharmacy previously *Follow up with your primary care provider in 2-3 days or call [phone] *Return to ER if you should have fever greater than 100.4 confusion passing out or any new, worsening or concerning symptoms Prescriptions: No Action apixaban 5 mg tablet 5 mg PO BID Qty: 30 0RF allopurinol 100 mg tablet 100 mg PO DAILY Qty: 20 0RF atorvastatin 40 mg tablet 40 mg PO DAILY Qty: 20 0RF losartan 25 mg tablet 25 mg PO QDAY Qty: 20 0RF metformin 500 mg tablet 500 mg PO BIDWMEAL Qty: 180 1RF finasteride 5 mg tablet 5 mg PO DAILY Qty: 90 1RF albuterol sulfate 90 mcg/actuation HFA aerosol inhaler 2 puff inhalation Q6H PRN (Reason: shortness of breath or wheezing) Qty: 6.7 0RF Rx Instructions: Please include a spacer with the prescription Centrum Silver Men [phone] mcg tablet 1 tab PO DAILY ascorbic acid (vitamin C) 1,000 mg tablet 1 g PO DAILY calcium carbonate-vit D3-min 600 mg calcium- 400 unit tablet 1 tab PO DAILY cholecalciferol (vitamin D3) 125 mcg (5,000 unit) capsule 125 mcg PO DAILY ktvgciojksv-D-Nsschczafwezaoe 500-200 mg tablet PO Hair,Skin and Nails Tablet 1 tab PO DAILY turmeric root extract 500 mg capsule 500 mg PO DAILY magnesium oxide 400 mg magnesium tablet 400 mg PO DAILY aspirin 81 mg tablet,delayed release (DR/EC) 81 mg PO DAILY alfuzosin 10 mg tablet extended release 24 hr 10 mg PO DAILY Rx Instructions: administer after the same meal each day metoprolol succinate 25 mg tablet extended release 24 hr 25 mg PO DAILY cephalexin 500 mg capsule 500 mg PO BID 7 Days Qty: 14 0RF cefdinir 300 mg capsule 300 mg PO Q12H Qty: 20 0RF furosemide [Lasix] 40 mg tablet 40 mg PO DAILY Qty: 90 3RF Referrals: Miya Hernandez DO [Primary Care Provider] - Stand Alone Forms: Patient Portal/API
[2024-02-22 17:49] LABS: Alanine Aminotransferase 44 IU/L (<50); Albumin 4.2 g/dL (3.5-5.0); Albumin Globulin Ratio 1.3 (1.0-2.8); Alkaline Phosphatase 150 U/L (38-126); Aspartate Aminotransferase 58 IU/L (17-59); BUN Creatinine Ratio 12.9 (6-22); Bilirubin Total 1.3 mg/dL (0.2-1.3); Blood Urea Nitrogen 11 mg/dL (9-20); Carbon Dioxide 25 mmol/L (22-32); Chloride 102 mmol/L (98-107); Estimated Glomerular Filt Rate > 60 mL/min (>60); Globulin 3.2 g/dL (1.7-4.1); Glucose 167 mg/dL (80-110); HEMOLYSIS 139 (0-50); Potassium 4.6 mmol/L (3.4-5.1); Sodium 136 mmol/L (137-145); Total Protein 7.4 g/dL (6.3-8.2)
[2024-02-22 18:27] VITALS: BP 146/62; PULSE 69; RESP 16; TEMP 36.5; O2SAT 99
[2024-02-22 18:27] LABS: Reflexed Lactate in 2 Hours Y
== END 2024-02-22 18:28 | disposition home or self-care (01) ==
PROVIDERS: Emergency Provider Emergency Medicine; PCP Family Medicine
DX: R78.81 Bacteremia (principal); Z79.899 Other long term (current) drug therapy; Z79.01 Long term (current) use of anticoagulants
CPT/HCPCS: 36415; 80053; 83605; 84145; 85025; 87040; 99281; 99283

== ENCOUNTER → 2024-02-28 | Outpatient (CLI) | payer MEDICARE, SELFPAY ==
--- NOTE | 2024-02-28 16:03 | DI.US.S_ITS ---
PROCEDURE: US EXTREMELY NONVASC UPPER RT INDICATIONS: soft tissue mass TECHNIQUE: Real-time scanning was performed of the right shoulder , with image documentation. COMPARISON: [facility], CT, CT ANGIO CHEST ABDOMEN PELVIS, 02/20/2024, 5:06. FINDINGS: 3.8 x 3.6 x 1.1 cm complex, multi septated fluid collection involving the right shoulder in the region of interest. No internal vascularity. IMPRESSION: Nonspecific complex cystic mass corresponding to the palpable abnormality. Findings may be related to evolving hematoma; however abscess or neoplastic process cannot entirely be excluded and clinical correlation is recommended. If indicated, CT or MRI with contrast could be performed for further assessment. Dictated by: Davonte GOMEZ Interpreted: Zoe Candelaria MD on 02/29/2024 at 19:15 Transcribed by: KYA on 02/29/2024 at 19:17 Approved by: Zoe Candelaria M.D. on 03/01/2024 at 16:47
== END ==
LOC: US 16:02
PROVIDERS: PCP Family Medicine; Referring Provider Family Medicine; Visit Provider Family Medicine
DX: M79.89 Other specified soft tissue disorders (principal); R22.31 Localized swelling, mass and lump, right upper limb
CPT/HCPCS: 76882

== ENCOUNTER → 2024-03-11 12:54 | Outpatient (CLI) | payer MEDICARE, SELFPAY ==
--- NOTE | 2024-03-11 12:55 | DI.CT.S_ITS ---
PROCEDURE: CT SHOULDER RIGHT WITH CON INDICATIONS: cystic mass seen on RUE US TECHNIQUE: Noncontrast 0.75 mm thick sections acquired from the acromioclavicular joint to the inferior scapula, with coronal and sagittal reformatting. COMPARISON: [facility], CT, CT ANGIO CHEST PE PROTOCOL, 09/13/2023, 13:40. [facility], US, US EXTREMELY NONVASC UPPER RT, 02/28/2024, 16:21. FINDINGS: Image quality: Excellent. Bones: Moderate degenerative changes of the acromioclavicular joint. Large subchondral lucency in the distal clavicle, favoring degenerative. Superior subluxation of the humeral head with severe narrowing of the subacromial space, and remodeling of the undersurface of the subacromion, representing rotator cuff pathology. Moderate degenerative changes of the glenohumeral joint. Chondrocalcinosis of the glenohumeral joint, presenting CPPD arthropathy. No significant glenoid retroversion. No acute fracture or dislocation of the right shoulder. Visualized right ribs are unremarkable. Soft tissues: 3.4 x 1.3 cm (transverse by craniocaudal dimension), lobulated low-density lesion superior to the acromioclavicular joint, likely representing a ganglion cyst when correlating to prior ultrasound finding. Small glenohumeral effusion. Mild subcoracoid bursitis. 6 mm pulmonary nodule in the right upper lobe (series 2, image 42). Mild atelectasis in the right lower lobe. 1.0 cm ground-glass pulmonary nodule in the right upper lobe (2:55 a.m.). Moderate calcification of the aortic arch. 5.3 cm ascending thoracic aortic aneurysm. Status post aortic valve replacement. Severe LAD calcification. 1.0 cm liver density density lesion in the anterior mediastinum (series 8, image 76), unchanged. IMPRESSION: 1. Moderate degenerative changes of the acromioclavicular joint. 3.4 cm ganglion cyst superior to the acromioclavicular joint, correlating to prior finding on ultrasound. 2. Findings suggestive of rotator cuff pathology. 3. Moderate degenerative changes and CPPD arthropathy of the glenohumeral joint. 4. 6 mm pulmonary nodule in the right upper lobe, new from prior exam. 1.0 cm ground-glass pulmonary nodule in the right upper lobe, unchanged. Recommend CT chest at 6-12 months. 5. 5.3 cm ascending thoracic aortic aneurysm, grossly unchanged from prior exam. Dictated by: Evangelina Estrada M.D. on 03/14/2024 at 12:12 Approved by: Evangelina Estrada M.D. on 03/14/2024 at 12:27
== END ==
PROVIDERS: PCP Family Medicine; Referring Provider Family Medicine; Visit Provider Family Medicine
DX: R91.8 Other nonspecific abnormal finding of lung field (principal); R22.31 Localized swelling, mass and lump, right upper limb; M67.411 Ganglion, right shoulder; R91.1 Solitary pulmonary nodule; I71.21 Aneurysm of the ascending aorta, without rupture
CPT/HCPCS: 73201; Q9967

== ENCOUNTER 2024-03-11 19:03 | Inpatient (IN) | payer MEDICARE, SELFPAY ==
[2024-03-11] VITALS (11 sets, daily range): BP systolic 110–164; BP diastolic 50–84; PULSE 94–123; RESP 18–33; TEMP 39.5–39.7; O2SAT 92–97; BMI 33.3
--- NOTE | 2024-03-11 19:13 | DI.RAD.S_ITS ---
PROCEDURE: XR CHEST 1V INDICATIONS: Eval for pneumonia TECHNIQUE: One view of the chest was acquired. COMPARISON: [facility], CR, XR CHEST 2V, 01/20/2024, 16:52. FINDINGS: Surgical changes and devices: Cardiac monitoring device. Median sternotomy. Postsurgical changes of CABG. Valve replacement. Lungs and pleura: Lungs are clear. No pleural effusions or pneumothorax. Mediastinum: Mediastinal contours appear normal. Heart size is enlarged, stable. Aortic arch is calcified, indicating atherosclerosis. Bones and chest wall: No suspicious bony lesions. Overlying soft tissues appear unremarkable. Eventration of the right hemidiaphragm. IMPRESSION: No acute cardiopulmonary process. Dictated by: Jacob Lopez M.D. on 03/11/2024 at 18:48 Approved by: Jacob Lopez M.D. on 03/11/2024 at 18:50
[2024-03-11 19:25] LABS: Add Manual Diff / Slide Review NO; Basophils Absolute Auto 100 /uL (0-100); Basophils Percent Auto 0.6 % (0-2); Eosinophils Absolute Auto 0 /uL (0-450); Eosinophils Percent Auto 0.5 % (2-4); Hematocrit 38.9 % (41-53); Hemoglobin 13.1 g/dL (13.5-17.5); Lymphocytes Absolute Auto 300 /uL (1100-4500); Mean Corpuscular HGB Conc 33.7 % (30-36); Mean Corpuscular Hemoglobin 31.3 PG (26-34); Mean Corpuscular Volume 92.7 fL (80-100); Monocytes Absolute Auto 500 /uL (0-900); Monocytes Percent Auto 4.8 % (3-14); Neutrophils Absolute Auto 9300 /uL (1500-7000); Neutrophils Percent Auto 91.1 % (50-75); Platelet Count 210 X10^3/uL (150-400); Red Cell Distribution Width 14.8 % (11.6-14.8); White Blood Cell Count 10.2 X10^3/uL (4.5-11.0)
--- NOTE | 2024-03-11 19:25 | PC.NURSE ---
pt has a non-productive cough with some mild audible expiratory wheezing pt denies any c/o
[2024-03-11 19:31] LABS: Lactate (Lactic Acid) 2.2 mmol/L (0.7-2.1)
[2024-03-11 19:32] LABS: Alanine Aminotransferase 29 IU/L (<50); Albumin 3.8 g/dL (3.5-5.0); Albumin Globulin Ratio 1.1 (1.0-2.8); Alkaline Phosphatase 182 U/L (38-126); Aspartate Aminotransferase 42 IU/L (17-59); BUN Creatinine Ratio 12.5 (6-22); Bilirubin Total 1.2 mg/dL (0.2-1.3); Blood Urea Nitrogen 12 mg/dL (9-20); Carbon Dioxide 25 mmol/L (22-32); Chloride 94 mmol/L (98-107); Estimated Glomerular Filt Rate > 60 mL/min (>60); Globulin 3.4 g/dL (1.7-4.1); Glucose 191 mg/dL (80-110); HEMOLYSIS < 15 (0-50); Lipase 526 U/L (23-300); Potassium 4.5 mmol/L (3.4-5.1); Sodium 128 mmol/L (137-145); Total Protein 7.2 g/dL (6.3-8.2)
--- NOTE | 2024-03-11 19:33 | EKG_ITS ---
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
[2024-03-11 19:49] LABS: Procalcitonin 0.195 ng/mL (<0.5)
--- NOTE | 2024-03-11 19:56 | EKG_ITS ---
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
[2024-03-11 20:12] LABS: Adenovirus Not Detected (Not Detect); B. parapertussis Not Detected (Not Detecte); Bordetella pertussis Not Detected (Not Detect); Chlamydophila pneumoniae Not Detected (Not Detect); Coronavirus 229E Not Detected (Not Detect); Coronavirus HKU1 Not Detected (Not Detect); Coronavirus NL 63 Not Detected (Not Detect); Coronavirus OC43 Not Detected (Not Detect); Human Metapneumovirus Not Detected (Not Detect); Human Rhinovirus/Enterovirus Not Detected (Not Detect); Influenza A Not Detected (Not Detect); Influenza B Not Detected (Not Detect); Mycoplasma pneumoniae Not Detected (Not Detect); Parainfluenza Virus 1 Not Detected (Not Detect); Parainfluenza Virus 2 Not Detected (Not Detect); Parainfluenza Virus 3 Not Detected (Not Detect); Parainfluenza Virus 4 Not Detected (Not Detect); Respiratory Syncytial Virus Not Detected (Not Detect); SARS- CoV-2 Not Detected (Not Detecte)
--- NOTE | 2024-03-11 20:26 | ED.GENADULT ---
HPI - General Adult General Chief complaint: Fever Stated complaint: Fever Time Seen by Provider: 03/11/24 19:05 Source: patient, family and EMS Mode of arrival: EMS Limitations: no limitations History of Present Illness HPI narrative: Patient is an 83-year-old male. History of a bovine tissue heart valve, CHF, ascending aortic aneurysm, asthma who was seen here in the emergency department approximately 2 weeks ago after being found on the floor at home by his daughter. He apparently fell while going to the bathroom. Had a workup in the emergency department and was diagnosed with a urinary tract infection and discharged home on Keflex. They received a call a couple days later because the blood cultures from that visit were positive. They return to the emergency department according to the note at that time he did not have leukocytosis did not have any symptoms and eventually were discharged home however the antibiotics were changed from Keflex to cefdinir. They never picked up the new antibiotic. They continued the Keflex which they have completed the course of. They return to the emergency department today for evaluation of approximately 5 days of a fever. The patient does not have any specific symptoms. Denies headache, sinus congestion. He does endorse a slight sore throat. He denies a cough. Denies problems breathing. Denies abdominal pain. No skin rashes. No change in bowel habits. Denies any urinary symptoms. He did receive Tylenol prior to arrival. Related Data Home Medications Medication Instructions Recorded Confirmed aspirin 81 mg tablet,delayed 81 mg PO DAILY 02/11/19 03/11/24 release alfuzosin 10 mg tablet,extended 10 mg PO DAILY 01/19/23 03/11/24 release 24 hr metoprolol succinate 25 mg 25 mg PO DAILY 09/16/23 03/11/24 tablet,extended release 24 hr ascorbic acid (vitamin C) 1,000 mg 1 g PO DAILY 10/07/23 03/11/24 tablet cholecalciferol (vitamin D3) 125 125 mcg PO DAILY 10/07/23 03/11/24 mcg (5,000 unit) capsule igtjhytouss-P-Mwiqssrxhjdlutmvbi 2 tab PO DAILY 10/07/23 03/11/24 500 mg-200 mg tablet magnesium oxide 400 mg PO DAILY 10/07/23 03/11/24 nbwiuhdv-tf-ykwjj 300 mcg-K 60 1 tab PO DAILY 10/07/23 03/11/24 mcg-lycop 600 mcg-lutein 300 mcg tablet (Centrum Silver Men) turmeric root extract 500 mg 500 mg PO DAILY 10/07/23 03/11/24 capsule furosemide 40 mg tablet (Lasix) 40 mg PO DAILY 03/11/24 03/11/24 Previous Rx's Medication Instructions Recorded apixaban 5 mg tablet 5 mg PO BID #30 tabs 01/02/20 allopurinol 100 mg tablet 100 mg PO DAILY #20 tabs 05/11/23 atorvastatin 40 mg tablet 40 mg PO DAILY #20 tabs 05/11/23 metformin 500 mg tablet 500 mg PO BIDWMEAL #180 tabs 07/19/23 finasteride 5 mg tablet 5 mg PO DAILY #90 tabs 11/29/23 albuterol sulfate 90 mcg/actuation 2 puff inhalation Q6H PRN 02/24/24 aerosol inhaler shortness of breath or wheezing #6.7 grams losartan 25 mg tablet 25 mg PO QDAY #20 tabs 02/25/24 Allergies Allergy/AdvReac Type Severity Reaction Status Date / Time latex Allergy Mild SWOLLEN Verified 03/11/24 21:25 FINGERS Sulfa (Sulfonamide Allergy Mild SWOLLEN Verified 03/11/24 21:25 Antibiotics) FINGERS lisinopril AdvReac Intermediate SWELLING Verified 03/11/24 21:25 hydrochlorothiazide AdvReac Mild SWELLING Verified 03/11/24 21:25 Review of Systems Review of Systems ROS Unobtainable: All systems reviewed & are unremarkable except as noted in HPI and below Patient History Medical History History of heart failure Syncope COVID-19 Onychomycosis Osteoarthritis Cataracts, bilateral (~2016) Colon polyps (01/2004) Chickenpox Mumps Measles Upper GI bleed Ascending aortic aneurysm Aortic stenosis Hx of varicose veins Sleep apnea Gout Coronary artery disease Hyperlipidemia Hypertension Surgical History (Updated 03/06/24 @ 00:01 by ) Hx of knee surgery (2003) Hx of colonoscopy with polypectomy (01/2004) Hx of cataract surgery (09/2015) Hx of total knee arthroplasty (01/2013) Hx of aortic valve replacement (12/2009) Hx of varicose vein stripping (1974) Hx of coronary artery bypass graft History of aortic valve replacement (07/19/15) Family History Brother No problems noted. Father Diabetes mellitus Heart disease Mother No problems noted. Social History Smoking Status: Former smoker alcohol intake: never substance use type: does not use Smoking Status: Former smoker tobacco type: cigarettes alcohol intake frequency: holidays/special occasions only Substance Use Type: does not use Exam Initial Vital Signs Initial Vital Signs: Vital Signs Pulse Rate 115 H 03/11/24 19:08 Blood Pressure 157/84 H 03/11/24 19:08 Pulse Oximetry 96 03/11/24 19:08 Const General: cooperative, comfortable and No ill appearing HENMT Head: normal to inspection and normocephalic Resp Effort & Inspection: no cough, not labored, no respiratory distress and tachypneic Auscultation: wheezes Cardio Rate: tachycardic Rhythm: regular rhythm GI Inspection: normal to inspection and non-distended Palpation: soft and No tender Skin General: no rashes or lesions noted Neuro General: patient alert, patient awake and moves all extremities Extrem General: capillary refill normal Course Orders Ordered: ED Orders 03/11/24 19:05 Complete Blood Count AUTO DIFF Stat Comprehensive Metabolic Panel Stat Lactate (Lactic Acid) Stat Lipase Stat Procalcitonin Stat 03/11/24 19:13 XR chest 1V Stat 03/11/24 19:14 EKG-12 Lead Stat 03/11/24 19:20 Respiratory Panel (Film Array) Stat 03/11/24 19:25 Blood Culture Stat Acetaminophen (Acetaminophen 325 Mg Tablet) 650 mg PO Q6H PRN PRN Reason: Fever/Mild Pain (1-3) Allopurinol (Allopurinol 100 Mg Tablet) 100 mg PO DAILY DOR[facility] Aspirin (Aspirin Ec 81 Mg Tablet) 81 mg PO DAILY DOR[facility] Atorvastatin Calcium (Atorvastatin 20 Mg Tablet) 40 mg PO DAILY [facility]ORITA Finasteride (Finasteride 5 Mg Tablet) 5 mg PO DAILY [facility]OR[facility] Sodium Chloride (Normal Saline 0.9%) 1,000 mls @ 100 mls/hr IV CONT DORITA Last Admin: 03/11/24 21:45 Dose: 100 mls/hr Documented By: MLM Ceftriaxone Sodium 2,000 mg/ (Sodium Chloride) 100 mls @ 200 mls/hr IV Q24H [facility] Dextrose (D10w) 100 mls @ 1,200 mls/hr IV PRN PRN PRN Reason: Hypoglycemia Vancomycin HCl (Vancomycin) 1,000 mg in 200 mls @ 200 mls/hr IV Q24H [facility] Last Admin: 03/12/24 00:07 Dose: Not Given Documented By: BLAYNE Insulin Human Lispro (Insulin Lispro 100 Unit/Ml 3ml Vial) 0 unit SUBCUT ACHS DORITA; Protocol Magnesium Oxide (Magnesium Oxide 400 Mg Tablet) 400 mg PO DAILY [facility] Metformin HCl (Metformin Hcl 500 Mg Tablet) 500 mg PO BIDWM [facility] Metoprolol Succinate (Metoprolol Er 25 Mg Tablet) 25 mg PO DAILY [facility] Naloxone HCl (Naloxone 0.4 Mg/Ml Vial) 0.2 mg IV Q2MIN PRN PRN Reason: Opiate Reversal Non-Formulary Medication (Alfuzosin) 10 mg PO DAILY [facility] Ondansetron HCl (Ondansetron 4 Mg Odt) 4 mg PO Q8HR PRN PRN Reason: Nausea And Vomiting Vancomycin HCl (Vancomycin Per Pharmacy) 1 request MISC NOW PRN PRN Reason: suspected endocarditis Discontinued Medications Albuterol (Albuterol 2.5 Mg/3 Ml Neb (Adult)) 2.5 mg INH NOW ONE Stop: 03/11/24 20:27 Last Admin: 03/11/24 20:40 Dose: 2.5 mg Documented By: YAYA Vancomycin HCl (Vancomycin) 1,000 mg in 200 mls @ 200 mls/hr IV NOW ONE Stop: 03/11/24 21:49 Last Infusion: 03/11/24 22:52 Dose: Infused Documented By: Admin: 03/11/24 21:28 Dose: 200 mls/hr Documented By: BLAYNE Ceftriaxone Sodium 2,000 mg/ (Sodium Chloride) 100 mls @ 200 mls/hr IV NOW ONE Stop: 03/11/24 20:52 Last Infusion: 03/11/24 21:27 Dose: Infused Documented By: Admin: 03/11/24 21:09 Dose: 200 mls/hr Documented By: BLAYNE Acetaminophen (Ofirmev) 1,000 mg in 100 mls @ 400 mls/hr IV NOW ONE Stop: 03/11/24 21:48 Last Infusion: 03/11/24 21:50 Dose: Infused Documented By: Admin: 03/11/24 21:45 Dose: 400 mls/hr Documented By: BLAYNE Vital Signs Vital signs: Vital Signs - 8 hr 03/11/24 19:08 03/11/24 19:08 03/11/24 19:18 Temperature 103.1 F H Pulse Rate 115 H 114 H Respiratory Rate 20 Blood Pressure 157/84 H 157/84 H Pulse Oximetry 96 97 Oxygen Delivery Method Room Air 03/11/24 19:30 03/11/24 19:30 03/11/24 20:00 Temperature Pulse Rate 111 H Respiratory Rate 32 H Blood Pressure 164/77 H 152/71 H Pulse Oximetry 94 Oxygen Delivery Method Room Air 03/11/24 20:00 03/11/24 20:30 03/11/24 20:30 Temperature Pulse Rate 112 H 107 H Respiratory Rate 33 H 18 Blood Pressure 124/77 Pulse Oximetry 94 92 Oxygen Delivery Method 03/11/24 21:00 03/11/24 21:00 03/11/24 21:30 Temperature Pulse Rate 115 H Respiratory Rate 28 H Blood Pressure 134/59 L 122/56 L Pulse Oximetry 95 Oxygen Delivery Method 03/11/24 21:30 Temperature 103.4 F H Pulse Rate 118 H Respiratory Rate 28 H Blood Pressure Pulse Oximetry 94 Oxygen Delivery Method Medical Decision Making Medical Records Medical records reviewed: Yes I reviewed the patient's medical records. Lab Data Lab results reviewed: Yes I reviewed the patient's lab results. 03/11/24 19:05 03/11/24 19:05 Labs: Lab Results 03/11/24 03/11/24 03/11/24 Range/Units 19:05 19:20 21:08 WBC 10.2 (4.5-11.0) X10^3/uL RBC 4.20 L (4.5-5.9) X10^6/uL Hgb 13.1 L (13.5-17.5) g/dL Hct 38.9 L (41-53) % MCV 92.7 (80-100) fL MCH 31.3 (26-34) PG MCHC 33.7 (30-36) % RDW 14.8 (11.6-14.8) % Plt Count 210 (150-400) X10^3/uL Neut % (Auto) 91.1 H (50-75) % Lymph % (Auto) 3.0 L (25-40) % [place] % (Auto) 4.8 (3-14) % Eos % (Auto) 0.5 L (2-4) % Baso % (Auto) 0.6 (0-2) % Neut # (Auto) 9300 H (3502-1256) /uL Lymph # (Auto) 300 L (2823-1397) /uL [place] # (Auto) 500 (0-900) /uL Eos # (Auto) 0 (0-450) /uL Baso # (Auto) 100 (0-100) /uL Sodium 128 L (137-145) mmol/L Potassium 4.5 (3.4-5.1) mmol/L Chloride 94 L (98-107) mmol/L Carbon Dioxide 25 (22-32) mmol/L BUN 12 (9-20) mg/dL Creatinine 0.96 (0.66-1.25) mg/dL Estimated GFR > 60 (>60) mL/min BUN/Creatinine Ratio 12.5 (6-22) Glucose 191 H (80-110) mg/dL Lactate 2.2 H 1.4 (0.7-2.1) mmol/L Calcium 9.0 (8.4-10.2) mg/dL Total Bilirubin 1.2 (0.2-1.3) mg/dL AST 42 (17-59) IU/L ALT 29 (<50) IU/L Alkaline Phosphatase 182 H (38-126) U/L Total Protein 7.2 (6.3-8.2) g/dL Albumin 3.8 (3.5-5.0) g/dL Globulin 3.4 (1.7-4.1) g/dL Albumin/Globulin Ratio 1.1 (1.0-2.8) Lipase 526 H (23-300) U/L Procalcitonin 0.195 (<0.5) ng/mL Chlamy pneumoniae PCR Not detected (Not Detect) Adenovirus (PCR) Not detected (Not Detect) B.parapertussis DNA PCR Not detected (Not Detecte) Coronavirus OC43 (PCR) Not detected (Not Detect) Coronavirus HKU1 (PCR) Not detected (Not Detect) Coronavirus 229E (PCR) Not detected (Not Detect) SARS-CoV-2 (PCR) Not detected (Not Detecte) Coronavirus NL63 (PCR) Not detected (Not Detect) Human Metapneumovir PCR Not detected (Not Detect) Influenza Type A (PCR) Not detected (Not Detect) Influenza Type B (PCR) Not detected (Not Detect) M. pneumoniae (PCR) Not detected (Not Detect) Parainfluenza 1 (PCR) Not detected (Not Detect) Parainfluenza 2 (PCR) Not detected (Not Detect) Parainfluenza 3 (PCR) Not detected (Not Detect) Parainfluenza 4 (PCR) Not detected (Not Detect) RSV (PCR) Not detected (Not Detect) Entero/Rhino (PCR) Not detected (Not Detect) Point of Care Testing Glucose POC 156 Urine Dip Bedside Urine Glucose Negative Bedside Urine Bilirubin - Negative Bedside Urine Ketone - Negative Urine Specific [place] 1.015 Bedside Urine Occult Blood +/- Bedside Urine pH 6 Bedside Urine Protein - Negative Bedside Urine Urobilinogen - Negative Bedside Urine Nitrite - Negative Bedside Urine Leukocytes - Negative Esterase Point of care testing: Point of Care Testing Glucose POC 156 Urine Dip Bedside Urine Glucose Negative Bedside Urine Bilirubin - Negative Bedside Urine Ketone - Negative Urine Specific [place] 1.015 Bedside Urine Occult Blood +/- Bedside Urine pH 6 Bedside Urine Protein - Negative Bedside Urine Urobilinogen - Negative Bedside Urine Nitrite - Negative Bedside Urine Leukocytes - Negative Esterase Imaging Data Chest x-ray: Radiologist's Impression: PROCEDURE: XR CHEST 1V INDICATIONS: Eval for pneumonia TECHNIQUE: One view of the chest was acquired. COMPARISON: [facility], , XR CHEST 2V, 01/20/2024, 16:52. FINDINGS: Surgical changes and devices: Cardiac monitoring device. Median sternotomy. Postsurgical changes of CABG. Valve replacement. Lungs and pleura: Lungs are clear. No pleural effusions or pneumothorax. Mediastinum: Mediastinal contours appear normal. Heart size is enlarged, stable. Aortic arch is calcified, indicating atherosclerosis. Bones and chest wall: No suspicious bony lesions. Overlying soft tissues appear unremarkable. Eventration of the right hemidiaphragm. IMPRESSION: No acute cardiopulmonary process. ECG Data Attestation: I personally reviewed and interpreted this ECG as follows: Interpretation: Undetermined rhythm Rate of 115 Appears to be AFib Right bundle-branch block MDM Narrative Medical decision making narrative: Patient is here for evaluation of 5 days of fevers. I do not have a specific source of infection. When he was seen here on 02/20/2024 he was diagnosed with a urinary tract infection and was sent home on Keflex. The blood cultures from that visit were eventually positive. He was called and told to return on 02/22/2024. At that point his workup was essentially unremarkable and there was no specific source of infection found. 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 He did complete the course of the Keflex. The urine culture from the 02/20/2024 visit was essentially negative. The blood cultures drawn on 02/22/2024 are negative as well. He returns today for continued fevers. Does not have a leukocytosis but does have a slightly elevated lactate. He was tachycardic. Febrile here in the ER. His respiratory panel was negative. His chest x-ray is not consistent with pneumonia. He was no abdominal tenderness. His urinalysis today is not consistent with a UTI. He was no skin changes. I have low suspicion for meningitis. He does have a history of a bovine heart valve replacement. Given his persistent fevers and his positive blood cultures from the 02/20/2024 visit I do have some concern about an endocarditis. I did discuss the case with Dr. Parikh hospitalist on-call who will admit for further evaluation treatment. Discussed the need for admission with the patient. He expressed understanding and agreement as well Discharge Plan Departure Patient Disposition: Admitted As Inpatient Clinical Impression: Fever of unknown origin, Asthma Admit Date/Time: 03/11/24 21:55 Admit Provider: Cam Virgen
[2024-03-11] MEDS: ALBUTEROL 2.5 MG/3 ML NEB (ADULT) INH (20:40)
[2024-03-11 20:57] LABS: Reflexed Lactate in 2 Hours Y
[2024-03-11] MEDS: cefTRIAXone 2,000 MG in SODIUM CHLORIDE 0.9% 100 ML 200 MG IV (21:09)
[2024-03-11] MEDS: VANCOMYCIN 1,000 MG/200 ML PIGGYBACK 200 MG IV (21:28)
[2024-03-11 21:29] LABS: Lactate 2HR (Lactic Acid Rflx) 1.4 mmol/L (0.7-2.1)
[2024-03-11] MEDS: SODIUM CHLORIDE 0.9% 1,000 ML 100 ML IV (21:45)
[2024-03-11] MEDS: ACETAMINOPHEN IV 1,000 MG/100 ML VIAL 400 MG IV (21:45)
--- NOTE | 2024-03-11 22:35 | DI.ECHO.S_ITS ---
[facility] : : [address] : : [place] : : [id number] : : Phone: [phone] Echocardiogram Report + + :Name: SANTIAGO GAMEZ VStudy Date: 03/13/2024 Height: 65 in : :[facility] : Weight: 200 lb : : Gender: Male BSA: 2.0 m2 : :: 1940 Age: 83 yrs BP: 132/87 mmHg: :Reason For Study: SUSPECTED ENDOCARDITIS : :Ordering Physician: : :FATOUMATA NICHOLSONPerformed By: Prasanna Eller : :MD : :Referring: UNSPECIFIED : + + Interpretation Summary 1. This is a technically difficult study secondary to poor acoustic windows. 2. The left ventricular contractility appears to be mildly compromised. Estimate ejection fraction is approximate 45 to 50%. There appears to be findings suggestive of mild hypokinesis of the lateral segment. Mild asymmetrical septal hypertrophy present. Unable to comment on diastolic function. 3. The right ventricle was not well-visualized. However in limited views, the contractility appears to be preserved. 4. Significant biatrial enlargement noted. The right ventricular cavity also appears to be dilated. The left ventricle is of normal size. 5. There is a bioprosthetic valve noted in the aortic position. However, the leaflets were not well-visualized. No significant insufficiency was present. Mean gradient is 17 mmHg. 6. There is moderate to severe mitral regurgitation noted. No obvious valvular vegetations noted. 7. There is moderate to severe tricuspid regurgitation with severely elevated pulmonary systolic artery pressures of 69 mmHg. No obvious vegetations appreciated. 8. The pulmonic valve was not well-visualized but no obvious vegetations noted. Mild pulmonic insufficiency present. 9. No obvious intracardiac shunts. 10. No obvious intracardiac masses nor thrombi. 11. No hemodynamically significant pericardial effusion. 12. Elevated right-sided filling pressures. 13. Dilated thoracic aorta without obvious dissection. Conclusion: Mildly compromised left ventricular systolic function with normal functioning bioprosthetic aortic valve. Moderate to severe mitral and tricuspid regurgitation with severely elevated pulmonary systolic artery pressures. No obvious valvular vegetations noted. When compared to previous echocardiogram, the degree of tricuspid and mitral regurgitation seems to have progressed. Procedure: A two-dimensional transthoracic echocardiogram with color flow and Doppler was performed. The study quality was technically adequate. Comparison is made with the echocardiogram of 10/14/2023. The heart rate ranged between 59-80 bpm during the study. Left Ventricle: The left ventricle is normal in size. Left ventricular wall thickness is mildly increased. The ejection fraction is estimated to be 45- 50%. Right Ventricle: The right ventricle is mildly dilated. The right ventricular systolic function is normal. Atria: The left atrium is severely dilated. The right atrium is mild to moderately dilated. The interatrial septum grossly appears intact with no obvious evidence for an atrial septal defect. Mitral Valve: The mitral valve is normal. There is no mitral valve stenosis. There is moderate mitral regurgitation. Aortic Valve: BIOPROSTHETIC AVR. The peak aortic velocity is 2.69 m/sec. The aortic valve mean gradient is 17.3 mmHg. No aortic regurgitation is present. Tricuspid Valve: The tricuspid valve is not well visualized, but is grossly normal. There is no tricuspid stenosis. There is moderate to severe tricuspid regurgitation. The right ventricular systolic pressure is estimated to be at least 69 mmHg based on an estimated right atrial pressure of 15 mm Hg. Pulmonic Valve: The pulmonic valve is not well seen, but is grossly normal. There is no pulmonic valvular stenosis. There is mild pulmonic regurgitation. Great Vessels: The aortic root is normal size. The ascending aorta is mild- moderately enlarged. The IVC is dilated (diameter is greater than 2.1 cm) and it collapses less than 50% with a sniff. This suggests a high right atrial pressure of 15 mm Hg. Pericardium/ Pleura There is no pericardial effusion. There is no pleural effusion. MMode/2D Measurements & Calculations LVIDd: 5.8 cm LVOT diam: 1.9 cm LVIDs: 4.3 cm Ao root diam: 3.5 cm FS: 26.3 % asc Aorta Diam: 4.9 cm IVSd: 1.3 cm LVPWd: 0.88 cm LV santillan. diameter/BSA (cm/m^2): 3.0 LV sys. diameter/BSA (cm/m^2): 2.2 LA A2 area: 26.3 cm2 RA long axis: 5.1 cm LA A4 area: 26.6 cm2 RA area: 18.8 cm2 LA length (vol): 5.8 cm RA vol: 58.2 ml LA vol: 102.0 ml RA : 29.4 ml/m2 LA vol index: 51.6 ml/m2 IVC diam: 2.1 cm RVD1 (basal): 4.3 cm RVD2 (mid): 3.7 cm TAPSE: 1.0 cm Doppler Measurements & Calculations Ao V2 max: 269.6 cm/sec LVOT Max [place]: 97.8 cm/sec Ao V2 mean: 195.1 cm/sec LV V1 max P.0 mmHg Ao max P.1 mmHg LV V1 VTI: 20.2 cm Ao mean P.3 mmHg MELANIE(I,D): 0.99 cm2 Ao V2 VTI: 56.6 cm MELANIE(V,D): 1.0 cm2 sev ratio: 0.36 MELANIE indexed to BSA (cm^2/m^2): 0.50 MV E max [place]: 133.4 cm/sec TR max [place]: 369.0 cm/sec MV A max [place]: 24.9 cm/sec TR max P.5 mmHg MV E/A: 5.4 PA V2 max: 108.9 cm/sec Med Peak E' [place]: 5.0 cm/sec PA V2 mean: 65.3 cm/sec E/E' med: 26.9 PA mean P.1 mmHg Lat Peak E' [place]: 7.6 cm/sec PA pr(Accel): 53.3 mmHg E/E' lat: 17.5 E/e' average: 22.2 MV dec time: 0.17 sec SV(LVOT): 55.9 ml Reading Physician:
[2024-03-12] VITALS (40 sets, daily range): BP systolic 75–133; BP diastolic 38–88; PULSE 59–89; RESP 15–41; TEMP 36–37.1; O2SAT 91–100; BMI 33.3
[2024-03-12 04:05] LABS: BUN Creatinine Ratio 16.9 (6-22); Blood Urea Nitrogen 14 mg/dL (9-20); Calcium 8.1 mg/dL (8.4-10.2); Carbon Dioxide 22 mmol/L (22-32); Chloride 100 mmol/L (98-107); Estimated Glomerular Filt Rate > 60 mL/min (>60); Glucose 157 mg/dL (80-110); Sodium 129 mmol/L (137-145)
[2024-03-12 04:11] LABS: HEMOLYSIS 64 (0-50); Hematocrit 34.9 % (41-53); Hemoglobin 11.5 g/dL (13.5-17.5); Mean Corpuscular HGB Conc 32.9 % (30-36); Mean Corpuscular Hemoglobin 30.9 PG (26-34); Mean Corpuscular Volume 93.7 fL (80-100); Platelet Count 135 X10^3/uL (150-400); Red Blood Cell Count 3.72 X10^6/uL (4.5-5.9); Red Cell Distribution Width 14.5 % (11.6-14.8); White Blood Cell Count 23.1 X10^3/uL (4.5-11.0)
[2024-03-12 04:12] LABS: Potassium 4.1 mmol/L (3.4-5.1)
[2024-03-12 04:17] LABS: Add Manual Diff / Slide Review YES
[2024-03-12 05:03] LABS: Neutrophils Absolute Manual 20328 /uL (3000-5900); RBC Morphology Normal Morphology; Total Cells Counted 100
--- NOTE | 2024-03-12 08:15 | PM.HP.1 ---
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 Last 2 weeks he was seen repeatedly in the ED and PCPs' office for UTI and had a course of Keflex. He came to ED today as he continues to be febrile, since 5 days ago. ED workup non-revealing, w/o obvious sources of infection. [facility] Medical History History of heart failure Syncope COVID-19 Onychomycosis Osteoarthritis Cataracts, bilateral (~2015) Colon polyps (01/2004) Chickenpox Mumps Measles Upper GI bleed Ascending aortic aneurysm Aortic stenosis Hx of varicose veins Sleep apnea Gout Coronary artery disease Hyperlipidemia Hypertension Surgical History Hx of knee surgery (2003) Hx of colonoscopy with polypectomy (01/2004) Hx of cataract surgery (09/2015) Hx of total knee arthroplasty (01/2013) Hx of aortic valve replacement (12/2009) Hx of varicose vein stripping (1974) Hx of coronary artery bypass graft History of aortic valve replacement (07/19/15) Family History Brother No problems noted. Father Diabetes mellitus Heart disease Mother No problems noted. Social History household members: spouse Smoking Status: Former smoker alcohol intake: never substance use type: does not use Meds Home Medications and Allergies Home Medications Medication Instructions Recorded Confirmed Type aspirin 81 mg tablet,delayed 81 mg PO DAILY 02/11/19 03/11/24 History release apixaban 5 mg tablet 5 mg PO BID #30 tabs 01/02/20 03/11/24 Rx alfuzosin 10 mg tablet,extended 10 mg PO DAILY 01/19/23 03/11/24 History release 24 hr allopurinol 100 mg tablet 100 mg PO DAILY #20 tabs 05/11/23 03/11/24 Rx atorvastatin 40 mg tablet 40 mg PO DAILY #20 tabs 05/11/23 03/11/24 Rx metformin 500 mg tablet 500 mg PO BIDWMEAL #180 tabs 07/19/23 03/11/24 Rx metoprolol succinate 25 mg 25 mg PO DAILY 09/16/23 03/11/24 History tablet,extended release 24 hr ascorbic acid (vitamin C) 1,000 mg 1 g PO DAILY 10/07/23 03/11/24 History tablet cholecalciferol (vitamin D3) 125 125 mcg PO DAILY 10/07/23 03/11/24 History mcg (5,000 unit) capsule zdotprhqzgf-M-Kvzkdhlyoraopjyjuo 2 tab PO DAILY 10/07/23 03/11/24 History 500 mg-200 mg tablet magnesium oxide 400 mg PO DAILY 10/07/23 03/11/24 History fsoupkmx-hn-usogl 300 mcg-K 60 1 tab PO DAILY 10/07/23 03/11/24 History mcg-lycop 600 mcg-lutein 300 mcg tablet (Centrum Silver Men) turmeric root extract 500 mg 500 mg PO DAILY 10/07/23 03/11/24 History capsule finasteride 5 mg tablet 5 mg PO DAILY #90 tabs 11/29/23 03/11/24 Rx albuterol sulfate 90 mcg/actuation 2 puff inhalation Q6H PRN 02/24/24 03/11/24 Rx aerosol inhaler shortness of breath or wheezing #6.7 grams losartan 25 mg tablet 25 mg PO QDAY #20 tabs 02/25/24 03/11/24 Rx furosemide 40 mg tablet (Lasix) 40 mg PO DAILY 03/11/24 03/11/24 History Allergies Allergy/AdvReac Type Severity Reaction Status Date / Time latex Allergy Mild SWOLLEN Verified 03/11/24 21:25 FINGERS Sulfa (Sulfonamide Allergy Mild SWOLLEN Verified 03/11/24 21:25 Antibiotics) FINGERS lisinopril AdvReac Intermediate SWELLING Verified 03/11/24 21:25 hydrochlorothiazide AdvReac Mild SWELLING Verified 03/11/24 21:25 Review of Systems Constitutional Comments: fever Exam Vital Signs (past 8 hours): - 03/12/24 00:30 03/12/24 00:30 03/12/24 00:51 Temperature 98.8 F Pulse Rate 83 Respiratory Rate 25 H Blood Pressure 96/55 L Pulse Oximetry 97 03/12/24 01:00 03/12/24 01:00 03/12/24 01:30 Temperature Pulse Rate 86 Respiratory Rate 22 Blood Pressure 99/50 L 99/51 L Pulse Oximetry 96 03/12/24 01:30 03/12/24 02:00 03/12/24 02:00 Temperature Pulse Rate 79 77 Respiratory Rate 23 22 Blood Pressure 113/56 L Pulse Oximetry 97 99 03/12/24 02:30 03/12/24 02:30 03/12/24 03:00 Temperature Pulse Rate 78 73 Respiratory Rate 23 22 Blood Pressure 106/52 L Pulse Oximetry 97 97 03/12/24 03:01 03/12/24 03:01 03/12/24 03:30 Temperature Pulse Rate 68 Respiratory Rate 20 Blood Pressure 97/44 L 93/52 L Pulse Oximetry 98 03/12/24 03:30 03/12/24 04:00 03/12/24 04:00 Temperature Pulse Rate 70 65 Respiratory Rate 24 25 H Blood Pressure 99/54 L Pulse Oximetry 99 97 03/12/24 04:30 03/12/24 04:30 03/12/24 05:00 Temperature Pulse Rate 62 68 Respiratory Rate 31 H 27 H Blood Pressure 117/56 L Pulse Oximetry 98 98 03/12/24 05:01 03/12/24 05:01 03/12/24 05:03 Temperature Pulse Rate 65 Respiratory Rate 32 H Blood Pressure 76/38 L 75/39 L Pulse Oximetry 97 03/12/24 05:03 03/12/24 05:10 03/12/24 05:10 Temperature Pulse Rate 63 77 Respiratory Rate 37 H 35 H Blood Pressure 127/59 L Pulse Oximetry 98 98 03/12/24 05:30 03/12/24 06:00 03/12/24 06:00 Temperature Pulse Rate 61 62 Respiratory Rate 23 41 H Blood Pressure 132/88 Pulse Oximetry 97 96 03/12/24 06:30 03/12/24 07:00 03/12/24 07:30 Temperature Pulse Rate 72 60 62 Respiratory Rate 31 H 22 20 Blood Pressure Pulse Oximetry 95 98 100 Oxygen Delivery Method Room Air Const Other: in no distress HENMT Other: normocephalic Neck Other: supple Resp Other: normal respiratory effort Cardio Other: RRR, PPM Neuro Other: w/o deficits Psych Other: lucid Objective Labs 03/12/24 03:40 03/12/24 03:40 Labs: Laboratory Results - last 24 hr 03/11/24 03/11/24 03/11/24 19:05 19:20 21:08 WBC 10.2 RBC 4.20 L Hgb 13.1 L Hct 38.9 L MCV 92.7 MCH 31.3 MCHC 33.7 RDW 14.8 Plt Count 210 Neut % (Auto) 91.1 H Lymph % (Auto) 3.0 L [place] % (Auto) 4.8 Eos % (Auto) 0.5 L Baso % (Auto) 0.6 Neut # (Auto) 9300 H Lymph # (Auto) 300 L [place] # (Auto) 500 Eos # (Auto) 0 Baso # (Auto) 100 Total Counted Seg Neutrophils % Band Neutrophils % Lymphocytes % (Manual) Monocytes % (Manual) Eosinophils % (Manual) Neutrophils # (Manual) RBC Morphology Sodium 128 L Potassium 4.5 Chloride 94 L Carbon Dioxide 25 BUN 12 Creatinine 0.96 Estimated GFR > 60 BUN/Creatinine Ratio 12.5 Glucose 191 H Lactate 2.2 H 1.4 Calcium 9.0 Total Bilirubin 1.2 AST 42 ALT 29 Alkaline Phosphatase 182 H Total Protein 7.2 Albumin 3.8 Globulin 3.4 Albumin/Globulin Ratio 1.1 Lipase 526 H Procalcitonin 0.195 Chlamy pneumoniae PCR Not detected Adenovirus (PCR) Not detected B.parapertussis DNA PCR Not detected Coronavirus OC43 (PCR) Not detected Coronavirus HKU1 (PCR) Not detected Coronavirus 229E (PCR) Not detected SARS-CoV-2 (PCR) Not detected Coronavirus NL63 (PCR) Not detected Human Metapneumovir PCR Not detected Influenza Type A (PCR) Not detected Influenza Type B (PCR) Not detected M. pneumoniae (PCR) Not detected Parainfluenza 1 (PCR) Not detected Parainfluenza 2 (PCR) Not detected Parainfluenza 3 (PCR) Not detected Parainfluenza 4 (PCR) Not detected RSV (PCR) Not detected Entero/Rhino (PCR) Not detected 03/12/24 03:40 WBC 23.1 H D RBC 3.72 L Hgb 11.5 L Hct 34.9 L MCV 93.7 MCH 30.9 MCHC 32.9 RDW 14.5 Plt Count 135 L Neut % (Auto) Not Reportable Lymph % (Auto) Not Reportable [place] % (Auto) Not Reportable Eos % (Auto) Not Reportable Baso % (Auto) Not Reportable Neut # (Auto) Lymph # (Auto) Not Reportable [place] # (Auto) Not Reportable Eos # (Auto) Baso # (Auto) Not Reportable Total Counted 100 Seg Neutrophils % 83.0 H Band Neutrophils % 5.0 Lymphocytes % (Manual) 3.0 L Monocytes % (Manual) 8.0 Eosinophils % (Manual) 1.0 L Neutrophils # (Manual) 60710 H RBC Morphology Normal morphology Sodium 129 L Potassium 4.1 Chloride 100 Carbon Dioxide 22 BUN 14 Creatinine 0.83 Estimated GFR > 60 BUN/Creatinine Ratio 16.9 Glucose 157 H Lactate Calcium 8.1 L Total Bilirubin AST ALT Alkaline Phosphatase Total Protein Albumin Globulin Albumin/Globulin Ratio Lipase Procalcitonin Chlamy pneumoniae PCR Adenovirus (PCR) B.parapertussis DNA PCR Coronavirus OC43 (PCR) Coronavirus HKU1 (PCR) Coronavirus 229E (PCR) SARS-CoV-2 (PCR) Coronavirus NL63 (PCR) Human Metapneumovir PCR Influenza Type A (PCR) Influenza Type B (PCR) M. pneumoniae (PCR) Parainfluenza 1 (PCR) Parainfluenza 2 (PCR) Parainfluenza 3 (PCR) Parainfluenza 4 (PCR) RSV (PCR) Entero/Rhino (PCR) Assessment & Plan Assessment and plan (1) Fever of unknown origin: Status: Acute (2) Mediastinal mass: Status: Acute (3) Short-term memory loss: Status: Acute (4) Type 2 diabetes mellitus: Qualifiers: Diabetes mellitus long-term insulin use: without long-term use Diabetes mellitus complication status: without complication Qualified Code(s): E11.9 - Type 2 diabetes mellitus without complications Status: Chronic (5) Coronary artery disease involving coronary bypass graft of [place] heart without angina pectoris: Status: Chronic (6) Essential hypertension: Status: Chronic (7) Obstructive sleep apnea syndrome: Status: Chronic (8) Pure hypercholesterolemia: Status: Chronic (9) Asthma: Qualifiers: Asthma severity: unspecified severity Asthma persistence: unspecified Asthma complication type: unspecified Qualified Code(s): J45.909 - Unspecified asthma, uncomplicated Status: Acute (10) Pacemaker: Status: Chronic Assessment & Plan narrative: Fever - empiric broad abx coverage, Vancomycin, Rocephin - cultures pending Differentials - endocarditis - echo pending - Hx of bovine AV and recent UTI, viral, inflammatory - mediastinal mass DM - metformin, SS PAF / CAD / HLD / HTN / CHF - Toprol XL, Eliquis, ASA, Lipitor - Losartan and Lasix on hold - IVFs Enlarged Prostate - afluzosin, finasteride Gout - allopurinol Time-Based Coding :: [TOTAL MINUTES] spent with patient and on the chart (including review of chart, obtaining history, exam, reviewing outside data, placing orders, documenting exam and treatment plan, and counseling patient) on [DATE].
[2024-03-12 10:36] LABS: Acinetobacter calcoa-baumannii Not Detected (Not Detect); Bacteroides fragilis Not Detected (Not Detect); Candida albicans Not Detected (Not Detect); Candida auris Not Detected (Not Detect); Candida glabrata Not Detected (Not Detect); Candida krusei Not Detected (Not Detect); Candida parapsilosis Not Detected (Not Detect); Candida tropicalis Not Detected (Not Detect); Cryptococcus neoformans/gatti Not Detected (Not Detect); Enterobacter cloacae complex Not Detected (Not Detect); Enterobacterales Not Detected (Not Detect); Enterococcus faecalis Not Detected (Not Detect); Enterococcus faecium Not Detected (Not Detect); Haemophilus influenzae Not Detected (Not Detect); Klebsiella aerogenes Not Detected (Not Detect); Listeria monocytogenes Not Detected (Not Detect); Neisseria meningitidis Not Detected (Not Detect); Proteus species Not Detected (Not Detect); Pseudomonas aeruginosa Not Detected (Not Detect); Salmonella species Not Detected (Not Detect); Serratia marcescens Not Detected (Not Detect); Staphylococcus epidermidis Not Detected (Not Detect); Staphylococcus lugdunensis Not Detected (Not Detect); Staphylococcus species Not Detected (Not Detect); Stenotrophomonas maltophilia Not Detected (Not Detect); Streptococcus agalactiae (Gr B Not Detected (Not Detect); Streptococcus pneumonia Not Detected (Not Detect); Streptococcus pyogenes (Gr A) Not Detected (Not Detect); Streptococcus species Detected (Not Detect)
[2024-03-12] MEDS: SODIUM CHLORIDE 0.9% 1,000 ML 100 ML IV ×2 (10:50→23:04)
[2024-03-12] MEDS: METFORMIN HCL 500 MG TABLET PO ×2 (10:51→17:10)
[2024-03-12] MEDS: ATORVASTATIN 20 MG TABLET 40 MG PO (10:51)
[2024-03-12] MEDS: FINASTERIDE 5 MG TABLET PO (10:51)
[2024-03-12] MEDS: METOPROLOL ER 25 MG TABLET PO (10:51)
[2024-03-12] MEDS: allopurinoL 100 MG TABLET PO (10:51)
[2024-03-12] MEDS: MAGNESIUM OXIDE 400 MG TABLET PO (10:58)
[2024-03-12] MEDS: APIXABAN 5 MG TABLET PO ×2 (11:15→20:15)
[2024-03-12] MEDS: ASPIRIN EC 81 MG TABLET PO (11:15)
[2024-03-12] MEDS: INSULIN LISPRO 100 UNIT/ML 3ML VIAL SUBCUT (12:23)
--- NOTE | 2024-03-12 15:12 | PM.PN.1 ---
Subjective Subjective Date Patient Seen: 03/12/24 Interval history: This is an 83-year-old male with fevers for 5 days. 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 His original blood culture from his previous ED visit grew strep salivarius that was treated with 10 days of Keflex. He did not fill the cefdinir prescription that was given to him on his 2nd ED visit. He returns now with 5 days of fever and his blood cultures are again growing Gram-positive cocci. He is now on ceftriaxone and vancomycin IV. He has no other obvious source of fever. His chest x-ray is negative. The white count is 23.1. The sodium is 129 which is at his baseline. His creatinine is 0.83. The lipase is 526. He had a CT of the chest, abdomen and pelvis on 02/19 when his lipase was similarly elevated which was negative for source of fever. If his echo does not show endocarditis that will likely need to be repeated. Exam Vital Signs (past 8 hours): - 03/12/24 07:30 03/12/24 08:00 03/12/24 08:00 Temperature Pulse Rate 62 60 Respiratory Rate 20 19 Blood Pressure 96/53 L Pulse Oximetry 100 98 03/12/24 08:30 03/12/24 09:00 03/12/24 09:30 Temperature Pulse Rate 60 61 61 Respiratory Rate 28 H 19 15 Blood Pressure Pulse Oximetry 98 97 03/12/24 10:00 03/12/24 10:05 03/12/24 10:30 Temperature 97.5 F L Pulse Rate 60 60 Respiratory Rate 16 18 Blood Pressure Pulse Oximetry 100 100 03/12/24 10:51 03/12/24 11:10 03/12/24 11:11 Temperature Pulse Rate 64 68 Respiratory Rate 23 Blood Pressure 96/60 108/63 Pulse Oximetry 94 03/12/24 11:11 03/12/24 11:16 03/12/24 11:16 Temperature Pulse Rate 75 73 Respiratory Rate 20 26 H Blood Pressure 122/68 Pulse Oximetry 97 98 03/12/24 11:23 03/12/24 11:24 03/12/24 11:30 Temperature 97.5 F L Pulse Rate 60 Respiratory Rate Blood Pressure 122/68 115/59 L Pulse Oximetry 03/12/24 11:30 03/12/24 11:45 03/12/24 11:45 Temperature Pulse Rate 60 59 L Respiratory Rate 18 17 Blood Pressure 101/52 L Pulse Oximetry 99 99 03/12/24 12:15 Temperature 96.8 F L Pulse Rate 82 Respiratory Rate 16 Blood Pressure 103/50 L Pulse Oximetry 98 Oxygen Delivery Method Room Air Narrative Exam Narrative: He is alert and oriented x3 but is quite simplistic about being in the hospital and wishing to go home despite the obviously serious illness he is dealing with. No apparent distress. Heart is regular rate and rhythm without murmur. Lungs are clear to auscultation bilaterally. Abdomen is soft, bowel sounds positive, nontender, no organomegaly. Extremities have no ankle edema. Skin has no rashes. Objective Labs 03/12/24 03:40 03/12/24 03:40 Labs: Laboratory Results - last 24 hr 03/11/24 03/11/24 03/11/24 19:05 19:18 19:20 WBC 10.2 RBC 4.20 L Hgb 13.1 L Hct 38.9 L MCV 92.7 MCH 31.3 MCHC 33.7 RDW 14.8 Plt Count 210 Neut % (Auto) 91.1 H Lymph % (Auto) 3.0 L [place] % (Auto) 4.8 Eos % (Auto) 0.5 L Baso % (Auto) 0.6 Neut # (Auto) 9300 H Lymph # (Auto) 300 L [place] # (Auto) 500 Eos # (Auto) 0 Baso # (Auto) 100 Total Counted Seg Neutrophils % Band Neutrophils % Lymphocytes % (Manual) Monocytes % (Manual) Eosinophils % (Manual) Neutrophils # (Manual) RBC Morphology Sodium 128 L Potassium 4.5 Chloride 94 L Carbon Dioxide 25 BUN 12 Creatinine 0.96 Estimated GFR > 60 BUN/Creatinine Ratio 12.5 Glucose 191 H Lactate 2.2 H Calcium 9.0 Total Bilirubin 1.2 AST 42 ALT 29 Alkaline Phosphatase 182 H Total Protein 7.2 Albumin 3.8 Globulin 3.4 Albumin/Globulin Ratio 1.1 Lipase 526 H Procalcitonin 0.195 A.calcoaceticus-baumannii cmplx PCR Not detected Cancelled Chlamy pneumoniae PCR Not detected Adenovirus (PCR) Not detected Bacteroides fragilis Not detected Cancelled B.parapertussis DNA PCR Not detected Crystal albicans (PCR) Not detected Cancelled Crystal auris (PCR) Not detected Cancelled C. glabrata (PCR) Not detected Cancelled C. krusei (PCR) Not detected Cancelled C. parapsilosis (PCR) Not detected Cancelled C. tropicalis (PCR) Not detected Cancelled Coronavirus OC43 (PCR) Not detected Coronavirus HKU1 (PCR) Not detected Coronavirus 229E (PCR) Not detected SARS-CoV-2 (PCR) Not detected Coronavirus NL63 (PCR) Not detected C. neoform/gattii (PCR) Not detected Cancelled Enterobacterales (PCR) Not detected Cancelled E. cloacae complex PCR Not detected Cancelled Enterococc faecalis PCR Not detected Cancelled Enterococc faecium PCR Not detected Cancelled E. coli (PCR) Not detected Cancelled H. influenzae (PCR) Not detected Cancelled Human Metapneumovir PCR Not detected Influenza Type A (PCR) Not detected Influenza Type B (PCR) Not detected Klebsiella aerogenes (PCR) Not detected Cancelled Klebsiella oxytoca PCR Not detected Cancelled Klebsiella pneumoniae Not detected Cancelled List. monocytogenes PCR Not detected Cancelled M. pneumoniae (PCR) Not detected N. meningitidis (PCR) Not detected Cancelled Parainfluenza 1 (PCR) Not detected Parainfluenza 2 (PCR) Not detected Parainfluenza 3 (PCR) Not detected Parainfluenza 4 (PCR) Not detected Proteus species (PCR) Not detected Cancelled RSV (PCR) Not detected Entero/Rhino (PCR) Not detected Salmonella spp. (PCR) Not detected Cancelled Serratia marcescens PCR Not detected Cancelled Staphylococcus sp PCR Not detected Cancelled Staph aureus (PCR) Not detected Cancelled mecA/C & MREJ Resist Gene Not applicable Cancelled mecA/C-Methicil Resis Gene Not applicable Cancelled mcr-1 Colistin Res Gene PCR Not applicable Cancelled Staph epidermidis (PCR) Not detected Cancelled Staph lugdunensis PCR Not detected Cancelled S. maltophilia (PCR) Not detected Cancelled Streptococcus sp PCR Detected Cancelled Group A Strep (PCR) Not detected Cancelled Strep agalactiae (PCR) Not detected Cancelled Strep pneumoniae (PCR) Not detected Cancelled P. aeruginosa (PCR) Not detected Cancelled Ruth/B-Vanco Res Genes Not applicable Cancelled blaIMP Car res Gene PCR Not applicable Cancelled KPC-Carbap Res Gene PCR Not applicable Cancelled blaNDM Car Res Gene PCR Not applicable Cancelled OXA-48 Carbapenem Resis Gene (PCR) Not applicable Cancelled blaVIM Car Res Gene PCR Not applicable Cancelled CTX-M Gene Resistance (PCR) Not applicable Cancelled 03/11/24 03/12/24 21:08 03:40 WBC 23.1 H D RBC 3.72 L Hgb 11.5 L Hct 34.9 L MCV 93.7 MCH 30.9 MCHC 32.9 RDW 14.5 Plt Count 135 L Neut % (Auto) Not Reportable Lymph % (Auto) Not Reportable [place] % (Auto) Not Reportable Eos % (Auto) Not Reportable Baso % (Auto) Not Reportable Neut # (Auto) Lymph # (Auto) Not Reportable [place] # (Auto) Not Reportable Eos # (Auto) Baso # (Auto) Not Reportable Total Counted 100 Seg Neutrophils % 83.0 H Band Neutrophils % 5.0 Lymphocytes % (Manual) 3.0 L Monocytes % (Manual) 8.0 Eosinophils % (Manual) 1.0 L Neutrophils # (Manual) 00990 H RBC Morphology Normal morphology Sodium 129 L Potassium 4.1 Chloride 100 Carbon Dioxide 22 BUN 14 Creatinine 0.83 Estimated GFR > 60 BUN/Creatinine Ratio 16.9 Glucose 157 H Lactate 1.4 Calcium 8.1 L Total Bilirubin AST ALT Alkaline Phosphatase Total Protein Albumin Globulin Albumin/Globulin Ratio Lipase Procalcitonin A.calcoaceticus-baumannii cmplx PCR Chlamy pneumoniae PCR Adenovirus (PCR) Bacteroides fragilis B.parapertussis DNA PCR Crystal albicans (PCR) Crystal auris (PCR) C. glabrata (PCR) C. krusei (PCR) C. parapsilosis (PCR) C. tropicalis (PCR) Coronavirus OC43 (PCR) Coronavirus HKU1 (PCR) Coronavirus 229E (PCR) SARS-CoV-2 (PCR) Coronavirus NL63 (PCR) C. neoform/gattii (PCR) Enterobacterales (PCR) E. cloacae complex PCR Enterococc faecalis PCR Enterococc faecium PCR E. coli (PCR) H. influenzae (PCR) Human Metapneumovir PCR Influenza Type A (PCR) Influenza Type B (PCR) Klebsiella aerogenes (PCR) Klebsiella oxytoca PCR Klebsiella pneumoniae List. monocytogenes PCR M. pneumoniae (PCR) N. meningitidis (PCR) Parainfluenza 1 (PCR) Parainfluenza 2 (PCR) Parainfluenza 3 (PCR) Parainfluenza 4 (PCR) Proteus species (PCR) RSV (PCR) Entero/Rhino (PCR) Salmonella spp. (PCR) Serratia marcescens PCR Staphylococcus sp PCR Staph aureus (PCR) mecA/C & MREJ Resist Gene mecA/C-Methicil Resis Gene mcr-1 [place] Res Gene PCR Staph epidermidis (PCR) Staph lugdunensis PCR S. maltophilia (PCR) Streptococcus sp PCR Group A Strep (PCR) Strep agalactiae (PCR) Strep pneumoniae (PCR) P. aeruginosa (PCR) Ruth/B-Vanco Res Genes blaIMP Car res Gene PCR KPC-Carbap Res Gene PCR blaNDM Car Res Gene PCR OXA-48 Carbapenem Resis Gene (PCR) blaVIM Car Res Gene PCR CTX-M Gene Resistance (PCR) PFSH Medical History History of heart failure Syncope COVID-19 Onychomycosis Osteoarthritis Cataracts, bilateral (~2015) Colon polyps (01/2004) Chickenpox Mumps Measles Upper GI bleed Ascending aortic aneurysm Aortic stenosis Hx of varicose veins Sleep apnea Gout Coronary artery disease Hyperlipidemia Hypertension Surgical History Hx of knee surgery (2003) Hx of colonoscopy with polypectomy (01/2004) Hx of cataract surgery (09/2015) Hx of total knee arthroplasty (01/2013) Hx of aortic valve replacement (12/2009) Hx of varicose vein stripping (1974) Hx of coronary artery bypass graft History of aortic valve replacement (07/19/15) Family History Brother No problems noted. Father Diabetes mellitus Heart disease Mother No problems noted. Social History household members: spouse Smoking Status: Former smoker alcohol intake: never substance use type: does not use Assessment & Plan Assessment & Plan narrative: Gram Positive Bacteremia -recent blood cultures grew Streptococcus salivarius -blood cultures done today growing Gram-positive Streptococcus -Continue Vancomycin, Rocephin pending ID and sensitivity Differentials - endocarditis - echo pending - Hx of bovine AV and recent UTI, viral, inflammatory - mediastinal mass -plan repeat CT abdomen pelvis chest if echo does not confirm the suspected endocarditis. -follow WBC, ESR, CRP, sodium level. DM - metformin, SS PAF / CAD / HLD / HTN / CHF - Toprol XL, Eliquis, ASA, Lipitor - Losartan and Lasix on hold - IVFs Enlarged Prostate - afluzosin, finasteride Gout - allopurinol His daughter is his backup decision maker. Eliquis for DVT prevention. Time-Based Coding :: [TOTAL MINUTES] spent with patient and on the chart (including review of chart, obtaining history, exam, reviewing outside data, placing orders, documenting exam and treatment plan, and counseling patient) on [DATE].
[2024-03-12] MEDS: VANCOMYCIN 1,500 MG/300 ML PIGGYBACK 200 MG IV (20:15)
[2024-03-12] MEDS: cefTRIAXone 2,000 MG in SODIUM CHLORIDE 0.9% 100 ML 200 MG IV (22:08)
[2024-03-13] VITALS (7 sets, daily range): BP systolic 128–153; BP diastolic 83–101; PULSE 60–75; RESP 16–20; TEMP 36.3–36.7; O2SAT 98–99
[2024-03-13 07:03] LABS: Add Manual Diff / Slide Review NO; Basophils Absolute Auto 100 /uL (0-100); Basophils Percent Auto 0.9 % (0-2); Eosinophils Absolute Auto 400 /uL (0-450); Eosinophils Percent Auto 4.1 % (2-4); Hematocrit 34.1 % (41-53); Hemoglobin 11.5 g/dL (13.5-17.5); Lymphocytes Absolute Auto 1000 /uL (1100-4500); Lymphocytes Percent Auto 10.2 % (25-40); Mean Corpuscular HGB Conc 33.8 % (30-36); Mean Corpuscular Hemoglobin 31.4 PG (26-34); Mean Corpuscular Volume 92.9 fL (80-100); Monocytes Absolute Auto 1400 /uL (0-900); Monocytes Percent Auto 13.5 % (3-14); Neutrophils Absolute Auto 7300 /uL (1500-7000); Neutrophils Percent Auto 71.3 % (50-75); Platelet Count 181 X10^3/uL (150-400); Red Blood Cell Count 3.68 X10^6/uL (4.5-5.9); Red Cell Distribution Width 14.5 % (11.6-14.8); White Blood Cell Count 10.2 X10^3/uL (4.5-11.0)
[2024-03-13 07:13] LABS: Alanine Aminotransferase 25 IU/L (<50); Albumin 2.8 g/dL (3.5-5.0); Albumin Globulin Ratio 0.9 (1.0-2.8); Alkaline Phosphatase 163 U/L (38-126); Aspartate Aminotransferase 36 IU/L (17-59); BUN Creatinine Ratio 21.2 (6-22); Bilirubin Total 0.7 mg/dL (0.2-1.3); Blood Urea Nitrogen 14 mg/dL (9-20); Carbon Dioxide 22 mmol/L (22-32); Chloride 104 mmol/L (98-107); Estimated Glomerular Filt Rate > 60 mL/min (>60); Globulin 3.1 g/dL (1.7-4.1); Glucose 113 mg/dL (80-110); HEMOLYSIS < 15 (0-50); Magnesium 2.1 mg/dL (1.6-2.3); Potassium 4.1 mmol/L (3.4-5.1); Sodium 132 mmol/L (137-145); Total Protein 5.9 g/dL (6.3-8.2)
[2024-03-13 07:20] LABS: C-Reactive Protein Quant 7.8 mg/dL (<1.0)
[2024-03-13 07:32] LABS: Erythrocyte Sedimentation Rate 33 MM/HR (0-15)
[2024-03-13] MEDS: ASPIRIN EC 81 MG TABLET PO (08:18)
[2024-03-13] MEDS: METOPROLOL ER 25 MG TABLET PO (08:18)
[2024-03-13] MEDS: ATORVASTATIN 20 MG TABLET 40 MG PO (08:18)
[2024-03-13] MEDS: SODIUM CHLORIDE 0.9% 1,000 ML 100 ML IV (08:18)
[2024-03-13] MEDS: METFORMIN HCL 500 MG TABLET PO ×2 (08:18→16:55)
[2024-03-13] MEDS: allopurinoL 100 MG TABLET PO (08:19)
[2024-03-13] MEDS: APIXABAN 5 MG TABLET PO ×2 (08:19→21:14)
[2024-03-13] MEDS: MAGNESIUM OXIDE 400 MG TABLET PO (08:19)
[2024-03-13] MEDS: FINASTERIDE 5 MG TABLET PO (08:19)
[2024-03-13] MEDS: INSULIN LISPRO 100 UNIT/ML 3ML VIAL SUBCUT ×2 (11:53→16:56)
--- NOTE | 2024-03-13 12:25 | CM.DANOTE ---
Initial DCP Assessment Visit Note Reviewed EMR and team rounds for status updates. Went to meet with pt in the room, however he was found to be sleeping at the time. Pt lives at home modified independently with his and dtr in their own home in [place]. Dtr will plan to transport him home once he's medically stable for home d/c. Payor: LOIS TERRY PCP: Miya Hernandez Pt is a 83 year-old M with a hx of CHF, Bovine tissue heart valve, aortic aneurysm, and asthma. He was initially seen in the ED twice earlier this month on 02/19 and 02/21 for similiar concerns. On 02/19 his dtr brought him in to the ED after she found him on the floor. He was found to have a UTI and was started on oral Keflex, then d/c'd home. Two days later he returned to the ED due to positive cultures, was discharged with a new script for cefdinir, however the family chose to continue to the remaining cycle of Keflex, and never filled the cefdinir. He presented again to the ED on 02/21 with c/o 5-days of fever, was tachycardic, febrile, however did not have a high white blood count indicative of infection. Blood cultures are pending, ECHO results are pending. There is a concern for possible endocarditis due to the bovine heart valve, thus he may end up needing to transfer out depending on the results of the ECHO. DCP will continue to follow and assist with final d/c needs and recommendations. Discharge Planning/Care Management CM Discharge Assessment Start: 03/13/24 12:18 Freq: Status: Active Protocol: Document 03/13/24 12:18 DPL (Rec: 03/13/24 12:25 DPL [id number]) Discharge Planning Assessment Assigned Manager Internship ESTRADA Hwang Advance Directives? Yes Advance Directives on File No History Provided By Medical Record Expected Length of Stay 3 Has Patient been admitted in last 30 No days? Comment No, but he did present to the ED on both 02/19 and 02/21 for same issues. Prior Living Arrangements House Household Members spouse Type of transporation used prior to Relies on Others admit Independent with ADL's No: Modified independent Caregiver for Another No DME Already Rented / Owned Elevated Toilet Seat,FWW / Walker Comment No anticpated needs identified at this time. Barriers to Discharge No Discharge Plan Home Referrals Initiated None needed Whiteboard Updated in Patient Room with Yes name and ext. # of Manager Internship Review Status In Process Please Provide Date Initial DC 03/13/24 Assessment Was Performed
--- NOTE | 2024-03-13 15:27 | P.PN_ITS ---
Subjective Subjective Interval history: This is an 83-year-old male with fevers for 5 days. 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 Repeat blood cultures were not obtained and were ordered today to see if persistent bacteremia. Pending TTE today. Patient denies any symptoms today. No chest pain, fever, or dyspnea. Exam Vital Signs (past 8 hours): - 03/13/24 08:00 03/13/24 08:18 03/13/24 12:00 Temperature 97.4 F L 97.7 F Pulse Rate 75 75 63 Respiratory Rate 18 16 Blood Pressure 132/87 132/87 128/95 H Pulse Oximetry 99 99 03/13/24 12:00 Temperature Pulse Rate 63 Respiratory Rate Blood Pressure 128/95 H Pulse Oximetry Oxygen Delivery Method Room Air Oxygen Flow Rate 0 Narrative Exam Narrative: He is alert and oriented x3 but is quite simplistic about being in the hospital and wishing to go home. No apparent distress. Heart is regular rate and rhythm without murmur. Lungs are clear to auscultation bilaterally. Abdomen is soft, bowel sounds positive, nontender, no organomegaly. Extremities have no ankle edema. Skin has no rashes. Objective Labs 03/13/24 06:45 03/13/24 06:45 Labs: Laboratory Results - last 24 hr 03/13/24 06:45 WBC 10.2 D RBC 3.68 L Hgb 11.5 L Hct 34.1 L MCV 92.9 MCH 31.4 MCHC 33.8 RDW 14.5 Plt Count 181 Neut % (Auto) 71.3 Lymph % (Auto) 10.2 L Nance % (Auto) 13.5 Eos % (Auto) 4.1 H Baso % (Auto) 0.9 Neut # (Auto) 7300 H Lymph # (Auto) 1000 L Nance # (Auto) 1400 H Eos # (Auto) 400 Baso # (Auto) 100 ESR 33 H Sodium 132 L Potassium 4.1 Chloride 104 Carbon Dioxide 22 BUN 14 Creatinine 0.66 Estimated GFR > 60 BUN/Creatinine Ratio 21.2 Glucose 113 H Calcium 8.0 L Magnesium 2.1 Total Bilirubin 0.7 AST 36 ALT 25 Alkaline Phosphatase 163 H C-Reactive Protein 7.8 H Total Protein 5.9 L Albumin 2.8 L Globulin 3.1 Albumin/Globulin Ratio 0.9 L [facility] Medical History History of heart failure Syncope COVID-19 Onychomycosis Osteoarthritis Cataracts, bilateral (~2015) Colon polyps (01/2004) Chickenpox Mumps Measles Upper GI bleed Ascending aortic aneurysm Aortic stenosis Hx of varicose veins Sleep apnea Gout Coronary artery disease Hyperlipidemia Hypertension Surgical History Hx of knee surgery (2003) Hx of colonoscopy with polypectomy (01/2004) Hx of cataract surgery (09/2015) Hx of total knee arthroplasty (01/2013) Hx of aortic valve replacement (12/2009) Hx of varicose vein stripping (1974) Hx of coronary artery bypass graft History of aortic valve replacement (07/19/15) Family History Brother No problems noted. Father Diabetes mellitus Heart disease Mother No problems noted. Social History household members: spouse Smoking Status: Former smoker alcohol intake: never substance use type: does not use Assessment & Plan Assessment & Plan narrative: Gram Positive Bacteremia -recent blood cultures grew Streptococcus salivarius -blood cultures done today growing Gram-positive (strep pos. on PCR). -Continue Vancomycin, Rocephin pending ID and sensitivity Differentials - endocarditis - TTE pending - Hx of bovine AV and recent UTI, viral, inflammatory - mediastinal mass -plan repeat CT abdomen pelvis chest if echo does not confirm the suspected endocarditis. Consider transfer for JOE and ID consultation. -follow WBC, ESR, CRP, sodium level. -continue to monitor for clearance with blood cultures ideally daily. Last set obtained 03/11. Ordered 2 sets for today. If persistently positive will need transfer for JOE. -will at least need 2 weeks of IV antibiotics, and once cultures finalize and above evaluation complete ID consultation with plan for outpatient visit if not transferred inpatient. DM - metformin, SS PAF / CAD / HLD / HTN / CHF - Toprol XL, Eliquis, ASA, Lipitor - Losartan and Lasix on hold - IVFs Enlarged Prostate - afluzosin, finasteride Gout - allopurinol His daughter is his backup decision maker. Eliquis for DVT prevention. Code: Full, surrogate is patient's spouse DVT: Lovenox daily Additional history obtained via discussions with the previous hospitalist on duty, case management, pharmacist. These discussions contributed to the creation of the above assessment and plan. I have reviewed patient's presenting documentation, labs, and imaging personally. Time-Based Coding :: [TOTAL MINUTES] spent with patient and on the chart (including review of chart, obtaining history, exam, reviewing outside data, placing orders, documenting exam and treatment plan, and counseling patient) on [DATE].
[2024-03-13] MEDS: VANCOMYCIN 1,500 MG/300 ML PIGGYBACK 200 MG IV (21:14)
[2024-03-13] MEDS: cefTRIAXone 2,000 MG in SODIUM CHLORIDE 0.9% 100 ML 200 MG IV (23:02)
[2024-03-14 03:00] VITALS: BP 149/111; PULSE 66; RESP 18; TEMP 37.2; O2SAT 100
[2024-03-14 08:00] VITALS: BP 139/96; PULSE 60; RESP 18; TEMP 36.6; O2SAT 98
[2024-03-14 08:14] VITALS: BP 139/96; PULSE 60
[2024-03-14] MEDS: allopurinoL 100 MG TABLET PO (08:14)
[2024-03-14] MEDS: MAGNESIUM OXIDE 400 MG TABLET PO (08:14)
[2024-03-14] MEDS: METFORMIN HCL 500 MG TABLET PO ×2 (08:14→17:03)
[2024-03-14] MEDS: APIXABAN 5 MG TABLET PO ×2 (08:14→21:05)
[2024-03-14] MEDS: FINASTERIDE 5 MG TABLET PO (08:14)
[2024-03-14] MEDS: ASPIRIN EC 81 MG TABLET PO (08:14)
[2024-03-14] MEDS: METOPROLOL ER 25 MG TABLET PO (08:14)
[2024-03-14] MEDS: ATORVASTATIN 20 MG TABLET 40 MG PO (08:15)
[2024-03-14] MEDS: INSULIN LISPRO 100 UNIT/ML 3ML VIAL SUBCUT (11:45)
[2024-03-14 12:00] VITALS: BP 167/79; PULSE 64; RESP 16; TEMP 36.7; O2SAT 100
--- NOTE | 2024-03-14 13:06 | CM.DPC ---
DCP Cont. Reviewed EMR and team rounds for status updates. Dr. Garcia spoke with the infectious disease doctor at [facility] re: the course of OP antibiotics needed. He will need 2-weeks of cefritriaxone, 2G every 24-hours (he has been having it around 3:00pm inpt. Will call [facility] and place a new referral.
[2024-03-14 16:00] VITALS: BP 135/82; PULSE 63; RESP 16; TEMP 36.4; O2SAT 98
--- NOTE | 2024-03-14 18:24 | P.PN_ITS ---
Subjective Subjective Interval history: This is an 83-year-old male with fevers for 5 days. 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 Repeat blood cultures were not obtained and were ordered today to see if persistent bacteremia but these are unremarkable and without growth thus far. TTE with no significant changes. Patient denies any symptoms today. No chest pain, fever, or dyspnea. Did discuss with infectious disease today, deferred to cardiology but if negative for endocarditis could have 2 weeks ceftriaxone and likely 2 weeks PO cefadroxil after. Exam Vital Signs (past 8 hours): - 03/14/24 12:00 03/14/24 12:00 03/14/24 16:00 Temperature 98.1 F 97.5 F L Pulse Rate 64 63 Respiratory Rate 16 16 Blood Pressure 167/79 H 167/79 H 135/82 Pulse Oximetry 100 98 Oxygen Delivery Method Room Air Oxygen Flow Rate 0 Narrative Exam Narrative: He is alert and oriented x3 but is quite simplistic about being in the hospital and wishing to go home. No apparent distress. Heart is regular rate and rhythm without murmur. Lungs are clear to auscultation bilaterally. Abdomen is soft, bowel sounds positive, nontender, no organomegaly. Extremities have no ankle edema. Skin has no rashes. Objective Labs 03/13/24 06:45 03/13/24 06:45 [facility] Medical History History of heart failure Syncope COVID-19 Onychomycosis Osteoarthritis Cataracts, bilateral (~2016) Colon polyps (01/2004) Chickenpox Mumps Measles Upper GI bleed Ascending aortic aneurysm Aortic stenosis Hx of varicose veins Sleep apnea Gout Coronary artery disease Hyperlipidemia Hypertension Surgical History Hx of knee surgery (2003) Hx of colonoscopy with polypectomy (01/2004) Hx of cataract surgery (09/2015) Hx of total knee arthroplasty (01/2013) Hx of aortic valve replacement (12/2009) Hx of varicose vein stripping (1974) Hx of coronary artery bypass graft History of aortic valve replacement (07/19/15) Family History Brother No problems noted. Father Diabetes mellitus Heart disease Mother No problems noted. Social History household members: spouse Smoking Status: Former smoker alcohol intake: never substance use type: does not use Assessment & Plan Assessment & Plan narrative: Strep Salivarius bacteremia -recent blood cultures grew Streptococcus salivarius on 02/19. Cleared on 02/21 with ? PO antibiotics only. Unclear which antibiotic possible cephalexin for 1 week. Returned with positive blood culture with same strep bacteremia on 03/11. Started on ceftriaxone, now blood cultures again clear on 03/13. -Continued on ceftriaxone and vanco initially, narrowed to ceftriaxone only per ID phone reocmmendations 03/13. ID today at [facility] recommended further discussion with cardiology. Shortly after this I received a call from patient's own missile and missile checkout technician Dr. Finley who felt strongly the need for JOE to rule out endocarditis in this situation. Working on arranging either transfer to [facility], or possible arranging JOE tomorrow with transfer back here after. Differentials - endocarditis - TTE pending - Hx of bovine AV and recent UTI, viral, inflammatory - mediastinal mass -follow WBC, ESR, CRP, sodium level. -Should no endocarditis be found, likely needs 2 weeks of ceftriaxone at least. Will follow up with definitive plan by ID physician pending above JOE results as antibiotc therapy may change. Placed midline on 03/14 in presumption of 2 weeks, but may need PICC if more prolonged therapy. DM - metformin, SS PAF / CAD / HLD / HTN / CHF - Toprol XL, Eliquis, ASA, Lipitor - Losartan and Lasix on hold - IVFs Enlarged Prostate - afluzosin, finasteride Gout - allopurinol His daughter is his backup decision maker. Eliquis for DVT prevention. Code: Full, surrogate is patient's spouse DVT: Lovenox daily Additional history obtained via discussions with the previous hospitalist on duty, case management, pharmacist. These discussions contributed to the creation of the above assessment and plan. I have reviewed patient's presenting documentation, labs, and imaging personally. Time-Based Coding :: [TOTAL MINUTES] spent with patient and on the chart (including review of chart, obtaining history, exam, reviewing outside data, placing orders, documenting exam and treatment plan, and counseling patient) on [DATE].
[2024-03-14 19:51] VITALS: BP 144/92; PULSE 56; RESP 17; O2SAT 99
[2024-03-14] MEDS: cefTRIAXone 2,000 MG in SODIUM CHLORIDE 0.9% 100 ML 200 MG IV (23:31)
[2024-03-15] VITALS (8 sets, daily range): BP systolic 145–177; BP diastolic 52–99; PULSE 60–68; RESP 16–19; TEMP 36.1–36.6; O2SAT 97–100
[2024-03-15 06:21] LABS: BUN Creatinine Ratio 18.9 (6-22); Blood Urea Nitrogen 14 mg/dL (9-20); Calcium 8.6 mg/dL (8.4-10.2); Carbon Dioxide 27 mmol/L (22-32); Chloride 103 mmol/L (98-107); Estimated Glomerular Filt Rate > 60 mL/min (>60); Glucose 106 mg/dL (80-110); HEMOLYSIS < 15 (0-50); Potassium 3.9 mmol/L (3.4-5.1); Sodium 133 mmol/L (137-145)
[2024-03-15 06:22] LABS: Add Manual Diff / Slide Review NO; Basophils Absolute Auto 100 /uL (0-100); Basophils Percent Auto 0.7 % (0-2); Eosinophils Absolute Auto 300 /uL (0-450); Eosinophils Percent Auto 3.2 % (2-4); Hematocrit 33.9 % (41-53); Hemoglobin 11.6 g/dL (13.5-17.5); Lymphocytes Absolute Auto 1100 /uL (1100-4500); Lymphocytes Percent Auto 12.7 % (25-40); Mean Corpuscular HGB Conc 34.1 % (30-36); Mean Corpuscular Hemoglobin 31.3 PG (26-34); Monocytes Absolute Auto 800 /uL (0-900); Monocytes Percent Auto 8.5 % (3-14); Neutrophils Absolute Auto 6600 /uL (1500-7000); Neutrophils Percent Auto 74.9 % (50-75); Platelet Count 227 X10^3/uL (150-400); Red Blood Cell Count 3.69 X10^6/uL (4.5-5.9); Red Cell Distribution Width 14.5 % (11.6-14.8); White Blood Cell Count 8.8 X10^3/uL (4.5-11.0)
--- NOTE | 2024-03-15 06:33 | PC.NURSE ---
NOC: Throughout shift pt tele monitor showing bradycardia, dipping down into the 40s, despite hx of pacemaker. JAVY Norris recommended possible interrogation of pacemaker to see if working properly. Will pass information on to dayshift JAVY Steward. Care continues.
[2024-03-15 06:47] LABS: Erythrocyte Sedimentation Rate 28 MM/HR (0-15)
[2024-03-15] MEDS: ATORVASTATIN 20 MG TABLET 40 MG PO (08:56)
[2024-03-15] MEDS: METOPROLOL ER 25 MG TABLET PO (08:57)
[2024-03-15] MEDS: METFORMIN HCL 500 MG TABLET PO ×2 (08:57→17:26)
[2024-03-15] MEDS: FINASTERIDE 5 MG TABLET PO (08:57)
[2024-03-15] MEDS: ASPIRIN EC 81 MG TABLET PO (08:57)
[2024-03-15] MEDS: APIXABAN 5 MG TABLET PO ×2 (08:57→22:00)
[2024-03-15] MEDS: allopurinoL 100 MG TABLET PO (08:57)
[2024-03-15] MEDS: MAGNESIUM OXIDE 400 MG TABLET PO (08:57)
--- NOTE | 2024-03-15 09:39 | PC.NURSE ---
Day shift: Dr Garcia aware of BP 177/99 at approx 0900.
--- NOTE | 2024-03-15 09:48 | PC.NURSE ---
Day shift: EMS here ([id number]). Heading to [facility] for JOE. Expect him to return around 1400 today. Report given to EMS and all questions answered.
--- NOTE | 2024-03-15 11:03 | CM.DPC ---
DCP Cont. Reviewed EMR and team rounds for status updates. Per Hospitalist, pt is being transferred to [facility] today for a JOE procedure, then will return to afterwards. Waiting for final decision on antibiotic type, likely this will be decided later today after pt returns. AIRCRAFT LANDING GEAR INSPECTOR will fax final script to [facility] tomorrow am.
--- NOTE | 2024-03-15 14:54 | PC.NURSE ---
Day shift: Back in room from JOE at [facility]. He has no complaints. States I'm ready for whiskey and some fried chicken. DR Garcia aware he is back. Placed back on tele and ICU is aware. VS WNL.
--- NOTE | 2024-03-15 16:45 | DI.RAD.S_ITS ---
PROCEDURE: XR CHEST FOR PICC 1V INDICATIONS: line placement COMPARISON: [facility], DIANNA, XR CHEST 1V, 03/11/2024, 19:13. [facility], CR, XR CHEST 2V, 01/20/2024, 16:52. FINDINGS: PICC was placed by the intravenous therapy team from the left side. Fluoroscopic spot film demonstrates the tip of PICC projecting to the area of superior vena cava. Cardiomegaly and median sternotomy wires are noted. IMPRESSION: Tip of PICC projects to the area of the superior vena cava. Dictated by: David Vee M.D. on 03/15/2024 at 17:20 Approved by: David Vee M.D. on 03/15/2024 at 17:21
--- NOTE | 2024-03-15 17:34 | PM.PN.1 ---
Subjective Subjective Interval history: This is an 83-year-old male with fevers for 5 days. 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 Repeat blood cultures were not obtained and were ordered today to see if persistent bacteremia but these are unremarkable and without growth thus far. TTE with no significant changes. Patient denies any symptoms today. No chest pain, fever, or dyspnea. Did discuss with infectious disease today, deferred to cardiology but if negative for endocarditis could have 2 weeks ceftriaxone and likely 2 weeks PO cefadroxil after. Exam Vital Signs (past 8 hours): - 03/15/24 09:39 03/15/24 14:58 03/15/24 16:00 Temperature 96.9 F L 97.5 F L Pulse Rate 62 60 62 Respiratory Rate 18 16 Blood Pressure 149/90 H 145/94 H Pulse Oximetry 98 98 Oxygen Delivery Method Room Air Oxygen Flow Rate 0 Narrative Exam Narrative: He is alert and oriented x3 but is quite simplistic about being in the hospital and wishing to go home. No apparent distress. Heart is regular rate and rhythm without murmur. Lungs are clear to auscultation bilaterally. Abdomen is soft, bowel sounds positive, nontender, no organomegaly. Extremities have no ankle edema. Skin has no rashes. Objective Labs 03/15/24 05:30 03/15/24 05:30 Labs: Laboratory Results - last 24 hr 03/14/24 03/15/24 20:38 05:30 WBC 8.8 RBC 3.69 L Hgb 11.6 L Hct 33.9 L MCV 92.0 MCH 31.3 MCHC 34.1 RDW 14.5 Plt Count 227 Neut % (Auto) 74.9 Lymph % (Auto) 12.7 L Cavalier % (Auto) 8.5 Eos % (Auto) 3.2 Baso % (Auto) 0.7 Neut # (Auto) 6600 Lymph # (Auto) 1100 Cavalier # (Auto) 800 Eos # (Auto) 300 Baso # (Auto) 100 ESR 28 H Sodium 133 L Potassium 3.9 Chloride 103 Carbon Dioxide 27 BUN 14 Creatinine 0.74 Estimated GFR > 60 BUN/Creatinine Ratio 18.9 Glucose 106 Calcium 8.6 Vancomycin Trough Cancelled [facility] Medical History History of heart failure Syncope COVID-19 Onychomycosis Osteoarthritis Cataracts, bilateral (~2016) Colon polyps (01/2004) Chickenpox Mumps Measles Upper GI bleed Ascending aortic aneurysm Aortic stenosis Hx of varicose veins Sleep apnea Gout Coronary artery disease Hyperlipidemia Hypertension Surgical History Hx of knee surgery (2003) Hx of colonoscopy with polypectomy (01/2004) Hx of cataract surgery (09/2015) Hx of total knee arthroplasty (01/2013) Hx of aortic valve replacement (12/2009) Hx of varicose vein stripping (1974) Hx of coronary artery bypass graft History of aortic valve replacement (07/19/15) Family History Brother No problems noted. Father Diabetes mellitus Heart disease Mother No problems noted. 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 Cleared on 02/21 with ? PO antibiotics only. Unclear which antibiotic possible cephalexin for 1 week. Returned with positive blood culture with same strep bacteremia on 03/11. Started on ceftriaxone, now blood cultures again clear on 03/13. -Continued on ceftriaxone and vanco initially, narrowed to ceftriaxone only per ID phone reocmmendations 03/13. ID today at [facility] recommended further discussion with cardiology. Shortly after this I received a call from patient's own seed cleaner operator Dr. Finley who felt strongly the need for JOE to rule out endocarditis in this situation. -JOE was performed today at [facility], with return here. There he was found to have likely a small vegetation on his valve. -Rediscussed with ID at [facility]. Recommended 4 weeks of IV ceftriaxone 2g q24 hr for endocarditis from negative culture (03/13 - 04/10/24). Follow up outpatient ID clinic. Please print referral form and fax referral to [phone]. Should follow up within 2 weeks of discharge. DM - metformin, SS PAF / CAD / HLD / HTN / CHF - Toprol XL, Eliquis, ASA, Lipitor - Losartan and Lasix on hold - IVFs Enlarged Prostate - afluzosin, finasteride Gout - allopurinol His daughter is his backup decision maker. Eliquis for DVT prevention. Additional history obtained via discussions with patient's seed cleaner operator dr. finley, Infectious disease provider, case management, pharmacist. These discussions contributed to the creation of the above assessment and plan. I have reviewed patient's presenting documentation, labs, and imaging personally. Time-Based Coding :: [TOTAL MINUTES] spent with patient and on the chart (including review of chart, obtaining history, exam, reviewing outside data, placing orders, documenting exam and treatment plan, and counseling patient) on [DATE].
[2024-03-15] MEDS: cefTRIAXone 2,000 MG in SODIUM CHLORIDE 0.9% 100 ML 200 MG IV (22:22)
[2024-03-16] VITALS (7 sets, daily range): BP systolic 122–156; BP diastolic 64–80; PULSE 59–74; RESP 18–19; TEMP 36.6–37.2; O2SAT 96–99
--- NOTE | 2024-03-16 08:02 | PM.PN.1 ---
Subjective Subjective Interval history: S: The patient is doing well other than the using from the PICC line. He was on Eliquis. He denies any dyspnea. Vegetation was seen on echo, plan for 4 weeks of IV antibiotics at the least. Follow up with Infectious Disease. The PICC line has been oozing for 24 hours, the patient is on Eliquis. There is a raised concern about the line being arterial. ABG confirms venous placement. Exam Vital Signs (past 8 hours): - 03/16/24 03:00 03/16/24 07:44 Temperature 97.8 F Pulse Rate 69 74 Respiratory Rate 19 18 Blood Pressure 122/64 153/80 H Pulse Oximetry 99 96 Oxygen Flow Rate 0 Oxygen Delivery Method Room Air,CPAP Oxygen Flow Rate 0 Narrative Exam Narrative: NAD, alert and oriented. Fluent speech. Lungs are clear, normal rate and effort. Heart is regular, no murmur gallop or rub. Abdomen is soft, non distended. Extremities are free of edema. Left arm PICC with some oozing from entry site. Objective Labs 03/16/24 08:11 03/15/24 05:30 [facility]END[facility] TO [facility] Medical History History of heart failure Syncope COVID-19 Onychomycosis Osteoarthritis Cataracts, bilateral (~2015) Colon polyps (01/2004) Chickenpox Mumps Measles Upper GI bleed Ascending aortic aneurysm Aortic stenosis Hx of varicose veins Sleep apnea Gout Coronary artery disease Hyperlipidemia Hypertension Surgical History Hx of knee surgery (2003) Hx of colonoscopy with polypectomy (01/2004) Hx of cataract surgery (09/2015) Hx of total knee arthroplasty (01/2013) Hx of aortic valve replacement (12/2009) Hx of varicose vein stripping (1974) Hx of coronary artery bypass graft History of aortic valve replacement (07/19/15) Family History Brother No problems noted. Father Diabetes mellitus Heart disease Mother No problems noted. Social History household members: spouse Smoking Status: Former smoker alcohol intake: never substance use type: does not use Assessment & Plan Assessment & Plan narrative: 1. 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 -recent blood cultures grew Streptococcus salivarius on 02/19. Cleared on 02/21 with ? PO antibiotics only. Unclear which antibiotic possible cephalexin for 1 week. Returned with positive blood culture with same strep bacteremia on 03/11. Started on ceftriaxone, now blood cultures again clear on 03/13. -Continued on ceftriaxone and vanco initially, narrowed to ceftriaxone only per ID phone reocmmendations 03/13. ID today at [facility] recommended further discussion with cardiology. Shortly after this I received a call from patient's own shuttle van driver Dr. Finley who felt strongly the need for JOE to rule out endocarditis in this situation. -JOE was performed today at [facility], with return here. There he was found to have likely a small vegetation on his valve. -Rediscussed with ID at [facility]. Recommended 4 weeks of IV ceftriaxone 2g q24 hr for endocarditis from negative culture (03/13 - 04/10/24). Follow up outpatient ID clinic. Please print referral form and fax referral to [phone]. Should follow up within 2 weeks of discharge. 2. DM 2, present on admission and active. - metformin, SS 3. PICC insertion site bleeding, new and active. Chronic and stable medical problems. PAF / CAD / HLD / HTN / CHF - Toprol XL, Eliquis, ASA, Lipitor - Losartan and Lasix on hold - IVFs BPH - afluzosin, finasteride Gout - allopurinol DISPO: -we will observe for an additional 24 hours regarding the bleeding from his PICC line. As soon as this appears to be resolved he will be stable for discharge home with IV antibiotics. His daughter is his backup decision maker. Eliquis for DVT prevention. Time-Based Coding :: 20 min spent with patient and on the chart (including review of chart, obtaining history, exam, reviewing outside data, placing orders, documenting exam and treatment plan, and counseling patient) on 03/16.
[2024-03-16 08:20] LABS: Hematocrit 34.5 % (41-53); Hemoglobin 11.7 g/dL (13.5-17.5)
[2024-03-16 08:41] LABS: Base Excess ABG 2.6 mmol/L (-2-3); HCO3 ABG 28 mmol/L (23-27); PCO2 ABG 42.5 mmHg (35-45); TCO2 ABG 28 mmol/L (23-27); pH ABG 7.42 (7.35-7.45)
[2024-03-16 08:46] LABS: Base Excess VBG 1.6 mmol/L (0-4); HCO3 VBG 27 mmol/L (24-28); Oxygen Saturation VBG 73 % (70-75); PCO2 VBG 44.1 mmHg (45-50); PO2 VBG 39 mmHg (35-45); Total CO2 VBG 27 mmol/L (24-29); pH VBG 7.39 (7.33-7.43)
[2024-03-16] MEDS: MAGNESIUM OXIDE 400 MG TABLET PO (09:03)
[2024-03-16] MEDS: FINASTERIDE 5 MG TABLET PO (09:03)
[2024-03-16] MEDS: METFORMIN HCL 500 MG TABLET PO ×2 (09:03→17:18)
[2024-03-16] MEDS: allopurinoL 100 MG TABLET PO (09:03)
[2024-03-16] MEDS: ATORVASTATIN 20 MG TABLET 40 MG PO (09:03)
[2024-03-16] MEDS: METOPROLOL ER 25 MG TABLET PO (09:03)
--- NOTE | 2024-03-16 10:43 | DIET.CONS ---
Dietary Consultation Note Admission Date: 03/11/2024 21:55 Assessment: 83 y M presented with fever, hx of bovine valve, DM, and CHF. Nutrition screened for LOS. EMR reviewed. Avg recorded po intakes >75%. DFM reviewed for meal composition. A1c% on 10/07/23 was 6.7%. No significant recent weight loss noted. Will continue to monitor po intakes. Ht: 165.1 cm Wt: 90.718 kg BMI: 33.3 UBW: 88.621 kg on 01/20/24, 93.667 kg on 06/30/23 Last BM: 03/15/24 (03/15/24 08:00) MNA: 14 Gerry Score: 18 Diet: 03/15/24 Dinner Carbohydrate Consistent Diet Diet Modifications: Carbohydrate level: Large (4 CHO) Reflex DM orders: No Food Texture: Level 7 - Regular Liquid Consistency: Level 0 - Thin Nutrition Percent Meal Consumed 40% 03/16/24 08:55 Percent Meal Consumed 100% 03/15/24 18:00 Percent Meal Consumed 100% 03/14/24 18:00 Percent Meal Consumed 100% 03/14/24 12:00 Labs: RBC 3.69 X10^6/uL (4.5-5.9) L 03/15/24 05:30 Hgb 11.7 g/dL (13.5-17.5) L 03/16/24 08:11 Hct 34.5 % (41-53) L 03/16/24 08:11 Creatinine 0.74 mg/dL (0.66-1.25) 03/15/24 05:30 Lactate 1.4 mmol/L (0.7-2.1) 03/11/24 21:08 Electronically Signed by: Thu Bolanos 03/16/24 10:43 Clinical Dietitian [address] [id number]
--- NOTE | 2024-03-16 11:12 | CM.DPC ---
DCP Cont. Reviewed EMR and team rounds for status updates. Called [facility] and confirmed pt's d/c date for 03/17,confirmed plan for antibiotics, called and updated pt's . Called and submitted new orders to [facility] to follow. Pt is having his PICC line examined today for possible misplacement, this will be corrected before tomorrow's d/c.
[2024-03-16] MEDS: INSULIN LISPRO 100 UNIT/ML 3ML VIAL SUBCUT (11:39)
--- NOTE | 2024-03-16 12:13 | PC.NURSE ---
Day shift: PICC insertion site continues to [facility]. SHIVAM Cline involved and appreciate her insight and help. Dr Orr aware of PICC issue. Plan is to hold blood thinners at this time. AM dose was held today also. Pt asymptomatic with no complaints. H/H stable this AM. Call light in reach. Pt agrees to not get OOB or chair w/o help from staff.
[2024-03-16] MEDS: ACETAMINOPHEN 325 MG TABLET 650 MG PO (20:34)
[2024-03-16] MEDS: cefTRIAXone 2,000 MG in SODIUM CHLORIDE 0.9% 100 ML 200 MG IV (23:19)
[2024-03-17] VITALS (8 sets, daily range): BP systolic 130–154; BP diastolic 78–89; PULSE 63–97; RESP 16–18; TEMP 36.6–37.2; O2SAT 95–98
[2024-03-17 06:40] LABS: INR 1.3 (0.9-1.3); Prothrombin Time 14.9 SECONDS (9.4-12.5)
[2024-03-17 06:42] LABS: Add Manual Diff / Slide Review NO; Basophils Absolute Auto 100 /uL (0-100); Basophils Percent Auto 0.5 % (0-2); Eosinophils Absolute Auto 100 /uL (0-450); Eosinophils Percent Auto 0.5 % (2-4); Hemoglobin 11.1 g/dL (13.5-17.5); Lymphocytes Absolute Auto 1100 /uL (1100-4500); Lymphocytes Percent Auto 7.9 % (25-40); Mean Corpuscular HGB Conc 33.6 % (30-36); Mean Corpuscular Volume 92.3 fL (80-100); Monocytes Absolute Auto 1700 /uL (0-900); Monocytes Percent Auto 12.1 % (3-14); Neutrophils Absolute Auto 11400 /uL (1500-7000); Platelet Count 258 X10^3/uL (150-400); Red Blood Cell Count 3.58 X10^6/uL (4.5-5.9); Red Cell Distribution Width 14.5 % (11.6-14.8); White Blood Cell Count 14.4 X10^3/uL (4.5-11.0)
[2024-03-17 06:45] LABS: Alanine Aminotransferase 23 IU/L (<50); Albumin 3.3 g/dL (3.5-5.0); Albumin Globulin Ratio 1.2 (1.0-2.8); Alkaline Phosphatase 135 U/L (38-126); Aspartate Aminotransferase 33 IU/L (17-59); BUN Creatinine Ratio 20.6 (6-22); Bilirubin Total 0.9 mg/dL (0.2-1.3); Blood Urea Nitrogen 13 mg/dL (9-20); Calcium 8.5 mg/dL (8.4-10.2); Carbon Dioxide 23 mmol/L (22-32); Chloride 103 mmol/L (98-107); Estimated Glomerular Filt Rate > 60 mL/min (>60); Globulin 2.8 g/dL (1.7-4.1); Glucose 130 mg/dL (80-110); HEMOLYSIS < 15 (0-50); Potassium 3.8 mmol/L (3.4-5.1); Sodium 131 mmol/L (137-145); Total Protein 6.1 g/dL (6.3-8.2)
[2024-03-17] MEDS: ACETAMINOPHEN 325 MG TABLET 650 MG PO ×2 (09:19→17:44)
[2024-03-17] MEDS: ATORVASTATIN 20 MG TABLET 40 MG PO (09:24)
[2024-03-17] MEDS: allopurinoL 100 MG TABLET PO (09:24)
[2024-03-17] MEDS: MAGNESIUM OXIDE 400 MG TABLET PO (09:24)
[2024-03-17] MEDS: FINASTERIDE 5 MG TABLET PO (09:24)
[2024-03-17] MEDS: METOPROLOL ER 25 MG TABLET PO (09:24)
[2024-03-17] MEDS: METFORMIN HCL 500 MG TABLET PO ×2 (09:25→18:25)
--- NOTE | 2024-03-17 10:54 | CM.DPC ---
Addendum entered by ESTRADA Vásquez 03/17/24 11:26: Update: DCP discussed pt with [facility] and it was reported that patient can expect a home infusion nurse to arrive at his home at 1245 on 03/18. DCP called pt's and relayed the prior to her. CLIVE Diez Original Note: DCP Continued: Reviewed EMR and team rounds for pt?s medical status. Per hospitalist, PICC line is readjusted and will be administered Eliquis dose prior to discharge to confirm correct placement/use. DCP discussed pt with [facility], scheduling for nurse at discharge to be determined. DCP sent Industrial [employer] Supervisor PICC Placement documentation per their request via [employer]. DCP spoke with pt's and reviewed new discharge plans. Pt awaiting time for discharge and home infusion scheduling. Pt expressed concern about how pt is ambulating and any OT needs, no PT/OT was ordered for pt during this admission; will discuss this with pt's nurse if any caregiver education can be given at discharge. Plan: Anticipating discharge home with to transport, [facility] and [facility] following for Q24H Cefritriaxone upon discharge. CM Team will continue to follow for coordination of discharge plans. CLIVE Diez
--- NOTE | 2024-03-17 18:00 | PC.NURSE ---
Addendum entered by Lacey Pro R.N. 03/17/24 18:39: Dsg to the RAMIREZ PICC line remains intact, w/ very faint shadow on dsg. Original Note: Pt had relatively uneventful day. Up in chair most of the day. C/O right shoulder/arm pain; med w/tylenol w/relief. Call light w/in reach,pt calls appropriately for needs. Continue w/plan of care
[2024-03-17] MEDS: APIXABAN 5 MG TABLET PO (20:07)
[2024-03-17] MEDS: cefTRIAXone 2,000 MG in SODIUM CHLORIDE 0.9% 100 ML 200 MG IV (23:09)
[2024-03-18 01:17] VITALS: BP 140/86; PULSE 71; RESP 17; TEMP 37.1; O2SAT 99
[2024-03-18 05:00] VITALS: BP 148/72; PULSE 86; RESP 17; TEMP 37.2; O2SAT 96
[2024-03-18] MEDS: INSULIN LISPRO 100 UNIT/ML 3ML VIAL SUBCUT (08:06)
[2024-03-18 08:09] VITALS: BP 161/101; PULSE 98
[2024-03-18] MEDS: allopurinoL 100 MG TABLET PO (08:09)
[2024-03-18] MEDS: FINASTERIDE 5 MG TABLET PO (08:09)
[2024-03-18] MEDS: APIXABAN 5 MG TABLET PO (08:09)
[2024-03-18] MEDS: METFORMIN HCL 500 MG TABLET PO (08:09)
[2024-03-18] MEDS: METOPROLOL ER 25 MG TABLET PO (08:09)
[2024-03-18] MEDS: ATORVASTATIN 20 MG TABLET 40 MG PO (08:09)
[2024-03-18] MEDS: MAGNESIUM OXIDE 400 MG TABLET PO (08:09)
--- NOTE | 2024-03-18 08:39 | PM.DS.1 ---
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 Last 2 weeks he was seen repeatedly in the ED and PCPs' office for UTI and had a course of Keflex. He came to ED today as he continues to be febrile, since 5 days ago. ED workup non-revealing, w/o obvious sources of infection. Discharge Providers Provider Date of admission: 03/11/24 21:55 Discharge Date: 03/18/24 Primary care physician: Miya Hernandez DO Consults: 03/16/24 10:39 Consult to Home Health Routine Comment: RN Reason For Exam: Home Health Services Discharge provider: Dillon Garcia DO Summary Hospital Course Discharge Diagnosis: 1. 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 2. DM 2, present on admission and active. 3. PICC insertion site bleeding, new, improved Chronic and stable medical problems. PAF / CAD / HLD / HTN / CHF BPH Gout R Shoulder pain Hospital Course: This is an 83 year old male with PMH of parox. afib, CAD, HTN, HLD, CHFpEF, bovine aortic valve, gout, BPH who was called in for positive blood cultures after recent ER visit for a fall. Blood cultures were positive for an alpha hemolytic strep, recently he had strep salivarius positive blood cultures but was treated with a week of oral antibiotics. His blood cultures cleared and the first negative blood culture after admission was on 03/13. He initially had midline placed, but this was changed to PICC over a guidewire after he went for JOE after cardiology recommendation which did show possible small vegetation. Infectious disease recommended at least 4 weeks of ceftriaxone, which was set up and currently planned for last dose on 04/10/24. He should follow up within 1-2 weeks with infectious disease, and referral was ordered, printed and faxed on 03/18 to infectious disease clinic (though it is a Wednesday). His discharge was delayed due to oozing around his PICC line. Dressing was replaced on the day of discharge, and there was no significant oozing. This is likely due to the PICC line being placed over previous midline as well as chronic eliquis use. Time Spent with Patient Time spent: Greater than 30 minutes Exam Vital Signs (past 8 hours): - 03/18/24 01:17 03/18/24 05:00 03/18/24 08:09 Temperature 98.7 F 98.9 F Pulse Rate 71 86 98 H Respiratory Rate 17 17 Blood Pressure 140/86 148/72 H 161/101 H Pulse Oximetry 99 96 Oxygen Flow Rate 0 0 Oxygen Delivery Method CPAP Oxygen Flow Rate 0 Narrative Exam Narrative: NAD, alert and oriented. Fluent speech. Lungs are clear, normal rate and effort. Heart is regular, no murmur gallop or rub. Abdomen is soft, non distended. Extremities are free of edema. Left arm PICC no oozing after dressing change. Objective Labs 03/17/24 05:24 03/17/24 05:24 PFSH Medical History History of heart failure Syncope COVID-19 Onychomycosis Osteoarthritis Cataracts, bilateral (~2015) Colon polyps (01/2004) Chickenpox Mumps Measles Upper GI bleed Ascending aortic aneurysm Aortic stenosis Hx of varicose veins Sleep apnea Gout Coronary artery disease Hyperlipidemia Hypertension Surgical History Hx of knee surgery (2003) Hx of colonoscopy with polypectomy (01/2004) Hx of cataract surgery (09/2015) Hx of total knee arthroplasty (01/2013) Hx of aortic valve replacement (12/2009) Hx of varicose vein stripping (1974) Hx of coronary artery bypass graft History of aortic valve replacement (07/19/15) Family History Brother No problems noted. Father Diabetes mellitus Heart disease Mother No problems noted. Social History household members: spouse Smoking Status: Former smoker alcohol intake: never substance use type: does not use Discharge Plan Discharge Plan Patient Disposition: Home Discharge orders & Medications Prescriptions: New ceftriaxone 2 gram Recon Soln 2,000 mg IV Q24H 27 Days Qty: 27 0RF Continued apixaban 5 mg tablet 5 mg PO BID Qty: 30 0RF allopurinol 100 mg tablet 100 mg PO DAILY Qty: 20 0RF atorvastatin 40 mg tablet 40 mg PO DAILY Qty: 20 0RF metformin 500 mg tablet 500 mg PO BIDWMEAL Qty: 180 1RF finasteride 5 mg tablet 5 mg PO DAILY Qty: 90 1RF losartan 25 mg tablet 25 mg PO QDAY Qty: 20 0RF Centrum Silver Men [phone] mcg tablet 1 tab PO DAILY ascorbic acid (vitamin C) 1,000 mg tablet 1 g PO DAILY cholecalciferol (vitamin D3) 125 mcg (5,000 unit) capsule 125 mcg PO DAILY ggfdmobbukq-P-Gtedourmmnkxmpv 500-200 mg tablet 2 tab PO DAILY turmeric root extract 500 mg capsule 500 mg PO DAILY magnesium oxide 400 mg magnesium tablet 400 mg PO DAILY albuterol sulfate 90 mcg/actuation HFA aerosol inhaler 2 puff inhalation Q6H PRN (Reason: shortness of breath or wheezing) Qty: 6.7 0RF Rx Instructions: Please include a spacer with the prescription aspirin 81 mg tablet,delayed release (DR/EC) 81 mg PO DAILY alfuzosin 10 mg tablet extended release 24 hr 10 mg PO DAILY Rx Instructions: administer after the same meal each day metoprolol succinate 25 mg tablet extended release 24 hr 25 mg PO DAILY furosemide [Lasix] 40 mg tablet 40 mg PO DAILY Follow up/Referrals: Miya Hernandez DO [Primary Care Provider] - Other Ambulatory Orders: Referral to: (Schedule) Timeframe: 1 Week Location: Outside Services Ordered By: Dillon Garcia Diet/Activity/Treatments Diet: Diet as Tolerated and Regular Visit Report/Discharge Packet Stand Alone Forms: Patient Portal/API, Stroke Signs & Symptoms Discharge Data Primary Care Provider: Miya Hernandez
[2024-03-18 08:40] VITALS: BP 152/72; PULSE 72
[2024-03-18 09:00] VITALS: BP 164/101; PULSE 92; RESP 16; TEMP 36.4; O2SAT 95
--- NOTE | 2024-03-18 09:32 | CM.DPC ---
DCP Cont. Reviewed EMR and team rounds for status updates. Pt has been medically cleared for home d/c. His family will transport him today at 11:00am, [facility] with meet with them in early afternoon, Sig. Home Health will follow. No further DCP needs identified at this time.
[2024-03-18] MEDS: ASPIRIN EC 81 MG TABLET PO (09:37)
[2024-03-18] MEDS: ACETAMINOPHEN 325 MG TABLET 650 MG PO (11:44)
--- NOTE | 2024-03-18 12:48 | PC.NURSE ---
Pt sitting in chair. CBG 138, covered w/ 1u S/S Dsg to RAMIREZ PICC changed Continues to slow leak. pressure applied for min. Ozing stopped. newdsg applied. D?C instructions given w/understanding. Planning to seeinfusion people at house on D/C. Pt Escorted by staff via W/C to waitng vehicle. D/C in stable staus.
--- NOTE | 2024-03-20 16:58 | P.PN_ITS ---
Subjective Subjective Interval history: Doing well. Less oozing from PICC today Exam Vital Signs (past 8 hours): Oxygen Delivery Method CPAP Oxygen Flow Rate 0 Narrative Exam Narrative: NAD, alert and oriented. Fluent speech. Lungs are clear, normal rate and effort. Heart is regular, no murmur gallop or rub. Abdomen is soft, non distended. Extremities are free of edema. Left arm PICC wrapped Objective Labs 03/17/24 05:24 03/17/24 05:24 [facility] Medical History History of heart failure Syncope COVID-19 Onychomycosis Osteoarthritis Cataracts, bilateral (~2015) Colon polyps (01/2004) Chickenpox Mumps Measles Upper GI bleed Ascending aortic aneurysm Aortic stenosis Hx of varicose veins Sleep apnea Gout Coronary artery disease Hyperlipidemia Hypertension Surgical History Hx of knee surgery (2003) Hx of colonoscopy with polypectomy (01/2004) Hx of cataract surgery (09/2015) Hx of total knee arthroplasty (01/2013) Hx of aortic valve replacement (12/2009) Hx of varicose vein stripping (1974) Hx of coronary artery bypass graft History of aortic valve replacement (07/19/15) Family History Brother No problems noted. Father Diabetes mellitus Heart disease Mother No problems noted. Social History household members: spouse Smoking Status: Former smoker alcohol intake: never substance use type: does not use Assessment & Plan Assessment & Plan narrative: 1. 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 -recent blood cultures grew Streptococcus salivarius on 02/19. Cleared on 02/21 with ? PO antibiotics only. Unclear which antibiotic possible cephalexin for 1 week. Returned with positive blood culture with same strep bacteremia on 03/11. Started on ceftriaxone, now blood cultures again clear on 03/13. -Continued on ceftriaxone and vanco initially, narrowed to ceftriaxone only per ID phone reocmmendations 03/13. ID today at [facility] recommended further discussion with cardiology. Shortly after this I received a call from patient's own parer Dr. Finley who felt strongly the need for JOE to rule out endocarditis in this situation. -JOE was performed today at [facility], with return here. There he was found to have likely a small vegetation on his valve. -Rediscussed with ID at [facility]. Recommended 4 weeks of IV ceftriaxone 2g q24 hr for endocarditis from negative culture (03/13 - 04/10/24). Follow up outpatient ID clinic. Please print referral form and fax referral to [phone]. Should follow up within 2 weeks of discharge. 2. DM 2, present on admission and active. - metformin, SS 3. PICC insertion site bleeding, new and active. Chronic and stable medical problems. PAF / CAD / HLD / HTN / CHF - Toprol XL, Eliquis, ASA, Lipitor - Losartan and Lasix on hold - IVFs BPH - afluzosin, finasteride Gout - allopurinol PLAN: -resumed Eliquis this morning. -monitor overnight, discharge in the morning on Eliquis with PICC if oozing is not recurrent. THUY: 03/18. Home with IV antibiotics. Time-Based Coding :: [TOTAL MINUTES] spent with patient and on the chart (including review of chart, obtaining history, exam, reviewing outside data, placing orders, documenting exam and treatment plan, and counseling patient) on [DATE].
== END 2024-03-18 12:35 | disposition home health service (06) | DRG 289 ==
LOC: ED 21:55 → AC 21:56
PROVIDERS: Family Medicine; Hospitalist; Internal Medicine; Admitting Provider Internal Medicine; Emergency Provider Emergency Medicine; PCP Family Medicine; Referring Provider Emergency Medicine; Visit Provider Internal Medicine
DX: I33.0 Acute and subacute infective endocarditis (principal); I25.810 Atherosclerosis of coronary artery bypass graft(s) without angina pectoris; R78.81 Bacteremia; T82.838A Hemorrhage due to vascular prosthetic devices, implants and grafts, initial encounter; R22.31 Localized swelling, mass and lump, right upper limb; M67.411 Ganglion, right shoulder; I71.21 Aneurysm of the ascending aorta, without rupture; E11.9 Type 2 diabetes mellitus without complications; G47.33 Obstructive sleep apnea (adult) (pediatric); E78.00 Pure hypercholesterolemia, unspecified; J45.909 Unspecified asthma, uncomplicated; I48.0 Paroxysmal atrial fibrillation; I50.9 Heart failure, unspecified; I11.0 Hypertensive heart disease with heart failure; N40.0 Benign prostatic hyperplasia without lower urinary tract symptoms; M10.9 Gout, unspecified; B95.4 Other streptococcus as the cause of diseases classified elsewhere; M25.511 Pain in right shoulder; Z95.0 Presence of cardiac pacemaker; Z79.84 Long term (current) use of oral hypoglycemic drugs; Z95.3 Presence of xenogenic heart valve; Z79.01 Long term (current) use of anticoagulants; Z95.1 Presence of aortocoronary bypass graft; Z87.891 Personal history of nicotine dependence; R41.3 Other amnesia
CPT/HCPCS: 36415; 36569; 36592; 36600; 71045; 73201; 80048; 80053; 81003; 82805; 82962; 83605; 83690; 83735; 84145; 85007; 85014; 85018; 85025; 85610; 85651; 86140; 87040; 87077; 87154; 87186; 87633; 93005; 93306; 94640; 96365; 96367; 96375; 99284; 99285; J0136; J0696; J1642; J1815; J7613; Q9967

== ENCOUNTER 2024-03-19 15:52 | Emergency (ER) | payer MEDICARE, SELFPAY ==
[2024-03-12 02:54] VITALS: BMI 33.3
[2024-03-19 16:01] VITALS: BP 172/69; PULSE 62; RESP 18; TEMP 36.1; O2SAT 99; BMI 31.6
--- NOTE | 2024-03-19 16:12 | PC.NURSE ---
Gauze at insertion site of PICC completely soak through and dripping outside of tegaderm. Tegaderm placed today did not completely cover picc line, cleaned exposed line with 3 chloraprep swabs and covered with tegaderm in triage. Patient on Eliquis.
[2024-03-19] MEDS: TRANEXAMIC ACID 1,000 MG VIAL 1000 MG TOP (16:26)
--- NOTE | 2024-03-19 17:20 | ED.RECABL ---
HPI - Recheck/Abnormal Lab/Rx General Chief Complaint: Recheck/Abnormal Lab/Rx Stated Complaint: bleeding pick line Time Seen by Provider: 03/19/24 16:23 Source: patient and family Mode of arrival: Wheelchair History of Present Illness HPI narrative: 83-year-old male recently discharged from the hospital for heart valve infection, on outpatient course Ceftriaxone 2mg daily via PICC line, daily home infusion doses to be given 7pm nightly, had new left upper extremity PICC line placed before discharge, which has continued to bleed, no dislodgement known, increasing bleeding today. He takes chronic Eliquis blood thinner medications Related Data Home Medications Medication Instructions Recorded Confirmed aspirin 81 mg tablet,delayed 81 mg PO DAILY 02/11/19 03/11/24 release alfuzosin 10 mg tablet,extended 10 mg PO DAILY 01/19/23 03/11/24 release 24 hr metoprolol succinate 25 mg 25 mg PO DAILY 09/16/23 03/11/24 tablet,extended release 24 hr ascorbic acid (vitamin C) 1,000 mg 1 g PO DAILY 10/07/23 03/11/24 tablet cholecalciferol (vitamin D3) 125 125 mcg PO DAILY 10/07/23 03/11/24 mcg (5,000 unit) capsule uynrohwkvkr-F-Rlesasybhkvhafqguq 2 tab PO DAILY 10/07/23 03/11/24 500 mg-200 mg tablet magnesium oxide 400 mg PO DAILY 10/07/23 03/11/24 lkiojchg-vv-qnbam 300 mcg-K 60 1 tab PO DAILY 10/07/23 03/11/24 mcg-lycop 600 mcg-lutein 300 mcg tablet (Centrum Silver Men) turmeric root extract 500 mg 500 mg PO DAILY 10/07/23 03/11/24 capsule furosemide 40 mg tablet (Lasix) 40 mg PO DAILY 03/11/24 03/16/24 Previous Rx's Medication Instructions Recorded apixaban 5 mg tablet 5 mg PO BID #30 tabs 01/02/20 allopurinol 100 mg tablet 100 mg PO DAILY #20 tabs 05/11/23 atorvastatin 40 mg tablet 40 mg PO DAILY #20 tabs 05/11/23 metformin 500 mg tablet 500 mg PO BIDWMEAL #180 tabs 07/19/23 finasteride 5 mg tablet 5 mg PO DAILY #90 tabs 11/29/23 albuterol sulfate 90 mcg/actuation 2 puff inhalation Q6H PRN 02/24/24 aerosol inhaler shortness of breath or wheezing #6.7 grams losartan 25 mg tablet 25 mg PO QDAY #20 tabs 02/25/24 ceftriaxone 2 gram solution for 2,000 mg IV Q24H 27 days #27 ea 03/15/24 injection Allergies Allergy/AdvReac Type Severity Reaction Status Date / Time latex Allergy Mild SWOLLEN Verified 03/19/24 16:01 FINGERS Sulfa (Sulfonamide Allergy Mild SWOLLEN Verified 03/19/24 16:01 Antibiotics) FINGERS lisinopril AdvReac Intermediate SWELLING Verified 03/19/24 16:01 hydrochlorothiazide AdvReac Mild SWELLING Verified 03/19/24 16:01 Review of Systems Review of Systems Narrative: see HPI Patient History Medical History History of heart failure Syncope COVID-19 Onychomycosis Osteoarthritis Cataracts, bilateral (~2016) Colon polyps (01/2004) Chickenpox Mumps Measles Upper GI bleed Ascending aortic aneurysm Aortic stenosis Hx of varicose veins Sleep apnea Gout Coronary artery disease Hyperlipidemia Hypertension Surgical History Hx of knee surgery (2003) Hx of colonoscopy with polypectomy (01/2004) Hx of cataract surgery (09/2015) Hx of total knee arthroplasty (01/2013) Hx of aortic valve replacement (12/2009) Hx of varicose vein stripping (1974) Hx of coronary artery bypass graft History of aortic valve replacement (07/19/15) Family History Brother No problems noted. Father Diabetes mellitus Heart disease Mother No problems noted. Social History household members: spouse Smoking Status: Former smoker alcohol intake: never substance use type: does not use Smoking Status: Former smoker tobacco type: cigarettes alcohol intake frequency: holidays/special occasions only Substance Use Type: does not use Exam Narrative Exam Narrative: GENERAL: Well-developed patient, in mild distress. HEAD: Atraumatic. Normocephalic. EYES: Pupils equal round and reactive. Extraocular motions intact. No scleral icterus. No injection or drainage. ENT: Nose without bleeding, purulent drainage. Throat without erythema, tonsillar hypertrophy or exudate. Airway patent. NECK: Trachea midline. Non tender CARDIOVASCULAR: Regular rate and rhythm without murmurs, gallops, or rubs. RESPIRATORY: Clear to auscultation. Breath sounds equal bilaterally. No wheezes, rales, or rhonchi. GASTROINTESTINAL: Abdomen soft, non-tender, nondistended. EXTREMITIES: Left upper extremity PICC line site with nonpulsatile BRB oozing actively from underneath the OpSite like covering BACK: Nontender without deformity or crepitance. No flank tenderness. NEURO: AOx3. Motor function grossly nonfocal SKIN: No rash or erythema of visible areas Initial Vital Signs Initial Vital Signs: Vital Signs Temperature 97.0 F L 03/19/24 16:01 Pulse Rate 62 03/19/24 16:01 Respiratory Rate 18 03/19/24 16:01 Blood Pressure 172/69 H 03/19/24 16:01 Pulse Oximetry 99 03/19/24 16:01 Oxygen Delivery Method Room Air 03/19/24 16:01 Course Orders Ordered: Discontinued Medications Ceftriaxone Sodium 2,000 mg/ (Sodium Chloride) 100 mls @ 200 mls/hr IV NOW ONE Stop: 03/19/24 17:53 Last Admin: 03/19/24 19:19 Dose: 200 mls/hr Documented By: SELWYN Tranexamic Acid (Tranexamic Acid 1,000 Mg Vial) 1,000 mg TOP NOW ONE Stop: 03/19/24 16:24 Last Admin: 03/19/24 16:26 Dose: 1,000 mg Documented By: YANET Vital Signs Vital signs: Vital Signs - 8 hr 03/19/24 16:01 Temperature 97.0 F L Pulse Rate 62 Respiratory Rate 18 Blood Pressure 172/69 H Pulse Oximetry 99 Oxygen Delivery Method Room Air MDM - Recheck/Abnormal Lab/Rx Lab Data 03/19/24 17:35 03/19/24 17:35 Labs: Lab Results 03/19/24 Range/Units 17:35 WBC 7.5 (4.5-11.0) X10^3/uL RBC 3.56 L (4.5-5.9) X10^6/uL Hgb 11.1 L (13.5-17.5) g/dL Hct 33.0 L (41-53) % MCV 92.6 (80-100) fL MCH 31.2 (26-34) PG MCHC 33.6 (30-36) % RDW 15.0 H (11.6-14.8) % Plt Count 300 (150-400) X10^3/uL Neut % (Auto) 72.3 (50-75) % Lymph % (Auto) 13.3 L (25-40) % Mcdonough % (Auto) 11.1 (3-14) % Eos % (Auto) 2.3 (2-4) % Baso % (Auto) 1.0 (0-2) % Neut # (Auto) 5400 (2443-3921) /uL Lymph # (Auto) 1000 L (1101-9929) /uL Mcdonough # (Auto) 800 (0-900) /uL Eos # (Auto) 200 (0-450) /uL Baso # (Auto) 100 (0-100) /uL PT 18.2 H (9.4-12.5) SECONDS INR 1.6 H (0.9-1.3) APTT 43 H (25.1-36.5) SECONDS Sodium 135 L (137-145) mmol/L Potassium 4.0 (3.4-5.1) mmol/L Chloride 101 (98-107) mmol/L Carbon Dioxide 30 (22-32) mmol/L BUN 10 (9-20) mg/dL Creatinine 0.66 (0.66-1.25) mg/dL Estimated GFR > 60 (>60) mL/min BUN/Creatinine Ratio 15.2 (6-22) Glucose 109 (80-110) mg/dL Calcium 8.6 (8.4-10.2) mg/dL Total Bilirubin 1.0 (0.2-1.3) mg/dL AST 33 (17-59) IU/L ALT 21 (<50) IU/L Alkaline Phosphatase 128 H (38-126) U/L Total Protein 6.7 (6.3-8.2) g/dL Albumin 3.3 L (3.5-5.0) g/dL Globulin 3.4 (1.7-4.1) g/dL Albumin/Globulin Ratio 1.0 (1.0-2.8) MDM Narrative Medical decision making narrative: 83-year-old male recently released with infection problems, left upper extremity PICC line placed that has been bleeding since discharge, no pulling or injury recalled. He takes blood thinner medications. He is due for ceftriaxone 2 g every 24 hours, next dose would be due at 7:00 p.m. Bright red blood active oozing from underneath the op-site dressing. Direct pressure applied over the dressing, still having considerable bleeding. Labs sent. Attempted to contact DI nurse, no callback on this weekend . Op-site dressing carefully removed to not disrupt catheter position with sterile gloves, sterile 4 x 4 saturated with TXA was placed over puncture site with direct pressure for 10 minutes by me. New dressing then applied. Coban wrapped. Still bleeding, dressing and PICC line catheter removed, intact tip end, with direct pressure over puncture site after removal, then pressure dressing coban wrap Further observed. Does note appear to be saturating with the catheter out Peripheral line placed contralateral right antecubital, IV ceftriaxone 2 g dose given tonight. Follow up with infusion therapy tomorrow Wednesday. Might need revision or replacement of PICC line at an alternate site, or rotating peripheral IV placement. Discharge Plan Departure Patient Disposition: Home Clinical Impression: Bleeding from PICC line, PIC line (peripherally inserted central catheter) removal, Chronic anticoagulation Activity Restrictions/Additional Instructions: Recent admission for infected heart valve, prescribed ceftriaxone 2 g IV once daily, left arm PICC line unfortunately has been bleeding and continues to bleed, chronic anticoagulation indicated, we could not get the site to stop bleeding, with brisk bright red blood ooze, the PICC line was removed. The catheter appeared intact at the end of the tip, removed without difficulty. Pressure dressing applied, no apparent breakthrough bleeding once PICC line was removed. Peripheral IV was placed for tonight on your right arm, your dose of ceftriaxone tonight was given. Follow up tomorrow with infusion Clinic to be assessed for possible repeat alternate PICC line site placement. Prescriptions: No Action apixaban 5 mg tablet 5 mg PO BID Qty: 30 0RF allopurinol 100 mg tablet 100 mg PO DAILY Qty: 20 0RF atorvastatin 40 mg tablet 40 mg PO DAILY Qty: 20 0RF metformin 500 mg tablet 500 mg PO BIDWMEAL Qty: 180 1RF finasteride 5 mg tablet 5 mg PO DAILY Qty: 90 1RF losartan 25 mg tablet 25 mg PO QDAY Qty: 20 0RF Centrum Silver Men [phone] mcg tablet 1 tab PO DAILY ascorbic acid (vitamin C) 1,000 mg tablet 1 g PO DAILY cholecalciferol (vitamin D3) 125 mcg (5,000 unit) capsule 125 mcg PO DAILY uxraogihtdc-Z-Tylweeunsrggdwg 500-200 mg tablet 2 tab PO DAILY turmeric root extract 500 mg capsule 500 mg PO DAILY magnesium oxide 400 mg magnesium tablet 400 mg PO DAILY albuterol sulfate 90 mcg/actuation HFA aerosol inhaler 2 puff inhalation Q6H PRN (Reason: shortness of breath or wheezing) Qty: 6.7 0RF Rx Instructions: Please include a spacer with the prescription aspirin 81 mg tablet,delayed release (DR/EC) 81 mg PO DAILY alfuzosin 10 mg tablet extended release 24 hr 10 mg PO DAILY Rx Instructions: administer after the same meal each day metoprolol succinate 25 mg tablet extended release 24 hr 25 mg PO DAILY furosemide [Lasix] 40 mg tablet 40 mg PO DAILY ceftriaxone 2 gram Recon Soln 2,000 mg IV Q24H 27 Days Qty: 27 0RF Referrals: Miya Hernandez DO [Primary Care Provider] - Stand Alone Forms: Patient Portal/API
[2024-03-19 17:53] LABS: Add Manual Diff / Slide Review NO; Basophils Absolute Auto 100 /uL (0-100); Eosinophils Absolute Auto 200 /uL (0-450); Eosinophils Percent Auto 2.3 % (2-4); Hemoglobin 11.1 g/dL (13.5-17.5); Lymphocytes Absolute Auto 1000 /uL (1100-4500); Lymphocytes Percent Auto 13.3 % (25-40); Mean Corpuscular HGB Conc 33.6 % (30-36); Mean Corpuscular Hemoglobin 31.2 PG (26-34); Mean Corpuscular Volume 92.6 fL (80-100); Monocytes Absolute Auto 800 /uL (0-900); Monocytes Percent Auto 11.1 % (3-14); Neutrophils Absolute Auto 5400 /uL (1500-7000); Neutrophils Percent Auto 72.3 % (50-75); Platelet Count 300 X10^3/uL (150-400); Red Blood Cell Count 3.56 X10^6/uL (4.5-5.9); White Blood Cell Count 7.5 X10^3/uL (4.5-11.0)
[2024-03-19 17:57] LABS: INR 1.6 (0.9-1.3); Prothrombin Time 18.2 SECONDS (9.4-12.5)
[2024-03-19 18:00] LABS: PTT Partial Thromboplastin Tim 43 SECONDS (25.1-36.5)
[2024-03-19 18:01] LABS: Alanine Aminotransferase 21 IU/L (<50); Albumin 3.3 g/dL (3.5-5.0); Alkaline Phosphatase 128 U/L (38-126); Aspartate Aminotransferase 33 IU/L (17-59); BUN Creatinine Ratio 15.2 (6-22); Blood Urea Nitrogen 10 mg/dL (9-20); Calcium 8.6 mg/dL (8.4-10.2); Carbon Dioxide 30 mmol/L (22-32); Chloride 101 mmol/L (98-107); Estimated Glomerular Filt Rate > 60 mL/min (>60); Globulin 3.4 g/dL (1.7-4.1); Glucose 109 mg/dL (80-110); HEMOLYSIS < 15 (0-50); Sodium 135 mmol/L (137-145); Total Protein 6.7 g/dL (6.3-8.2)
--- NOTE | 2024-03-19 18:26 | PC.NURSE ---
MD Hernandez removed PICC line occlusive dressing w/ surgicell placed over.
--- NOTE | 2024-03-19 18:27 | PC.NURSE ---
03/19 1728 - No DI nurse available in house to help address the issues that the patient's pick line is addressing. Call placed to the upstairs coordinator, and they proceeded to share about how the addressed the same issue on the same patient a few days prior when the patient was admitted 03/19 1746 - Asked ER Provider about calling patient's PCP group. ER Provider denied and shared plan of removing patient's PICC line.
[2024-03-19] MEDS: cefTRIAXone 2,000 MG in SODIUM CHLORIDE 0.9% 100 ML 200 MG IV (19:19)
--- NOTE | 2024-03-19 19:35 | PC.NURSE ---
Pt PICC line site remains free of bleeding. Pt is alert and oriented x4. No signs of distress. Pt dressing site contains surgicell, gauze, and coband--dressed by . Mild pressure applied with coband.
[2024-03-19 19:57] VITALS: BP 180/78; PULSE 87; RESP 16; TEMP 36.8; O2SAT 98
== END 2024-03-19 20:00 | disposition home or self-care (01) ==
PROVIDERS: Emergency Provider Emergency Medicine; PCP Family Medicine
DX: T82.838A Hemorrhage due to vascular prosthetic devices, implants and grafts, initial encounter (principal); Z79.01 Long term (current) use of anticoagulants; Z79.899 Other long term (current) drug therapy; Z95.2 Presence of prosthetic heart valve
CPT/HCPCS: 36415; 80053; 85025; 85610; 85730; 96365; 99284; J0696

== ENCOUNTER 2024-03-20 17:34 | Emergency (ER) | payer MEDICARE, SELFPAY ==
[2024-03-12 02:54] VITALS: BMI 33.3
[2024-03-20 18:05] VITALS: BP 135/60; PULSE 65; RESP 18; TEMP 36.1; O2SAT 99; BMI 31.6
--- NOTE | 2024-03-20 18:44 | ED.RECABL ---
HPI - Recheck/Abnormal Lab/Rx General Chief Complaint: Recheck/Abnormal Lab/Rx Stated Complaint: needs infusion Time Seen by Provider: 03/20/24 18:35 Source: patient Mode of arrival: Family Vehicle History of Present Illness HPI narrative: 83-year-old male presents for antibiotic infusion. Patient had PICC line placed for alpha hemolytic Streptococcus bacteremia. PICC line removed yesterday due to persistent bleeding. states that she attempted to reach out to the patient's primary care doctor, however they were not able to receive a response until this evening. They were told that a PICC line replacement referral would be sent tomorrow morning, but patient was due for his nightly infusion of Rocephin. Patient otherwise denies complaints. Related Data Home Medications Medication Instructions Recorded Confirmed aspirin 81 mg tablet,delayed 81 mg PO DAILY 02/11/19 03/11/24 release alfuzosin 10 mg tablet,extended 10 mg PO DAILY 01/19/23 03/11/24 release 24 hr metoprolol succinate 25 mg 25 mg PO DAILY 09/16/23 03/11/24 tablet,extended release 24 hr ascorbic acid (vitamin C) 1,000 mg 1 g PO DAILY 10/07/23 03/11/24 tablet cholecalciferol (vitamin D3) 125 125 mcg PO DAILY 10/07/23 03/11/24 mcg (5,000 unit) capsule sxskhpyoeaj-U-Fidxumgaeqechhezmt 2 tab PO DAILY 10/07/23 03/11/24 500 mg-200 mg tablet magnesium oxide 400 mg PO DAILY 10/07/23 03/11/24 jmlvqyos-go-dhnlb 300 mcg-K 60 1 tab PO DAILY 10/07/23 03/11/24 mcg-lycop 600 mcg-lutein 300 mcg tablet (Centrum Silver Men) turmeric root extract 500 mg 500 mg PO DAILY 10/07/23 03/11/24 capsule furosemide 40 mg tablet (Lasix) 40 mg PO DAILY 03/11/24 03/16/24 Previous Rx's Medication Instructions Recorded apixaban 5 mg tablet 5 mg PO BID #30 tabs 01/02/20 allopurinol 100 mg tablet 100 mg PO DAILY #20 tabs 05/11/23 atorvastatin 40 mg tablet 40 mg PO DAILY #20 tabs 05/11/23 metformin 500 mg tablet 500 mg PO BIDWMEAL #180 tabs 07/19/23 finasteride 5 mg tablet 5 mg PO DAILY #90 tabs 11/29/23 albuterol sulfate 90 mcg/actuation 2 puff inhalation Q6H PRN 02/24/24 aerosol inhaler shortness of breath or wheezing #6.7 grams losartan 25 mg tablet 25 mg PO QDAY #20 tabs 02/25/24 ceftriaxone 2 gram solution for 2,000 mg IV Q24H 27 days #27 ea 03/15/24 injection Allergies Allergy/AdvReac Type Severity Reaction Status Date / Time latex Allergy Mild SWOLLEN Verified 03/19/24 16:01 FINGERS Sulfa (Sulfonamide Allergy Mild SWOLLEN Verified 03/19/24 16:01 Antibiotics) FINGERS lisinopril AdvReac Intermediate SWELLING Verified 03/19/24 16:01 hydrochlorothiazide AdvReac Mild SWELLING Verified 03/19/24 16:01 Patient History Medical History History of heart failure Syncope COVID-19 Onychomycosis Osteoarthritis Cataracts, bilateral (~2015) Colon polyps (01/2004) Chickenpox Mumps Measles Upper GI bleed Ascending aortic aneurysm Aortic stenosis Hx of varicose veins Sleep apnea Gout Coronary artery disease Hyperlipidemia Hypertension Surgical History Hx of knee surgery (2003) Hx of colonoscopy with polypectomy (01/2004) Hx of cataract surgery (09/2015) Hx of total knee arthroplasty (01/2013) Hx of aortic valve replacement (12/2009) Hx of varicose vein stripping (1974) Hx of coronary artery bypass graft History of aortic valve replacement (07/19/15) Family History Brother No problems noted. Father Diabetes mellitus Heart disease Mother No problems noted. Social History household members: spouse Smoking Status: Former smoker alcohol intake: never substance use type: does not use Smoking Status: Former smoker tobacco type: cigarettes alcohol intake frequency: holidays/special occasions only Substance Use Type: does not use Exam Initial Vital Signs Initial Vital Signs: Vital Signs Temperature 97.0 F L 03/20/24 18:05 Pulse Rate 65 03/20/24 18:05 Respiratory Rate 18 03/20/24 18:05 Blood Pressure 135/60 03/20/24 18:05 Pulse Oximetry 99 03/20/24 18:05 Oxygen Delivery Method Room Air 03/20/24 18:05 Const: Awake, alert, no acute distress, nontoxic appearing Cardiac: regular rate, regular rhythm RESP: unlabored, clear bilaterally, no wheezing Skin: Warm, Dry, intact, no rashes Neuro: AO x3, CN II-XII grossly intact, moves all extremities Course Orders Ordered: Discontinued Medications Ceftriaxone Sodium 2,000 mg/ (Sodium Chloride) 100 mls @ 200 mls/hr IV NOW ONE Stop: 03/20/24 18:44 Last Infusion: 03/20/24 19:48 Dose: Infused Documented By: Admin: 03/20/24 19:05 Dose: 200 mls/hr Documented By: BETH Vital Signs Vital signs: Vital Signs - 8 hr 03/20/24 18:05 Temperature 97.0 F L Pulse Rate 65 Respiratory Rate 18 Blood Pressure 135/60 Pulse Oximetry 99 Oxygen Delivery Method Room Air MDM - Recheck/Abnormal Lab/Rx MDM Narrative Medical decision making narrative: Patient presenting for Rocephin infusion. He is due for 2 g IV every day. Unfortunately not able to get PICC line replacement order in time to receive infusion today. Denying any other complaints. PICC line team has already left the building. IV placed by nursing staff and 2 g of Rocephin administered to the patient. Family given the scheduling 2. Diagnostic imaging and given strict ED return precautions. Discharge Plan Departure Patient Disposition: Home Clinical Impression: Blood bacterial culture positive Instructions: DI for Bacteremia-Adult Activity Restrictions/Additional Instructions: Call the scheduling department tomorrow morning to try and schedule your PICC line. If you do not hear back from them by early afternoon I recommend coming back to the emergency department for assistance. Prescriptions: No Action apixaban 5 mg tablet 5 mg PO BID Qty: 30 0RF allopurinol 100 mg tablet 100 mg PO DAILY Qty: 20 0RF atorvastatin 40 mg tablet 40 mg PO DAILY Qty: 20 0RF metformin 500 mg tablet 500 mg PO BIDWMEAL Qty: 180 1RF finasteride 5 mg tablet 5 mg PO DAILY Qty: 90 1RF losartan 25 mg tablet 25 mg PO QDAY Qty: 20 0RF Centrum Silver Men [id number] mcg tablet 1 tab PO DAILY ascorbic acid (vitamin C) 1,000 mg tablet 1 g PO DAILY cholecalciferol (vitamin D3) 125 mcg (5,000 unit) capsule 125 mcg PO DAILY dbdyepuwzgs-R-Sagxgomrjmqhapy 500-200 mg tablet 2 tab PO DAILY turmeric root extract 500 mg capsule 500 mg PO DAILY magnesium oxide 400 mg magnesium tablet 400 mg PO DAILY albuterol sulfate 90 mcg/actuation HFA aerosol inhaler 2 puff inhalation Q6H PRN (Reason: shortness of breath or wheezing) Qty: 6.7 0RF Rx Instructions: Please include a spacer with the prescription aspirin 81 mg tablet,delayed release (DR/EC) 81 mg PO DAILY alfuzosin 10 mg tablet extended release 24 hr 10 mg PO DAILY Rx Instructions: administer after the same meal each day metoprolol succinate 25 mg tablet extended release 24 hr 25 mg PO DAILY furosemide [Lasix] 40 mg tablet 40 mg PO DAILY ceftriaxone 2 gram Recon Soln 2,000 mg IV Q24H 27 Days Qty: 27 0RF Referrals: Miya Hernandez DO [Primary Care Provider] - Stand Alone Forms: Patient Portal/API
[2024-03-20] MEDS: cefTRIAXone 2,000 MG in SODIUM CHLORIDE 0.9% 100 ML 200 MG IV (19:05)
== END 2024-03-20 19:52 | disposition home or self-care (01) ==
PROVIDERS: Emergency Provider Emergency Medicine; PCP Family Medicine
DX: R78.81 Bacteremia (principal)
CPT/HCPCS: 36415; 96365; 99284; J0696

== ENCOUNTER 2024-03-21 11:59 | Emergency (ER) | payer MEDICARE, SELFPAY ==
[2024-03-12 02:54] VITALS: BMI 33.3
--- NOTE | 2024-03-21 12:11 | DI.RAD.S_ITS ---
PROCEDURE: FL FLUOROSCOPY >1HR COMPARISON: None. INDICATIONS: PICC for terminal manager abx FINDINGS: Single fluoroscopic image of right chest shows right-sided PICC line tip projecting in the expected location of SVC. IMPRESSION: Right-sided PICC line tip is projecting in the region of SVC. Dictated by: Vinay Mack M.D. on 03/21/2024 at 20:12 Approved by: Vinay Mack M.D. on 03/21/2024 at 20:13
[2024-03-21 12:15] VITALS: BP 156/67; PULSE 75; RESP 18; TEMP 37; O2SAT 99; BMI 31.6
[2024-03-21 14:38] VITALS: BP 141/63; PULSE 80; RESP 18; O2SAT 99
--- NOTE | 2024-03-21 15:02 | ED_ITS ---
HPI - Recheck/Abnormal Lab/Rx <Deni Lanza PA-C - Last Filed: 03/21/24 17:55> General Chief Complaint: Recheck/Abnormal Lab/Rx Stated Complaint: needs new PICC line Time Seen by Provider: 03/21/24 12:28 Source: patient Mode of arrival: Wheelchair History of Present Illness HPI narrative: 83-year-old male presents to the ED today for placement of a PICC line in order to obtain antibiotic infusion for an alpha hemolytic strep bacteremia. Patient came into the ED yesterday for this, was unable to get a PICC line placed, returns today for it. Related Data Home Medications Medication Instructions Recorded Confirmed aspirin 81 mg tablet,delayed 81 mg PO DAILY 02/11/19 03/11/24 release alfuzosin 10 mg tablet,extended 10 mg PO DAILY 01/19/23 03/11/24 release 24 hr metoprolol succinate 25 mg 25 mg PO DAILY 09/16/23 03/11/24 tablet,extended release 24 hr ascorbic acid (vitamin C) 1,000 mg 1 g PO DAILY 10/07/23 03/11/24 tablet cholecalciferol (vitamin D3) 125 125 mcg PO DAILY 10/07/23 03/11/24 mcg (5,000 unit) capsule jzhddvddpts-M-Susbtlcszzwyvtfxfs 2 tab PO DAILY 10/07/23 03/11/24 500 mg-200 mg tablet magnesium oxide 400 mg PO DAILY 10/07/23 03/11/24 awkjdill-oa-dafae 300 mcg-K 60 1 tab PO DAILY 10/07/23 03/11/24 mcg-lycop 600 mcg-lutein 300 mcg tablet (Centrum Silver Men) turmeric root extract 500 mg 500 mg PO DAILY 10/07/23 03/11/24 capsule furosemide 40 mg tablet (Lasix) 40 mg PO DAILY 03/11/24 03/16/24 Previous Rx's Medication Instructions Recorded apixaban 5 mg tablet 5 mg PO BID #30 tabs 01/02/20 allopurinol 100 mg tablet 100 mg PO DAILY #20 tabs 05/11/23 atorvastatin 40 mg tablet 40 mg PO DAILY #20 tabs 05/11/23 metformin 500 mg tablet 500 mg PO BIDWMEAL #180 tabs 07/19/23 finasteride 5 mg tablet 5 mg PO DAILY #90 tabs 05/20/24 albuterol sulfate 90 mcg/actuation 2 puff inhalation Q6H PRN 02/24/24 aerosol inhaler shortness of breath or wheezing #6.7 grams losartan 25 mg tablet 25 mg PO QDAY #20 tabs 02/25/24 ceftriaxone 2 gram solution for 2,000 mg IV Q24H 27 days #27 ea 03/15/24 injection Allergies Allergy/AdvReac Type Severity Reaction Status Date / Time latex Allergy Mild SWOLLEN Verified 03/19/24 16:01 FINGERS Sulfa (Sulfonamide Allergy Mild SWOLLEN Verified 03/19/24 16:01 Antibiotics) FINGERS lisinopril AdvReac Intermediate SWELLING Verified 03/19/24 16:01 hydrochlorothiazide AdvReac Mild SWELLING Verified 03/19/24 16:01 Review of Systems <Deni Lanza PA-C - Last Filed: 03/21/24 17:55> Constitutional Constitutional: Denies chills, Denies fatigue, Denies fever(s), Denies frequent falls, Denies lethargy and Denies weakness Eyes Eyes: Denies change in vision, Denies eye discharge, Denies irritation and Denies loss of vision ENT Ears, Nose, Mouth, and Throat: Denies change in voice, Denies dizziness, Denies neck pain, Denies sore throat and Denies throat swelling Cardiovascular Cardiovascular: Denies chest pain, Denies irregular heart rhythm, Denies lightheadedness, Denies palpitations, Denies dyspnea, Denies dyspnea on exertion and Denies orthopnea Respiratory Respiratory: Denies cough, Denies dyspnea, Denies dyspnea on exertion and Denies wheezing Gastrointestinal Gastrointestinal: Denies abdominal pain, Denies change in bowel habits, Denies diarrhea, Denies nausea and Denies vomiting Musculoskeletal Musculoskeletal: Denies neck pain and Denies numbness Integumentary/Breasts Skin/Breast: Denies pruritus, Denies erythema, Denies rash and Denies wounds Neurologic Neurologic: Denies behavioral changes, Denies confusion, Denies dizziness, Denies frequent falls, Denies loss of vision, Denies numbness and Denies weakness Psychiatric Psychiatric: Denies anxiety, Denies behavioral changes, Denies confusion, Denies depression, Denies homicidal ideation and Denies suicidal ideation Endocrine Endocrine: Denies fatigue, Denies flushing and Denies palpitations Hematologic/Lymphatic Hematologic/Lymphatic: Denies easy bruising Allergic/Immunologic Allergic/Immunologic: Denies urticaria, Denies throat swelling and Denies wheezing Patient History <Deni Lanza PA-C - Last Filed: 03/21/24 17:55> Medical History History of heart failure Syncope COVID-19 Onychomycosis Osteoarthritis Cataracts, bilateral (~2016) Colon polyps (01/2004) Chickenpox Mumps Measles Upper GI bleed Ascending aortic aneurysm Aortic stenosis Hx of varicose veins Sleep apnea Gout Coronary artery disease Hyperlipidemia Hypertension Surgical History Hx of knee surgery (2003) Hx of colonoscopy with polypectomy (01/2004) Hx of cataract surgery (09/2015) Hx of total knee arthroplasty (01/2013) Hx of aortic valve replacement (12/2009) Hx of varicose vein stripping (1974) Hx of coronary artery bypass graft History of aortic valve replacement (07/19/15) Family History Brother No problems noted. Father Diabetes mellitus Heart disease Mother No problems noted. Social History household members: spouse Smoking Status: Former smoker alcohol intake: never substance use type: does not use Smoking Status: Former smoker tobacco type: cigarettes alcohol intake frequency: holidays/special occasions only Substance Use Type: does not use Exam <Deni Lanza PA-C - Last Filed: 03/21/24 17:55> Narrative Exam Narrative: Const General:?cooperative, healthy appearing and comfortable [facility] Head:?normal to inspection Ears:?hearing grossly normal bilaterally Nose:?external nose normal Face and sinus:?normal facial exam and sinuses nontender Mouth:?oral mucosae normal Throat:?posterior oropharynx normal Eyes General:?appearance normal, both eyes and all related structures Neck Neck:?normal visual inspection and no lymphadenopathy noted Resp Effort & Inspection:?normal respiratory effort Auscultation:?clear to auscultation bilaterally Cardio Rate:?regular rate Rhythm:?regular rhythm Neuro General:?patient alert, patient awake and patient oriented x3 Initial Vital Signs Initial Vital Signs: Vital Signs Temperature 98.6 F 03/21/24 12:15 Pulse Rate 75 03/21/24 12:15 Respiratory Rate 18 03/21/24 12:15 Blood Pressure 156/67 H 03/21/24 12:15 Pulse Oximetry 99 03/21/24 12:15 Oxygen Delivery Method Room Air 03/21/24 12:15 <Mike Giles DO - Last Filed: 03/21/24 18:04> Initial Vital Signs Initial Vital Signs: Vital Signs Temperature 98.6 F 03/21/24 12:15 Pulse Rate 75 03/21/24 12:15 Respiratory Rate 18 03/21/24 12:15 Blood Pressure 156/67 H 03/21/24 12:15 Pulse Oximetry 99 03/21/24 12:15 Oxygen Delivery Method Room Air 03/21/24 12:15 Course <JIN Ennis Last Filed: 03/21/24 17:55> Vital Signs Vital signs: Vital Signs - 8 hr 03/21/24 12:15 03/21/24 14:38 03/21/24 18:02 Temperature 98.6 F Pulse Rate 75 80 72 Respiratory Rate 18 18 18 Blood Pressure 156/67 H 141/63 H 131/77 Pulse Oximetry 99 99 99 Oxygen Delivery Method Room Air Room Air Room Air <Mike Giles DO - Last Filed: 03/21/24 18:04> Vital Signs Vital signs: Vital Signs - 8 hr 03/21/24 12:15 03/21/24 14:38 03/21/24 18:02 Temperature 98.6 F Pulse Rate 75 80 72 Respiratory Rate 18 18 18 Blood Pressure 156/67 H 141/63 H 131/77 Pulse Oximetry 99 99 99 Oxygen Delivery Method Room Air Room Air Room Air MDM - Recheck/Abnormal Lab/Rx <JIN Ennis Last Filed: 03/21/24 17:55> MDM Narrative Medical decision making narrative: 83-year-old male presents to the ED today for placement of a PICC line in order to obtain antibiotic infusion for an alpha hemolytic strep bacteremia. PICC line was placed by Deb. The site of the PICC line is still oozing due to patient being on blood thinners. Pressure dressing and sling has been applied control the bleeding. Will observe and discharge home. The bleeding was controlled and patient stable. Patient is scheduled for antibiotics later tonight. Discussed keeping immobile as much as possible to prevent further bleeding. ED return precautions discussed with patient and alana ent's . They verbalized understanding. Medical records reviewed: Yes Discharge Plan Departure Patient Disposition: Home Clinical Impression: Status post peripherally inserted central catheter (PICC) central line placement Instructions: Peripherally Inserted Central Catheter Activity Restrictions/Additional Instructions: You were seen in the ED today for a PICC line insertion. A PICC line was inserted successfully, you were observed for any oozing. While there was initial oozing, it appears that bleeding has been controlled. Please continue to keep the arm in the sling and immobile as much as possible to avoid further bleeding. Return to the ED if your symptoms worsen. Prescriptions: No Action apixaban 5 mg tablet 5 mg PO BID Qty: 30 0RF allopurinol 100 mg tablet 100 mg PO DAILY Qty: 20 0RF atorvastatin 40 mg tablet 40 mg PO DAILY Qty: 20 0RF metformin 500 mg tablet 500 mg PO BIDWMEAL Qty: 180 1RF finasteride 5 mg tablet 5 mg PO DAILY Qty: 90 1RF losartan 25 mg tablet 25 mg PO QDAY Qty: 20 0RF Centrum Silver Men [id number] mcg tablet 1 tab PO DAILY ascorbic acid (vitamin C) 1,000 mg tablet 1 g PO DAILY cholecalciferol (vitamin D3) 125 mcg (5,000 unit) capsule 125 mcg PO DAILY wkggfswapfj-K-Cjcqheqesgitfsw 500-200 mg tablet 2 tab PO DAILY turmeric root extract 500 mg capsule 500 mg PO DAILY magnesium oxide 400 mg magnesium tablet 400 mg PO DAILY albuterol sulfate 90 mcg/actuation HFA aerosol inhaler 2 puff inhalation Q6H PRN (Reason: shortness of breath or wheezing) Qty: 6.7 0RF Rx Instructions: Please include a spacer with the prescription aspirin 81 mg tablet,delayed release (DR/EC) 81 mg PO DAILY alfuzosin 10 mg tablet extended release 24 hr 10 mg PO DAILY Rx Instructions: administer after the same meal each day metoprolol succinate 25 mg tablet extended release 24 hr 25 mg PO DAILY furosemide [Lasix] 40 mg tablet 40 mg PO DAILY ceftriaxone 2 gram Recon Soln 2,000 mg IV Q24H 27 Days Qty: 27 0RF Referrals: Miya Hernandez DO [Primary Care Provider] - Stand Alone Forms: Patient Portal/API ED Sign-out <Mike Giles, DO - Last Filed: 03/21/24 18:04> Cosign ED Attending Cosignature Attestation: Dr Giles Co-Sign Statement: I was available for consultation during this patient's emergency department visit. This chart is signed by myself for administrative purposes only. I did not have direct contact with this patient during this visit. They were seen independently by the APC.
[2024-03-21 18:02] VITALS: BP 131/77; PULSE 72; RESP 18; O2SAT 99
== END 2024-03-21 18:03 | disposition home or self-care (01) ==
PROVIDERS: Emergency Provider Student in an Organized Health Care Education/Training Program; PCP Family Medicine
DX: R78.81 Bacteremia (principal)
CPT/HCPCS: 36569; 36573; 76000; 99281; 99283

== ENCOUNTER → 2024-03-29 09:25 | Outpatient (CLI) | payer MEDICARE, SELFPAY ==
[2024-03-12 02:54] VITALS: BMI 33.3
[2024-03-29 10:07] LABS: Hematocrit 33.4 % (41-53); Hemoglobin 11.2 g/dL (13.5-17.5); Mean Corpuscular HGB Conc 33.7 % (30-36); Mean Corpuscular Hemoglobin 31.2 PG (26-34); Mean Corpuscular Volume 92.7 fL (80-100); Platelet Count 318 X10^3/uL (150-400); Red Cell Distribution Width 15.4 % (11.6-14.8); White Blood Cell Count 7.1 X10^3/uL (4.5-11.0)
[2024-03-29 10:29] LABS: Alanine Aminotransferase 27 IU/L (<50); Albumin 3.6 g/dL (3.5-5.0); Albumin Globulin Ratio 1.2 (1.0-2.8); Alkaline Phosphatase 152 U/L (38-126); Aspartate Aminotransferase 48 IU/L (17-59); BUN Creatinine Ratio 16.3 (6-22); Bilirubin Total 0.7 mg/dL (0.2-1.3); Blood Urea Nitrogen 13 mg/dL (9-20); Calcium 9.5 mg/dL (8.4-10.2); Carbon Dioxide 30 mmol/L (22-32); Chloride 98 mmol/L (98-107); Estimated Glomerular Filt Rate > 60 mL/min (>60); Glucose 105 mg/dL (80-110); HEMOLYSIS < 15 (0-50); Potassium 4.5 mmol/L (3.4-5.1); Sodium 134 mmol/L (137-145); Total Protein 6.6 g/dL (6.3-8.2)
[2024-03-29 15:29] LABS: Neutrophils Absolute Manual 4544 /uL (3000-5900); Total Cells Counted 100
[2024-03-29 15:30] LABS: RBC Morphology Normal Morphology
== END ==
PROVIDERS: PCP Family Medicine; Referring Provider Family Medicine; Visit Provider Family Medicine
DX: R78.81 Bacteremia (principal); Z45.2 Encounter for adjustment and management of vascular access device; R50.9 Fever, unspecified; J98.59 Other diseases of mediastinum, not elsewhere classified; Z95.828 Presence of other vascular implants and grafts; I38 Endocarditis, valve unspecified
CPT/HCPCS: 36415; 80053; 85025

== ENCOUNTER → 2024-04-28 14:29 | Outpatient (CLI) | payer MEDICARE, SELFPAY ==
[2024-03-12 02:54] VITALS: BMI 33.3
[2024-04-28 15:59] LABS: BUN Creatinine Ratio 24.1 (6-22); Blood Urea Nitrogen 21 mg/dL (9-20); Calcium 9.6 mg/dL (8.4-10.2); Carbon Dioxide 28 mmol/L (22-32); Chloride 99 mmol/L (98-107); Estimated Glomerular Filt Rate > 60 mL/min (>60); Glucose 114 mg/dL (80-110); HEMOLYSIS < 15 (0-50); Potassium 4.5 mmol/L (3.4-5.1); Sodium 135 mmol/L (137-145)
== END ==
PROVIDERS: PCP Family Medicine; Referring Provider Internal Medicine Cardiovascular Disease; Visit Provider Internal Medicine Cardiovascular Disease
DX: I50.22 Chronic systolic (congestive) heart failure (principal)
CPT/HCPCS: 36415; 80048

== ENCOUNTER 2024-06-16 11:53 | Emergency (ER) | payer MEDICARE, SELFPAY ==
[2024-03-12 02:54] VITALS: BMI 33.3
[2024-06-16 11:56] VITALS: BP 134/60; PULSE 85; RESP 16; TEMP 36.5; O2SAT 95; BMI 31.1
[2024-06-16 12:23] LABS: Appearance Urine UA SL CLOUDY; Bilirubin Urine UA NEGATIVE (NEGATIVE); Color Urine UA YELLOW; Glucose Urine UA NEGATIVE (Negative); Ketones Urine UA NEGATIVE (NEGATIVE); Leukocyte Esterase Urine UA TRACE (NEGATIVE); Nitrite Urine UA NEGATIVE (Negative); Occult Blood Urine UA 3+ (Negative); Protein Urine UA 2+ (Negative); Specific Gravity Urine UA <=1.005 (1.000-1.035); Urobilinogen Urine UA 0.2 E.U./dL (0.2); pH Urine UA 7.5 (4.5-8.0)
[2024-06-16 12:50] LABS: Bacteria Urine None Seen; RBC Urine 30-100/HPF (0-5/HPF); Urine Volume 10mL (spun); WBC Urine 5-10/HPF (0-5/HPF)
[2024-06-16 12:51] LABS: Culture Indicated Urine Cult Not Indicated; Squamous Epithelial Cell Urine 0-1 /HPF (0-5/HPF)
--- NOTE | 2024-06-16 14:23 | ED_ITS ---
HPI - Male Genitourinary <Roshni St PA-C - Last Filed: 06/16/24 16:49> General Chief complaint: Urogenital-Male Stated complaint: blood in urine Time Seen by Provider: 06/16/24 14:23 Mode of arrival: Family Vehicle History of Present Illness HPI Narrative: Mr. Lainez is a pleasant 83-year-old male with a past medical history of bovine tissue heart valve, endocarditis, CHF, ascending aortic aneurysm, asthma, hfl-kiptpvv-kgtksxgqc diabetes, CAD, hypertension, gout, AFib on Eliquis who presents to the emergency department for hematuria and concerns for UTI x2 days. Patient's is with him who contributes to the history. Patient states yesterday morning when he woke up and urinated there was blood in his urine and occasional clots. Reports that when he has had urinary tract infections in the past he has had hematuria with clots because of his Eliquis. He denies dysuria, frequency, abdominal pain, nausea, vomiting, fevers, chills, flank pain, chest pain, shortness of breath. Denies melena, hematochezia, constipation, diarrhea, bleeding from the urethra when not urinating. States that he does follow with [facility] urology. Related Data Home Medications Medication Instructions Recorded Confirmed aspirin 81 mg tablet,delayed 81 mg PO DAILY 02/11/19 06/07/24 release alfuzosin 10 mg tablet,extended 10 mg PO DAILY 01/19/23 06/07/24 release 24 hr metoprolol succinate 25 mg 25 mg PO DAILY 09/16/23 06/07/24 tablet,extended release 24 hr ascorbic acid (vitamin C) 1,000 mg 1 g PO DAILY 10/07/23 06/07/24 tablet cholecalciferol (vitamin D3) 125 125 mcg PO DAILY 10/07/23 06/07/24 mcg (5,000 unit) capsule orijkzajzjy-X-Crijehkfvdywfszsrm 2 tab PO DAILY 10/07/23 06/07/24 500 mg-200 mg tablet magnesium oxide 400 mg PO DAILY 10/07/23 06/07/24 upbmszoi-hb-vkipk 300 mcg-K 60 1 tab PO DAILY 10/07/23 06/07/24 mcg-lycop 600 mcg-lutein 300 mcg tablet (Centrum Silver Men) turmeric root extract 500 mg 500 mg PO DAILY 10/07/23 06/07/24 capsule furosemide 40 mg tablet (Lasix) 20 mg PO DAILY 06/07/24 06/07/24 spironolactone 25 mg tablet 12.5 mg PO DAILY 06/07/24 06/07/24 Previous Rx's Medication Instructions Recorded apixaban 5 mg tablet 5 mg PO BID #30 tabs 01/02/20 atorvastatin 40 mg tablet 40 mg PO DAILY #20 tabs 05/11/23 finasteride 5 mg tablet 5 mg PO DAILY #90 tabs 11/29/23 allopurinol 100 mg tablet 100 mg PO DAILY #20 tabs 03/22/24 metformin 500 mg tablet 500 mg PO BIDWMEAL #180 tabs 03/22/24 losartan 25 mg tablet 25 mg PO QDAY #90 tabs 05/08/24 cefuroxime axetil 500 mg tablet 500 mg PO BID 7 days #14 tabs 06/16/24 Allergies Allergy/AdvReac Type Severity Reaction Status Date / Time latex Allergy Mild SWOLLEN Verified 06/07/24 13:37 FINGERS Sulfa (Sulfonamide Allergy Mild SWOLLEN Verified 06/07/24 13:37 Antibiotics) FINGERS lisinopril AdvReac Intermediate SWELLING Verified 06/07/24 13:37 hydrochlorothiazide AdvReac Mild SWELLING Verified 06/07/24 13:37 Review of Systems <Roshni St PA-C - Last Filed: 06/16/24 16:49> Review of Systems ROS Unobtainable: All systems reviewed & are unremarkable except as noted in HPI and below Patient History <Roshni St PA-C - Last Filed: 06/16/24 16:49> Medical History History of heart failure Syncope COVID-19 Onychomycosis Osteoarthritis Cataracts, bilateral (~2016) Colon polyps (01/2004) Chickenpox Mumps Measles Upper GI bleed Ascending aortic aneurysm Aortic stenosis Hx of varicose veins Sleep apnea Gout Coronary artery disease Hyperlipidemia Hypertension Surgical History Hx of knee surgery (2003) Hx of colonoscopy with polypectomy (01/2004) Hx of cataract surgery (09/2015) Hx of total knee arthroplasty (01/2013) Hx of aortic valve replacement (12/2009) Hx of varicose vein stripping (1974) Hx of coronary artery bypass graft History of aortic valve replacement (07/19/15) Family History Brother No problems noted. Father Diabetes mellitus Heart disease Mother No problems noted. Social History household members: spouse Smoking Status: Former smoker Tobacco: How many years used: 20 alcohol intake: former (September 2023) substance use type: does not use Smoking Status: Former smoker tobacco type: cigarettes alcohol intake frequency: holidays/special occasions only Exam <Roshni St PA-C - Last Filed: 06/16/24 16:49> Narrative Exam Narrative: GENERAL: 83 year old patient appears stated age. In no acute distress. HEAD: Atraumatic. Normocephalic. EYES: Extraocular motions intact. No scleral icterus. No injection or drainage. ENT: Nose without bleeding, purulent drainage. Throat without erythema, tonsillar hypertrophy or exudate. Airway patent. NECK: Trachea midline. Cervical ROM intact. CARDIOVASCULAR: Regular rate and rhythm. RESPIRATORY: ?Nonlabored respirations. ?Speaking in clear, full sentences. ?Clear to auscultation. Breath sounds equal bilaterally. No wheezes, rales, or rhonchi. ? GASTROINTESTINAL: Abdomen soft, non-tender, nondistended. Declines exam. EXTREMITIES: No edema or joint tenderness. BACK: Nontender without deformity or crepitance. No flank tenderness. NEURO: AOx3. ?Clear speech. ?Moves all 4 extremities appropriately. SKIN: No rash or erythema of visible areas Initial Vital Signs Initial Vital Signs: Vital Signs Temperature 97.7 F 06/16/24 11:56 Pulse Rate 85 06/16/24 11:56 Respiratory Rate 16 06/16/24 11:56 Blood Pressure 134/60 06/16/24 11:56 Pulse Oximetry 95 06/16/24 11:56 Oxygen Delivery Method Room Air 06/16/24 11:56 <Jenny Vance DO - Last Filed: 06/18/24 07:45> Initial Vital Signs Initial Vital Signs: Vital Signs Temperature 97.7 F 06/16/24 11:56 Pulse Rate 85 06/16/24 11:56 Respiratory Rate 16 06/16/24 11:56 Blood Pressure 134/60 06/16/24 11:56 Pulse Oximetry 95 06/16/24 11:56 Oxygen Delivery Method Room Air 06/16/24 11:56 Course <Roshni St PA-C - Last Filed: 06/16/24 16:49> Orders Ordered: ED Orders 06/16/24 12:06 Urinalysis and Microscopic Stat 06/16/24 14:33 CT abdomen pelvis w con Stat 06/16/24 14:34 Urine Culture Stat 06/16/24 14:40 CBC Auto Diff [Complete Blood Count AUTO DIFF] Stat CMP [Comprehensive Metabolic Panel] Stat PT [Prothrombin Time INR] Stat Vital Signs Vital signs: Vital Signs - 8 hr 06/16/24 11:56 Temperature 97.7 F Pulse Rate 85 Respiratory Rate 16 Blood Pressure 134/60 Pulse Oximetry 95 Oxygen Delivery Method Room Air <Jenny Vance DO - Last Filed: 06/18/24 07:45> Orders Ordered: ED Orders 06/16/24 12:06 Urinalysis and Microscopic Stat 06/16/24 14:33 CT abdomen pelvis w con Stat 06/16/24 14:34 Urine Culture Stat 06/16/24 14:40 CBC Auto Diff [Complete Blood Count AUTO DIFF] Stat CMP [Comprehensive Metabolic Panel] Stat PT [Prothrombin Time INR] Stat Vital Signs Vital signs: Vital Signs - 8 hr 06/16/24 11:56 Temperature 97.7 F Pulse Rate 85 Respiratory Rate 16 Blood Pressure 134/60 Pulse Oximetry 95 Oxygen Delivery Method Room Air MDM - Male Genitourinary <JIN Palmer Last Filed: 06/16/24 16:49> Lab Data 06/16/24 14:40 06/16/24 14:40 Labs: Lab Results 06/16/24 06/16/24 Range/Units 12: 14:40 WBC 5.3 (4.5-11.0) X10^3/uL RBC 4.29 L (4.5-5.9) X10^6/uL Hgb 11.9 L (13.5-17.5) g/dL Hct 36.4 L (41-53) % MCV 84.9 (80-100) fL MCH 27.7 (26-34) PG MCHC 32.7 (30-36) % RDW 15.5 H (11.6-14.8) % Plt Count 256 (150-400) X10^3/uL Neut % (Auto) 60.5 (50-75) % Lymph % (Auto) 23.4 L (25-40) % [place] % (Auto) 11.8 (3-14) % Eos % (Auto) 3.3 (2-4) % Baso % (Auto) 1.0 (0-2) % Neut # (Auto) 3200 (3056-2532) /uL Lymph # (Auto) 1200 (3735-5656) /uL [place] # (Auto) 600 (0-900) /uL Eos # (Auto) 200 (0-450) /uL Baso # (Auto) 100 (0-100) /uL PT 16.0 H (9.4-12.5) SECONDS INR 1.4 H (0.9-1.3) Sodium 134 L (137-145) mmol/L Potassium 4.6 (3.4-5.1) mmol/L Chloride 99 (98-107) mmol/L Carbon Dioxide 29 (22-32) mmol/L BUN 18 (9-20) mg/dL Creatinine 0.93 (0.66-1.25) mg/dL Estimated GFR > 60 (>60) mL/min BUN/Creatinine Ratio 19.4 (6-22) Glucose 81 (80-110) mg/dL Calcium 9.4 (8.4-10.2) mg/dL Total Bilirubin 0.5 (0.2-1.3) mg/dL AST 41 (17-59) IU/L ALT 24 (<50) IU/L Alkaline Phosphatase 135 H (38-126) U/L Total Protein 7.7 (6.3-8.2) g/dL Albumin 4.4 (3.5-5.0) g/dL Globulin 3.3 (1.7-4.1) g/dL Albumin/Globulin Ratio 1.3 (1.0-2.8) Urine Color Yellow Urine Appearance Sl cloudy Urine pH 7.5 (4.5-8.0) Ur Specific [place] <=1.005 (1.000-1.035) Urine Protein 2+ H (Negative) Urine Glucose (UA) Negative (Negative) g/dL Urine Ketones Negative (NEGATIVE) Urine Occult Blood 3+ H (Negative) Urine Nitrate Negative (Negative) Urine Bilirubin Negative (NEGATIVE) Urine Urobilinogen 0.2 (0.2) E.U./dL Ur Leukocyte Esterase Trace H (NEGATIVE) Urine RBC 30-100/hpf H (0-5/HPF) Urine WBC 5-10/hpf H (0-5/HPF) Ur Squamous Epith Cells 0-1 /hpf (0-5/HPF) Urine Bacteria None seen (None) Ur Culture Indicated? Cult not indicated Vol Urine Centrifuged 10ml (spun) MDM Narrative Medical decision making narrative: 83-year-old male with a past medical history of bovine tissue heart valve, endocarditis, CHF, ascending aortic aneurysm, asthma, swj-etlfkam-zuhztcpit diabetes, CAD, hypertension, gout, AFib on Eliquis who presents to the emergency department for hematuria and concerns for UTI x2 days. Differential diagnosis includes but is not limited to UTI, pyelonephritis, cystitis, kidney stone, ureterolithiasis, bladder mass, kidney mass, anemia, etc. On exam patient is in no acute distress, nontoxic appearing, vital signs within normal limits. He is reporting gross hematuria and concern for UTI. We will obtain abdominal labs, urinalysis, CT abdomen and pelvis. Urine at the bedside is blood-tinged. Case discussed with the attending ED physician, Dr. Vance. Urinalysis reveals positive occult blood, RBCs, trace leukocyte esterase and 5- 10 urine WBCs. Urine culture ordered. Labs reveal normal WBC count of 5.3. He does have mildly decreased RBC, hemoglobin, hematocrit however they are improved from priors. RBC 4.29, hemoglobin 11.9, hematocrit 36.4. RDW slightly elevated at 15.5. His sodium is baseline at 1:34 a.m.. Normal renal function with a BUN of 18 and a creatinine of 0.93. Alk phos is elevated at 135 however this is improved from prior which was 150 to 03/29/2024. CT abdomen pelvis with IV contrast reveals the following: IMPRESSION: A source of gross hematuria is not identified. No hydronephrosis or nephrolithiasis is seen. No renal cortical or urothelial mass lesion is found. Depending on the clinical status follow-up by cystoscopy may become necessary. Numerous very small calcified gallstones layer dependently within the gallbladder lumen and several of these appear to extend into the proximal cystic duct but are not currently associated with gallbladder inflammation or distension. Results were discussed with the patient and the attending physician. Patient was provided with a printed copy of his results. He has no right upper quadrant abdominal pain concerning for acute cholecystitis. We will treat him out of an abundance of caution with cefuroxime for UTI with hematuria. Patient sees urology with [facility], I recommend he call to schedule an appointment as soon as possible for further evaluation and possible cystoscopy. Strict ER return precautions were discussed. The patient and his verbalized understanding of all information and are agreeable to discharge home. Patient is stable for discharge. <Jenny Vance, DO - Last Filed: 06/18/24 07:45> Lab Data Labs: Lab Results 06/16/24 06/16/24 Range/Units 12: 14:40 WBC 5.3 (4.5-11.0) X10^3/uL RBC 4.29 L (4.5-5.9) X10^6/uL Hgb 11.9 L (13.5-17.5) g/dL Hct 36.4 L (41-53) % MCV 84.9 (80-100) fL MCH 27.7 (26-34) PG MCHC 32.7 (30-36) % RDW 15.5 H (11.6-14.8) % Plt Count 256 (150-400) X10^3/uL Neut % (Auto) 60.5 (50-75) % Lymph % (Auto) 23.4 L (25-40) % [place] % (Auto) 11.8 (3-14) % Eos % (Auto) 3.3 (2-4) % Baso % (Auto) 1.0 (0-2) % Neut # (Auto) 3200 (3916-1375) /uL Lymph # (Auto) 1200 (3106-6375) /uL [place] # (Auto) 600 (0-900) /uL Eos # (Auto) 200 (0-450) /uL Baso # (Auto) 100 (0-100) /uL PT 16.0 H (9.4-12.5) SECONDS INR 1.4 H (0.9-1.3) Sodium 134 L (137-145) mmol/L Potassium 4.6 (3.4-5.1) mmol/L Chloride 99 (98-107) mmol/L Carbon Dioxide 29 (22-32) mmol/L BUN 18 (9-20) mg/dL Creatinine 0.93 (0.66-1.25) mg/dL Estimated GFR > 60 (>60) mL/min BUN/Creatinine Ratio 19.4 (6-22) Glucose 81 (80-110) mg/dL Calcium 9.4 (8.4-10.2) mg/dL Total Bilirubin 0.5 (0.2-1.3) mg/dL AST 41 (17-59) IU/L ALT 24 (<50) IU/L Alkaline Phosphatase 135 H (38-126) U/L Total Protein 7.7 (6.3-8.2) g/dL Albumin 4.4 (3.5-5.0) g/dL Globulin 3.3 (1.7-4.1) g/dL Albumin/Globulin Ratio 1.3 (1.0-2.8) Urine Color Yellow Urine Appearance Sl cloudy Urine pH 7.5 (4.5-8.0) Ur Specific [place] <=1.005 (1.000-1.035) Urine Protein 2+ H (Negative) Urine Glucose (UA) Negative (Negative) g/dL Urine Ketones Negative (NEGATIVE) Urine Occult Blood 3+ H (Negative) Urine Nitrate Negative (Negative) Urine Bilirubin Negative (NEGATIVE) Urine Urobilinogen 0.2 (0.2) E.U./dL Ur Leukocyte Esterase Trace H (NEGATIVE) Urine RBC 30-100/hpf H (0-5/HPF) Urine WBC 5-10/hpf H (0-5/HPF) Ur Squamous Epith Cells 0-1 /hpf (0-5/HPF) Urine Bacteria None seen (None) Ur Culture Indicated? Cult not indicated Vol Urine Centrifuged 10ml (spun) Discharge Plan Departure Patient Disposition: Home Clinical Impression: Gross hematuria Urinary tract infection with hematuria Qualifiers: Urinary tract infection type: acute cystitis Qualified Code(s): N30.01 - Acute cystitis with hematuria Instructions: DI for Hematuria Activity Restrictions/Additional Instructions: Today you were evaluated for blood in your urine. Your urine test result does show some white blood cells in addition to blood so we are treating you for a possible urinary tract infection. It is very important to complete the full course of antibiotics and to follow up with your urologist at [facility] as soon as possible for further evaluation as you may require a cystoscopy. Please return to the emergency room if you develop fevers, chills, vomiting, increased blood in the urine, or any other concerns. Please follow up with your primary care doctor within the next 2-3 days for ER follow-up. (If you do not have a PCP you can call [phone]. ?to schedule an appointment with an [facility] Primary Care Provider) IF YOU DEVELOP ANY NEW OR WORSENING SYMPTOMS, RETURN TO THE ER! Please read the attached instructions, they highlight more specific treatments and interventions for you at home. Thank you for letting me participate in your care, Roshni St PA-C Prescriptions: New cefuroxime axetil 500 mg tablet 500 mg PO BID 7 Days Qty: 14 0RF No Action apixaban 5 mg tablet 5 mg PO BID Qty: 30 0RF atorvastatin 40 mg tablet 40 mg PO DAILY Qty: 20 0RF finasteride 5 mg tablet 5 mg PO DAILY Qty: 90 1RF allopurinol 100 mg tablet 100 mg PO DAILY Qty: 20 0RF metformin 500 mg tablet 500 mg PO BIDWMEAL Qty: 180 1RF losartan 25 mg tablet 25 mg PO QDAY Qty: 90 1RF Centrum Silver Men [id number] mcg tablet 1 tab PO DAILY ascorbic acid (vitamin C) 1,000 mg tablet 1 g PO DAILY cholecalciferol (vitamin D3) 125 mcg (5,000 unit) capsule 125 mcg PO DAILY mjtcouuuiin-B-Gcjazcmwwwbznec 500-200 mg tablet 2 tab PO DAILY turmeric root extract 500 mg capsule 500 mg PO DAILY magnesium oxide 400 mg magnesium tablet 400 mg PO DAILY aspirin 81 mg tablet,delayed release (DR/EC) 81 mg PO DAILY alfuzosin 10 mg tablet extended release 24 hr 10 mg PO DAILY Rx Instructions: administer after the same meal each day metoprolol succinate 25 mg tablet extended release 24 hr 25 mg PO DAILY spironolactone 25 mg tablet 12.5 mg PO DAILY furosemide [Lasix] 40 mg tablet 20 mg PO DAILY Rx Instructions: Take 20mg PO Daily for bilateral LE Edema. Can increase to 40mg PRN when swelling increases. Referrals: Miya Hernandez DO [Primary Care Provider] - Stand Alone Forms: Patient Portal/API/Survey ED Sign-out <Jenny Vance DO - Last Filed: 06/18/24 07:45> Cosign ED Attending Cosignature Attestation: I was immediately available in the department for consultation. Case was discussed. Patient does have Urology follow-up.
--- NOTE | 2024-06-16 14:33 | DI.CT.S_ITS ---
PROCEDURE: CT ABDOMEN PELVIS W CON INDICATIONS: gross hematuria TECHNIQUE: After the administration of intravenous contrast, axial sections acquired from the lung bases to the pubic symphysis. Coronal and sagittal reformats were performed. For radiation dose reduction, the following was used: automated exposure control, adjustment of mA and/or kV according to patient size. COMPARISON: [facility], CT, CT ABDOMEN PELVIS W CON, 02/04/2023, 14:50. FINDINGS: Image quality: Diagnostic. Lower Chest: No significant findings. ABDOMEN: Liver: No solid mass. Gallbladder: Numerous dependent layering very small gallstones, calcified, are seen within the gallbladder lumen. Several calculi appear to extend in the proximal cystic duct but the gallbladder is not distended or inflamed nor is the bile duct extending towards the duodenum. Biliary ducts: No biliary dilation. Pancreas: No ductal dilation. Spleen: Size is within normal limits. Adrenal Glands: No adrenal nodules. Kidneys and Ureters: No hydronephrosis. No solid mass. No complex renal cystic lesion which requires follow up. Stomach and Bowel: Normal colonic caliber, without significant wall thickening. Peritoneum: No abnormal intraperitoneal fluid. No free air. Ventral Wall: No significant ventral hernia. Abdominal Nodes: No retroperitoneal or mesenteric adenopathy by size criteria. Vessels: Aorta and inferior vena cava are normal in size. PELVIS: Pelvic Organs: Unremarkable. Bladder: No bladder wall thickening, accounting for underdistention. Pelvic Nodes: No enlarged lymph nodes. Miscellaneous: No inguinal hernias are seen. No bladder mass is seen. Bones: No aggressive osseous abnormality. Prominent lumbosacral spine degenerative disc disease and facet osteoarthritis. No trauma found. IMPRESSION: A source of gross hematuria is not identified. No hydronephrosis or nephrolithiasis is seen. No renal cortical or urothelial mass lesion is found. Depending on the clinical status follow-up by cystoscopy may become necessary. Numerous very small calcified gallstones layer dependently within the gallbladder lumen and several of these appear to extend into the proximal cystic duct but are not currently associated with gallbladder inflammation or distension. Dictated by: Sky Harry M.D. on 06/16/2024 at 15:56 Approved by: Sky Harry M.D. on 06/16/2024 at 16:01
[2024-06-16 14:50] LABS: Add Manual Diff / Slide Review NO; Basophils Absolute Auto 100 /uL (0-100); Eosinophils Absolute Auto 200 /uL (0-450); Eosinophils Percent Auto 3.3 % (2-4); Hematocrit 36.4 % (41-53); Hemoglobin 11.9 g/dL (13.5-17.5); Lymphocytes Absolute Auto 1200 /uL (1100-4500); Lymphocytes Percent Auto 23.4 % (25-40); Mean Corpuscular HGB Conc 32.7 % (30-36); Mean Corpuscular Hemoglobin 27.7 PG (26-34); Mean Corpuscular Volume 84.9 fL (80-100); Monocytes Absolute Auto 600 /uL (0-900); Monocytes Percent Auto 11.8 % (3-14); Neutrophils Absolute Auto 3200 /uL (1500-7000); Neutrophils Percent Auto 60.5 % (50-75); Platelet Count 256 X10^3/uL (150-400); Red Blood Cell Count 4.29 X10^6/uL (4.5-5.9); Red Cell Distribution Width 15.5 % (11.6-14.8); White Blood Cell Count 5.3 X10^3/uL (4.5-11.0)
[2024-06-16 15:02] LABS: INR 1.4 (0.9-1.3)
[2024-06-16 15:06] LABS: Alanine Aminotransferase 24 IU/L (<50); Albumin 4.4 g/dL (3.5-5.0); Albumin Globulin Ratio 1.3 (1.0-2.8); Alkaline Phosphatase 135 U/L (38-126); Aspartate Aminotransferase 41 IU/L (17-59); BUN Creatinine Ratio 19.4 (6-22); Bilirubin Total 0.5 mg/dL (0.2-1.3); Blood Urea Nitrogen 18 mg/dL (9-20); Calcium 9.4 mg/dL (8.4-10.2); Carbon Dioxide 29 mmol/L (22-32); Chloride 99 mmol/L (98-107); Estimated Glomerular Filt Rate > 60 mL/min (>60); Globulin 3.3 g/dL (1.7-4.1); Glucose 81 mg/dL (80-110); HEMOLYSIS < 15 (0-50); Potassium 4.6 mmol/L (3.4-5.1); Sodium 134 mmol/L (137-145); Total Protein 7.7 g/dL (6.3-8.2)
[2024-06-16 16:54] VITALS: BP 140/67; PULSE 72; RESP 16; TEMP 36.6; O2SAT 99
== END 2024-06-16 16:55 | disposition home or self-care (01) ==
PROVIDERS: Emergency Medicine; Emergency Provider Physician Assistant; PCP Family Medicine
DX: N30.01 Acute cystitis with hematuria (principal); Z79.01 Long term (current) use of anticoagulants
CPT/HCPCS: 36415; 74177; 80053; 81001; 85025; 85610; 87086; 99283; 99284; Q9967

== ENCOUNTER → 2024-08-21 13:33 | Outpatient (CLI) | payer MEDICARE, SELFPAY ==
[2024-03-12 02:54] VITALS: BMI 33.3
--- NOTE | 2024-08-21 13:34 | DI.ECHO.S_ITS ---
[facility] : : [address] : [address] [address] [place] : : [id number] : : Phone: [phone] Echocardiogram Report + + :Name: SANTIAGO GAMEZ V Study Date: 08/21/2024 Height: 65 in : :[facility] ReadingLocation: Weight: 190 lb : : Gender: Male BSA: 1.9 m2 : :: 1940 Age: 83 yrs BP: 139/81 mmHg: :Reason For Study: AV ENDOCARDITIS : :Ordering Physician: LEXIE, : :AYO Performed By: Prasanna Eller : :Referring: AYO OWEN : + + Interpretation Summary The patient has a paced rhythm. The left ventricle is normal in size. The ejection fraction is estimated to be 40-45%. Previous LVEF 45 to 50%. E/E' med: 23.2 The right ventricle is mild to moderately dilated. Right ventricular systolic function is mildly reduced. There is moderate to severe mitral regurgitation. The mitral regurgitant jet is eccentrically directed. Compared to the prior echo study, there has been no change in the severity of mitral regurgitation. There is a bioprosthetic aortic valve. The prosthetic aortic valve is well-seated. Aortic cusp appears to be thickened. No obvious vegetation seen. Associated eccentric mild AR. The peak aortic velocity is 2.24 m/sec. The aortic valve mean gradient is 12.3 mmHg. The peak aortic velocity on the previous exam was 2.6 m/sec. There is moderate tricuspid regurgitation. The right ventricular systolic pressure is estimated to be at least 55 mmHg based on an estimated right atrial pressure of 3 mm Hg. Previously moderate to severe TR and PASP 69 mmHg. 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 5.0 cm in diameter. Previously 4.9 cm. Procedure: A two-dimensional transthoracic echocardiogram with color flow and Doppler was performed. The study quality was technically good. Comparison is made with the echocardiogram of 03/13/2024. The heart rate ranged between 61- 89 bpm during the study. The patient has a paced rhythm. Left Ventricle: The left ventricle is normal in size. Left ventricular wall thickness is moderately increased. There is no ventricular septal defect visualized. The ejection fraction is estimated to be 40-45%. There is septal wall hypokinesis. Septal motion is consistent with conduction abnormality. Diastolic function could not be accurately assessed due to paced rhythm. E/E' med: 23.2. Right Ventricle: The right ventricle is mild to moderately dilated. Right ventricular systolic function is mildly reduced. Atria: There is severe biatrial enlargement. There has been no significant change since the previous study. There is no Doppler evidence for an interatrial shunt. Mitral Valve: There is moderate mitral annular calcification. The mitral valve leaflets are mildly calcified. The mitral valve chordae are thickened and/or calcified. No significant mitral valve stenosis. There is moderate to severe mitral regurgitation. The mitral regurgitant jet is eccentrically directed. Compared to the prior echo study, there has been no change in the severity of mitral regurgitation. Aortic Valve: There is a bioprosthetic aortic valve. The prosthetic aortic valve is well-seated. Aortic cusp appears to be thickened. No obvious vegetation seen. Associated eccentric mild AR. The peak aortic velocity is 2.24 m/sec. The aortic valve mean gradient is 12.3 mmHg. The peak aortic velocity on the previous exam was 2.6 m/sec. There is mild aortic regurgitation. Tricuspid Valve: The tricuspid valve is not well visualized. There is moderate tricuspid regurgitation. The right ventricular systolic pressure is estimated to be at least 55 mmHg based on an estimated right atrial pressure of 3 mm Hg. Pulmonic Valve: The pulmonic valve leaflets are thin and pliable; valve motion is normal. There is moderate pulmonic regurgitation. Great Vessels: The aortic root is normal size. 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 The pulmonary artery is normal size. The IVC is of normal diameter and collapses greater than 50% with a sniff. This suggests a low right atrial pressure of 3 mm Hg. Pericardium/ Pleura There is no pericardial effusion. There is no pleural effusion. MMode/2D Measurements & Calculations LVIDd: 5.5 cm LVOT diam: 1.9 cm LVIDs: 3.9 cm Ao root diam: 3.8 cm FS: 28.4 % asc Aorta Diam: 5.0 cm EPSS: 1.1 cm IVSd: 1.4 cm LVPWd: 1.4 cm LV santillan. diameter/BSA (cm/m^2): 2.8 LV sys. diameter/BSA (cm/m^2): 2.0 LA A2 area: 26.8 cm2 RA long axis: 4.9 cm LA A4 area: 27.2 cm2 RA area: 15.9 cm2 LA length (vol): 6.1 cm RA vol: 43.8 ml LA vol: 102.0 ml RA : 22.6 ml/m2 LA vol index: 52.7 ml/m2 IVC diam: 1.6 cm RVD1 (basal): 4.7 cm RVD2 (mid): 4.2 cm TAPSE: 1.5 cm Doppler Measurements & Calculations Ao V2 max: 223.9 cm/sec LVOT Max [place]: 92.6 cm/sec Ao V2 mean: 167.8 cm/sec LV V1 max P.4 mmHg Ao max P.1 mmHg LV V1 VTI: 21.2 cm Ao mean P.3 mmHg MELANIE(I,D): 1.1 cm2 Ao V2 VTI: 50.5 cm MELANIE(V,D): 1.1 cm2 sev ratio: 0.42 MELANIE indexed to BSA (cm^2/m^2): 0.59 MV E max [place]: 120.9 cm/sec TR max [place]: 361.2 cm/sec MV A max [place]: 44.1 cm/sec TR max P.2 mmHg MV E/A: 2.7 PA V2 max: 84.2 cm/sec Med Peak E' [place]: 5.2 cm/sec PA V2 mean: 48.3 cm/sec E/E' med: 23.2 PA mean P.1 mmHg Lat Peak E' [place]: 11.0 cm/sec PA pr(Accel): 49.9 mmHg E/E' lat: 11.0 E/e' average: 17.1 MV dec time: 0.16 sec MR ERO: 0.42 cm2 MR PISA: 6.7 cm2 SV(LVOT): 57.1 ml MR flow rate: 244.7 cm3/sec MR PISA radius: 1.0 cm Reading Physician:05:41 PM
== END ==
PROVIDERS: PCP Family Medicine; Referring Provider Internal Medicine Cardiovascular Disease; Visit Provider Internal Medicine Cardiovascular Disease
DX: I08.3 Combined rheumatic disorders of mitral, aortic and tricuspid valves (principal); T82.6XXA Infection and inflammatory reaction due to cardiac valve prosthesis, initial encounter; I77.89 Other specified disorders of arteries and arterioles; Z95.0 Presence of cardiac pacemaker
CPT/HCPCS: 93306

== ENCOUNTER → 2024-09-15 15:10 | Outpatient (CLI) | payer MEDICARE, SELFPAY ==
[2024-03-12 02:54] VITALS: BMI 33.3
--- NOTE | 2024-09-15 15:11 | DI.CT.S_ITS ---
PROCEDURE: CT CHEST W CON INDICATIONS: mediastinal mass TECHNIQUE: After the administration of intravenous contrast, 5 mm thick sections acquired from the pulmonary apices to the posterior costophrenic angles. 1 mm axial lung, 5 mm thick coronal and sagittal reformats and 7 mm axial MIP were acquired. For radiation dose reduction, the following was used: automated exposure control, adjustment of mA and/or kV according to patient size. COMPARISON: [facility], CT, CT ANGIO CHEST ABDOMEN PELVIS, 02/20/2024, 5:06. FINDINGS: Image quality: Diagnostic. Lower Neck: No enlarged lymph nodes. Thyroid: No thyroid nodules which require sonographic follow up, per consensus guidelines. Axillae: No enlarged lymph nodes. Chest Wall: Unremarkable. Bones: Unremarkable. Lungs and Pleura: No pneumothorax or pleural effusions. Decreased size of the posterior right upper lobe nodule measuring 4 mm, previously 6 mm (series 3, image 98). Additional pulmonary micro nodules are unchanged. Heart: Cardiomegaly. Prosthetic aortic valve. Prior CABG. Thoracic Vessels: Ascending aortic aneurysm measuring 4.7 cm, unchanged. Mediastinum and Alexandra: No enlarged lymph nodes. 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 Esophagus: No wall thickening. No hiatal hernia. Upper Abdomen: Cholelithiasis without wall thickening or adjacent fat stranding to suggest acute cholecystitis. 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 Attention on follow-up. Stable ascending aortic aneurysm measuring 4.7 cm. Yearly follow-up is recommended as is a vascular surgical referral. Decreased size of the right upper lobe nodule, now measuring 4 mm, favoring a resolving infectious nodule. Dictated by: Donnie Biswas M.D. on 09/15/2024 at 17:02 Approved by: Donnie Biswas M.D. on 09/15/2024 at 17:06
[2024-09-15 15:39] LABS: Estimated Glomerular Filt Rate 59 mL/min (>60)
== END ==
LOC: CT 15:11
PROVIDERS: PCP Family Medicine; Referring Provider Internal Medicine Critical Care Medicine; Visit Provider Internal Medicine Critical Care Medicine
DX: J98.59 Other diseases of mediastinum, not elsewhere classified (principal); I71.21 Aneurysm of the ascending aorta, without rupture; K80.20 Calculus of gallbladder without cholecystitis without obstruction; R91.8 Other nonspecific abnormal finding of lung field; I51.7 Cardiomegaly; Z95.2 Presence of prosthetic heart valve; Z95.1 Presence of aortocoronary bypass graft
CPT/HCPCS: 36415; 71260; 82565; Q9967

== ENCOUNTER → 2025-01-23 11:57 | Outpatient (CLI) | payer MEDICARE, SELFPAY ==
[2024-03-12 02:54] VITALS: BMI 33.3
[2025-01-23 13:01] LABS: Add Manual Diff / Slide Review NO; Hematocrit 38.2 % (41-53); Hemoglobin 12.4 g/dL (13.5-17.5); Lymphocytes Absolute Auto 1400 /uL (1100-4500); Mean Corpuscular HGB Conc 32.5 % (30-36); Mean Corpuscular Hemoglobin 29.1 PG (26-34); Mean Corpuscular Volume 89.6 fL (80-100); Platelet Count 217 X10^3/uL (150-400)
[2025-01-23 13:52] LABS: Blood Urea Nitrogen 20 mg/dL (9-20); Calcium 9.3 mg/dL (8.4-10.2); Carbon Dioxide 28 mmol/L (22-32); Chloride 98 mmol/L (98-107); Estimated Glomerular Filt Rate > 60 mL/min (>60); Glucose 115 mg/dL (70-99); HEMOLYSIS < 15 (0-50); Potassium 4.7 mmol/L (3.4-5.1); Sodium 135 mmol/L (137-145)
== END ==
PROVIDERS: PCP Family Medicine; Referring Provider Internal Medicine Cardiovascular Disease; Visit Provider Internal Medicine Cardiovascular Disease
DX: I48.21 Permanent atrial fibrillation (principal)
CPT/HCPCS: 36415; 80048; 85025

== ENCOUNTER → 2025-03-29 13:18 | Outpatient (CLI) | payer MEDICARE, SELFPAY ==
[2024-03-12 02:54] VITALS: BMI 33.3
[2025-03-29 14:13] LABS: Hemoglobin A1C% w Est Avg Glu 6.7 % (4.0-6.0)
== END ==
PROVIDERS: PCP Family Medicine; Referring Provider Family Medicine; Visit Provider Family Medicine
DX: E11.9 Type 2 diabetes mellitus without complications (principal)
CPT/HCPCS: 36415; 83036

== ENCOUNTER 2025-06-18 15:01 | Emergency (ER) | payer MEDICARE, SELFPAY ==
[2024-03-12 02:54] VITALS: BMI 33.3
[2025-06-18 15:20] VITALS: BP 103/55; PULSE 60; RESP 17; TEMP 36.2; O2SAT 99; BMI 30.9
[2025-06-18 15:26] LABS: Appearance Urine UA CLEAR; Bilirubin Urine UA NEGATIVE (NEGATIVE); Color Urine UA YELLOW; Glucose Urine UA 2+ g/dL (Negative); Ketones Urine UA NEGATIVE (NEGATIVE); Leukocyte Esterase Urine UA NEGATIVE (NEGATIVE); Nitrite Urine UA NEGATIVE (Negative); Occult Blood Urine UA NEGATIVE (Negative); Protein Urine UA NEGATIVE (Negative); Specific Gravity Urine UA 1.010 (1.000-1.035); Urobilinogen Urine UA 0.2 E.U./dL (0.2); pH Urine UA 7.0 (4.5-8.0)
[2025-06-18 15:34] LABS: Culture Indicated Urine Cult Not Indicated
--- NOTE | 2025-06-18 15:37 | DI.RAD.S_ITS ---
PROCEDURE: XR CHEST 1V INDICATIONS: Chest Pain TECHNIQUE: One view of the chest was acquired. COMPARISON: , , XR CHEST FOR PICC 1V, 03/15/2024, 16:43. FINDINGS: Surgical changes and devices: Lead less pacemaker. Median sternotomy wires. Postsurgical changes from CABG and valve replacement. Lungs and pleura: Bibasilar atelectasis. No pleural effusions or pneumothorax. Mediastinum: Mediastinal contours appear normal. Heart size is enlarged. Bones and chest wall: No suspicious bony lesions. Overlying soft tissues appear unremarkable. IMPRESSION: Cardiomegaly. Bibasilar atelectasis. Approved by: Tana Covarrubias M.D.,Ph.D. on 06/18/2025 at 16:45
--- NOTE | 2025-06-18 15:38 | DI.CT.S_ITS ---
PROCEDURE: CT HEAD/BRAIN WO CON INDICATIONS: fall TECHNIQUE: Noncontrast 4.5 mm thick angled axial sections acquired from the foramen magnum to the vertex, with coronal and sagittal reformats. For radiation dose reduction, the following was used: automated exposure control, adjustment of mA and/or kV according to patient size. COMPARISON: [facility], CT, CT HEAD/BRAIN WO CON, 02/20/2024, 4:16. FINDINGS: Image quality: Diagnostic. CSF spaces: Basal cisterns are patent. No extra-axial fluid collections. The ventricles are symmetric in size and shape. Brain: No intracranial bleeds or mass effect. There is cerebral volume loss, with resultant ventricular and sulcal prominence. There are periventricular and deep white matter chronic small vessel ischemic changes. There is intracranial internal carotid artery atherosclerosis. Skull and face: Calvarium and visualized facial bones appear intact, without suspicious lesions. Sinuses: Visualized sinuses and mastoids are clear. IMPRESSION: No acute intracranial pathology. Dictated by: Vinay Mack M.D. on 06/18/2025 at 16:11 Approved by: Vinay Mack M.D. on 06/18/2025 at 16:11
--- NOTE | 2025-06-18 15:39 | DI.CT.S_ITS ---
PROCEDURE: CT CERVICAL SPINE WO CON INDICATIONS: fall TECHNIQUE: Noncontrast 3 mm thick sections acquired from the skull base to the T4 level. Sagittal and coronal reformats were then constructed. For radiation dose reduction, the following was used: automated exposure control, adjustment of mA and/or kV according to patient size. COMPARISON: None. FINDINGS: Image quality: Excellent. Bones: No fractures or dislocations. Minimal anterolisthesis of C3 on C4 and C4 on C5 is seen. Loss of disc height, degenerative endplate changes and bilateral facet hypertrophic changes are noted throughout cervical spine. Visualized superior ribs are intact. Soft tissues: Prevertebral soft tissues are normal in thickness. No paravertebral hematomas. No apical pneumothoraces. Median sternotomy wires are seen. IMPRESSION: 1. No displaced fracture or traumatic subluxation. 2. [id number]-qt-[id number] degenerative disc disease throughout cervical spine. Dictated by: Vinay Mack M.D. on 06/18/2025 at 16:11 Approved by: Vinay Mack M.D. on 06/18/2025 at 16:12
[2025-06-18 17:05] LABS: Add Manual Diff / Slide Review NO; Hematocrit 39.6 % (41-53); Hemoglobin 13.0 g/dL (13.5-17.5); Lymphocytes Absolute Auto 1100 /uL (1100-4500); Mean Corpuscular HGB Conc 32.8 % (30-36); Mean Corpuscular Hemoglobin 28.5 PG (26-34); Mean Corpuscular Volume 86.7 fL (80-100); Platelet Count 216 X10^3/uL (150-400)
[2025-06-18 17:12] LABS: INR 0.9 (0.9-1.3); Prothrombin Time 10.3 SECONDS (9.4-12.5)
[2025-06-18 17:14] LABS: PTT Partial Thromboplastin Tim 31 SECONDS (25.1-36.5)
[2025-06-18 17:19] LABS: Alanine Aminotransferase 19 IU/L (<50); Albumin 4.7 g/dL (3.5-5.0); Albumin Globulin Ratio 1.6 (1.0-2.8); Alkaline Phosphatase 88 U/L (38-126); Blood Urea Nitrogen 19 mg/dL (9-20); Calcium 9.1 mg/dL (8.4-10.2); Carbon Dioxide 27 mmol/L (22-32); Chloride 96 mmol/L (98-107); Creatine Kinase 62 U/L (55-170); Estimated Glomerular Filt Rate > 60 mL/min (>60); Globulin 3.0 g/dL (1.7-4.1); Glucose 118 mg/dL (70-99); HEMOLYSIS < 15 (0-50); Lipase 232 U/L (23-300); Magnesium 2.3 mg/dL (1.6-2.3); Potassium 4.4 mmol/L (3.4-5.1); Sodium 132 mmol/L (137-145); Total Protein 7.7 g/dL (6.3-8.2)
[2025-06-18 17:31] LABS: NT-proBNP (BNP-Adult 18+) 603 pg/mL (<450); Troponin I 0.034 ng/mL (0.01-0.034)
[2025-06-18 18:39] VITALS: BP 121/58; PULSE 60; RESP 17; O2SAT 100
--- NOTE | 2025-06-19 18:27 | ED.WEAKNESS ---
HPI - Weakness General Chief complaint: Weakness Stated complaint: Gen weak x1 week, cough. Falls Time Seen by Provider: 06/18/25 15:40 Source: patient Mode of arrival: EMS History of Present Illness HPI Narrative: 84-year-old male with past medical history BPH, asthma, congestive heart failure, diabetes, CAD presents to the ED with 2 falls about 4 days prior to arrival. Patient's also states that he has been more fatigued and tired. No fever, chills, nausea, vomiting, cough, abdominal pain, dysuria, lightheadedness, syncope. Patient's states that she has noticed that his hands have been tremoring more than usual. Related Data Home Medications ?Medication ?Instructions ?Recorded ?Confirmed alfuzosin 10 mg tablet,extended 10 mg PO DAILY 01/19/23 03/29/25 release 24 hr ascorbic acid (vitamin C) 1,000 mg 1 g PO DAILY 10/07/23 03/29/25 tablet cholecalciferol (vitamin D3) 125 125 mcg PO DAILY 10/07/23 03/29/25 mcg (5,000 unit) capsule magnesium oxide 400 mg PO DAILY 10/07/23 03/29/25 [id number] 300 mcg-K 60 1 tab PO DAILY 10/07/23 03/29/25 mcg-lycop 600 mcg-lutein 300 mcg tablet (Centrum Silver Men) turmeric root extract 500 mg 500 mg PO DAILY 10/07/23 03/29/25 capsule furosemide 40 mg tablet (Lasix) 20 mg PO DAILY 06/07/24 03/29/25 spironolactone 25 mg tablet 12.5 mg PO DAILY 06/07/24 03/29/25 glucosamine 750 sa-jwnzhjosivp-[id number] 1 tab PO BID 08/24/24 03/29/25 no1 644 mg-C 30 mg-tamia 1 mg tablet (Osteo Bi-Flex Triple Strength) metoprolol succinate 50 mg 50 mg PO DAILY 12/06/24 03/29/25 tablet,extended release 24 hr sacubitril 24 mg-valsartan 26 mg 1 tab PO BID 12/06/24 03/29/25 tablet (Entresto) empagliflozin 10 mg tablet 10 mg PO DAILY 12/15/24 03/29/25 (Jardiance) biodymaix 1 cap PO DAILY 03/29/25 cranberry extract 650 mg capsule 650 mg PO DAILY 03/29/25 03/29/25 Previous Rx's ?Medication ?Instructions ?Recorded atorvastatin 40 mg tablet 40 mg PO DAILY #20 tabs 05/11/23 finasteride 5 mg tablet 5 mg PO DAILY #90 tabs 11/29/23 allopurinol 100 mg tablet 100 mg PO DAILY #90 tabs 07/21/24 metformin 500 mg tablet 500 mg PO BIDWMEAL #180 tabs 07/21/24 Allergies Allergy/AdvReac Type Severity Reaction Status Date / Time latex Allergy Mild SWOLLEN Verified 06/18/25 15:24 FINGERS Sulfa (Sulfonamide Allergy Mild SWOLLEN Verified 06/18/25 15:24 Antibiotics) FINGERS lisinopril AdvReac Intermediate SWELLING Verified 06/18/25 15:24 hydrochlorothiazide AdvReac Mild SWELLING Verified 06/18/25 15:24 Review of Systems Constitutional Constitutional: Denies chills, Reports fatigue, Denies fever(s), Reports frequent falls, Denies lethargy and Denies weakness Eyes Eyes: Denies change in vision, Denies eye discharge, Denies irritation and Denies loss of vision ENT Ears, Nose, Mouth, and Throat: Denies change in voice, Denies dizziness, Denies neck pain, Denies sore throat and Denies throat swelling Cardiovascular Cardiovascular: Denies chest pain, Denies irregular heart rhythm, Denies lightheadedness, Denies palpitations, Denies dyspnea, Denies dyspnea on exertion and Denies orthopnea Respiratory Respiratory: Denies cough, Denies dyspnea, Denies dyspnea on exertion and Denies wheezing Gastrointestinal Gastrointestinal: Denies abdominal pain, Denies change in bowel habits, Denies diarrhea, Denies nausea and Denies vomiting Musculoskeletal Musculoskeletal: Denies neck pain and Denies numbness Integumentary/Breasts Skin/Breast: Denies pruritus, Denies erythema, Denies rash and Denies wounds Neurologic Neurologic: Denies behavioral changes, Denies confusion, Denies dizziness, Reports frequent falls, Denies loss of vision, Denies numbness and Denies weakness Psychiatric Psychiatric: Denies anxiety, Denies behavioral changes, Denies confusion, Denies depression, Denies homicidal ideation and Denies suicidal ideation Endocrine Endocrine: Reports fatigue, Denies flushing and Denies palpitations Hematologic/Lymphatic Hematologic/Lymphatic: Denies easy bruising Allergic/Immunologic Allergic/Immunologic: Denies urticaria, Denies throat swelling and Denies wheezing Patient History Medical History History of heart failure Syncope COVID-19 Onychomycosis Osteoarthritis Cataracts, bilateral (~2016) Colon polyps (01/2004) Chickenpox Mumps Measles Upper GI bleed Ascending aortic aneurysm Aortic stenosis Hx of varicose veins Sleep apnea Gout Coronary artery disease Hyperlipidemia Hypertension Surgical History Hx of knee surgery (2003) Hx of colonoscopy with polypectomy (01/2004) Hx of cataract surgery (09/2015) Hx of total knee arthroplasty (01/2013) Hx of aortic valve replacement (12/2009) Hx of varicose vein stripping (1974) Hx of coronary artery bypass graft History of aortic valve replacement (07/19/15) Family History Brother No problems noted. Father Diabetes mellitus Heart disease Mother No problems noted. Social History household members: spouse Tobacco: How many years used: 20 alcohol intake: former (September 2023) substance use type: does not use Smoking Status: Former smoker tobacco type: cigarettes alcohol intake frequency: holidays/special occasions only Alcohol type: wine Exam Narrative Exam Narrative: Const General:?cooperative, healthy appearing and comfortable [facility] Head:?normal to inspection Ears:?hearing grossly normal bilaterally Nose:?external nose normal Face and sinus:?normal facial exam and sinuses nontender Mouth:?oral mucosae normal Throat:?posterior oropharynx normal Eyes General:?appearance normal, both eyes and all related structures Neck Neck:?normal visual inspection and no lymphadenopathy noted Resp Effort & Inspection:?normal respiratory effort Auscultation:?clear to auscultation bilaterally Cardio Rate:?regular rate Rhythm:?regular rhythm Neuro General:?patient alert, patient awake and patient oriented x3 Initial Vital Signs Initial Vital Signs: Vital Signs Temperature 97.1 F L 06/18/25 15:20 Pulse Rate 60 06/18/25 15:20 Respiratory Rate 17 06/18/25 15:20 Blood Pressure 103/55 L 06/18/25 15:20 Pulse Oximetry 99 12/08/25 15:20 Oxygen Delivery Method Room Air 06/18/25 15:20 Course Orders Ordered: Discontinued Medications Aspirin (Aspirin 81 Mg Chew Tab) 324 mg PO NOW ONE Stop: 06/18/25 15:38 Last Admin: 06/18/25 18:35 Dose: Not Given Documented By: JOSSE MDM - Weakness Lab Data 06/18/25 16:55 06/18/25 16:55 Labs: Lab Results 06/18/25 06/18/25 Range/Units 15:16 16:55 WBC 5.8 (4.5-11.0) X10^3/uL RBC 4.57 (4.5-5.9) X10^6/uL Hgb 13.0 L (13.5-17.5) g/dL Hct 39.6 L (41-53) % MCV 86.7 (80-100) fL MCH 28.5 (26-34) PG MCHC 32.8 (30-36) % RDW 16.6 H (11.6-14.8) % Plt Count 216 (150-400) X10^3/uL Neut % (Auto) 67.6 (50-75) % Lymph % (Auto) 19.4 L (25-40) % Leon % (Auto) 10.8 (3-14) % Eos % (Auto) 1.3 L (2-4) % Baso % (Auto) 0.9 (0-2) % Neut # (Auto) 3900 (7346-5968) /uL Lymph # (Auto) 1100 (8608-1537) /uL Leon # (Auto) 600 (0-900) /uL Eos # (Auto) 100 (0-450) /uL Baso # (Auto) 100 (0-100) /uL PT 10.3 (9.4-12.5) SECONDS INR 0.9 (0.9-1.3) APTT 31 (25.1-36.5) SECONDS Sodium 132 L (137-145) mmol/L Potassium 4.4 (3.4-5.1) mmol/L Chloride 96 L (98-107) mmol/L Carbon Dioxide 27 (22-32) mmol/L BUN 19 (9-20) mg/dL Creatinine 1.18 (0.66-1.25) mg/dL Estimated GFR > 60 (>60) mL/min BUN/Creatinine Ratio 16.1 (6-22) Glucose 118 H (70-99) mg/dL Calcium 9.1 (8.4-10.2) mg/dL Magnesium 2.3 (1.6-2.3) mg/dL Total Bilirubin 0.8 (0.2-1.3) mg/dL AST 32 (17-59) IU/L ALT 19 (<50) IU/L Alkaline Phosphatase 88 (38-126) U/L Total Creatine Kinase 62 (55-170) U/L Troponin I 0.034 (0.01-0.034) ng/mL NT-Pro-B Natriuret Pep 603 H (<450) pg/mL Total Protein 7.7 (6.3-8.2) g/dL Albumin 4.7 (3.5-5.0) g/dL Globulin 3.0 (1.7-4.1) g/dL Albumin/Globulin Ratio 1.6 (1.0-2.8) Lipase 232 (23-300) U/L Urine Color Yellow Urine Appearance Clear Urine pH 7.0 (4.5-8.0) Ur Specific [place] 1.010 (1.000-1.035) Urine Protein Negative (Negative) Urine Glucose (UA) 2+ H (Negative) g/dL Urine Ketones Negative (NEGATIVE) Urine Occult Blood Negative (Negative) Urine Nitrate Negative (Negative) Urine Bilirubin Negative (NEGATIVE) Urine Urobilinogen 0.2 (0.2) E.U./dL Ur Leukocyte Esterase Negative (NEGATIVE) Urine RBC None seen (0-5/HPF) Urine WBC 0-1/hpf (0-5/HPF) Ur Squamous Epith Cells None seen (0-5/HPF) Urine Bacteria None seen (None) Urine Yeast 0-1/hpf (None) Ur Culture Indicated? Cult not indicated Vol Urine Centrifuged 10ml (spun) MDM Narrative Medical decision making narrative: 84-year-old male with past medical history BPH, asthma, congestive heart failure, diabetes, CAD presents to the ED with 2 falls about 4 days prior to arrival. Cardiac workup, UA obtained. Chest X-ray shows cardiomegaly, bibasilar atelectasis. No pleural effusions or pneumothorax. EKG without acute findings. Labs within normal limits. UA without UTI. CT head and CT C-spine without acute findings. No organic cause of patient's symptoms identified. Discussed findings with patient and patient's . Recommend continuing good hydration and fall precautions. Recommend follow-up with PCP as soon as possible. ED return precautions discussed with patient and patient's . They verbalized understanding. Medical records reviewed: Yes Discharge Plan Departure Patient Disposition: Home Clinical Impression: Weakness generalized Instructions: DI for Fatigue, How to Prevent Falls Activity Restrictions/Additional Instructions: You were evaluated in the emergency department today for falls and feeling fatigued. Your labs, EKG, CT scans, urine were normal. It is unclear why you are feeling fatigued. please make sure that you are drinking enough water since dehydration can make you tired as well. Please follow-up with your primary care doctor as soon as possible for further evaluation. Return to the ED if you have worsening symptoms, chest pain, shortness of breath. Prescriptions: No Action atorvastatin 40 mg tablet 40 mg PO DAILY Qty: 20 0RF finasteride 5 mg tablet 5 mg PO DAILY Qty: 90 1RF metformin 500 mg tablet 500 mg PO BIDWMEAL Qty: 180 3RF allopurinol 100 mg tablet 100 mg PO DAILY Qty: 90 3RF Centrum Silver Men [id number] mcg tablet 1 tab PO DAILY ascorbic acid (vitamin C) 1,000 mg tablet 1 g PO DAILY cholecalciferol (vitamin D3) 125 mcg (5,000 unit) capsule 125 mcg PO DAILY turmeric root extract 500 mg capsule 500 mg PO DAILY magnesium oxide 400 mg magnesium tablet 400 mg PO DAILY Jardiance 10 mg tablet 10 mg PO DAILY cranberry extract 650 mg capsule 650 mg PO DAILY Rx Instructions: administer with a meal biodymaix 1 cap PO DAILY alfuzosin 10 mg tablet extended release 24 hr 10 mg PO DAILY Rx Instructions: administer after the same meal each day spironolactone 25 mg tablet 12.5 mg PO DAILY metoprolol succinate 50 mg tablet extended release 24 hr 50 mg PO DAILY Entresto 24-26 mg tablet 1 tab PO BID furosemide [Lasix] 40 mg tablet 20 mg PO DAILY Rx Instructions: Take 20mg PO Daily for bilateral LE Edema. Can increase to 40mg PRN when swelling increases. Osteo Bi-Flex Triple Strength 750 mg-644 mg- 30 mg-1 mg tablet 1 tab PO BID Referrals: Miya Hernandez DO [Primary Care Provider, Family Practice] Stand Alone Forms: Patient Portal/API
== END 2025-06-18 18:45 | disposition home or self-care (01) ==
PROVIDERS: Emergency Medicine; Emergency Provider Student in an Organized Health Care Education/Training Program; PCP Family Medicine
DX: R53.1 Weakness (principal); R29.6 Repeated falls; I51.7 Cardiomegaly; I25.10 Atherosclerotic heart disease of native coronary artery without angina pectoris; I50.9 Heart failure, unspecified; R25.1 Tremor, unspecified; Z87.891 Personal history of nicotine dependence
CPT/HCPCS: 36415; 70450; 71045; 72125; 80053; 81001; 82550; 83690; 83735; 83880; 84484; 85025; 85610; 85730; 99283; 99284

== ENCOUNTER → 2025-06-28 16:17 | Outpatient (CLI) | payer MEDICARE, SELFPAY ==
[2024-03-12 02:54] VITALS: BMI 33.3
--- NOTE | 2025-06-28 16:21 | DI.RAD.S_ITS ---
PROCEDURE: XR LUMBAR SPINE 2-3V INDICATIONS: lower extremity weakness TECHNIQUE: 3 views of the lumbar spine were acquired. COMPARISON: None. FINDINGS: Bones: 5 [id number] vertebrae are present. Grade 1 retrolisthesis of L3 on L4, L2 on L3. No vertebral body compression fractures. No suspicious bony lesions. Moderate to severe, multilevel degenerative disc disease and diffuse facet arthrosis. Opposing endplate sclerosis of the lower lumbar spine. Soft tissues: Overlying bowel gas pattern is normal. No suspicious soft tissue calcifications. IMPRESSION: Moderate to severe, multilevel degenerative disc disease and diffuse facet arthrosis. Dictated by: Donnie Biswas M.D. on 06/29/2025 at 12:38 Approved by: Donnie Biswas M.D. on 06/29/2025 at 12:39
== END ==
PROVIDERS: PCP Family Medicine; Referring Provider Family Medicine; Visit Provider Family Medicine
DX: M51.369 Other intervertebral disc degeneration, lumbar region without mention of lumbar back pain or lower extremity pain (principal); M47.816 Spondylosis without myelopathy or radiculopathy, lumbar region; R29.898 Other symptoms and signs involving the musculoskeletal system; R53.1 Weakness
CPT/HCPCS: 72100